=== PATIENT | male | born 1950 | race Caucasian/White ===

== ENCOUNTER 2017-09-25 12:00 | Outpatient (RCR) | payer OTHER, MEDICARE, SELFPAY ==
--- NOTE | 2017-09-08 13:54 | HP.PTEVAL_ITS ---
Patient's Visit Information LELE HILARIO is a 67 year old M referred to Physical Therapy by abiel Acosta Dr. with a diagnosis of disc displacement of the lumbar spine and sprain of cervical spine. Date of Evaluation: 09/03/17 Physical Therapist: Niles Adhikari - Visit Plan Frequency: 2-3x /Week Duration: 8 weeks Plan: Start with flexed based exercises, neutral spine core strengthening, hip strengthening, gait progression. May use lossings traction and/or IFC/ice as needed for pain contro. - Subjective Subjective: Pt. is here today for his initial evaluation with diagnosis of disc displacement of the lumbar spine and sprain of cervical spine. He reports his symptoms started in . He had a lamenectomy on his lumbar spine of that year. He has been seeing pain management to keep his symptoms at bay. He also reports that he is awaiting approval for lumbar nerve ablasion. Over the last 6 months he has noted a marked increase in pain and decreased functional mobility. He was previously walking ~100 to 150' with FWW, but now is only walking ~15'. He reports increased pain in bilateral posterior legs with standing and walking. Increased pain with walking, standing, prolonged sitting , traveling. Decreased pain- changing positioning. He is able to fall asleep without issues, but does have LE muscle cramping that wakes him up at night. He reports he is currently off his pain medications because it was not helping. He has constant pain in his lumbar spine with radiating pain down BLEs with standing and walking. He has been off work since his initial injury. He denies N /T in either LE and has no changes in B/B. Pt. is hopeful to reduce symptoms in order to increase ability to ambulate over larger distances reducing stress applied to family with caregiving. - Objective POSTURE: Pt. is over wt., pt. has general flexed posture that worsens in stance. Pt. has normal iliac crest heights, reduced lumbar lordosis. Pt. has wide CAMELIA in stance and heavily uses AD, but was able to stand with out AD for brief periods of time. PALPATION: Pt. of lumbar erector spine, mild increase in bilateral sides. Pt. has no pain with palpation of bilateral hips. Pt. has no pain at iliac crests. NEUROLOGICAL: Pt. has normal sensation to light and sharp touch of bilateral LEs. Pt. has 1+ bilateral achilles and patellar DTR bilaterally. Pt. has limited ability to rise on his toes and heels with signs of weakness. ROM: Pt. has normal knee and ankle ROM bilaterally. Pt. has tight HS bilaterally, tight hip flexors. Pt. has normal hip ROM otherwise. LUMBAR SPINE: flexion min loss increase NW, ext mod/max loss increase, SB min loss bilat increase NW, rotation min/mod loss bilat increase NW. MMT- RLE- ankle 4/ 5 throughout; knee- ext 4/5, flexion 4/5; hip- flexion 4-/5, abd 4/5, ext 4/5. LLE- ankle 4/5 throughout; knee- ext 4+/5, flexion 4/5; hip- flexion 4-/5, abd 4 -/5, ext 4-/5. Core strength- poor. GAIT: Pt. ambulated with FWW 17ft. CHELA. He has heavy use of AD, decreased step length, fwrd flexed posture, increased postural sway bilaterally. - Special Tests L/S Slump test left side: Positive L/S Slump test right side: Positive L/S Left Straight Leg Raise: Positive L/S Right Straight Leg Raise: Positive Lumbar Standing: Flexion - Mechanical Response: No effect Lumbar Standing: Flexion - Symptoms During Testing: Increases Lumbar Standing: Flexion - Symptoms After Testing: No worse Lumbar Standing: Extension - Mechanical Response: No effect Lumbar Standing: Extension - Symptoms During Testing: Peripheralizing Lumbar Standing: Extension - Symptoms After Testing: No worse Lumbar Standing: Right Side Glides - Mechanical Response: No effect Lumbar Standing: Right Side [place] - Symptoms During Testing: Increases Lumbar Standing: Right Side [place] - Symptoms After Testing: No worse Lumbar Standing: Left Side [place] - Mechanical Response: No effect Lumbar Standing: Left Side [place] - Symptoms During Testing: Increases Lumbar Standing: Left Side [place] - Symptoms After Testing: No worse Lumbar Lying: Flexion - Mechanical Response: No effect Lumbar Lying: Flexion - Symptoms During Testing: Decreases Lumbar Lying: Flexion - Symptoms After Testing: No better Lumbar Static: Slouched Sit - Mechanical Response: No effect Lumbar Static: Slouched Sit - Symptoms During Testing: No effect Lumbar Static: Slouched Sit - Symptoms After Testing: No effect Lumbar Static: Sitting Erect - Mechanical Response: No effect Lumbar Static: Sitting Erect - Symptoms During Testing: No effect Lumbar Static: Sitting Erect - Symptoms After Testing: No effect - Goals Goal 1:: Pt. to be I with HEP. Goal Time Frame: 6-8 Weeks Goal 2:: Pt. to have increased HS and hip flexor length by 10deg/ea. bilaterally allowing for neutral pelvic positioning. Goal Time Frame: 6-8 Weeks Goal 3:: Pt. to have decreased lumbar spine and posterior LE pain by 50% allowing for increased functional mobility. Goal Time Frame: 6-8 Weeks Goal 4:: Pt. to ambulate >150ft with FWW CHELA allowing for increased independence in home and community. Goal Time Frame: 6-8 Weeks Goal 5:: Pt. to sleep throughout the night with 0-2/10 pain allowing for increased quality of life. Goal Time Frame: 6-8 Weeks - Rehabilitation Potential Physical Therapy Diagnosis: Pt. has signs and symptoms consistent with lumbar spine pain radiating down his B lower extremities. He has symptoms suggesting possibly lumbar stenosis. He has overall core and BLE weakness and overall decreased tolerance to functional mobility. Rehabilitation Potential: Fair - Anticipated Interventions Patient/Client Instruction: Educate patient on: Condition, Plan of Care, Risk Factors, Benefits of Fitness Program For the Purpose of:: To improve decision making, To facilitate caregiver knowledge, To improve self management, To prevent re-injury, To improve ability to perform tasks related to life management, To improve tolerance to ADL's Therapeutic Exercise to Include: Strength training, Power training, Endurance training, Balance training, Body mechanics, Postural training, Flexibilty training, Gait and locomotor training, Passive ROM, Active ROM, Dynamic Lumbar Stabilization, Suze Exercises For the Purpose of:: To decrease pain, To increase ROM, To improve nutrient delivery to tissue, To increase oxygenation perfusion, To improve muscle performance and motor function, To improve ability to perform ADL's, To increase tolerance to activity/condition/position, To improve performance and independence with ADL's, To improve gait and locomotor functions, To improve health of tissue, To decrease soft tissue restriction, To increase flexibility/ ROM, To improve endurance IF ES: Yes Cryotherapy (ice pack, ice massage): Yes Thermo therapy (hot pack): Yes Ultrasound (thermal/non thermal): Yes For the Purpose of:: To decrease pain, To decrease swelling/inflammation, To increase ROM Thank you for the opportunity to evaluate your patient. For Medicare and Medicare HMO plans, please review the plan of care and approve it. It will need to be FAXED BACK to us at [phone] for Medicare purposes. Please let me know if there are questions or concerns regarding this plan of care. Physician Signature: Date:
--- NOTE | 2017-12-02 14:59 | HP.PTDCNRP_ITS ---
HP - Discharge Summary (1) - Patient Information LELE HILARIO was seen in my office for initial evaluation on 09/03/17. The following Plan of Care was established for this patient: Initial Frequency: 2-3x /Week Initial Duration: 8 weeks - Anticipated Interventions Patient/Client Instruction: Educate patient on: Condition, Plan of Care, Risk Factors, Benefits of Fitness Program For the Purpose of:: To improve decision making, To facilitate caregiver knowledge, To improve self management, To prevent re-injury, To improve ability to perform tasks related to life management, To improve tolerance to ADL's Therapeutic Exercise to Include: Strength training, Power training, Endurance training, Balance training, Body mechanics, Postural training, Flexibilty training, Gait and locomotor training, Passive ROM, Active ROM, Dynamic Lumbar Stabilization, Suze Exercises For the Purpose of:: To decrease pain, To increase ROM, To improve nutrient delivery to tissue, To increase oxygenation perfusion, To improve muscle performance and motor function, To improve ability to perform ADL's, To increase tolerance to activity/condition/position, To improve performance and independence with ADL's, To improve gait and locomotor functions, To improve health of tissue, To decrease soft tissue restriction, To increase flexibility/ ROM, To improve endurance IF ES: Yes Cryotherapy (ice pack, ice massage): Yes Thermo therapy (hot pack): Yes Ultrasound (thermal/non thermal): Yes For the Purpose of:: To decrease pain, To decrease swelling/inflammation, To increase ROM This patient was last seen in our office 10/09/17. Pertinent comments regarding their Physical therapy will appear below: Pt. was seen for his low back pain. Pt. has not been back to PT in ~ 2 months and will be DC from PT at this point in time. At this point I will be discontinuing this patient from physical therapy. I would be happy to see this patient again in the future if found appropriate by the physician. Thank you! Niles Adhikari
== END 2017-09-25 19:00 | disposition home or self-care (01) ==
LOC: PT 12:00
PROVIDERS: Family Provider Family Medicine; PCP Family Medicine
DX: M51.26 Other intervertebral disc displacement, lumbar region (principal); S13.4XXD Sprain of ligaments of cervical spine, subsequent encounter
CPT/HCPCS: 97014; 97110; 97162; G0283

== ENCOUNTER 2017-12-04 12:31 | Outpatient (RCR) | payer MEDICARE, SELFPAY | END 2017-12-04 19:00 | disposition home or self-care (01) | LOC: PT 12:31 | PROVIDERS: Family Provider Family Medicine; PCP Family Medicine | DX: S13.4XXD Sprain of ligaments of cervical spine, subsequent encounter (principal) ==

== ENCOUNTER 2018-07-05 15:23 | Observation (INO) | payer MEDICARE, SELFPAY ==
[2018-07-05] VITALS (8 sets, daily range): BP systolic 116–169; BP diastolic 66–103; PULSE 90–110; RESP 16–27; TEMP 36.6; O2SAT 93–96; BMI 41.3; BMI 41.0
--- NOTE | 2018-07-05 15:38 | RAD_ITS ---
STUDY: X-RAY CHEST REASON FOR EXAM: Male, 67 years old. Chest pain TECHNIQUE: A single frontal view of the chest was obtained. COMPARISON: August 27, 2015 FINDINGS: The lungs are underaerated. There are minimal increased markings in both lung bases. There is no demonstrated pleural abnormality. The cardiac silhouette is normal in size. The mediastinum and hilar regions are unremarkable. Normal visualized pulmonary arteries. Normal visualized aortic arch and descending thoracic aorta. There are diffuse degenerative changes of the visualized spine. The visualized ribs, clavicles, and shoulders are unremarkable. There is no demonstrated abnormality of the visualized upper abdomen. RAD/Chest 1 View (Portable) IMPRESSION: No acute cardiopulmonary abnormalities. There is minimal bibasilar atelectasis. Electronically Signed: Jacqui Courtney MD at 16:46 EST Tel Direct: [phone], Service support ,
--- NOTE | 2018-07-05 15:38 | EKG12_ITS ---
Test Reason : CP Blood Pressure : / mmHG Vent. Rate : 106 BPM Atrial Rate : 106 BPM P-R Int : 186 ms QRS Dur : 082 ms QT Int : 320 ms P-R-T Axes : 035 061 047 degrees QTc Int : 425 ms Sinus tachycardia with frequent Premature ventricular complexes Otherwise normal ECG Confirmed by DAYAN HESTER, AMMON ([id number]), development editor FRANCISCO WISDOM ([id number] on 07/08/2018 1:08:14 PM Referred By: COLLIN/PEARL Confirmed By:AMMON HANLEY MD
--- NOTE | 2018-07-05 15:43 | ED.VISSUMM ---
- ER Visit Summary Date of Service: 07/05/18 Chief Complaint: Chest pain History of Present Illness: The patient is a 67 M who developed chest pain after drinking water last night, it lasted about half an hour and subsided. He try to drink water again today and he developed retrosternal chest pain again. No radiation to arms or back. He has a cough which is not productive. He has no shortness of breath. No recent fever or chills. Physical Examination: Not appear in acute distress. Begin in full sentences Slightly dry mucous membranes, no obvious facial deformity No C-spine tenderness supple neck. Regular rhythm, tachycardic at 105, without any obvious murmurs Clear lungs bilaterally speaking in full sentences without any obvious respiratory distress Abdomen soft and nontender no guarding or rebound Moves all extremities without any difficulty or pain. Skin does not show any obvious rashes or lesions, no trauma. Alert oriented ?3 with no gross focal deficit Emergency Department Course and Treatment: Has an unremarkable troponin, EKG is nonspecific, his heart score is a 4 therefore I am worried about a possible cardiac etiology. I will admit him to the hospital for further cardiac workup. Admit in stable condition Impression: Chest pain This note was generated with [employer] dictation software. It may contain incorrect words, spelling, and punctuation that were not noted in review of the chart prior to signing ED Disposition - Plan for ED Patient: Chief Complaint: Chest Pain Referrals: Omar Triplett MD [Primary Care Provider] -
[2018-07-05 15:54] LABS: Absolute Lymphocyte Count 1.88 X10^3/ul (0.83-4.51); Absolute Neutrophil Count 8.1 X10^3/uL (2.0-7.7); Basophil# 0.01 X10^3/uL; Basophil% 0.1 % (0-1); Eosinophil# 0.06 X10^3/uL; Eosinophils% 0.6 % (0-5); Hematocrit 50.6 % (40-54); Hemoglobin 16.9 g/dl (13.0-16.5); Lymphocyte # 1.88 X10^3/ul (4.0); Lymphocyte % 17.4 % (19-41); Mean Corp Hgb Conc 33.4 g/gl (32-36); Mean Corpuscular Hgb 30.6 pg (27.0-32.0); Mean Corpuscular Volume 91.7 fL (80-94); Monocyte# 0.72 X10^3/uL; Monocyte% 6.7 % (0-10); Neutrophil # 8.11 X10^3/uL (2.7-7.7); Neutrophil % 75.1 % (47-70); Platelet Count 366 K/mm3 (150-450); RBC Distribution Width SD 46.8 fl (35.1-43.9); Red Blood Count 5.52 M/mm3 (4.6-6.2); White Blood Count 10.8 K/mm3 (4.4-11.0)
[2018-07-05 15:55] LABS: POSITIVE COUNT NO; POSITIVE DIFFERENTIAL NO; POSITIVE MORPHOLOGY NO
[2018-07-05] MEDS: Mag Hydrox/Al Hydrox/Simeth 30 ML UDC PO (16:12)
[2018-07-05] MEDS: Ondansetron 4 MG/2 ML Vial IV (16:21)
[2018-07-05] MEDS: 0.9% Normal Saline 1,000 ML 1000 ML IV (16:21)
[2018-07-05 16:27] LABS: AST(SGOT) 22 U/L (15-37); Alanine Aminotransfer ALT/SGPT 37 U/L (16-61); Albumin, Serum 3.5 g/dL (3.2-5.0); Alkaline Phosphatase 88 U/L (45-117); Anion Gap 10 (5-15); BUN 11 mg/dL (7-18); BUN/Creat Ratio 13.6 RATIO (10-20); Bilirubin, Direct 0.15 mg/dL (0.00-0.30); Calcium,Total 9.1 mg/dL (8.5-10.1); Chloride 104 mmol/L (98-107); Creatinine, Serum 0.81 mg/dL (0.70-1.30); EST Glomerular Filtration Rate 101 mL/min (>60); Est Glom Filt Rate - Afr Amer 122 mL/min (>60); Globulin 4.2 g/dL (2.2-4.2); Glucose 117 mg/dL (74-106); Lipase 103 U/L (73-393); Potassium 3.9 mmol/L (3.5-5.1); Protein, Total 7.7 g/dL (6.4-8.2); Sodium Level 139 mmol/L (136-145)
[2018-07-05 16:55] LABS: BNP,B-Type NATRIURETIC PEPTIDE 11.1 pg/mL (0-100)
--- NOTE | 2018-07-05 17:21 | PCM.HP.STD ---
<Gilbert Limon - Last Filed: 07/05/18 17:21> Problem List (1) Chest pain Status: Acute (2) History of stroke Status: Chronic (3) Chronic back pain Status: Chronic Comment: after cholecyste (4) Degenerative disc disease Status: Chronic (5) Hx pulmonary embolism Status: Chronic History of Present Illness Date of Admission: 07/05/18 Chief Complaint: chest pain The patient is a 67 year old M with pmhx of CVA with no residual deficits, not on statin or asa, hx of BPH, hx of post op PEs s/p IVC placement and removal, chronic back pain, who presents to the ER with c/o chest pain that began yesterday at about 7pm. He states that he was sitting down and drank water. After drinking water he developed midsternal chest discomfort. It was a 5/10 in severity and aching. He had no radiation. He had no SOB, dizziness/LH, or diaphoresis, nausea, and was not better or worse with exertion. It went away spontaneously at about 11pm. Today he was sitting down, drank water again, and developed the same pain. He came to the ER and it went away spontaneously without nitro. He states it may be a 1/10 currently. It hurts when he pushes on his sternum. ED cardiac workup was negative. He has a stress test maybe 8-9 years ago that was negative, he cannot walk on a treadmill 2/2 bad back. [] Past Medical History Past Medical History (Chronic Problems): Chronic Problems History of stroke (Chronic) Obstructive sleep apnea (Chronic) Hx pulmonary embolism (Chronic) Degenerative disc disease (Chronic) Chronic back pain (Chronic) after cholecyste History of cardiac catheterization (Chronic) 2004 Obesity (Chronic) Allergies acetaminophen [From Percocet] Adverse Reaction (Verified 07/05/18 15:38) Other HALLUCINATIONS oxycodone HCl [From Percocet] Adverse Reaction (Verified 07/05/18 15:38) Other HALLUCINATIONS Home Medications: Ambulatory Orders Medication Instructions Recorded Tamsulosin HCl [Flomax] 0.4 mg PO BID 08/27/15 Acetaminophen with Codeine 1 tab PO DAILY PRN 07/05/18 [Acetaminophen-Cod #3 Tablet] Baclofen 10 mg PO TID 07/05/18 Surgical History: cholecystectomy, tonsillectomy, - - Lumbar surgery secondary to disc impingement, IVC filter placement, tooth extraction Psychiatric History: No pertinent psych hx Lives: Spouse/ Significant Other Smoking Status: Former smoker Alcohol: None Drugs: None - *Family History Maternal History Items: Stroke Paternal History Items: No pertinent history Review of Systems Constitutional: Denies: Chills, Fever, Weight Change HEENT: Denies: Head Aches, Sinus Congestion, Sinus Drainage Cardiovascular: Reports: Chest Pain. Denies: Chest Pressure, Chest Tightness, Heaviness, Light Headedness, Palpitations, Paroxysmal Noc. Dyspnea, Syncope Respiratory: Denies: Cough, Shortness of Breath, Shortness of breath at rest, Sputum production Gastrointestinal: Denies: Abdominal Pain, Nausea, Vomiting Genitourinary: Denies: Dysuria Musculoskeletal: Denies: Joint Pain, Joint Tenderness Skin: Denies: Rash, Wounds Neurological: Denies: Numbness, Tingling, Focal weakness Psychiatric: Denies: Anxiety, Depression, Homicidal Ideations, Suicidal Ideations Hematologic/ Lymphatic: Denies: Easy Bruising, Easy Bleeding VTE Information - Inpt Only VTE Present on Admission: No VTE Mechan Device Prophylaxis: None VTE Pharm Prophylaxis ordered?: Yes Patient Problems: Active and Suspected Problems Chest pain (Acute) - Physical Exam General: Alert, Oriented x3, Cooperative HEENT: Atraumatic, PERRLA, EOMI, Normocephalic Neck: Supple, No JVD, Negative Carotid Bruits Lungs: Clear to auscultation, Normal air movement Cardiovascular: Regular rate, No murmurs Abdomen: Bowel Sounds Present, Soft, Non Tender Extremities: No edema, Capillary Refill Less than 3 Seconds Skin: No rashes, No breakdown Musculoskeletal: No Tenderness to Palpation of Joints or Extremities, - - chest pain reproducible with sternal palp. Neurological: Cranial nerves II-XII grossly intact Psych/Mental Status: Normal Affect, Appropriate Vital Signs Temp Pulse Resp BP Pulse Ox 97.8 F 93 16 148/88 H 96 07/05/18 15:24 07/05/18 17:01 07/05/18 17:01 07/05/18 17:01 07/05/18 17:01 Oxygen Delivery Method Room Air Weight: 279 lb 12.266 oz Body Mass Index (BMI) 41.3 Finger Stick Blood Glucose 99 Laboratory Tests Past 24 Hrs 07/05/18 07/05/18 07/05/18 15:40 15:40 15:40 WBC 10.8 RBC 5.52 Hgb 16.9 H Hct 50.6 MCV 91.7 MCH 30.6 MCHC 33.4 RDW 14.0 RDW Differential 46.8 H Plt Count 366 MPV 10.0 Immature Gran % (Auto) 0.100 Neut % (Auto) 75.1 H Lymph % (Auto) 17.4 L [place] % (Auto) 6.7 Eos % (Auto) 0.6 Baso % (Auto) 0.1 Absolute Neuts (auto) 8.1 H Absolute Lymphs (auto) 1.88 Total Counted Not Reportable Sodium 139 Potassium 3.9 Chloride 104 Carbon Dioxide 25.0 Anion Gap 10 BUN 11 Creatinine 0.81 Estim Creat Clear Calc 88.50 Est GFR (MDRD) Af Amer 122 Est GFR (MDRD) Non-Af 101 BUN/Creatinine Ratio 13.6 Glucose 117 H Calcium 9.1 Total Bilirubin Direct Bilirubin AST ALT Alkaline Phosphatase Troponin I < 0.015 B-Natriuretic Peptide 11.1 Total Protein Albumin Globulin Lipase 07/05/18 07/05/18 15:40 15:40 WBC RBC Hgb Hct MCV MCH MCHC RDW RDW Differential Plt Count MPV Immature Gran % (Auto) Neut % (Auto) Lymph % (Auto) [place] % (Auto) Eos % (Auto) Baso % (Auto) Absolute Neuts (auto) Absolute Lymphs (auto) Total Counted Sodium Potassium Chloride Carbon Dioxide Anion Gap BUN Creatinine Estim Creat Clear Calc Est GFR (MDRD) Af Amer Est GFR (MDRD) Non-Af BUN/Creatinine Ratio Glucose Calcium Total Bilirubin 0.40 Direct Bilirubin 0.15 AST 22 ALT 37 Alkaline Phosphatase 88 Troponin I B-Natriuretic Peptide Total Protein 7.7 Albumin 3.5 Globulin 4.2 Lipase 103 Assessment/Plan All Active Problems Chest pain (Acute) Left arm numbness (Acute) Left arm weakness (Acute) 1. Chest pain - atypical - risk factors include age, morbid obesity, hx of stroke, former smoker, HTN on arrival. EKG sinus tachy with PVC. Trop neg. CXR neg. Trend enzymes, repeat AM EKG, Stress test in AM, monitor on tele. BNP negative. Pain is reproducible with palpation. 2. HTN in ER - trending down. 3. Morbid obesity - dietary eval 4. Hx CVA - no residual deficits - not on asa/statin, unclear why. 5. Hx PE - occurred post op open rafa, had temporary IVC filter that has since been removed. 6. DDD s/p prior fusion - will not be able to walk on treadmill. On baclofen chronically. 7. BPH - flomax DVT ppx: Lovenox This patient was seen by Gilbert Limon PA-C under the supervision of Dr. Rachel. <Marlen Rachel - Last Filed: 07/05/18 18:18> History of Present Illness The patient is a 67 year old M [] Past Medical History Allergies acetaminophen [From Percocet] Adverse Reaction (Verified 07/05/18 15:38) Other HALLUCINATIONS oxycodone HCl [From Percocet] Adverse Reaction (Verified 07/05/18 15:38) Other HALLUCINATIONS - Physical Exam Vital Signs Temp Pulse Resp BP Pulse Ox 97.8 F 96 24 H 163/94 H 95 07/05/18 15:24 07/05/18 18:00 07/05/18 18:00 07/05/18 18:00 07/05/18 18:00 Oxygen Delivery Method Room Air Weight: 126.9 kg Body Mass Index (BMI) 41.3 Finger Stick Blood Glucose 99 Laboratory Tests Past 24 Hrs 07/05/18 07/05/18 07/05/18 15:40 15:40 15:40 WBC 10.8 RBC 5.52 Hgb 16.9 H Hct 50.6 MCV 91.7 MCH 30.6 MCHC 33.4 RDW 14.0 RDW Differential 46.8 H Plt Count 366 MPV 10.0 Immature Gran % (Auto) 0.100 Neut % (Auto) 75.1 H Lymph % (Auto) 17.4 L [place] % (Auto) 6.7 Eos % (Auto) 0.6 Baso % (Auto) 0.1 Absolute Neuts (auto) 8.1 H Absolute Lymphs (auto) 1.88 Total Counted Not Reportable Sodium 139 Potassium 3.9 Chloride 104 Carbon Dioxide 25.0 Anion Gap 10 BUN 11 Creatinine 0.81 Estim Creat Clear Calc 88.50 Est GFR (MDRD) Af Amer 122 Est GFR (MDRD) Non-Af 101 BUN/Creatinine Ratio 13.6 Glucose 117 H Calcium 9.1 Total Bilirubin Direct Bilirubin AST ALT Alkaline Phosphatase Troponin I < 0.015 B-Natriuretic Peptide 11.1 Total Protein Albumin Globulin Lipase 07/05/18 07/05/18 15:40 15:40 WBC RBC Hgb Hct MCV MCH MCHC RDW RDW Differential Plt Count MPV Immature Gran % (Auto) Neut % (Auto) Lymph % (Auto) [place] % (Auto) Eos % (Auto) Baso % (Auto) Absolute Neuts (auto) Absolute Lymphs (auto) Total Counted Sodium Potassium Chloride Carbon Dioxide Anion Gap BUN Creatinine Estim Creat Clear Calc Est GFR (MDRD) Af Amer Est GFR (MDRD) Non-Af BUN/Creatinine Ratio Glucose Calcium Total Bilirubin 0.40 Direct Bilirubin 0.15 AST 22 ALT 37 Alkaline Phosphatase 88 Troponin I B-Natriuretic Peptide Total Protein 7.7 Albumin 3.5 Globulin 4.2 Lipase 103 Assessment/Plan This patient was seen in conjunction with DAVION Thorne. I have independently interviewed and examined the patient and reviewed pertinent historical, laboratory, and other data. Please refer to DAVION Thorne note for his patient's presentation, findings, and recommendations. I have reviewed and his note and concur with his documentation Chief complaint: Chest pain - 2 days 67-year-old man, with past medical history of CVA(x2), with no residual paresis, chronic back pain, history of PE, history of IVC, status post removal, who comes in complaints of chest pain that started yesterday. Patient is usually not active; he is limited by his chronic back pain. He had a substernal chest pain that started yesterday at 7 PM, rated 7/10, not associated with diaphoresis or dizziness or nausea or vomiting. Lasted for a few minutes and went away. Recurred again at 11 PM and this morning. PMHX: As above in the HPI PSHX: Status post cholecystectomy, tonsillectomy, disc surgery, IVC filter placement and removal FHx: Mother had a stroke SHx: Eyes any alcohol, smoking or use of illicit drugs ROS: 11 point review of systems was negative Physical Exam: Gen: Morbidly obese, AO x3, not pale, not jaundiced, drainage HEENT: Traumatic, EOMI CVS:HS I +II, regular, no murmurs RESP: Clinically clear to auscultation GI: BS present and normal, cholecystectomy scar in the right upper quadrant, obese anterior abdominal wall, soft, nontender, no palpable organs EXT:No edema HEALTH AND SAFETY COORDINATOR:CN II-XII intact, power is 5/5 in all extremities, muscle tone Labs: CBC is unremarkable except for elevated hemoglobin of 16.9 BMP is unremarkable Troponins x1 is negative Imaging: Chest x-ray is unremarkable, minimal bibasilar atelectasis ASSESSMENT: 1. Chest pain, atypical 2. Morbid obesity, BMI 41.3 3. Chronic back pain status post spinal fusion 4. History of PE 5. History of CVA 6. BPH Plan: Admit to PCU, monitor on telemetry, trend troponin Aspirin 81mg daily, nitro as needed Lipid profile in a.m. Chemical stress test if troponins are negative Continue rest of home medications -Flomax, baclofen, Tylenol #3 Code Visit OBSV E&M: 04001 Initial observation care L3
--- NOTE | 2018-07-05 19:01 | EKG12_ITS ---
Test Reason : CP Blood Pressure : / mmHG Vent. Rate : 094 BPM Atrial Rate : 094 BPM P-R Int : 206 ms QRS Dur : 090 ms QT Int : 340 ms P-R-T Axes : 045 061 048 degrees QTc Int : 425 ms Normal sinus rhythm Normal ECG When compared with ECG of 05-JUL-2018 15:28, MANUAL COMPARISON REQUIRED, DATA IS UNCONFIRMED Confirmed by DAYAN HESTER, AMMON ([id number]), marketing editor FRANCISCO WISDOM ([id number] on 07/10/2018 1:57:10 PM Referred By: LULU Confirmed By:AMMON HANLEY MD
[2018-07-05] MEDS: Aspirin 81 MG TAB.CHEW PO (20:37)
[2018-07-05] MEDS: Fluticasone 0.05% 1 SPRAY NASAL.SRY 2 SPRAY NASAL (22:12)
[2018-07-05] MEDS: Tamsulosin HCl 0.4 MG Capsule PO (22:12)
[2018-07-05] MEDS: guaiFENesin 1,200 MG Tablet 1200 MG PO (22:12)
[2018-07-06 00:45] VITALS: BP 121/72; PULSE 97; RESP 20; TEMP 36.7; O2SAT 96
[2018-07-06 02:58] VITALS: PULSE 94
[2018-07-06 03:28] VITALS: BP 93/51; PULSE 100; RESP 18; TEMP 36.6; O2SAT 94
[2018-07-06 05:27] LABS: Hematocrit 43.7 % (40-54); Hemoglobin 14.5 g/dl (13.0-16.5); Mean Corp Hgb Conc 33.2 g/gl (32-36); Mean Corpuscular Hgb 30.2 pg (27.0-32.0); Mean Platelet Vol. 9.9 fl (6.2-12.0); Platelet Count 302 K/mm3 (150-450); RBC Distribution Width CV 14.3 % (11.6-14.6); RBC Distribution Width SD 47.1 fl (35.1-43.9); White Blood Count 9.4 K/mm3 (4.4-11.0)
[2018-07-06 05:31] LABS: International Normalized Ratio 1.2; Prothrombin Time (Protime)PT. 15.3 SECONDS (11.7-14.9)
[2018-07-06 05:32] LABS: Partial Thromboplast Time 37.4 Seconds (24.1-36.2)
[2018-07-06 05:38] LABS: Anion Gap 11 (5-15); BUN 12 mg/dL (7-18); BUN/Creat Ratio 20.3 RATIO (10-20); Calcium,Total 8.4 mg/dL (8.5-10.1); Chloride 109 mmol/L (98-107); Cholesterol 145 mg/dL (200); Creatinine, Serum 0.59 mg/dL (0.70-1.30); EST Glomerular Filtration Rate 145 mL/min (>60); Est Glom Filt Rate - Afr Amer 176 mL/min (>60); Estimated Creatinine Clearance 71.68 ml/min; Glucose 103 mg/dL (74-106); High Density Lipoprotein 41 mg/dL; Potassium 4.1 mmol/L (3.5-5.1); Sodium Level 143 mmol/L (136-145); Triglycerides 83 mg/dL; Very Low Density Lipoprotein 17 mg/dL (5-40)
[2018-07-06 05:45] LABS: Scan Indicated on CBC? Y/N NO
--- NOTE | 2018-07-06 05:55 | EKG12_ITS ---
Test Reason : MORNING EKG Blood Pressure : / mmHG Vent. Rate : 096 BPM Atrial Rate : 096 BPM P-R Int : 226 ms QRS Dur : 092 ms QT Int : 344 ms P-R-T Axes : 051 064 059 degrees QTc Int : 434 ms Sinus rhythm with 1st degree A-V block Nonspecific T wave abnormality Abnormal ECG When compared with ECG of 05-JUL-2018 19:00, MANUAL COMPARISON REQUIRED, DATA IS UNCONFIRMED Confirmed by DAYAN HESTER, AMMON ([id number]), proposal editor FRANCISCO WISDOM ([id number]) on 07/10/2018 1:56:46 PM Referred By: LULU Confirmed By:AMMON HANLEY MD
[2018-07-06] MEDS: Aspirin 81 MG TAB.CHEW PO (06:11)
[2018-07-06] MEDS: Baclofen 10 MG Tablet PO (06:11)
[2018-07-06 07:06] VITALS: PULSE 104
[2018-07-06] MEDS: Acetaminophen/Codeine #3 Tablet 1 TABLET PO (08:21)
[2018-07-06] MEDS: Fluticasone 0.05% 1 SPRAY NASAL.SRY 2 SPRAY NASAL (08:23)
[2018-07-06] MEDS: guaiFENesin 1,200 MG Tablet 1200 MG PO (08:23)
[2018-07-06 08:49] VITALS: BP 113/64; PULSE 96; RESP 18; TEMP 36.7; O2SAT 95
--- NOTE | 2018-07-06 12:15 | STRESSREP ---
Stress Test Report Pharmacologic myocardial perfusion stress test. 67-year-old man with a history of chest pain. Stress protocol: Resting EKG demonstrates normal sinus rhythm with a rate of 94 bpm normal intervals are noted resting blood pressure 136/76 mmHg. 0.4 mg of regadenoson was infused per usual protocol followed by rapid intravenous saline flush injection. Continuous EKG monitoring was performed. Patient maintained sinus rhythm throughout the recording with frequent premature ventricular complexes noted. These were asymptomatic. The resting blood pressure is 136/70 6 m of mercury with a final blood pressure 128/70 mmHg. No clinical angina was noted. Myocardial perfusion protocol. 15.0 mCi of technetium 99m sestamibi was injected at rest. 0.4 mg of regadenoson was infused per usual protocol. At peak infusion 45.0 mCi of technetium 99m sestamibi was injected stress images were obtained stress and rest images were reconstructed and compared in the short axis vertical long horizontal long axis. Gated images were also obtained Perfusion SPECT analysis: Review of the stress images demonstrate normal uptake of tracer noted in all areas of the myocardium. The resting images similarly demonstrate normal uptake of tracer noted in all areas of the myocardium. No areas of reversibility are noted suggest ischemia no previous infarct is noted. Gated SPECT analysis: The gated ejection fraction is 70%. Conclusion: Normal pharmacologic myocardial perfusion stress test. Preserved ejection fraction.
--- NOTE | 2018-07-06 12:29 | DCINST_ITS ---
- Discharge Diagnoses Current Active Problems: Current Active and Chronic Problems Chest pain (Acute) History of stroke (Chronic) You will use the following diet at home:: Cardiac Your food should be the consistency of: Regular Your liquids should be the consistency of: Regular/Thin Discharge Activity: Return to Normal Activity Allergies/Adverse Reactions: Allergies acetaminophen [From Percocet] Adverse Reaction (Verified 07/05/18 15:38) Other HALLUCINATIONS oxycodone HCl [From Percocet] Adverse Reaction (Verified 07/05/18 15:38) Other HALLUCINATIONS Medications to take at Discharge Tamsulosin HCl [Flomax] 0.4 mg PO BID 08/27/15 Acetaminophen with Codeine [Acetaminophen-Cod #3 Tablet] 1 tab PO DAILY PRN 07/05/18 Baclofen 10 mg PO TID PRN 07/05/18 Aspirin [Aspirin, Baby] 81 mg PO DAILY@0800 #30 tab.chew 07/06/18 Atorvastatin Calcium 40 mg PO DAILY #30 tab 07/06/18 The following prescriptions were given: Aspirin [Aspirin, Baby] 81 mg PO DAILY@0800 #30 tab.chew Atorvastatin Calcium 40 mg PO DAILY #30 tab Primary Care Physician: Omar Triplett MD [Primary Care Provider] - Please follow up with your Primary Care Physician in: 1-2 weeks Test Results: Test results from this visit will be discussed in further detail at your follow- up appointment, if applicable. Proposed Discharge Date: 07/06/18
--- NOTE | 2018-07-06 12:33 | DS.PCM_ITS ---
<Gilbert Limon - Last Filed: 07/06/18 12:29> Discharge Date and Diagnosis - Problem List Patient Problems: Active and Suspected Problems Chest pain (Acute) Date of Admission: 07/05/18 Date of Discharge: 07/06/18 - Primary Discharge Diagnosis Active and Suspected Problems Chest pain (Acute) - musculoskeletal Hx of CVA BPH Chronic back pain DDD Hx of PE Morbid obesity - Secondary Discharge Diagnosis Chronic Problems History of stroke (Chronic) Obstructive sleep apnea (Chronic) Hx pulmonary embolism (Chronic) Degenerative disc disease (Chronic) Chronic back pain (Chronic) after cholecyste History of cardiac catheterization (Chronic) 2004 Obesity (Chronic) Hospital Course and Treatment Imaging Results: 07/06/18 05:55 Nuclear Stress Test - Chemical [NM] AM (NON MEDS) Conclusion: Normal pharmacologic myocardial perfusion stress test. Preserved ejection fraction. RAD/Chest 1 View (Portable) IMPRESSION: No acute cardiopulmonary abnormalities. There is minimal bibasilar atelectasis. Operations: None Procedures: None Summary of Care Provided: Hospital Course: The patient is a 67 year old M with a pmhx of stroke, chronic back pain, BPH, prior post op PEs, morbid obesity, who presented to the ER with c/o midsternal nonradiating 5/10 aching chest pain that occurred twice over two days both times after sitting down and sipping water. It was worse with pressing on the sternum, nothing made it better. In the ER he had negative EKG, negative troponin, and negative CXR. He was admitted to the PCU for chest pain workup. Enzymes were cycled and remained negative. No events on tele. Stress test the following day was negative. His pain was reproducible with palpation of the sternum and felt to be musculoskeletal. As he had a hx of stroke and was not on aspirin or statin for unknown reasons, he was placed on aspirin and lipitor at discharge. He was advised to follow up with his PCP in 1-2 weeks. This patient was seen by Gilbert Limon PA-C under the supervision of Dr. Rao. [] Patient Problems: Active and Suspected Problems Chest pain (Acute) - Physical Exam General: Alert, Oriented x3, Cooperative HEENT: Atraumatic, PERRLA, EOMI, Normocephalic Neck: Supple, No JVD, Negative Carotid Bruits Lungs: Clear to auscultation, Normal air movement Cardiovascular: Regular rate, No murmurs Abdomen: Bowel Sounds Present, Soft, Non Tender Extremities: No edema, Capillary Refill Less than 3 Seconds Skin: No rashes, No breakdown Musculoskeletal: - - chest pain on palpation of sternum Neurological: Cranial nerves II-XII grossly intact Psych/Mental Status: Normal Affect, Appropriate, Alert and oriented to time, place, person, mood and affect Vital Signs Temp Pulse Resp BP Pulse Ox 98.0 F 96 18 113/64 95 07/06/18 08:49 07/06/18 08:49 07/06/18 08:49 07/06/18 08:49 07/06/18 08:49 Oxygen Delivery Method Room Air Weight: 279 lb 15.793 oz Body Mass Index (BMI) 41.3 Finger Stick Blood Glucose 99 Intake and Output for Last 24 Hours 07/04/18 07/05/18 07/06/18 23:59 23:59 23:59 Intake Total 300 / 300 Output Total 500 / 500 Balance -200 / -200 Laboratory Tests Past 24 Hrs 07/05/18 07/05/18 07/05/18 15:40 15:40 15:40 WBC 10.8 RBC 5.52 Hgb 16.9 H Hct 50.6 MCV 91.7 MCH 30.6 MCHC 33.4 RDW 14.0 RDW Differential 46.8 H Plt Count 366 MPV 10.0 Immature Gran % (Auto) 0.100 Neut % (Auto) 75.1 H Lymph % (Auto) 17.4 L [place] % (Auto) 6.7 Eos % (Auto) 0.6 Baso % (Auto) 0.1 Absolute Neuts (auto) 8.1 H Absolute Lymphs (auto) 1.88 Total Counted Not Reportable PT INR APTT Sodium 139 Potassium 3.9 Chloride 104 Carbon Dioxide 25.0 Anion Gap 10 BUN 11 Creatinine 0.81 Estim Creat Clear Calc 88.50 Est GFR (MDRD) Af Amer 122 Est GFR (MDRD) Non-Af 101 BUN/Creatinine Ratio 13.6 Glucose 117 H Calcium 9.1 Total Bilirubin Direct Bilirubin AST ALT Alkaline Phosphatase Troponin I < 0.015 B-Natriuretic Peptide 11.1 Total Protein Albumin Globulin Triglycerides Cholesterol LDL Cholesterol VLDL Cholesterol HDL Cholesterol Lipase 07/05/18 07/05/18 07/05/18 15:40 15:40 18:53 WBC RBC Hgb Hct MCV MCH MCHC RDW RDW Differential Plt Count MPV Immature Gran % (Auto) Neut % (Auto) Lymph % (Auto) [place] % (Auto) Eos % (Auto) Baso % (Auto) Absolute Neuts (auto) Absolute Lymphs (auto) Total Counted PT INR APTT Sodium Potassium Chloride Carbon Dioxide Anion Gap BUN Creatinine Estim Creat Clear Calc Est GFR (MDRD) Af Amer Est GFR (MDRD) Non-Af BUN/Creatinine Ratio Glucose Calcium Total Bilirubin 0.40 Direct Bilirubin 0.15 AST 22 ALT 37 Alkaline Phosphatase 88 Troponin I < 0.015 B-Natriuretic Peptide Total Protein 7.7 Albumin 3.5 Globulin 4.2 Triglycerides Cholesterol LDL Cholesterol VLDL Cholesterol HDL Cholesterol Lipase 103 07/05/18 07/06/18 07/06/18 21:42 04:54 04:54 WBC RBC Hgb Hct MCV MCH MCHC RDW RDW Differential Plt Count MPV Immature Gran % (Auto) Neut % (Auto) Lymph % (Auto) [place] % (Auto) Eos % (Auto) Baso % (Auto) Absolute Neuts (auto) Absolute Lymphs (auto) Total Counted PT 15.3 H INR 1.2 APTT 37.4 H Sodium 143 Potassium 4.1 Chloride 109 H Carbon Dioxide 23.0 Anion Gap 11 BUN 12 Creatinine 0.59 L Estim Creat Clear Calc 71.68 Est GFR (MDRD) Af Amer 176 Est GFR (MDRD) Non-Af 145 BUN/Creatinine Ratio 20.3 H Glucose 103 Calcium 8.4 L Total Bilirubin Direct Bilirubin AST ALT Alkaline Phosphatase Troponin I < 0.015 B-Natriuretic Peptide Total Protein Albumin Globulin Triglycerides 83 Cholesterol 145 LDL Cholesterol 87 VLDL Cholesterol 17 HDL Cholesterol 41 Lipase 07/06/18 04:54 WBC 9.4 RBC 4.80 Hgb 14.5 Hct 43.7 MCV 91.0 MCH 30.2 MCHC 33.2 RDW 14.3 RDW Differential 47.1 H Plt Count 302 MPV 9.9 Immature Gran % (Auto) Neut % (Auto) Lymph % (Auto) [place] % (Auto) Eos % (Auto) Baso % (Auto) Absolute Neuts (auto) Absolute Lymphs (auto) Total Counted PT INR APTT Sodium Potassium Chloride Carbon Dioxide Anion Gap BUN Creatinine Estim Creat Clear Calc Est GFR (MDRD) Af Amer Est GFR (MDRD) Non-Af BUN/Creatinine Ratio Glucose Calcium Total Bilirubin Direct Bilirubin AST ALT Alkaline Phosphatase Troponin I B-Natriuretic Peptide Total Protein Albumin Globulin Triglycerides Cholesterol LDL Cholesterol VLDL Cholesterol HDL Cholesterol Lipase Discharge Diet: Low fat/ Low Cholesterol, 2000 mg Sodium Diet Discharge Activity: Return to Normal Activity Home Medications: Medications to take at Discharge Tamsulosin HCl [Flomax] 0.4 mg PO BID 08/27/15 Acetaminophen with Codeine [Acetaminophen-Cod #3 Tablet] 1 tab PO DAILY PRN 07/05/18 Baclofen 10 mg PO TID PRN 07/05/18 Aspirin [Aspirin, Baby] 81 mg PO DAILY@0800 #30 tab.chew 07/06/18 Atorvastatin Calcium 40 mg PO DAILY #30 tab 07/06/18 Following Prescrptions Were Given to Patient: Aspirin [Aspirin, Baby] 81 mg PO DAILY@0800 #30 tab.chew Atorvastatin Calcium 40 mg PO DAILY #30 tab Primary Care Physician: Omar Triplett MD [Primary Care Provider] - Please follow up with your Primary Care Physician in: 1-2 weeks Disposition: Home Minutes spent on discharge:: 35 Patient Condition:: Stable Medical Necessity - Tobacco Use Smoking Status: Former smoker Meaningful Use Info Meaningful Use Diagnoses (Choose all that apply): None applicable <Nicola Rao - Last Filed: 07/06/18 12:42> Discharge Date and Diagnosis - Primary Discharge Diagnosis Active and Suspected Problems Chest pain (Acute) - Secondary Discharge Diagnosis Chronic Problems History of stroke (Chronic) Obstructive sleep apnea (Chronic) Hx pulmonary embolism (Chronic) Degenerative disc disease (Chronic) Chronic back pain (Chronic) after cholecyste History of cardiac catheterization (Chronic) 2004 Obesity (Chronic) Hospital Course and Treatment Imaging Results: 07/06/18 05:55 Nuclear Stress Test - Chemical [NM] AM (NON MEDS) Summary of Care Provided: This patient was seen in conjunction with Gilbert Limon PA-C . I have independently interviewed and examined the patient and reviewed pertinent historical, laboratory, and other data. Please refer to Gilbert Limon PA-C note for details of this patient's presentation, findings, and recommendations. I have reviewed Gilbert Limon PA-C note and concur with documented findings. In brief, patient is a 67-year-old male admitted with chest pain. Patient was placed on a monitored bed patient underwent subsequent evaluation with a nuclear stress test which was negative for stress-induced ischemia. Subsequently discharged home instructed to follow-up with PCP for subsequent care Hospital course: As elicited above - Physical Exam Vital Signs Temp Pulse Resp BP Pulse Ox 98.0 F 96 18 113/64 95 07/06/18 08:49 07/06/18 08:49 07/06/18 08:49 07/06/18 08:49 07/06/18 08:49 Oxygen Delivery Method Room Air Weight: 127 kg Body Mass Index (BMI) 41.3 Finger Stick Blood Glucose 99 Intake and Output for Last 24 Hours 07/04/18 07/05/18 07/06/18 23:59 23:59 23:59 Intake Total 300 / 300 Output Total 500 / 500 Balance -200 / -200 Laboratory Tests Past 24 Hrs 07/05/18 07/05/18 07/05/18 15:40 15:40 15:40 WBC 10.8 RBC 5.52 Hgb 16.9 H Hct 50.6 MCV 91.7 MCH 30.6 MCHC 33.4 RDW 14.0 RDW Differential 46.8 H Plt Count 366 MPV 10.0 Immature Gran % (Auto) 0.100 Neut % (Auto) 75.1 H Lymph % (Auto) 17.4 L [place] % (Auto) 6.7 Eos % (Auto) 0.6 Baso % (Auto) 0.1 Absolute Neuts (auto) 8.1 H Absolute Lymphs (auto) 1.88 Total Counted Not Reportable PT INR APTT Sodium 139 Potassium 3.9 Chloride 104 Carbon Dioxide 25.0 Anion Gap 10 BUN 11 Creatinine 0.81 Estim Creat Clear Calc 88.50 Est GFR (MDRD) Af Amer 122 Est GFR (MDRD) Non-Af 101 BUN/Creatinine Ratio 13.6 Glucose 117 H Calcium 9.1 Total Bilirubin Direct Bilirubin AST ALT Alkaline Phosphatase Troponin I < 0.015 B-Natriuretic Peptide 11.1 Total Protein Albumin Globulin Triglycerides Cholesterol LDL Cholesterol VLDL Cholesterol HDL Cholesterol Lipase 07/05/18 07/05/18 07/05/18 15:40 15:40 18:53 WBC RBC Hgb Hct MCV MCH MCHC RDW RDW Differential Plt Count MPV Immature Gran % (Auto) Neut % (Auto) Lymph % (Auto) [place] % (Auto) Eos % (Auto) Baso % (Auto) Absolute Neuts (auto) Absolute Lymphs (auto) Total Counted PT INR APTT Sodium Potassium Chloride Carbon Dioxide Anion Gap BUN Creatinine Estim Creat Clear Calc Est GFR (MDRD) Af Amer Est GFR (MDRD) Non-Af BUN/Creatinine Ratio Glucose Calcium Total Bilirubin 0.40 Direct Bilirubin 0.15 AST 22 ALT 37 Alkaline Phosphatase 88 Troponin I < 0.015 B-Natriuretic Peptide Total Protein 7.7 Albumin 3.5 Globulin 4.2 Triglycerides Cholesterol LDL Cholesterol VLDL Cholesterol HDL Cholesterol Lipase 103 07/05/18 07/06/18 07/06/18 21:42 04:54 04:54 WBC RBC Hgb Hct MCV MCH MCHC RDW RDW Differential Plt Count MPV Immature Gran % (Auto) Neut % (Auto) Lymph % (Auto) [place] % (Auto) Eos % (Auto) Baso % (Auto) Absolute Neuts (auto) Absolute Lymphs (auto) Total Counted PT 15.3 H INR 1.2 APTT 37.4 H Sodium 143 Potassium 4.1 Chloride 109 H Carbon Dioxide 23.0 Anion Gap 11 BUN 12 Creatinine 0.59 L Estim Creat Clear Calc 71.68 Est GFR (MDRD) Af Amer 176 Est GFR (MDRD) Non-Af 145 BUN/Creatinine Ratio 20.3 H Glucose 103 Calcium 8.4 L Total Bilirubin Direct Bilirubin AST ALT Alkaline Phosphatase Troponin I < 0.015 B-Natriuretic Peptide Total Protein Albumin Globulin Triglycerides 83 Cholesterol 145 LDL Cholesterol 87 VLDL Cholesterol 17 HDL Cholesterol 41 Lipase 07/06/18 04:54 WBC 9.4 RBC 4.80 Hgb 14.5 Hct 43.7 MCV 91.0 MCH 30.2 MCHC 33.2 RDW 14.3 RDW Differential 47.1 H Plt Count 302 MPV 9.9 Immature Gran % (Auto) Neut % (Auto) Lymph % (Auto) [place] % (Auto) Eos % (Auto) Baso % (Auto) Absolute Neuts (auto) Absolute Lymphs (auto) Total Counted PT INR APTT Sodium Potassium Chloride Carbon Dioxide Anion Gap BUN Creatinine Estim Creat Clear Calc Est GFR (MDRD) Af Amer Est GFR (MDRD) Non-Af BUN/Creatinine Ratio Glucose Calcium Total Bilirubin Direct Bilirubin AST ALT Alkaline Phosphatase Troponin I B-Natriuretic Peptide Total Protein Albumin Globulin Triglycerides Cholesterol LDL Cholesterol VLDL Cholesterol HDL Cholesterol Lipase Code Visit OBS E&M: [id number] Observation care discharge
[2018-07-06 12:50] VITALS: BP 130/80; PULSE 94; RESP 18; TEMP 36.9; O2SAT 96
[2018-07-06] MEDS: Tamsulosin HCl 0.4 MG Capsule PO (12:58)
== END 2018-07-06 12:28 | disposition home or self-care (01) ==
LOC: ED 17:32 → PCU 18:12
PROVIDERS: Admitting Provider Internal Medicine; Emergency Provider Emergency Medicine; Family Provider Family Medicine; PCP Family Medicine; Visit Provider Internal Medicine
DX: R07.89 Other chest pain (principal); E66.01 Morbid (severe) obesity due to excess calories; Z68.41 Body mass index [BMI] 40.0-44.9, adult; Z71.3 Dietary counseling and surveillance; Z79.899 Other long term (current) drug therapy; M54.9 Dorsalgia, unspecified; G89.29 Other chronic pain; Z86.711 Personal history of pulmonary embolism; N40.0 Benign prostatic hyperplasia without lower urinary tract symptoms; Z86.73 Personal history of transient ischemic attack (TIA), and cerebral infarction without residual deficits; G47.33 Obstructive sleep apnea (adult) (pediatric); Z87.891 Personal history of nicotine dependence; I10 Essential (primary) hypertension; Z98.1 Arthrodesis status
CPT/HCPCS: 36415; 71045; 78452; 80048; 80061; 80076; 83690; 83880; 84484; 85025; 85027; 85610; 85730; 93005; 93017; 96361; 96374; 97802; 99218; 99285; A9500; J7030; A4216; G0378; J2405; J2785

== ENCOUNTER 2019-03-25 09:51 | Inpatient (IN) | payer MEDICARE, SELFPAY ==
[2018-07-05 18:46] VITALS: BMI 41.3
[2019-03-25] VITALS (7 sets, daily range): BP systolic 137–161; BP diastolic 69–93; PULSE 73–93; RESP 16–18; TEMP 36.3–36.8; O2SAT 94–96; BMI 41.3; BMI 41.9
--- NOTE | 2019-03-25 10:03 | CT_ITS ---
STUDY: CT ABDOMEN AND PELVIS WITHOUT CONTRAST REASON FOR EXAM: Male, 68 years old. One-week history of right flank pain. RADIATION DOSAGE (If Supplied By Facility): CTDIvol = ( 22.32 ) mGy, DLP = ( 1338.46 ) mGycm TECHNIQUE: Transaxial images were obtained from the dome of the diaphragm to the symphysis pubis without oral contrast, and without intravenous contrast. Sagittal and coronal images were reconstructed. Individualized dose optimization techniques were used for this CT. COMPARISON: None. FINDINGS: Mild degree of increased markings at the lung bases suggestive of atelectasis and/or scarring. Coronary artery calcification. Normal liver. The patient is status post cholecystectomy. Normal spleen. Normal pancreas. Normal bilateral adrenal glands. Right perinephric stranding. Normal left kidney. Normal visualized stomach. Normal small intestine. There are multiple colonic diverticula consistent with diverticulosis. The appendix is visualized and appears normal. There is diffuse atherosclerotic calcification of the abdominal aorta, without a demonstrated aneurysm. Normal inferior vena cava. The inferior vena cava filter has been removed. Normal retroperitoneum. Normal urinary bladder. Normal abdominal wall. Subchondral sclerosis with spondylosis and disc space narrowing at the L4-L5 level. There is evidence of erosion of the superior endplate of the CT/Abdomen/Pelvis without Cont IMPRESSION: No evidence of ureteral tract obstruction. Sclerosis at the L4-L5 level with erosion of the superior endplate of the L5 vertebrae. An infectious process should be ruled out. Electronically Signed: Jordan Ramírez, at 11:20 EDT , Service support ,
[2019-03-25 10:16] LABS: Absolute Lymphocyte Count 1.26 X10^3/uL (0.83-4.51); Absolute Neutrophil Count 7.7 X10^3/uL (2.0-7.7); Basophil# 0.02 X10^3/uL; Basophil% 0.2 % (0-1); Eosinophil# 0.15 X10^3/uL; Eosinophils% 1.5 % (0-5); Hematocrit 46.3 % (40-54); Hemoglobin 15.2 g/dL (13.0-16.5); Lymphocyte # 1.26 X10^3/ul (4.0); Mean Corp Hgb Conc 32.8 g/dL (32-36); Mean Corpuscular Volume 91.5 fL (80-94); Mean Platelet Vol. 9.1 fl (6.2-12.0); Monocyte# 0.58 X10^3/uL; NRBC Flagged by Analyzer 0 % (0-5); Neutrophil # 7.65 X10^3/uL (2.7-7.7); Platelet Count 276 K/mm3 (150-450); RBC Distribution Width CV 14.2 % (11.6-14.6); RBC Distribution Width SD 47.8 fl (35.1-43.9); Red Blood Count 5.06 M/mm3 (4.6-6.2); White Blood Count 9.7 K/mm3 (4.4-11.0)
[2019-03-25] MEDS: 0.9% Normal Saline 1,000 ML 125 ML IV ×2 (10:28→23:00)
[2019-03-25 10:31] LABS: Anion Gap 6 (5-15); BUN 17 mg/dL (7-18); BUN/Creat Ratio 23.3 RATIO (10-20); Chloride 108 mmol/L (98-107); Creatinine, Serum 0.73 mg/dL (0.70-1.30); EST Glomerular Filtration Rate 113 mL/min (>60); Est Glom Filt Rate - Afr Amer 137 mL/min (>60); Glucose 114 mg/dL (74-106); Potassium 3.9 mmol/L (3.5-5.1); Sodium Level 142 mmol/L (136-145)
[2019-03-25 11:37] LABS: Mucous, Urine 0 SEEN /hpf (<or=2+); Red Blood Cells-Urine 0 SEEN /hpf (0-5)
[2019-03-25 11:39] LABS: Color, Urine Yellow (Yellow); Glucose, Dipstick Normal (Normal); Ketone-Dipstick Negative (Negative); Leukocyte Esterase-Dipstick 100 /ul (Negative); Nitrite-Dipstick Negative (Negative); Occult Blood-Urine Negative /ul (Negative); Protein-Dipstick Negative (Negative); Urine Bilirubin Dipstick Negative (Negative); Urine Clarity Sl. Cloudy (Clear); Urine Urobilinogen 1 mg/dl (Normal)
[2019-03-25 11:45] LABS: Bacteria RARE /hpf (None Seen); Squamous Epithelial Cells - UA 0-5 SEEN /hpf (0-5); White Blood Cells 0-5 SEEN /hpf (0-5)
--- NOTE | 2019-03-25 11:57 | MRI_ITS ---
STUDY: MRI LUMBAR SPINE WITH AND WITHOUT CONTRAST REASON FOR EXAM: Male, [address], BACK PAIN. TECHNIQUE: Standardized fat and water weighted pulse sequences were obtained in the sagittal and axial planes. 25 IV Dotarem was administered for the contrast portion of the examination. COMPARISON: 03/25/2019 CT of the abdomen and pelvis. FINDINGS: T12-L1: There is mild disc space narrowing and endplate spondylosis. There is no significant disc herniation, central canal or foraminal stenosis. There is straightening of the normal lumbar lordosis. There is no substantial scoliosis. Normal conus medullaris that terminates at the L1 L1-2: There is mild disc space narrowing and endplate spondylosis. There is no significant disc herniation, central canal or foraminal stenosis. L2-3: There is moderate disc space narrowing and endplates spondylosis. Mild disc bulge and facet arthropathy without significant central canal or foraminal stenosis. L3-4: There is mild disc space narrowing and endplate spondylosis. There is no significant disc herniation, central canal or foraminal stenosis. Mild facet arthropathy L4-5: There is moderate disc space narrowing, endplates erosions and edema. There is intradiscal edema and enhancement as well. There is minimal ventral epidural enhancement. There is disc bulging and moderate facet arthropathy with moderate central canal stenosis. There is moderate right and mild left foraminal stenosis. L5-S1: There is moderate disc space narrowing and endplates spondylosis. There is a moderate disc osteophyte complex and severe facet arthropathy with mild central canal stenosis. There is mild right and moderate left foraminal stenosis. Normal visualized sacral ala. MRI/Spine Lumbar W/WO Contrast IMPRESSION: L4/L5: Findings consistent with discitis/osteomyelitis. Minimal epidural enhancement. N.B. : The above information has been verbally conveyed by Larry Flores MD to Dr. Celina Bruce; [phone], on 03/25/2019 13:53:27 (ET). Electronically Signed: Larry Flores MD at 13:57 EDT Tel , Service support ,
--- NOTE | 2019-03-25 14:14 | HP.PCM_ITS ---
History of Present Illness Date of Admission: 03/25/19 Chief Complaint: intractable back pain The patient is a 68 year old M with an extensive PMH as listed. He was admitted with a complaint of back pain. patient has chronic back pain, but says his back pain has worsened since last Friday. Pain is excruciating, radiating, no aggravating or relieving factors. Pain radiated down the back of his legs. He denied any fever, chills, cough, chest pain, palpitations, dizziness, diarrhea or vomiting. He has never used any IV drugs and denies any recent infection. Labs and vitals were unremarkable. Abdominopelvic CT showed sclerosis at L4-5 level with erosion of superior endplate of L5 vertebrae. MRI of the lumbar spine showed findings consistent with discitis/osteomyelitis with minimal epidural enhancement. He is being admitted to be managed for discitis of the L4/5[] Past Medical History Past Medical History (Chronic Problems): Chronic Problems History of stroke (Chronic) Obstructive sleep apnea (Chronic) Hx pulmonary embolism (Chronic) Degenerative disc disease (Chronic) Chronic back pain (Chronic) after cholecyste History of cardiac catheterization (Chronic) 2004 Obesity (Chronic) Allergies acetaminophen [From Percocet] Adverse Reaction (Verified 07/05/18 15:38) Other HALLUCINATIONS oxycodone HCl [From Percocet] Adverse Reaction (Verified 07/05/18 15:38) Other HALLUCINATIONS Home Medications: Ambulatory Orders Medication Instructions Recorded Tamsulosin HCl [Flomax] 0.4 mg PO BID 08/27/15 Acetaminophen with Codeine 1 tab PO DAILY PRN 07/05/18 [Acetaminophen-Cod #3 Tablet] Baclofen 20 mg PO TID PRN 07/05/18 Ciprofloxacin HCl/Dexameth 4 drp RIGHT EAR BID 03/25/19 [Ciprodex Otic Suspension] Fluticasone Propionate 2 spray NASAL QHS 03/25/19 Surgical History: cholecystectomy, tonsillectomy, - - Lumbar surgery secondary to disc impingement, IVC filter placement, tooth extraction Psychiatric History: No pertinent psych hx Lives: With Family Smoking Status: Former smoker Alcohol: None Drugs: None - *Family History Maternal History Items: Stroke Paternal History Items: No pertinent history Review of Systems Constitutional: Denies: Chills, Fever, Malaise, Weakness, Weight Change Eyes: Denies: Blurred vision HEENT: Denies: Head Aches, Sinus Congestion, Sinus Drainage Cardiovascular: Denies: Chest Pain, Chest Pressure, Chest Tightness, Palpitations Respiratory: Denies: Cough, Shortness of Breath, Shortness of breath at rest, Sputum production Gastrointestinal: Denies: Abdominal Pain, Nausea, Vomiting Genitourinary: Denies: Dysuria Musculoskeletal: Reports: Back Pain. Denies: Joint Pain, Joint Tenderness Skin: Denies: Rash, Wounds Neurological: Denies: Numbness, Tingling, Focal weakness Psychiatric: Denies: Anxiety, Depression, Homicidal Ideations, Suicidal Ideations Hematologic/ Lymphatic: Denies: Easy Bruising, Easy Bleeding VTE Information - Inpt Only VTE Present on Admission: No - Physical Exam General: Alert, Oriented x3, Cooperative, No apparent distress HEENT: Atraumatic, PERRLA, EOMI, Normocephalic Oral: Moist Mucosa Neck: Supple, No JVD, Negative Carotid Bruits Lungs: Clear to auscultation, Normal air movement, No rhonchi, No wheeze Cardiovascular: Regular rate, Regular Rhythm, Normal S1, Normal S2, No murmurs Abdomen: Bowel Sounds Present, Soft, Non Tender, Non-Distended, No Hepato- splenomegaly Extremities: No clubbing, No cyanosis, No edema, Capillary Refill Less than 3 Seconds Skin: No rashes, No breakdown Musculoskeletal: No Tenderness to Palpation of Joints or Extremities Lymphatic: No Cervical, Supraclavicular, or Inguinal Adenopathy Neurological: Cranial nerves II-XII grossly intact, Neuro grossly intact, Motor Exam 5/5 strength throughout Psych/Mental Status: Normal Affect, Appropriate, Alert and oriented to time, place, person, mood and affect Vital Signs Temp Pulse Resp BP Pulse Ox 98.0 F 82 16 139/89 H 96 03/25/19 09:51 03/25/19 13:14 03/25/19 13:14 03/25/19 13:14 03/25/19 13:14 Oxygen Delivery Method Room Air Weight: 280 lb Body Mass Index (BMI) 41.3 Finger Stick Blood Glucose 99 Laboratory Tests Past 24 Hrs 03/25/19 03/25/19 03/25/19 10:00 10:00 11:30 WBC 9.7 RBC 5.06 Hgb 15.2 Hct 46.3 MCV 91.5 MCH 30.0 MCHC 32.8 RDW Std Deviation 47.8 H RDW Coeff of Kiara 14.2 Plt Count 276 MPV 9.1 Immature Gran % (Auto) 0.300 Neut % (Auto) 79.0 H Lymph % (Auto) 13.0 L [place] % (Auto) 6.0 Eos % (Auto) 1.5 Baso % (Auto) 0.2 Absolute Neuts (auto) 7.7 Absolute Lymphs (auto) 1.26 Nucleated RBC % 0 Sodium 142 Potassium 3.9 Chloride 108 H Carbon Dioxide 28.0 Anion Gap 6 BUN 17 Creatinine 0.73 Estim Creat Clear Calc 70.70 Est GFR (MDRD) Af Amer 137 Est GFR (MDRD) Non-Af 113 BUN/Creatinine Ratio 23.3 H Glucose 114 H Calcium 9.0 Urine Color Yellow Urine Clarity Sl. Cloudy Urine pH 6.0 Ur Specific [place] 1.020 Urine Protein Negative Urine Glucose (UA) Normal Urine Ketones Negative Urine Occult Blood Negative Urine Nitrite Negative Urine Bilirubin Negative Urine Urobilinogen 1 H Ur Leukocyte Esterase 100 H Urine RBC 0 SEEN Urine WBC 0-5 SEEN Ur Squamous Epith Cells 0-5 SEEN Urine Bacteria RARE Urine Mucus 0 SEEN Assessment/Plan All Active Problems Chest pain (Acute) Left arm numbness (Acute) Left arm weakness (Acute) 68 y/o male admitted with a complaint of intractable back pain 1. Acute on chronic intractable back pain due to probable discitis/osteomyelitis of L4-5 * admit to [facility]Ed Surg * get blood cultures; no leucocytosis on CBC * CT abdomen/pelvis showed sclerosis of L4-5 with erosion of superior endplate of L5 vertebrae * MRI lumbar spine showed findings consistent with discitis/osteomyelitis * ID consult * for biopsy of L4-5 lesion- Dr Ramírez says it cannot be done by radiology. Will consult Dr Lamb for biopsy. * defer antibiotics for now, per ID until biopsy and culture results are back * fall precautions * PT/OT consult * On Tylenol 3 for pain baclofen 2. History of CVA: Stable. 3. BPH: On Flomax. DVT prophylaxis: SCDs. No anti-Coagulation for now until he is done with biopsy of L4-5 Code Visit Inpatient E&M: 50350 Init Hosp L3
--- NOTE | 2019-03-25 14:21 | ED.DCSUM_ITS ---
- ER Visit Summary Date of Service: 03/25/19 Chief Complaint: [Right flank pain] History of Present Illness: The patient is a 68 M [presents to the emergency department complaint of right flank pain started a week ago. Patient states that he has a history of chronic back pain issues and initially thought he may have just tweaked his back. Patient is currently in pain management. Patient denies any pain rating down his legs. He denies any fever or chills or sweats. Patient has noticed some dark urine. At times he has some mild discomfort in his right lower quadrant. Patient has history of prior stroke, obstructive sleep apnea, and history of PE. She is not currently anticoagulated.] Physical Examination: [HEENT-PERRLA, EOMI. Cranial nerves II through XII grossly intact. TMs clear. Mucous membranes moist. No adenopathy. Cardiovascular-regular rate and rhythm without murmur or ectopy Lungs-clear to auscultation, chest wall stable without crepitus or subcu emphysema Abdomen-normoactive bowel sounds, soft, nontender, no rebound or rigidity, no peritoneal signs. Back exam-patient has tenderness palpation over the lumbar spine diffusely. There is no erythema or warmth noted. Patient does have some tenderness over the right lumbar paraspinal musculature as well. Patient has some CVA tenderness on the right. Negative straight leg raises. Deep tendon reflexes are plus 2 out of 4 bilaterally at the patella and Achilles. Extremities-intact ?4, normal range of motion, normal pulses, atraumatic] Test Results: [CBC with differential obtained showed a white count of 9.7, hemoglobin 15, hematocrit 46, platelet 276. Chemistries unremarkable. Urinalysis was normal. CT flank showed sclerosis of L4-5 with erosion of L5 superior endplate infectious process should be ruled out. MRI of the lumbar spine obtained showed discitis of L4-5 and osteomyelitis of L5. No abscess noted.] Emergency Department Course and Treatment: [Case was discussed with hospitalist who asked that I also speak with infectious disease specialist regarding the patient. I spoke with Dr. Yusuf is comfortable with keeping patient here [place]. I was asked to obtain blood cultures and hold off on antibiotics until the patient has a needle biopsy and culture of the area of concern.] Treatment Plan: [Admit] Disposition: [Admit] Impression: Back pain Discitis Osteomyelitis L5 [] This note was generated with Dragon dictation software. It may contain incorrect words, spelling, and punctuation that were not noted in review of the chart prior to signing ED Disposition - Plan for ED Patient: Referrals: Omar Triplett MD [Primary Care Provider] -
--- NOTE | 2019-03-25 14:27 | NURSING ---
[facility]
--- NOTE | 2019-03-25 15:18 | EKG12_ITS ---
Test Reason : Blood Pressure : / mmHG Vent. Rate : 078 BPM Atrial Rate : 078 BPM P-R Int : 196 ms QRS Dur : 088 ms QT Int : 356 ms P-R-T Axes : 000 053 038 degrees QTc Int : 405 ms Normal sinus rhythm Normal ECG Confirmed by DANIEL HESTER, EMIR ([id number]), assistant film editor JACKIE JAIME ([id number]) on 03/30/2019 1:07:09 PM Referred By: Alisia Ge Confirmed By:EMIR SANCHEZ MD
[2019-03-25] MEDS: Tamsulosin HCl 0.4 MG Capsule PO (16:59)
[2019-03-25 17:06] LABS: Bedside Glucose 91 mg/dL (70-110)
[2019-03-25] MEDS: Baclofen 10 MG Tablet 20 MG PO (20:09)
[2019-03-25] MEDS: Acetaminophen/Codeine #3 Tablet 1 TABLET PO (20:10)
[2019-03-25] MEDS: Fluticasone 0.05% 1 SPRAY NASAL.SRY 2 SPRAY NASAL (21:45)
[2019-03-25 22:15] LABS: Bedside Glucose 97 mg/dL (70-110)
[2019-03-26] VITALS (8 sets, daily range): BP systolic 124–147; BP diastolic 62–85; PULSE 76–96; RESP 18; TEMP 36.4–36.6; O2SAT 94–97
[2019-03-26 05:57] LABS: Absolute Lymphocyte Count 1.74 X10^3/uL (0.83-4.51); Absolute Neutrophil Count 5.2 X10^3/uL (2.0-7.7); Basophil# 0.02 X10^3/uL; Basophil% 0.3 % (0-1); Eosinophil# 0.15 X10^3/uL; Eosinophils% 1.9 % (0-5); Hematocrit 41.6 % (40-54); Hemoglobin 13.5 g/dL (13.0-16.5); Lymphocyte # 1.74 X10^3/ul (4.0); Lymphocyte % 22.3 % (19-41); Mean Corp Hgb Conc 32.5 g/dL (32-36); Mean Corpuscular Hgb 29.8 pg (27.0-32.0); Mean Corpuscular Volume 91.8 fL (80-94); Mean Platelet Vol. 9.3 fl (6.2-12.0); Monocyte# 0.64 X10^3/uL; Monocyte% 8.2 % (0-10); NRBC Flagged by Analyzer 0 % (0-5); Neutrophil # 5.22 X10^3/uL (2.7-7.7); Platelet Count 259 K/mm3 (150-450); RBC Distribution Width CV 14.3 % (11.6-14.6); RBC Distribution Width SD 48.5 fl (35.1-43.9); Red Blood Count 4.53 M/mm3 (4.6-6.2); White Blood Count 7.8 K/mm3 (4.4-11.0)
[2019-03-26 06:19] LABS: Anion Gap 7 (5-15); BUN 15 mg/dL (7-18); Calcium,Total 8.4 mg/dL (8.5-10.1); Chloride 112 mmol/L (98-107); Creatinine, Serum 0.68 mg/dL (0.70-1.30); EST Glomerular Filtration Rate 122 mL/min (>60); Est Glom Filt Rate - Afr Amer 148 mL/min (>60); Glucose 91 mg/dL (74-106); Sodium Level 143 mmol/L (136-145)
[2019-03-26 06:50] LABS: Bedside Glucose 96 mg/dL (70-110)
[2019-03-26] MEDS: 0.9% Normal Saline 1,000 ML 125 ML IV ×2 (06:52→14:54)
[2019-03-26] MEDS: Tamsulosin HCl 0.4 MG Capsule PO ×2 (09:38→18:55)
--- NOTE | 2019-03-26 10:02 | CASEMGMT ---
Tertiary Facilities in-network with patient's insurance: [facility], [place], [facility], [facility], [facility], [facility].
[2019-03-26] MEDS: Baclofen 10 MG Tablet 20 MG PO (10:35)
--- NOTE | 2019-03-26 10:35 | CASEMGMT ---
RN CM Face to Face with patient for initial transition planning/care coordination assessment. RN CM introduced self and role at [facility]. Patient lying in bed, alert and oriented. Patient willing to participate in assessment and is able to answer all questions appropriately. Care providers, pharmacy, and demographics verified. Patient wishes to discharge home, denies need for home health at this time. Patient states he has no further needs or concerns at this time. CM to follow for discharge planning needs that may arise. PCP: Denny Triplett Specialists: [facility] in [place], [place] Preferred Pharmacy: [facility] Insurance: [employer] [facility] Prescription Benefit: yes Living Will/HPOA: none LNOK: Living Arrangements: Keena lives with in 1 story home with ramp to enter the home. Patient states he is independent at home. Transportation: self/ DME/HHC: Patient states he has shower chair, cane, walker, grab bars, walker, wheelchair at home. Patient denies previous HHC. Disposition Plan: Patient to discharge home with family support and follow-up plans in place. Krissy MCLEOD, RN, CM
[2019-03-26 11:46] LABS: Bedside Glucose 113 mg/dL (70-110)
--- NOTE | 2019-03-26 12:42 | PN_ITS ---
<Gilbert Limon - Last Filed: 03/26/19 12:42> Subjective: Ongoing back pain along the lumbar spine, which radiates around the abdomen left > Right. No fever/chills. Pt states he is treating his infection with garlic. He denies any hardware in his spine, did have spinal surgery in the - laminectomy. Has had injections for his back pain before but last was many years prior. He has no cough/sob/open wounds/ diarrhea/nausea and vomiting. He also notes he has painless bleeding from the umbilicus that started yesterday. He has not had this issue before. He denies trauma. - Physical Exam General: Alert, Oriented x3, Cooperative HEENT: Atraumatic, PERRLA, EOMI, Normocephalic Neck: Supple, No JVD, Negative Carotid Bruits Lungs: Clear to auscultation, Normal air movement Cardiovascular: Regular rate, No murmurs Abdomen: Bowel Sounds Present, Soft, Non Tender Extremities: No edema, Capillary Refill Less than 3 Seconds Skin: No rashes, No breakdown Musculoskeletal: No Tenderness to Palpation of Joints or Extremities Neurological: Cranial nerves II-XII grossly intact Psych/Mental Status: Normal Affect, Appropriate Vital Signs Temp Pulse Resp BP Pulse Ox 97.6 F L 96 18 146/70 H 94 03/26/19 09:36 03/26/19 11:28 03/26/19 09:36 03/26/19 09:36 03/26/19 09:36 Oxygen Delivery Method Room Air Weight: 284 lb Body Mass Index (BMI) 41.9 Finger Stick Blood Glucose 99 Intake and Output for Last 24 Hours 03/24/19 03/25/19 03/26/19 23:59 23:59 23:59 Intake Total 1910 2557 / 2557 Balance 1910 2557 / 2557 Laboratory Tests Past 24 Hrs 03/26/19 03/26/19 05:25 05:25 WBC 7.8 RBC 4.53 L Hgb 13.5 Hct 41.6 MCV 91.8 MCH 29.8 MCHC 32.5 RDW Std Deviation 48.5 H RDW Coeff of Kiara 14.3 Plt Count 259 MPV 9.3 Immature Gran % (Auto) 0.300 Neut % (Auto) 67.0 Lymph % (Auto) 22.3 [place] % (Auto) 8.2 Eos % (Auto) 1.9 Baso % (Auto) 0.3 Absolute Neuts (auto) 5.2 Absolute Lymphs (auto) 1.74 Nucleated RBC % 0 Sodium 143 Potassium 4.0 Chloride 112 H Carbon Dioxide 24.0 Anion Gap 7 BUN 15 Creatinine 0.68 L Estim Creat Clear Calc 70.70 Est GFR (MDRD) Af Amer 148 Est GFR (MDRD) Non-Af 122 BUN/Creatinine Ratio 22.0 H Glucose 91 Calcium 8.4 L POC Glucose 03/26/19 03/26/19 03/25/19 11:27 06:43 22:02 POC Glucose 113 H 96 97 03/25/19 16:58 POC Glucose 91 Medical Necessity - Tobacco Use Smoking Status: Former smoker Assessment/Plan All Active Problems Chest pain (Acute) Left arm numbness (Acute) Left arm weakness (Acute) 1. Discitis / osteomyelitis - ID consult. Abx deferred until bx/cx obtained. Follow blood culture. No fever/WBC. Hx chronic spinal dz. Ongoing back pain with pain radiating into the abdomen. No recent injections, no hardware in the spine. MRI with L4/5 discitis/osteo. C/s to pain management for biopsy. 2. Hx CVA - not on asa/statin for unclear reasons. 3. BPH - flomax 4. Chronic back pain/DDD - on baclofen 5. hx PE - not on OAC 6. Morbid obesity - dietary consult. DVT ppx: SCDs DC planning: needs bx. Pt does not want to stay at this hospital if we cannot obtain a bx today. This patient was seen by Gilbert Limon PA-C under the supervision of Dr. Cespedes. <Tariq Cespedes F - Last Filed: 03/26/19 15:41> - Physical Exam Vital Signs Temp Pulse Resp BP Pulse Ox 97.7 F L 82 18 147/73 H 94 03/26/19 15:20 03/26/19 15:20 03/26/19 15:20 03/26/19 15:20 03/26/19 15:20 Oxygen Delivery Method Room Air Weight: 284 lb Body Mass Index (BMI) 41.9 Finger Stick Blood Glucose 99 Intake and Output for Last 24 Hours 03/24/19 03/25/19 03/26/19 23:59 23:59 23:59 Intake Total 1910 2557 / 2557 Balance 1910 2557 / 2557 Laboratory Tests Past 24 Hrs 03/26/19 03/26/19 05:25 05:25 WBC 7.8 RBC 4.53 L Hgb 13.5 Hct 41.6 MCV 91.8 MCH 29.8 MCHC 32.5 RDW Std Deviation 48.5 H RDW Coeff of Kiara 14.3 Plt Count 259 MPV 9.3 Immature Gran % (Auto) 0.300 Neut % (Auto) 67.0 Lymph % (Auto) 22.3 [place] % (Auto) 8.2 Eos % (Auto) 1.9 Baso % (Auto) 0.3 Absolute Neuts (auto) 5.2 Absolute Lymphs (auto) 1.74 Nucleated RBC % 0 Sodium 143 Potassium 4.0 Chloride 112 H Carbon Dioxide 24.0 Anion Gap 7 BUN 15 Creatinine 0.68 L Estim Creat Clear Calc 70.70 Est GFR (MDRD) Af Amer 148 Est GFR (MDRD) Non-Af 122 BUN/Creatinine Ratio 22.0 H Glucose 91 Calcium 8.4 L POC Glucose 03/26/19 03/26/19 03/25/19 11:27 06:43 22:02 POC Glucose 113 H 96 97 03/25/19 16:58 POC Glucose 91 Code Visit Addendum: Dr. Cespedes I personally examined the patient and reviewed the chart. I agree with the above. 88-year-old male presented with back pain this is been going on for several years. However it did worsen since last Friday. He states that nothing makes it better or worse and that it was radiating down the back of both of his legs. No fevers or chills, however a CT scan of his abdomen and pelvis showed sclerosis of L4-L5 with erosion of the superior endplate of L5 vertebrae. He had an MRI of his lumbar spine that showed findings consistent with discitis/osteomyelitis. Infectious disease was consulted to assist in management and we discussed the case with radiology who did not feel that there would be qualified to be able to do a biopsy and so we reached out to another local doctor who will evaluate the patient today at 5:00 for possible biopsy. He is currently very stable and therefore we will hold off on any IV antibiotics until a biopsy has been performed and culture obtained. Blood cultures are pending. Inpatient E&M: 27556 Subs Hosp L2
--- NOTE | 2019-03-26 13:21 | NURSING ---
Patient voices concerns regarding that he has not had any intervention done regarding CT/biopsy for back pain. He states that he was told that he would have this taken care of today. Patient aware that we are waiting on input from Dr. Hansen. He has not been up to floor yet. Patient asked for the Patient Advocate number. Number provided to patient.
[2019-03-26] MEDS: Acetaminophen/Codeine #3 Tablet 1 TABLET PO ×2 (14:51→21:02)
--- NOTE | 2019-03-26 15:04 | NURSING ---
Patient called to advocate to discuss care plan. This director went to speak with the patient. Had discussed before going in the room with primary RN Shirley Tolbert and special agent in charge Maria Teresa Caldwell the plan and concerns of the patient. Pt was asking about plan for the biopsy. We verified with Dr. Ortiz that he does not have the equipment to do the procedure of biopsy on L4 L5 but Dr. Hansen has done them here in our OR. Shirley verified with Dr. Hansen office that he is coming to see the patient. the office staff verified that he planned to come after his OR case here at 1635. AFter discussion with Dr. Rowland and Dr. Abrams- we feel that we need to see what Dr. Hansen has to say on his consult. Dr. Ramirez spoke with patient, I (javiern) spoke with patient along with Dr. Abrams about the plan. patient is in agreement with the plan to wait for the consult of Dr. Hansen and then see where we go from there. Shirley and Maria Teresa aware of plan. at bedside and agreeable to the plan. Patient stated that he was just upset that thought the biopsy would all be done this am and wanted to know our plans for his care today.
--- NOTE | 2019-03-26 15:42 | CON.PCM_ITS ---
Problem List (1) Discitis of lumbar region Status: Acute Reason for Consult: discitis Consulted by: Dr. Ge History of Present Illness: The patient is a 68 year old M with h/o back surgery in 1986, no hardware placed, presented to ED last night with 4 years of slowly progressive back pain and difficulty walking. Pain radiates down both legs to mid-thigh. No fever, no chills, no night sweats. Follows with pain management and chiropractor for this without improvement. Has been eating raw garlic and taking iodine with only temporary improvement. Came to ED, bcx drawn, no abx given. Full ROS Performed and neg except as noted above. - Medical History Past Medical History (Chronic Problems): Chronic Problems History of stroke (Chronic) Obstructive sleep apnea (Chronic) Hx pulmonary embolism (Chronic) Degenerative disc disease (Chronic) Chronic back pain (Chronic) after cholecyste History of cardiac catheterization (Chronic) 2003 Obesity (Chronic) Allergies/Adverse Reactions: Allergies acetaminophen [From Percocet] Adverse Reaction (Verified 07/05/18 15:38) Other HALLUCINATIONS oxycodone HCl [From Percocet] Adverse Reaction (Verified 07/05/18 15:38) Other HALLUCINATIONS Home Medications: Ambulatory Orders Medication Instructions Recorded Tamsulosin HCl [Flomax] 0.4 mg PO BID 08/27/15 Acetaminophen with Codeine 1 tab PO DAILY PRN 07/05/18 [Acetaminophen-Cod #3 Tablet] Baclofen 20 mg PO TID PRN 07/05/18 Ciprofloxacin HCl/Dexameth 4 drp RIGHT EAR BID 03/25/19 [Ciprodex Otic Suspension] Fluticasone Propionate 2 spray NASAL QHS 03/25/19 - Social History Lives: with Vital Signs Temp Pulse Resp BP Pulse Ox 97.7 F L 82 18 147/73 H 94 03/26/19 15:20 03/26/19 15:20 03/26/19 15:20 03/26/19 15:20 03/26/19 15:20 Oxygen Delivery Method Room Air Weight: 128.82 kg Body Mass Index (BMI) 41.9 Finger Stick Blood Glucose 99 Laboratory Tests Past 24 Hrs 03/26/19 03/26/19 05:25 05:25 WBC 7.8 RBC 4.53 L Hgb 13.5 Hct 41.6 MCV 91.8 MCH 29.8 MCHC 32.5 RDW Std Deviation 48.5 H RDW Coeff of Kiara 14.3 Plt Count 259 MPV 9.3 Immature Gran % (Auto) 0.300 Neut % (Auto) 67.0 Lymph % (Auto) 22.3 [place] % (Auto) 8.2 Eos % (Auto) 1.9 Baso % (Auto) 0.3 Absolute Neuts (auto) 5.2 Absolute Lymphs (auto) 1.74 Nucleated RBC % 0 Sodium 143 Potassium 4.0 Chloride 112 H Carbon Dioxide 24.0 Anion Gap 7 BUN 15 Creatinine 0.68 L Estim Creat Clear Calc 70.70 Est GFR (MDRD) Af Amer 148 Est GFR (MDRD) Non-Af 122 BUN/Creatinine Ratio 22.0 H Glucose 91 Calcium 8.4 L - Other Studies Radiology: [] reviewed Other Studies: [] Route of nutrition/ use of supplements: [] Nutritional Intake: [] IV Site: [] Fierro Catheter: [] - Physical Exam General: Alert, Oriented x3, Cooperative, No apparent distress HEENT: Atraumatic, PERRLA, EOMI Neck: Supple, No Nodes Lungs: Clear to auscultation, Normal air movement Cardiovascular: Regular rate, Regular Rhythm, No murmurs Abdomen: Soft, Non Tender, Non-Distended Extremities: Edema Skin: No rashes IV Site: Peripheral, without redness Musculoskeletal: - - tenderness over L spine Neurological: Cranial nerves II-XII grossly intact, - - able to walk per nursing - Assessment/Plan Antibiotics: [] Assessment/Plan: [] L4/5 discitis - 4 years of progressive back pain. Holding abx until biopsy can be done. If bx cannot be done, recommend transferring pt for spine surgery eval. Bcx pending from ED. Would send bx for path and aerobic/anaerobic/fungal/AFB cx. After procedure is done, would start empiric vanc/ceftriaxone. Will follow, thank you, d/w primary team and nursing.
--- NOTE | 2019-03-26 17:58 | CON.PCM_ITS ---
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 Status: Acute (5) Spondylosis of lumbar region without myelopathy or radiculopathy Status: Acute (6) Spondylosis of lumbar region without myelopathy or radiculopathy Status: Acute (7) Discitis of lumbar region Status: Acute (8) Obstructive sleep apnea Status: Chronic (9) Hx pulmonary embolism Status: Chronic (10) Degenerative disc disease Status: Chronic (11) Chronic back pain Status: Chronic Comment: after cholecyste (12) Obesity Status: Chronic Reason for Consult Date of Consultation: 03/26/19 Reason for Consultation: Management of patient increasing lower back pain as he was recently diagnosed by discitis of the L4-5 History of Present Illness: The patient is a 68 year old M who has been reported to the emergency department complaining of severe right lower back pain and right flank pain for almost a week, patient denies any recent injection, patient stated that he possibly thought he twisted his back however he did not think he had any direct trauma or injury. Patient stated that his urine become dark he came had a CAT scan of the lumbar spine as well as in the abdomen at this lumbar spine MRI because that showed discitis in the lumbar spine. Patient stated that he had been having multiple UTIs in addition also ear infection ulcer disease having some yellowish discharge coming from his bellybutton. [] Past Medical History Past Medical History (Chronic Problems): Chronic Problems History of stroke (Chronic) Obstructive sleep apnea (Chronic) Hx pulmonary embolism (Chronic) Degenerative disc disease (Chronic) Chronic back pain (Chronic) after cholecyste History of cardiac catheterization (Chronic) 2003 Obesity (Chronic) Allergies acetaminophen [From Percocet] Adverse Reaction (Verified 07/05/18 15:38) Other HALLUCINATIONS oxycodone HCl [From Percocet] Adverse Reaction (Verified 07/05/18 15:38) Other HALLUCINATIONS Home Medications: Ambulatory Orders Medication Instructions Recorded Tamsulosin HCl [Flomax] 0.4 mg PO BID 08/27/15 Acetaminophen with Codeine 1 tab PO DAILY PRN 07/05/18 [Acetaminophen-Cod #3 Tablet] Baclofen 20 mg PO TID PRN 07/05/18 Ciprofloxacin HCl/Dexameth 4 drp RIGHT EAR BID 03/25/19 [Ciprodex Otic Suspension] Fluticasone Propionate 2 spray NASAL QHS 03/25/19 Surgical History: cholecystectomy, tonsillectomy, - - Lumbar surgery secondary to disc impingement, IVC filter placement, tooth extraction Psychiatric History: No pertinent psych hx Lives: With Family Smoking Status: Former smoker Alcohol: None Drugs: None - *Family History Maternal History Items: Stroke Paternal History Items: No pertinent history Review of Systems HEENT: Denies: Head Aches, Sinus Congestion, Sinus Drainage Cardiovascular: Denies: Chest Pain, Palpitations Respiratory: Denies: Cough, Shortness of breath at rest, Sputum production Gastrointestinal: Reports: Abdominal Pain - Flank pain on the right side Genitourinary: Denies: Dysuria Musculoskeletal: Reports: Back Pain. 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 (Acute) Spondylosis of lumbar region without myelopathy or radiculopathy (Acute) Spondylosis of lumbar region without myelopathy or radiculopathy (Acute) - Physical Exam General: Alert, Oriented x3, Cooperative HEENT: Atraumatic, PERRLA, EOMI, Normocephalic Neck: Supple, No JVD, Negative Carotid Bruits Lungs: Clear to auscultation, Normal air movement Cardiovascular: Regular rate, No murmurs Abdomen: Bowel Sounds Present, Soft, Non Tender, Distended - Patient has slightly distended and mild tenderness across the right upper quadrant, noted there is yellowish discharge from the umbilical region Extremities: No edema, Capillary Refill Less than 3 Seconds Skin: No rashes, No breakdown Musculoskeletal: Tenderness - Patient has tenderness across the paraspinal lumbosacral region, tenderness across the right and left lumbar spine and L4 disc, patient has moderate tenderness on palpation of the mid L4-L5 area Neurological: Cranial nerves II-XII grossly intact Psych/Mental Status: Normal Affect, Appropriate Vital Signs Temp Pulse Resp BP Pulse Ox 97.7 F L 82 18 147/73 H 94 03/26/19 15:20 03/26/19 15:20 03/26/19 15:20 03/26/19 15:20 03/26/19 15:20 Oxygen Delivery Method Room Air Weight: 128.82 kg Body Mass Index (BMI) 41.9 Finger Stick Blood Glucose 99 Intake and Output for Last 24 Hours 03/24/19 03/25/19 03/26/19 23:59 23:59 23:59 Intake Total 1910 2557 / 2557 Balance 1910 2557 / 2557 Laboratory Tests Past 24 Hrs 03/26/19 03/26/19 05:25 05:25 WBC 7.8 RBC 4.53 L Hgb 13.5 Hct 41.6 MCV 91.8 MCH 29.8 MCHC 32.5 RDW Std Deviation 48.5 H RDW Coeff of Kiara 14.3 Plt Count 259 MPV 9.3 Immature Gran % (Auto) 0.300 Neut % (Auto) 67.0 Lymph % (Auto) 22.3 [place] % (Auto) 8.2 Eos % (Auto) 1.9 Baso % (Auto) 0.3 Absolute Neuts (auto) 5.2 Absolute Lymphs (auto) 1.74 Nucleated RBC % 0 Sodium 143 Potassium 4.0 Chloride 112 H Carbon Dioxide 24.0 Anion Gap 7 BUN 15 Creatinine 0.68 L Estim Creat Clear Calc 70.70 Est GFR (MDRD) Af Amer 148 Est GFR (MDRD) Non-Af 122 BUN/Creatinine Ratio 22.0 H Glucose 91 Calcium 8.4 L POC Glucose 03/26/19 03/26/19 03/25/19 11:27 06:43 22:02 POC Glucose 113 H 96 97 Assessment/Plan All Active Problems Chest pain (Acute) Discitis of lumbar region (Acute) Postlaminectomy syndrome, not elsewhere classified (Acute) Postlaminectomy syndrome, not elsewhere classified (Acute) penitentiary current use of opiate analgesic (Acute) penitentiary current use of opiate analgesic (Acute) Spondylosis of lumbar region without myelopathy or radiculopathy (Acute) Spondylosis of lumbar region without myelopathy or radiculopathy (Acute) Left arm numbness (Acute) Left arm weakness (Acute) Reviewed lumbar MRI noted for possible changes affecting the L4-5 disc, findings may consistent with discitis possible osteomyelitis due to epidural enhancement however he had minimal epidural enhancement no findings of abscess. Patient was seen by infectious disease, awaiting decision to start antibiotic versus transferring to another facility for possible surgical or interventional radiology biopsy Regarding his pain medicine he is currently sees comprehensive pain care in [place], Dr. Matson, who has some Tylenol 3 once a day however patient pain is been increasing and he may need more high requirement for controlling his pain. My recommendation to increase his Tylenol No. 3 to every 6 hours to manage the pain, adjusting his baclofen to 10 g every 6 hours for managing his severe muscle spasm I also may recommend to start lidocaine patches to the lower lower back to give some topical multimodal analgesia We will start patient on low-dose ibuprofen 400 g to manage his inflammatory pain Take Tylenol for as needed was cautious I also discussed may be starting low-dose gabapentin 300 g twice daily to help with his pain as well. I would defer to options for intervention for biopsy up to interventional radiology or spine surgical team I spoke with the patient's , his daughter to be updated and infectious disease report through medical record
[2019-03-26] MEDS: Ibuprofen 400 MG Tablet PO (19:23)
--- NOTE | 2019-03-26 21:36 | DS.PCM_ITS ---
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 (Acute) Spondylosis of lumbar region without myelopathy or radiculopathy (Acute) Spondylosis of lumbar region without myelopathy or radiculopathy (Acute) Date of Admission: 03/25/19 Date of Discharge: 03/27/19 - Primary Discharge Diagnosis Active and Suspected Problems Discitis of lumbar region (Acute) Postlaminectomy syndrome, not elsewhere classified (Acute) Postlaminectomy syndrome, not elsewhere classified (Acute) care home current use of opiate analgesic (Acute) care home current use of opiate analgesic (Acute) Spondylosis of lumbar region without myelopathy or radiculopathy (Acute) Spondylosis of lumbar region without myelopathy or radiculopathy (Acute) - Secondary Discharge Diagnosis Chronic Problems History of stroke (Chronic) Obstructive sleep apnea (Chronic) Hx pulmonary embolism (Chronic) Degenerative disc disease (Chronic) Chronic back pain (Chronic) after cholecyste History of cardiac catheterization (Chronic) 2004 Obesity (Chronic) Hospital Course and Treatment Operations: None Summary of Care Provided: The patient is a 68 year old M with a history of chronic lower back pain and who follows up with pain management; and with a history of L5 laminectomy who presented with excruciating lower back pain radiating to his right flank and his right leg. Lumbar spine MRI showed L4/L5 discitis/osteomyelitis. Blood culture was obtained and results are pending. Infectious disease was consulted. Pain management was also consulted. The patient's was at home Tylenol 3. The frequency of Tylenol 3 was increased by pain management. Also his baclofen dose was adjusted; and topical lidocaine patch was prescribed. Further patient was started on ibuprofen. Infectious disease, Dr Otf Yusuf wants biopsy of L4-L5 before initiation of antibiotics.IR at our hospital will be unable to do this biopsy. Case was discussed with outside with Hospitalist at [facility]. However they were not sure of the availability of IR service on the weekend. clinical pharmacy specialist infectious disease doctor, Dr. Hogue was notified of unavailability of IR service for biopsy. Per Dr. Hogue attempts can be made to transfer patient to other Hospital. However, if no such Hospital can be found it is not unreasonable to transfer patient to a Hospital that can do biopsy on 03-29-19. [facility] transfer line was called again. Per [facility] there may be an interventional radiologist on 03/27/2019 but there us no guarantee. Patient is ok being transfered to [facility]. Call was placed to [facility] and patient was accepted. Will transfer patient. 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 (Acute) Spondylosis of lumbar region without myelopathy or radiculopathy (Acute) Spondylosis of lumbar region without myelopathy or radiculopathy (Acute) - Physical Exam General: Alert, Oriented x3, Cooperative HEENT: Atraumatic, PERRLA, EOMI, Normocephalic Neck: Supple, No JVD, Negative Carotid Bruits Lungs: Clear to auscultation, Normal air movement Cardiovascular: Regular rate, No murmurs Abdomen: Bowel Sounds Present, Soft, Non Tender Extremities: No edema, Capillary Refill Less than 3 Seconds Skin: No rashes, No breakdown Musculoskeletal: Tenderness - lower back Neurological: Cranial nerves II-XII grossly intact Psych/Mental Status: Normal Affect, Appropriate Vital Signs Temp Pulse Resp BP Pulse Ox 97.7 F L 82 18 147/73 H 94 03/26/19 15:20 03/26/19 15:20 03/26/19 15:20 03/26/19 15:20 03/26/19 15:20 Oxygen Delivery Method Room Air Weight: 128.82 kg Body Mass Index (BMI) 41.9 Finger Stick Blood Glucose 99 Intake and Output for Last 24 Hours 03/24/19 03/25/19 03/26/19 23:59 23:59 23:59 Intake Total 19107 / 2557 Balance 1910 / 2556 Laboratory Tests Past 24 Hrs 03/26/19 03/26/19 05:25 05:25 WBC 7.8 RBC 4.53 L Hgb 13.5 Hct 41.6 MCV 91.8 MCH 29.8 MCHC 32.5 RDW Std Deviation 48.5 H RDW Coeff of Kiara 14.3 Plt Count 259 MPV 9.3 Immature Gran % (Auto) 0.300 Neut % (Auto) 67.0 Lymph % (Auto) 22.3 [place] % (Auto) 8.2 Eos % (Auto) 1.9 Baso % (Auto) 0.3 Absolute Neuts (auto) 5.2 Absolute Lymphs (auto) 1.74 Nucleated RBC % 0 Sodium 143 Potassium 4.0 Chloride 112 H Carbon Dioxide 24.0 Anion Gap 7 BUN 15 Creatinine 0.68 L Estim Creat Clear Calc 70.70 Est GFR (MDRD) Af Amer 148 Est GFR (MDRD) Non-Af 122 BUN/Creatinine Ratio 22.0 H Glucose 91 Calcium 8.4 L POC Glucose 03/26/19 03/26/19 03/25/19 11:27 06:43 22:02 POC Glucose 113 H 96 97 Home Medications: Medications to take at Discharge Tamsulosin HCl [Flomax] 0.4 mg PO BID 08/27/15 Acetaminophen with Codeine [Acetaminophen-Cod #3 Tablet] 1 tab PO DAILY PRN 07/05/18 Baclofen 20 mg PO TID PRN 07/05/18 Ciprofloxacin HCl/Dexameth [Ciprodex Otic Suspension] 4 drp RIGHT EAR BID 03/25/19 Fluticasone Propionate 2 spray NASAL QHS 03/25/19 Primary Care Physician: Omar Triplett MD [Primary Care Provider] - Medical Necessity - Tobacco Use Smoking Status: Former smoker Meaningful Use Info Meaningful Use Diagnoses (Choose all that apply): None applicable Code Visit Inpatient E&M: 01069 Disch Hosp
[2019-03-26] MEDS: 0.9% NaCl Peripheral Flush Adult/Peds IV (23:07)
[2019-03-26] MEDS: Fluticasone 0.05% 1 SPRAY NASAL.SRY 2 SPRAY NASAL (23:08)
[2019-03-26] MEDS: Gabapentin 300 MG Capsule PO (23:08)
[2019-03-26] MEDS: Lidocaine 5% Patch 2 PATCH TOPICAL (23:09)
--- NOTE | 2019-03-26 23:39 | NURSING ---
2200 Patient refusing blood sugar check. Patient reporting that he is not diabetic. He said he was once many years ago classified as DM type 2 and was on Metformin. However, that has been resolved.
--- NOTE | 2019-03-26 23:53 | NURSING ---
Veronica Bhakta from [facility] called to say that their Interventional Radiologist does do the type of biopsy this pt needs but they only do it on an emergency basis on the weekends. More than likely, this pt would not be able to have the procedure until Friday. She wants Dr. Villalobos to call her back at [phone] to discuss the matter. She further advised that [facility] does this 24-7 so that might be a better option for the pt. I conveyed this information to Dr. Villalobos and he wanted me to discuss this situation with the pt. When I explained everything to the pt, he was agreeable to going to [facility]. I told him I would discuss this with Dr. Villalobos and let him know.
[2019-03-27 01:23] VITALS: BP 111/77; PULSE 79; RESP 18; TEMP 36.4; O2SAT 94
== END 2019-03-27 02:15 | disposition short-term general hospital (02) | DRG 552 ==
LOC: ED 10:29 → MS3 14:29
PROVIDERS: Admitting Provider Student in an Organized Health Care Education/Training Program; Emergency Provider Emergency Medicine; Family Provider Family Medicine; PCP Family Medicine; Referring Provider Student in an Organized Health Care Education/Training Program; Visit Provider Family Medicine
DX: M46.46 Discitis, unspecified, lumbar region (principal); Z68.41 Body mass index [BMI] 40.0-44.9, adult; N40.0 Benign prostatic hyperplasia without lower urinary tract symptoms; M47.816 Spondylosis without myelopathy or radiculopathy, lumbar region; G47.33 Obstructive sleep apnea (adult) (pediatric); G89.29 Other chronic pain; M96.1 Postlaminectomy syndrome, not elsewhere classified; Z86.73 Personal history of transient ischemic attack (TIA), and cerebral infarction without residual deficits; Z79.891 Long term (current) use of opiate analgesic; Z86.711 Personal history of pulmonary embolism; E66.01 Morbid (severe) obesity due to excess calories
CPT/HCPCS: 36415; 72158; 74176; 80048; 81001; 82962; 85025; 87040; 93005; 97162; 97166; 97802; 99282; A9575; J7030; A4216

== ENCOUNTER → 2020-03-21 15:19 | Outpatient (CLI) | payer MEDICARE, SELFPAY ==
[2019-03-25 15:12] VITALS: BMI 41.9
[2020-03-21 17:03] LABS: Absolute Lymphocyte Count 1.83 X10^3/uL (0.83-4.51); Absolute Neutrophil Count 7.9 X10^3/uL (2.0-7.7); Basophil# 0.02 X10^3/uL; Basophil% 0.2 % (0-1); Eosinophil# 0.09 X10^3/uL; Eosinophils% 0.9 % (0-5); Hematocrit 50.5 % (40-54); Hemoglobin 16.6 g/dL (13.0-16.5); Lymphocyte # 1.83 X10^3/ul (4.0); Lymphocyte % 17.3 % (19-41); Mean Corp Hgb Conc 32.9 g/dL (32-36); Mean Corpuscular Hgb 30.5 pg (27.0-32.0); Mean Corpuscular Volume 92.8 fL (80-94); Mean Platelet Vol. 10.5 fl (6.2-12.0); Monocyte# 0.67 X10^3/uL; Monocyte% 6.4 % (0-10); NRBC Flagged by Analyzer 0 % (0-5); Neutrophil # 7.91 X10^3/uL (2.7-7.7); Neutrophil % 74.9 % (47-70); POSITIVE COUNT YES; Platelet Count 281 K/mm3 (150-450); RBC Distribution Width CV 13.7 % (11.6-14.6); RBC Distribution Width SD 45.9 fl (35.1-43.9); Red Blood Count 5.44 M/mm3 (4.6-6.2); White Blood Count 10.6 K/mm3 (4.4-11.0)
[2020-03-21 17:07] LABS: Differential Indicated SCAN CRITERIA MET
[2020-03-21 17:21] LABS: ALB/GLOB Ratio 0.7 RATIO (0.9-2.4); AST(SGOT) 16 U/L (15-37); Alanine Aminotransfer ALT/SGPT 24 U/L (16-61); Albumin, Serum 3.3 g/dL (3.2-5.0); Alkaline Phosphatase 80 U/L (45-117); Anion Gap 7 (5-15); BUN 15 mg/dL (7-18); BUN/Creat Ratio 20.7 RATIO (10-20); Calcium,Total 9.6 mg/dL (8.5-10.1); Chloride 105 mmol/L (98-107); Creatinine, Serum 0.72 mg/dL (0.70-1.30); EST Glomerular Filtration Rate 114 mL/min (>60); Est Glom Filt Rate - Afr Amer 138 mL/min (>60); Globulin 4.5 g/dL (2.2-4.2); Glucose 94 mg/dL (74-106); Potassium 4.4 mmol/L (3.5-5.1); Protein, Total 7.8 g/dL (6.4-8.2); Sodium Level 138 mmol/L (136-145); Uric Acid 7.4 mg/dL (3.5-7.2)
[2020-03-21 17:36] LABS: Platelet Estimate ADEQUATE (ADEQ); Red Cell Morphology NORM C+C NORMAL (NORM C&C)
== END ==
PROVIDERS: PCP Family Medicine; Visit Provider Family Medicine
DX: M10.9 Gout, unspecified (principal); N40.0 Benign prostatic hyperplasia without lower urinary tract symptoms; E03.9 Hypothyroidism, unspecified
CPT/HCPCS: 36415; 80053; 84443; 84550; 85025

== ENCOUNTER → 2020-09-14 13:57 | Outpatient (CLI) | payer MEDICARE, SELFPAY ==
[2019-03-25 15:12] VITALS: BMI 41.9
[2020-09-14 15:09] LABS: Absolute Lymphocyte Count 1.74 X10^3/uL (0.83-4.51); Absolute Neutrophil Count 7.9 X10^3/uL (2.0-7.7); Basophil# 0.03 X10^3/uL; Basophil% 0.3 % (0-1); Eosinophil# 0.14 X10^3/uL; Eosinophils% 1.3 % (0-5); Hematocrit 50.1 % (40-54); Hemoglobin 16.5 g/dL (13.0-16.5); Lymphocyte # 1.74 X10^3/ul (4.0); Lymphocyte % 16.6 % (19-41); Mean Corp Hgb Conc 32.9 g/dL (32-36); Mean Corpuscular Hgb 29.8 pg (27.0-32.0); Mean Corpuscular Volume 90.6 fL (80-94); Mean Platelet Vol. 9.6 fl (6.2-12.0); Monocyte# 0.68 X10^3/uL; Monocyte% 6.5 % (0-10); NRBC Flagged by Analyzer 0 % (0-5); Neutrophil # 7.88 X10^3/uL (2.7-7.7); Neutrophil % 74.9 % (47-70); Platelet Count 331 K/mm3 (150-450); RBC Distribution Width CV 13.3 % (11.6-14.6); RBC Distribution Width SD 44.7 fl (35.1-43.9); Red Blood Count 5.53 M/mm3 (4.6-6.2); White Blood Count 10.5 K/mm3 (4.4-11.0)
[2020-09-14 15:44] LABS: ALB/GLOB Ratio 0.8 RATIO (0.9-2.4); AST(SGOT) 17 U/L (15-37); Alanine Aminotransfer ALT/SGPT 28 U/L (16-61); Albumin, Serum 3.4 g/dL (3.2-5.0); Alkaline Phosphatase 79 U/L (45-117); Anion Gap 6 (5-15); BUN 16 mg/dL (7-18); BUN/Creat Ratio 23.3 RATIO (10-20); Calcium,Total 9.9 mg/dL (8.5-10.1); Chloride 106 mmol/L (98-107); Creatinine, Serum 0.69 mg/dL (0.70-1.30); EST Glomerular Filtration Rate 121 mL/min (>60); Est Glom Filt Rate - Afr Amer 146 mL/min (>60); Globulin 4.2 g/dL (2.2-4.2); Glucose 105 mg/dL (74-106); Potassium 4.2 mmol/L (3.5-5.1); Protein, Total 7.6 g/dL (6.4-8.2); Sodium Level 138 mmol/L (136-145); Uric Acid 6.3 mg/dL (3.5-7.2)
== END ==
PROVIDERS: PCP Family Medicine; Visit Provider Family Medicine
DX: M10.9 Gout, unspecified (principal); N40.0 Benign prostatic hyperplasia without lower urinary tract symptoms; K76.0 Fatty (change of) liver, not elsewhere classified
CPT/HCPCS: 36415; 80053; 84550; 85025

== ENCOUNTER 2022-09-28 08:50 | Inpatient (IN) | payer MEDICARE, SELFPAY ==
[2022-09-28] VITALS (61 sets, daily range): BP systolic 50–138; BP diastolic 14–101; PULSE 8–150; RESP 13–27; TEMP 34.2–37.4; O2SAT 86–100; BMI 42.8; BMI 43.1
--- NOTE | 2022-09-28 08:55 | CT_ITS ---
INDICATION: Neuro deficit, acute, stroke suspected EXAMINATION: CT BRAIN - CT Head Stroke Protocol W/O Contrast Injection TECHNIQUE: Multiple axial images were obtained of the head without intravenous contrast. A radiation dose optimization technique was used for this scan. IV Contrast dosage and agent: None. COMPARISON: Head CT dated August 23, 20092015 and MRI dated August 28, 2015 FINDINGS: BRAIN PARENCHYMA: No intra- or extra-axial hemorrhage. No evidence of acute infarct. No intracranial mass or mass effect. There is preservation of the gorman/white matter interface. Posterior fossa structures are unremarkable. CSF SPACES: Appropriate for age. No hydrocephalus. Basal cisterns are patent. CALVARIUM, SKULL BASE, PARANASAL SINUSES AND MASTOID AIR CELLS: Clear. No discrete lytic or blastic abnormalities. ORBITS: Both globes, extraocular muscles, optic nerves and retrobulbar fat appear unremarkable. CT/STROKE Brain/Head without Cont IMPRESSION: No acute intracranial process. N.B. : The above Results were Read Back by Shira Dickson MD to Siva Irwin MD, and understanding confirmed on 09/28/2022 10:22:12 (ET). Electronically Signed: Shira Dickson MD at 10:21 EST ,
--- NOTE | 2022-09-28 08:55 | EKG12_ITS ---
Test Reason : Blood Pressure : / mmHG Vent. Rate : 044 BPM Atrial Rate : 044 BPM P-R Int : 226 ms QRS Dur : 094 ms QT Int : 462 ms P-R-T Axes : 031 068 034 degrees QTc Int : 395 ms Marked sinus bradycardia with sinus arrhythmia with 1st degree A-V block Increased R/S ratio in V1, consider early transition or posterior infarct Abnormal ECG Confirmed by DAYAN HESTER, AMMON ([id number]), editor farm journal JACKIE JAIME ([id number]) on 09/30/2022 12:26:20 PM Referred By: Confirmed By:AMMON HANLEY MD
--- NOTE | 2022-09-28 08:57 | CT_ITS ---
STUDY: CTA HEAD AND NECK WITH CONTRAST REASON FOR EXAM: Male, 72 years old. Unresponsive. Pinpoint pupils. RADIATION DOSAGE (If Supplied By Facility): CTDIvol = ( 33.06 ) mGy, DLP = ( 1649.80 ) mGycm TECHNIQUE: Transaxial CT imaging of the brain was performed without administration of intravenous contrast material. Individualized dose optimization techniques were used for this CT. COMPARISON: No relevant priors. FINDINGS: ANGIOGRAPHIC FINDINGS: Ascending aorta, aortic arch and descending thoracic aorta demonstrate no aneurysmal dilatation or dissection. Conventional arch anatomy. Brachycephalic trunk, right subclavian artery, and right common carotid artery are widely patent. Left common carotid artery demonstrates short segment narrowing just proximal to its bifurcation. Left subclavian artery is widely There is moderate to severe luminal narrowing of the proximal right internal carotid artery secondary to atheromatous and atherosclerotic plaque. Tortuous cervical segment normal petrous segment. Normal cavernous segment. Normal supraclinoid segment. There is moderate short segment luminal narrowing in the proximal right external carotid artery. The left internal carotid artery origin is patent. Tortuous cervical segment. Normal petrous segment. Short segment narrowing of the supraclinoid segment segment. The M1 and M2 segments of the right middle cerebral artery are patent. The M3 segments are not well opacified secondary to timing of the contrast bolus. The A1, A2, and A3 segments of the right anterior cerebral artery are patent. The M1 and M2 segments of the left middle cerebral artery are patent. The M3 segments are not well opacified secondary to timing of the contrast bolus. The A1, A2, and A3 segments of the left anterior cerebral artery are patent Bilateral vertebral arteries are patent with right-sided dominance. The basilar artery is small in caliber. Bilateral posterior tree indicating arteries provide primary supply to bilateral posterior cerebral arteries. Venous structures are unremarkable. NON ANGIOGRAPHIC FINDINGS: No acute intracranial hemorrhage. No extra-axial fluid. There is mild bilateral periventricular and subcortical white matter hypoattenuation which is symmetric in distribution. Mild diffuse cerebral/3. Normal ventricles. No intracranial mass or mass effect. Normal paranasal sinuses. CT/STROKE CTA Head AND Neck W/Con IMPRESSION: 1. Moderate to severe stenosis of the proximal right internal carotid artery secondary to atheromatous and atherosclerotic plaque. 2. Mild short segment stenosis of the distal left common carotid artery. 3. Mild to moderate shortness of stenosis of the supraclinoid segment of the left internal carotid artery 4. Limited evaluation of the M3 segments of bilateral middle cerebral artery secondary to timing of contrast bolus. 5. No acute intracranial abnormality. N.B. : The above Results were Read Back by Arnulfo Nur MD to Siva Irwin MD, and understanding confirmed on 09/28/2022 10:42:42 (ET). Electronically Signed: Arnulfo Nur MD at 10:47 EST ,
[2022-09-28] MEDS: Etomidate 20 MG/10 ML Vial IV (09:03)
[2022-09-28] MEDS: NSY 0.9% NS BOLUS 1000 ML IV (09:14)
[2022-09-28] MEDS: Atropine Sulfate 1 MG/10 ML Syringe IV (09:16)
[2022-09-28 09:18] LABS: Absolute Lymphocyte Count 5.08 X10^3/uL (0.83-4.51); Absolute Neutrophil Count 8.2 X10^3/uL (2.0-7.7); Basophil# 0.04 X10^3/uL; Basophil% 0.3 % (0-1); Eosinophil# 0.13 X10^3/uL; Eosinophils% 0.9 % (0-5); Hematocrit 47.4 % (40-54); Hemoglobin 14.8 g/dL (13.0-16.5); Lymphocyte # 5.08 X10^3/ul (0.83-4.51); Lymphocyte % 35.2 % (19-41); Mean Corp Hgb Conc 31.2 g/dL (32-36); Mean Corpuscular Hgb 30.2 pg (27.0-32.0); Mean Corpuscular Volume 96.7 fL (80-94); Mean Platelet Vol. 10.2 fl (6.2-12.0); Monocyte% 6.2 % (0-10); NRBC Flagged by Analyzer 0 % (0-5); Neutrophil # 8.24 X10^3/uL (2.7-7.7); Neutrophil % 57.1 % (47-70); POSITIVE DIFFERENTIAL YES; Platelet Count 387 K/mm3 (150-450); RBC Distribution Width CV 13.6 % (11.6-14.6); RBC Distribution Width SD 48.1 fl (35.1-43.9); White Blood Count 14.4 K/mm3 (4.4-11.0)
[2022-09-28 09:23] LABS: Differential Indicated SCAN CRITERIA MET
[2022-09-28 09:30] LABS: International Normalized Ratio 1.3; Partial Thromboplast Time 32.2 Seconds (24.1-36.2)
--- NOTE | 2022-09-28 09:30 | RAD_ITS ---
INDICATION: Intubation EXAMINATION/TECHNIQUE: X-RAY - XR Chest 1 View COMPARISON: July 05, 2018 FINDINGS: LINES/DEVICES: There is endotracheal tube in place terminating 2.4 cm above the lucrecia. There is a right-sided central venous catheter in place terminating within the expected region of the superior vena cava. There is an enteric tube in place terminating within the expected region of the gastric fundus. LUNGS: There are bibasilar patchy opacities. MEDIASTINUM AND CARDIOVASCULAR STRUCTURES: Cardiac silhouette not enlarged. Central airways and mediastinal contour are unremarkable. BONES AND SOFT TISSUES: Unremarkable. RAD/Chest 1 View (Portable) IMPRESSION: Endotracheal tube terminating 2.4 cm above the lucrecia. Bibasilar patchy opacities may be secondary to underlying atelectasis and/or pneumonia. Electronically Signed: Shira Dicskon MD at 10:02 [facility] ,
[2022-09-28 09:36] LABS: Anion Gap 15 (5-15); BUN 19 mg/dL (7-18); BUN/Creat Ratio 20.9 RATIO (10-20); Chloride 111 mmol/L (98-107); Creatinine, Serum 0.91 mg/dL (0.70-1.30); EST Glomerular Filtration Rate 87 mL/min (>60); Est Glom Filt Rate - Afr Amer 105 mL/min (>60); Estimated Creatinine Clearance 73.38 ml/min; Glucose 272 mg/dL (74-106); Potassium 4.5 mmol/L (3.5-5.1); Sodium Level 138 mmol/L (136-145); Troponin-I HS 32 pg/mL (3.0-78.0)
[2022-09-28 09:45] LABS: Differential Comment SCANNED
[2022-09-28] MEDS: 0.9% Normal Saline 1,000 ML 999 ML IV ×2 (09:45→10:45)
[2022-09-28 10:01] LABS: Blood Gas Specimen Type VEN; O2 Delivery Device Adult Vent; PEEP 5; RR 14; SITE Central Line; VBG BASE EXCESS -22 mmol/L (-1.0-3.5); VBG Bicarbonate 10 mmol/L (22-26); VBG PO2 61 mmHg (25-40); VBG SO2 77 % (50-70); VBG TCO2 11 mmol/L (23-33); VBG pCO2 38.4 mmHg (41-51)
--- NOTE | 2022-09-28 10:10 | EX.ED.DYSGE1 ---
HPI History of Present Illness Chief Complaint: Unresponsive [facility] Medical History (Updated 06/27/22 @ 10:43 by Martin RICARDO PA) Cellulitis of left forearm Laceration of left ring finger Home Medications tamsulosin 0.4 mg capsule 0.4 mg PO BID prostate 08/27/15 [History Last Taken 03/24/19] acetaminophen 300 mg-codeine 30 mg tablet 1 tab PO DAILY PRN Pain 07/05/18 [History Last Taken 03/24/19] baclofen 10 mg tablet 20 mg PO TID PRN Spasms 07/05/18 [History Last Taken 03/24/19] ciprofloxacin 0.3 %-dexamethasone 0.1 % ear drops,suspension 4 drp RIGHT EAR BID ear infection 03/25/19 [History Last Taken 03/24/19] fluticasone propionate 50 mcg/actuation nasal spray,suspension 2 spray NASAL QHS sinus 03/25/19 [History Last Taken 03/24/19] doxycycline monohydrate 100 mg capsule 100 mg PO BID #20 caps 03/21/22 [Rx Last Taken Unknown] cephalexin 500 mg capsule 500 mg PO TID #15 caps 06/27/22 [Rx Last Taken Unknown] Allergy/AdvReac Type Severity Reaction Status Date / Time acetaminophen [From Percocet] AdvReac Other Verified 07/05/18 15:38 oxycodone HCl [From Percocet] AdvReac Other Verified 07/05/18 15:38 Social History Smoking Status: Former smoker EXAM Physical Exam Const Vital Signs: 09/28/22 08:50 09/28/22 08:56 09/28/22 09:05 Temperature 97.1 F L 97.1 F L Temperature Source Temporal Temporal Pulse Rate 86 8 L Respiratory Rate 13 14 Respiratory Pattern Blood Pressure 93/71 93/71 Blood Pressure Mean 78 78 Blood Pressure Source Pulse Ox 94 87 Oxygen Delivery Method Non-Rebreather Non-Rebreather Ambu-Bag Oxygen Flow Rate (L/min) 15 Fraction of Inspired Oxygen (FIO2) 15 09/28/22 09:07 09/28/22 09:15 09/28/22 09:31 Temperature Temperature Source Pulse Rate 84 39 L 79 Respiratory Rate 16 16 20 H Respiratory Pattern Blood Pressure 111/14 L 55/34 L 51/35 L Blood Pressure Mean 46 41 40 Blood Pressure Source Pulse Ox 95 92 95 Oxygen Delivery Method Ambu-Bag Venturi Mask Mechanical Ventilator Oxygen Flow Rate (L/min) Fraction of Inspired Oxygen (FIO2) 09/28/22 09:33 09/28/22 09:04 09/28/22 09:41 Temperature Temperature Source Pulse Rate 90 53 L Respiratory Rate 15 14 Respiratory Pattern Normal Blood Pressure 63/39 L 50/31 L Blood Pressure Mean 47 37 Blood Pressure Source Monitor Pulse Ox 90 93 Oxygen Delivery Method Mechanical Ventilator Oxygen Flow Rate (L/min) Fraction of Inspired Oxygen (FIO2) 80 09/28/22 09:46 09/28/22 09:55 Temperature Temperature Source Pulse Rate 82 59 L Respiratory Rate 14 Respiratory Pattern Blood Pressure 51/38 L Blood Pressure Mean 42 Blood Pressure Source Pulse Ox 86 90 Oxygen Delivery Method Mechanical Ventilator Oxygen Flow Rate (L/min) Fraction of Inspired Oxygen (FIO2) 100 100 MDM MDM Lab Data Labs: Laboratory Results - last 24 hr 09/28/22 09/28/22 09/28/22 09:00 09:00 09:00 WBC 14.4 H RBC 4.90 Hgb 14.8 Hct 47.4 MCV 96.7 H MCH 30.2 MCHC 31.2 L RDW Std Deviation 48.1 H RDW Coeff of Kiara 13.6 Plt Count 387 MPV 10.2 Immature Gran % (Auto) 0.300 Neut % (Auto) 57.1 Lymph % (Auto) 35.2 [place] % (Auto) 6.2 Eos % (Auto) 0.9 Baso % (Auto) 0.3 Absolute Neuts (auto) 8.2 H Absolute Lymphs (auto) 5.08 H Nucleated RBC % 0 Differential Comment SCANNED PT 16.0 H INR 1.3 APTT 32.2 Sodium 138 Potassium 4.5 Chloride 111 H Carbon Dioxide 12.0 L Anion Gap 15 BUN 19 H Creatinine 0.91 Estim Creat Clear Calc 73.38 Est GFR (MDRD) Af Amer 105 Est GFR (MDRD) Non-Af 87 BUN/Creatinine Ratio 20.9 H Glucose 272 H Calcium 10.0 Troponin I High Sens 32 ABG Data ABG results: ABG 09/28/22 09:56 Specimen Type DMITRI Sample Site Central Line VBG pH 7.00 L* VBG pO2 61 H VBG HCO3 10 L VBG Total CO2 11 L VBG O2 Sat (Calc) 77 H VBG Base Excess -22 L POC Mix VBG pCO2 Pt Tmp 38.4 L Respiration Rate 14 O2 Delivery Device Adult Vent POC PEEP 5 Crit Call To/Read Back Yes Blood Gas Notified Whom GLENIS Blood Gas Notified Time 09:57:31 Radiography Diagnostic Testing: Clinical Impression(s) from Imaging Studies Chest X-Ray 09/28/22 09:30 IMPRESSION: Endotracheal tube terminating 2.4 cm above the lucrecia. Bibasilar patchy opacities may be secondary to underlying atelectasis and/or pneumonia. Electronically Signed: Shira Dickson MD at 10:02 EST , Discharge Plan Triage Chief Complaint: Unresponsive ED Provider: Siva Irwin Dx/Rx/DC Orders Prescriptions: No Action doxycycline monohydrate 100 mg capsule 100 mg PO BID Qty: 20 0RF cephalexin 500 mg capsule 500 mg PO TID Qty: 15 0RF tamsulosin 0.4 MG capsule 0.4 mg PO BID Label Comments: prostate acetaminophen-codeine 300MG-3 tablet 1 tab PO DAILY PRN (Reason: Pain) baclofen 10 MG tablet 20 mg PO TID PRN (Reason: Spasms) fluticasone propionate 50 MCG spray,suspension 2 spray NASAL QHS ciprofloxacin-dexamethasone 1 DROP bottle 4 drp RIGHT EAR BID Label Comments: INSTILL 4 DROPS INTO RIGHT EAR TWICE DAILY FOR 7 DAYS Primary Care Provider: Angelia Nielsen Referrals: Angelia Nielsen MD [Primary Care Provider] -
--- NOTE | 2022-09-28 10:11 | EDS_ITS ---
HPI History of Present Illness Chief Complaint: Unresponsive Detail of Chief Complaint: Unresponsive Informant: family and EMS Limited: coma Onset/Context/Timing Onset: Hours Context: Sudden Onset Timing: Continuous Quality: Patient arrived unresponsive Location: Patient last seen well at 0800. Mechanism/Context: Yes other Current Severity: Severe Maximum Severity: Severe Worsened by: Unknown Relieved by: Unknown Associated Symptoms Associated Symptoms: other (Unknown) Length of loss of consciousness: Unknown Narrative Narrative: Patient is a 72-year-old male with history of chronic back pain status post laminectomy with postlaminectomy syndrome and long-term concurrent opiate use. Per old records a history of pulmonary embolus and obstructive sleep apnea. Patient had a cardiac catheterization in and revealed no significant lesions. Patient was talking at 0800. Patient became unresponsive on the couch. Paramedics were contacted. Upon arrival patient was found to be unresponsive. He arrived with a nonrebreather mask in place. He was hypotensive. He had an abnormal respiratory pattern somewhat chaotic. Prior similar symptoms: No Recent Illness/Hospitalization: No PFSH PFS Medical History Cellulitis of left forearm Laceration of left ring finger Home Medications tamsulosin 0.4 mg capsule 0.4 mg PO BID prostate 08/27/15 [History Last Taken 03/24/19] acetaminophen 300 mg-codeine 30 mg tablet 1 tab PO DAILY PRN Pain 07/05/18 [History Last Taken 03/24/19] baclofen 10 mg tablet 20 mg PO TID PRN Spasms 07/05/18 [History Last Taken 03/24/19] ciprofloxacin 0.3 %-dexamethasone 0.1 % ear drops,suspension 4 drp RIGHT EAR BID ear infection 03/25/19 [History Last Taken 03/24/19] fluticasone propionate 50 mcg/actuation nasal spray,suspension 2 spray NASAL QHS sinus 03/25/19 [History Last Taken 03/24/19] doxycycline monohydrate 100 mg capsule 100 mg PO BID #20 caps 03/21/22 [Rx Last Taken Unknown] cephalexin 500 mg capsule 500 mg PO TID #15 caps 06/27/22 [Rx Last Taken Unknown] Allergy/AdvReac Type Severity Reaction Status Date / Time acetaminophen [From Percocet] AdvReac Other Verified 11/18/18 15:38 oxycodone HCl [From Percocet] AdvReac Other Verified 07/05/18 15:38 Social History (Updated 09/28/22 @ 10:[address] Siva Irwin MD) household members: spouse Smoking Status: Former smoker ROS ROS ED Review of Systems ROS Unobtainable: due to endotracheal tube and due to mental status EXAM Physical Exam Const Vital Signs: 09/28/22 08:50 09/28/22 08:56 09/28/22 09:05 Temperature 97.1 F L 97.1 F L Temperature Source Temporal Temporal Pulse Rate 86 8 L Pulse Rate [5] Respiratory Rate 13 14 Respiratory Rate [4] Respiratory Rate [5] Respiratory Pattern Blood Pressure 93/71 93/71 Blood Pressure [4] Blood Pressure [5] Blood Pressure Mean 78 78 Blood Pressure Source Pulse Ox 94 87 Oxygen Delivery Method Non-Rebreather Non-Rebreather Ambu-Bag Oxygen Flow Rate (L/min) 15 Fraction of Inspired Oxygen (FIO2) 15 09/28/22 09:07 09/28/22 09:15 09/28/22 09:31 Temperature Temperature Source Pulse Rate 84 39 L 79 Pulse Rate [5] Respiratory Rate 16 16 20 H Respiratory Rate [4] Respiratory Rate [5] Respiratory Pattern Blood Pressure 111/14 L 55/34 L 51/35 L Blood Pressure [4] Blood Pressure [5] Blood Pressure Mean 46 41 40 Blood Pressure Source Pulse Ox 95 92 95 Oxygen Delivery Method Ambu-Bag Venturi Mask Mechanical Ventilator Oxygen Flow Rate (L/min) Fraction of Inspired Oxygen (FIO2) 09/28/22 09:33 09/28/22 09:04 09/28/22 09:41 Temperature Temperature Source Pulse Rate 90 53 L Pulse Rate [5] Respiratory Rate 15 14 Respiratory Rate [4] Respiratory Rate [5] Respiratory Pattern Normal Blood Pressure 63/39 L 50/31 L Blood Pressure [4] Blood Pressure [5] Blood Pressure Mean 47 37 Blood Pressure Source Monitor Pulse Ox 90 93 Oxygen Delivery Method Mechanical Ventilator Oxygen Flow Rate (L/min) Fraction of Inspired Oxygen (FIO2) 80 09/28/22 09:46 09/28/22 10:27 09/28/22 10:00 Temperature Temperature Source Pulse Rate 82 123 H Pulse Rate [5] 120 H Respiratory Rate 14 27 H Respiratory Rate [4] 18 Respiratory Rate [5] 22 H Respiratory Pattern Blood Pressure 51/38 L 75/42 L Blood Pressure [4] 97/75 Blood Pressure [5] 91/72 Blood Pressure Mean 42 53 Blood Pressure Source Pulse Ox 86 95 Oxygen Delivery Method Mechanical Ventilator Mechanical Ventilator Oxygen Flow Rate (L/min) Fraction of Inspired Oxygen (FIO2) 100 100 09/28/22 09:55 Temperature Temperature Source Pulse Rate 59 L Pulse Rate [5] Respiratory Rate Respiratory Rate [4] Respiratory Rate [5] Respiratory Pattern Blood Pressure Blood Pressure [4] Blood Pressure [5] Blood Pressure Mean Blood Pressure Source Pulse Ox 90 Oxygen Delivery Method Oxygen Flow Rate (L/min) Fraction of Inspired Oxygen (FIO2) 100 Positive well nourished, well developed and obese Constitutional Narrative: Patient is nonresponsive to verbal or tactile stimuli. He does withdraw to noxious stimuli. General Appearance ED: well developed and pallor Nutritional Appearance: obese HEENT normocephalic and atraumatic; Negative for cyanosis of lips/distal nose Eyes Eyes Narrative: Pupils are pinpoint. Patient has disconjugate gaze. There is no nystagmus. General Eye ED: Negative for pale conjunctiva or scleral icterus Neck no lymphadenopathy and supple Neck Narrative: Unable to determine if patient has JVD due to body habitus and huitron. Lymph Lymphatic Narrative: No axillary or inguinal lymphadenopathy Chest Wall Chest Narrative: Chest wall appears normal. There is no crepitus or subcutaneous air appreciated. Resp Resp Narrative: Patient has shallow rapid breaths with an occasional deep breath and somewhat chaotic respiratory pattern. Cardio regular rate, regular rhythm, S1 normal heart sound, S2 normal heart sound and no murmurs Cardio Narrative: Heart tones are distant. GI non-distended and no masses GI Narrative: There is no palpable or pulsatile mass. There is no abdominal bruit. Auscultation: hypoactive bowel sounds Palpation: soft Narrative: Normal external genitalia. Neuro No oriented x3 Sensorium / Orientation: Negative for alert Speech: Negative for speech normal Gait (Neuro): Negative for normal gait Psych Psych Narrative: Unable to determine Skin Skin Narrative: Patient has mottled extremities. He does have a lenticular rash noted of the distal extremities upper and lower. General Skin Exam: pallor; Negative for jaundice Lesions: no lesions MDM MDM MDM Narrative Medical decision making narrative: Patient arrived with disconjugate pinpoint pupils with abrupt onset and mental status. Concern for intracranial bleed versus metabolic cause versus infectious cause. Need to entertain possibility of opiate overdose. This is unlikely however. Stroke order set was initiated concern for airway, ventilation, oxygenation and ability to protect his airway patient was orotracheal intubated by RSI technique. He received 20 mg etomidate followed by 75 mg rocuronium. He was easily orotracheal intubated first pass using glide scope. 7.5 Scottish endotracheal tube was placed. Patient did become bradycardic prior to laryngoscopy. He did not require inte rvention. He responded after intubation. This may be due to acidosis. Patient had additional episode of bradycardia. Responded to aliquot of epinephrine. 1 cc of 1-10,000 solution was drawn from vial and diluted with 9 cc of saline. He received 1 cc aliquots for bradycardia and hypotension. He responded appropriately with regards to heart rate but not blood pressure. For this reason, nurse was asked to order Levophed. Subclavian line was subsequently placed. Because of patient's inability to respond and give permission subclavian was placed under emergent conditions. All participants in room were capped and wearing mask. Hospital protocol was adhered to. The area was prepped. Sterile drape was applied. The right subclavian vein was successfully cannulated first attempt on the way in. Using Seldinger technique triple-lumen was placed. Of note there was no blood return from the post and when the guidewire was placed. Leave it for drip was started through the brown port, distal port. Because of difficulty ventilating the patient Dr. Martinez the electrical logging operator was contacted. She is presently seen the patient. Because there was concern for intracranial pathology patient was taken to the radiology suite for CT of the head with out contrast and CTA of the head and neck with contrast. Per my review in Dr. Hernández's review there is no evidence of intracranial bleed or obvious intracranial pathology. Awaiting formal read by radiologist. I was informed by respiratory therapist that the pH is 7.0 with a PCO2 of 38. 1 amp of bicarb was administered. Bicarb drip was ordered as well. Dr. Martinez is in agreement Dr. Martinez is presently managing patient and attempting a femoral arterial line. Patient is presently on Levophed, bicarb drip and dopamine drip. Lab Data Attestation: I reviewed the patient's lab results. Lab results narrative: White count is elevated 14.4 thousand with no shift. This may represent stress reaction. Coags are normal. Electrolyte panel is remarkable for a CO2 of 12 with an anion gap of 15. BUN and creatinine are normal. Glucose is elevated at 272. Troponin is 32, which is normal. Dopamine drip has been ordered after discussion with Dr. Hernández. Since patient has elevated white count will obtain blood cultures x2. Labs: Laboratory Results - last 24 hr 09/28/22 09/28/22 09/28/22 09:00 09:00 09:00 WBC 14.4 H RBC 4.90 Hgb 14.8 Hct 47.4 MCV 96.7 H MCH 30.2 MCHC 31.2 L RDW Std Deviation 48.1 H RDW Coeff of Kiara 13.6 Plt Count 387 MPV 10.2 Immature Gran % (Auto) 0.300 Neut % (Auto) 57.1 Lymph % (Auto) 35.2 [place] % (Auto) 6.2 Eos % (Auto) 0.9 Baso % (Auto) 0.3 Absolute Neuts (auto) 8.2 H Absolute Lymphs (auto) 5.08 H Nucleated RBC % 0 Differential Comment SCANNED PT 16.0 H INR 1.3 APTT 32.2 Sodium 138 Potassium 4.5 Chloride 111 H Carbon Dioxide 12.0 L Anion Gap 15 BUN 19 H Creatinine 0.91 Estim Creat Clear Calc 73.38 Est GFR (MDRD) Af Amer 105 Est GFR (MDRD) Non-Af 87 BUN/Creatinine Ratio 20.9 H Glucose 272 H Lactic Acid Calcium 10.0 Troponin I High Sens 32 POC Glucose 09/28/22 09/28/22 09:00 09:00 WBC RBC Hgb Hct MCV MCH MCHC RDW Std Deviation RDW Coeff of Kiara Plt Count MPV Immature Gran % (Auto) Neut % (Auto) Lymph % (Auto) [place] % (Auto) Eos % (Auto) Baso % (Auto) Absolute Neuts (auto) Absolute Lymphs (auto) Nucleated RBC % Differential Comment PT INR APTT Sodium Potassium Chloride Carbon Dioxide Anion Gap BUN Creatinine Estim Creat Clear Calc Est GFR (MDRD) Af Amer Est GFR (MDRD) Non-Af BUN/Creatinine Ratio Glucose Lactic Acid 14.5 H* Calcium Troponin I High Sens POC Glucose 283 H ABG Data ABG results: ABG 09/28/22 09/28/22 09:56 10:38 Specimen Type MDITRI DMITRI Sample Site Central Line Central Line VBG pH 7.00 L* 7.08 L* VBG pO2 61 H 62 H VBG HCO3 10 L 12 L VBG Total CO2 11 L 14 L VBG O2 Sat (Calc) 77 H 81 H VBG Base Excess -22 L -18 L POC Mix VBG pCO2 Pt Tmp 38.4 L 41.1 Respiration Rate 14 22 O2 Delivery Device Adult Vent POC PEEP 5 18 Crit Call To/Read Back Yes Yes Blood Gas Notified Whom GLENIS Blood Gas Notified Time 09:57:31 Radiography Chest X-Ray - ED: 1 View and Read by ED Physician (Single view portable chest x- ray reveals endotracheal tube to be 5 mm above the lucrecia. This was pulled back. Right subclavian line is proposition. Orogastric tube is in proper position. Patient is rotated. Volume is limited. Unable to determine whether patient has atelectasis versus infiltrat) Diagnostic Testing: Clinical Impression(s) from Imaging Studies Brain CT 09/28/22 08:55 IMPRESSION: No acute intracranial process. N.B. : The above Results were Read Back by Shira Dickson MD to Siva Irwin MD, and understanding confirmed on 09/28/2022 10:22:12 (ET). Electronically Signed: Shira Dickson MD at 10:21 EST , Head/Neck CTA 09/28/22 08:57 IMPRESSION: 1. Moderate to severe stenosis of the proximal right internal carotid artery secondary to atheromatous and atherosclerotic plaque. 2. Mild short segment stenosis of the distal left common carotid artery. 3. Mild to moderate shortness of stenosis of the supraclinoid segment of the left internal carotid artery 4. Limited evaluation of the M3 segments of bilateral middle cerebral artery secondary to timing of contrast bolus. 5. No acute intracranial abnormality. N.B. : The above Results were Read Back by Arnulfo Nur MD to Siva Irwin MD, and understanding confirmed on 09/28/2022 10:42:42 (ET). Electronically Signed: Arnulfo Nur MD at 10:47 EST , Chest X-Ray 09/28/22 09:30 IMPRESSION: Endotracheal tube terminating 2.4 cm above the lucrecia. Bibasilar patchy opacities may be secondary to underlying atelectasis and/or pneumonia. Electronically Signed: Shira Dickson MD at 10:02 EST , EKG Initial EKG: Attestation: I personally reviewed and interpreted this EKG as follows: Interpretation: Sinus Bradycardia (Sinus bradycardia with a rate of 44 and a first-degree AV block. AR interval is 226 ms. Cures duration 94 ms. QT duration 462 ms. [place] is normal. There is artifact.) Prior: Changed Follow-up EKG: Attestation: I personally reviewed and interpreted this EKG as follows: Interpretation: Sinus Rhythm (Performed at 0942. Normal sinus rhythm rate 83. AR interval is 198 ms. Cures duration 114 ms. QT duration 4 and 10 ms. [place] is normal. There is prolongation of the QT interval. Patient has a nonsignificant intraventricular conduction delay. EKG is changed from first.) Treatment and Re-Evaluation Narrative: Patient did have CPR performed because he became bradycardic and did not respond to atropine or aliquot of epinephrine. Patient CO2 increased. He had organized rhythm on the monitor. He does have a palpable pulse. His blood pressure was 91/60. 30 EKG reveals a tachycardia of 123. There are no obvious P waves seen. QRS duration 102 ms. QT durations are 96 ms. [place] is normal. There is artifact as well as calcific changes noted of the ST-T segments. CPR was performed. Algorithm for pulseless electrical activity was followed. Please follow nurses notes for administration of meds and times. I did receive call from radiologist there was no acute intercranial process noted on the unenhanced scan. Procedures Other Procedures Procedure(s): 1. Oral trach intubation by RSI technique. 7.5 Scottish endotracheal tube was placed on first attempt using glide scope. There is a appropriate color change on capnometer. Breath sounds were noted bilaterally with no breath sounds over the epigastrium. 2. Orogastric tube placed by nursing staff 3. Right subclavian line was placed. This was performed without difficulty. The vessel was cannulated on first attempt on the way in. Using Seldinger technique 7.5 [place] triple-lumen was placed. 4. Administration of cardiovascular drugs through central line by me and documented in the MDM CPR for PEA and successful resuscitation 5. Fierro placed per nursing staff Critical Care Time Critical Care Time: Yes Critical care time (excluding procedures): 75-104 minutes (76), Including time spent: (History, physical, documentation, review of laboratory results and interpretation of laboratory results. Interpretation independently of chest x- ray, EKGs, CT of the head (unenhanced).), Discussing w/Patient &/or Family/Master Black Belt, Discussing w/Consultants (Dr. Martinez electrical logging operator), Arranging Admission or Transfer and Performing Direct Patient Care at Bedside (CPR and treatment for PEA) Discharge Plan Dx/Rx/DC Orders Clinical Impression: Cardiopulmonary arrest with successful resuscitation, Bradycardia, severe sinus, Acute hypotension, Acidosis, lactic, Siobhan coma scale score 3-8, at arrival to emergency department, Acute hypoxemic respiratory failure Disposition Disposition: [facility]
[2022-09-28 10:26] LABS: Bedside Glucose 283 mg/dL (74-106)
[2022-09-28] MEDS: Sodium Bicarbonate 8.4% 50 ML Syringe 50 MEQ IV (10:28)
[2022-09-28] MEDS: DOPamine IV 800 MG/250 ML IV.SOLN. 37 MG CONT INF (10:38)
[2022-09-28 10:41] LABS: Lactic Acid 14.5 mmol/L (0.4-1.9)
--- NOTE | 2022-09-28 10:41 | CPS ---
critical values on vbg. Dr. adames notified of critical values
[2022-09-28 10:45] LABS: Blood Gas Specimen Type VEN; PEEP 18; RR 22; SITE Central Line; VBG BASE EXCESS -18 mmol/L (-1.0-3.5); VBG Bicarbonate 12 mmol/L (22-26); VBG PO2 62 mmHg (25-40); VBG SO2 81 % (50-70); VBG TCO2 14 mmol/L (23-33); VBG pCO2 41.1 mmHg (41-51); VBG pH 7.08 (7.32-7.42)
--- NOTE | 2022-09-28 11:28 | CM.ED ---
Addendum entered by Margoth Hicks 09/28/22 15:05: HUBER was in the lobby when patient's daughter asked for assistance in getting update regarding patient's status in the ICU. SW spoke to ICU staff and the RN is updating patient's family. SW went to ICU and met with family. Family had been updated and was visiting with patient. SW remains available if needs arise. Margoth MACKEY Original Note: HUBER responded to code blue in the ED. Emotional support provided to patient's and daughter. Margoth MACKEY
--- NOTE | 2022-09-28 12:00 | CT_ITS ---
STUDY: CT CHEST, ABDOMEN T PELVIS WITHOUT CONTRAST REASON FOR EXAM: Male, 72 years old. UNRESPONSIVE HYPOTENSIVE. CPR DONE EARLIER. CONTRAST GIVEN FOR CTA HEAD NECK @ 0957 TODAY RADIATION DOSAGE (If Supplied By Facility): CTDIvol = ( 27.11 ) mGy, DLP = ( 2503.80 ) mGycm TECHNIQUE: Transaxial imaging was performed without the administration of intravenous contrast material. Individualized dose optimization techniques were used for this CT. COMPARISON: CT of the abdomen and pelvis dated March 25, 2019 FINDINGS: CHEST There is a endotracheal tube in place terminating 2.4 cm above the lucrecia. There is elevation of the left hemidiaphragm. There is bilateral lower lobe consolidation, more pronounced on the left. There are coronary artery calcifications. Normal mediastinum. Normal hilar regions. Normal unenhanced pulmonary arteries. There are peripheral calcifications of the thoracic aorta. Normal osseous structures. ABDOMEN Normal liver. There is nonvisualization of the gallbladder. Normal spleen. Normal pancreas. Normal bilateral adrenal glands. Normal right kidney. There is a left renal cyst. There is an enteric tube in place terminating within the gastric fundus. Normal small intestine. There are multiple colonic diverticula consistent with diverticulosis. The appendix is visualized and appears normal. There is diffuse atherosclerotic calcification of the abdominal aorta, without a demonstrated aneurysm. Normal inferior vena cava. Normal retroperitoneum. PELVIS There is a Fierro catheter within the urinary bladder. There is no pelvic fluid. There is no pelvic lymphadenopathy or mass lesion. There is diffuse atherosclerotic calcification of the pelvic arteries. Normal abdominal wall. There are degenerative changes of the lumbar spine. CT/CT Chest, Abd, Pelvis WO Cont IMPRESSION: Bilateral lower lobe consolidation. Atherosclerosis. Colonic diverticulosis. Degenerative changes of the thoracic and lumbar spine. Electronically Signed: Shira Dickson MD at 12:30 EST ,
--- NOTE | 2022-09-28 12:37 | EKGRS_ITS ---
Test Reason : REPEAT Blood Pressure : / mmHG Vent. Rate : 083 BPM Atrial Rate : 083 BPM P-R Int : 198 ms QRS Dur : 114 ms QT Int : 410 ms P-R-T Axes : 045 080 038 degrees QTc Int : 481 ms Normal sinus rhythm Incomplete right bundle branch block Nonspecific ST abnormality Prolonged QT Abnormal ECG Confirmed by DAYAN HESTER, AMMON ([id number]), electronic news gathering editor JACKIE JAIME ([id number]) on 09/30/2022 12:26:36 PM Referred By: Confirmed By:AMMON HANLEY MD
--- NOTE | 2022-09-28 12:45 | NURSING ---
Patient brought to us from ER with levophed running at 30 mcg/min. Charted in the MAR as still running at 20mcg/min.
[2022-09-28] MEDS: 0.9% Normal Saline 1,000 ML 150 ML IV ×2 (13:08→19:37)
[2022-09-28] MEDS: Heparin Injection (Vial) 5,000 UNIT/ML VIAL 5000 UNIT SC (13:17)
[2022-09-28 13:56] LABS: Reflex Lactate? Y
--- NOTE | 2022-09-28 13:56 | HP.PCM.HOS_ITS ---
HPI - General General Date of Admission: 09/28/22 Date of Service: 09/28/22 Chief Complaint: Unresponsiveness, decreased mental status HPI Narrative LELE HILARIO, is a 72 M who presents to the emergency room at [facility] after being brought in by squad, he was found on his couch unresponsive at home after being seen well approximately 8 AM this morning. Upon arrival to the emergency room, patient was found to be unresponsive, he was hypotensive, he arrived with a nonrebreather mask and he had a normal respiratory pattern which was chaotic. Pupils were found to be pinpoint, there was concern for an intracranial bleed versus metabolic causes versus sepsis, patient was not known to have taken any medications and an opiate overdose was not felt to be likely. Stroke order set was initiated, patient was intubated after sedation, he had an episode of bradycardia which responded to epinephrine, blood pressure however remained low and Levophed was ordered and a subclavian line was placed. Patient was taken to CT for CT of the head and a CTA of the head and neck with contrast, there was noted to be moderate to severe stenosis of the proximal right internal carotid artery, no other acute intracranial abnormality was noted. A venous blood gas was drawn which showed the patient to be acidotic with a pH of 7, bi carb was administered and a bicarb drip was ordered. Patient was seen in consultation by critical care in the emergency room. CT of the chest abdomen and pelvis was obtained, there is noted to be a bilateral lower lobe consolidation but no acute process was noted. Patient is EKG showed no evidence of injury pattern. During the patient's time in the emergency room, a CODE BLUE was called due bradycardia which did not respond to atropine or epinephrine, patient had a rhythm on the monitor but not a palpable pulse, return to spontaneous circulation was noted to be present after epinephrine was administered. An attempt was made by critical care to insert an arterial line without success. Patient was started on IV antibiotics and transferred to ICU for further care, I talked with critical care about his care and critical care stated that they wanted cardiology involved with the case to see if they could help with the patient's care. Conversation was carried out with the patient's family by the emergency room physician, family desired the patient to be full code. [facility] Medical History Cellulitis of left forearm Laceration of left ring finger Home Medications tamsulosin 0.4 mg capsule 0.4 mg PO BID prostate 08/27/15 [History Last Taken 03/24/19] acetaminophen 300 mg-codeine 30 mg tablet 1 tab PO DAILY PRN Pain 07/05/18 [H istory Last Taken 03/24/19] baclofen 10 mg tablet 20 mg PO TID PRN Spasms 07/05/18 [History Last Taken 03/24/19] ciprofloxacin 0.3 %-dexamethasone 0.1 % ear drops,suspension 4 drp RIGHT EAR BID ear infection 03/25/19 [History Last Taken 03/24/19] fluticasone propionate 50 mcg/actuation nasal spray,suspension 2 spray NASAL QHS sinus 03/25/19 [History Last Taken 03/24/19] doxycycline monohydrate 100 mg capsule 100 mg PO BID #20 caps 03/21/22 [Rx Last Taken Unknown] cephalexin 500 mg capsule 500 mg PO TID #15 caps 06/27/22 [Rx Last Taken Unknown] Allergy/AdvReac Type Severity Reaction Status Date / Time acetaminophen [From Percocet] AdvReac Other Verified 07/05/18 15:38 oxycodone HCl [From Percocet] AdvReac Other Verified 07/05/18 15:38 Social History household members: spouse Smoking Status: Former smoker ROS ROS Narrative Review of systems was unobtainable due to the patient's encephalopathy Vital Signs Vital Signs Vital Signs: 09/28/22 08:50 09/28/22 08:56 09/28/22 09:05 Temperature 97.1 F L 97.1 F L Temperature Source Temporal Temporal Pulse Rate 86 8 L Pulse Rate [5] Respiratory Rate 13 14 Respiratory Rate [4] Respiratory Rate [5] Respiratory Pattern Blood Pressure 93/71 93/71 Blood Pressure [4] Blood Pressure [5] Blood Pressure Mean 78 78 Blood Pressure Source Pulse Ox 94 87 Oxygen Delivery Method Non-Rebreather Non-Rebreather Ambu-Bag Oxygen Flow Rate (L/min) 15 Fraction of Inspired Oxygen (FIO2) 15 09/28/22 09:07 09/28/22 09:15 09/28/22 09:31 Temperature Temperature Source Pulse Rate 84 39 L 79 Pulse Rate [5] Respiratory Rate 16 16 20 H Respiratory Rate [4] Respiratory Rate [5] Respiratory Pattern Blood Pressure 111/14 L 55/34 L 51/35 L Blood Pressure [4] Blood Pressure [5] Blood Pressure Mean 46 41 40 Blood Pressure Source Pulse Ox 95 92 95 Oxygen Delivery Method Ambu-Bag Venturi Mask Mechanical Ventilator Oxygen Flow Rate (L/min) Fraction of Inspired Oxygen (FIO2) 09/28/22 09:33 09/28/22 09:04 09/28/22 09:41 Temperature Temperature Source Pulse Rate 90 53 L Pulse Rate [5] Respiratory Rate 15 14 Respiratory Rate [4] Respiratory Rate [5] Respiratory Pattern Normal Blood Pressure 63/39 L 50/31 L Blood Pressure [4] Blood Pressure [5] Blood Pressure Mean 47 37 Blood Pressure Source Monitor Pulse Ox 90 93 Oxygen Delivery Method Mechanical Ventilator Oxygen Flow Rate (L/min) Fraction of Inspired Oxygen (FIO2) 80 09/28/22 09:46 09/28/22 10:27 09/28/22 10:00 Temperature Temperature Source Pulse Rate 82 123 H Pulse Rate [5] 120 H Respiratory Rate 14 27 H Respiratory Rate [4] 18 Respiratory Rate [5] 22 H Respiratory Pattern Blood Pressure 51/38 L 75/42 L Blood Pressure [4] 97/75 Blood Pressure [5] 91/72 Blood Pressure Mean 42 53 Blood Pressure Source Pulse Ox 86 95 Oxygen Delivery Method Mechanical Ventilator Mechanical Ventilator Oxygen Flow Rate (L/min) Fraction of Inspired Oxygen (FIO2) 100 100 09/28/22 11:04 09/28/22 11:09 09/28/22 11:17 Temperature 96.8 F L 96.8 F L Temperature Source Temporal Temporal Pulse Rate 124 H 126 H 127 H Pulse Rate [5] Respiratory Rate 26 H 25 H 25 H Respiratory Rate [4] Respiratory Rate [5] Respiratory Pattern Blood Pressure 71/53 L 82/52 L 81/53 L Blood Pressure [4] Blood Pressure [5] Blood Pressure Mean 59 62 62 Blood Pressure Source Pulse Ox 94 95 94 Oxygen Delivery Method Mechanical Ventilator Mechanical Ventilator Mechanical Ventilator Oxygen Flow Rate (L/min) Fraction of Inspired Oxygen (FIO2) 100 09/28/22 11:30 09/28/22 09:55 09/28/22 12:15 Temperature 96.8 F L Temperature Source Temporal Pulse Rate 126 H 59 L Pulse Rate [5] Respiratory Rate 25 H Respiratory Rate [4] Respiratory Rate [5] Respiratory Pattern Blood Pressure 82/52 L 68/48 L Blood Pressure [4] Blood Pressure [5] Blood Pressure Mean 62 54 Blood Pressure Source Monitor Pulse Ox 95 90 Oxygen Delivery Method Mechanical Ventilator Oxygen Flow Rate (L/min) Fraction of Inspired Oxygen (FIO2) 100 100 09/28/22 12:30 09/28/22 12:45 09/28/22 13:00 Temperature 93.5 F L Temperature Source Core Pulse Rate 127 H Pulse Rate [5] Respiratory Rate 24 H Respiratory Rate [4] Respiratory Rate [5] Respiratory Pattern Blood Pressure 82/42 L 59/39 L 59/41 L Blood Pressure [4] Blood Pressure [5] Blood Pressure Mean 55 45 47 Blood Pressure Source Monitor Monitor Monitor Pulse Ox 97 Oxygen Delivery Method Mechanical Ventilator Oxygen Flow Rate (L/min) Fraction of Inspired Oxygen (FIO2) 100 Weight Weight: 132.052 kg Body Mass Index (BMI) 43.1 Physical Exam Narrative Patient is currently on the ventilator at this time, he does not respond to painful stimuli or verbal stimuli Const Constitutional Narrative: Patient is morbidly obese HEENT normocephalic and head/scalp atraumatic Eyes Eyes Narrative: Pupils are not reactive at 4 mm Neck no JVD and no carotid bruits Resp Resp Narrative: Patient is on the ventilator at this time, no rales rhonchi or wheezes were noted Cardio regular rate, regular rhythm, S1 normal heart sound, S2 normal heart sound, no murmurs and no gallops Cardio Narrative: Heart rate and rhythm is tachycardic GI GI Narrative: Abdomen is somewhat distended Auscultation: hypoactive bowel sounds Extremity normal to inspection and no clubbing, cyanosis or edema Neuro Neuro Narrative: Patient is nonresponsive and on the ventilator at this time, he does not respond to painful or verbal stimuli Psych Psych Narrative: Patient is on the ventilator at this time, he does not respond to painful or verbal stimuli Results Lab / Micro Data Result Diagrams: 09/28/22 09:00 09/28/22 09:00 Labs: Laboratory Results - last 24 hr 09/28/22 09:00: WBC 14.4 H, RBC 4.90, Hgb 14.8, Hct 47.4, MCV 96.7 H, MCH 30.2, MCHC 31.2 L, RDW Std Deviation 48.1 H, RDW Coeff of Kiara 13.6, Plt Count 387, MPV 10.2, Immature Gran % (Auto) 0.300, Neut % (Auto) 57.1, Lymph % (Auto) 35.2, [place] % (Auto) 6.2, Eos % (Auto) 0.9, Baso % (Auto) 0.3, Absolute Neuts (auto) 8.2 H, Absolute Lymphs (auto) 5.08 H, Nucleated RBC % 0, Differential Comment SCANNED 09/28/22 09:00: PT 16.0 H, INR 1.3, APTT 32.2 09/28/22 09:00: Sodium 138, Potassium 4.5, Chloride 111 H, Carbon Dioxide 12.0 L , Anion Gap 15, BUN 19 H, Creatinine 0.91, Estim Creat Clear Calc 73.38, Est GFR (MDRD) Af Amer 105, Est GFR (MDRD) Non-Af 87, BUN/Creatinine Ratio 20.9 H, Glucose 272 H, Calcium 10.0, Troponin I High Sens 32 09/28/22 09:00: Lactic Acid 14.5 H* 09/28/22 09:00: POC Glucose 283 H ABG Data ABG results: ABG 09/28/22 09/28/22 09:56 10:38 Specimen Type DMITRI DMITRI Sample Site Central Line Central Line VBG pH 7.00 L* 7.08 L* VBG pO2 61 H 62 H VBG HCO3 10 L 12 L VBG Total CO2 11 L 14 L VBG O2 Sat (Calc) 77 H 81 H VBG Base Excess -22 L -18 L POC Mix VBG pCO2 Pt Tmp 38.4 L 41.1 Respiration Rate 14 22 O2 Delivery Device Adult Vent POC PEEP 5 18 Crit Call To/Read Back Yes Yes Blood Gas Notified Whom GLENIS Blood Gas Notified Time 09:57:[address] 09/28/22 08:55 IMPRESSION: No acute intracranial process. N.B. : The above Results were Read Back by Shira Dickson MD to Siva Irwin MD, and understanding confirmed on 09/28/2022 10:22:12 (ET). Electronically Signed: Shira Dickson MD at 10:21 EST , Head/Neck CTA 09/28/22 08:57 IMPRESSION: 1. Moderate to severe stenosis of the proximal right internal carotid artery secondary to atheromatous and atherosclerotic plaque. 2. Mild short segment stenosis of the distal left common carotid artery. 3. Mild to moderate shortness of stenosis of the supraclinoid segment of the left internal carotid artery 4. Limited evaluation of the M3 segments of bilateral middle cerebral artery secondary to timing of contrast bolus. 5. No acute intracranial abnormality. N.B. : The above Results were Read Back by Arnulfo Nur MD to Siva Irwin MD, and understanding confirmed on 09/28/2022 10:42:42 (ET). Electronically Signed: Arnulfo Nur MD at 10:47 EST , ADDENDUM: 09/28/22 1054 IMPRESSION: 1. Moderate to severe stenosis of the proximal right internal carotid artery secondary to atheromatous and atherosclerotic plaque. 2. Mild short segment stenosis of the distal left common carotid artery. 3. Mild to moderate shortness of stenosis of the supraclinoid segment of the left internal carotid artery 4. Limited evaluation of the M3 segments of bilateral middle cerebral artery secondary to timing of contrast bolus. 5. No acute intracranial abnormality. N.B. : The above Results were Read Back by Arnulfo Nur MD to Siva Irwin MD, and understanding confirmed on 09/28/2022 10:42:42 (ET). Electronically Signed: Arnulfo Nur MD at 10:47 EST , Chest X-Ray 09/28/22 09:30 IMPRESSION: Endotracheal tube terminating 2.4 cm above the lucrecia. Bibasilar patchy opacities may be secondary to underlying atelectasis and/or pneumonia. Electronically Signed: Shira Dickson MD at 10:02 EST , Chest/Abdomen/Pelvis CT 09/28/22 12:00 IMPRESSION: Bilateral lower lobe consolidation. Atherosclerosis. Colonic diverticulosis. Degenerative changes of the thoracic and lumbar spine. Electronically Signed: Shira Dickson MD at 12:30 EST , Assessment & Plan Assessment/Plan (1) Cardiopulmonary arrest with successful resuscitation: PLAN: Plan 1. Acute cardiopulmonary arrest with successful resuscitation, etiology of cardiopulmonary arrest unknown at this time-patient was transferred to ICU, he will remain on IV antibiotics, he is currently on IV pressor agents, he is being seen by critical care and will be consulted by cardiology. Prognosis however remains extremely guarded at this time #2 severe acidosis secondary to cardiopulmonary arrest-venous blood gases will be monitored, patient is on a bicarb drip presently #3 morbid obesity-complicates care, medical course, recovery, and prognosis #4 acute hypoxic respiratory failure secondary to cardiopulmonary arrest- etiology unclear at this point #5 lactic acidosis-secondary to acute hypoxic respiratory failure-I do not feel the patient is septic at this time #6 hyperglycemia-etiology unclear at this point, labs will be monitored #7 acute shock-cardiogenic versus metabolic or infectious in nature-vasopressors will continue to be used for circulatory support Family requests full measures to be continued at this time Total clinical time spent by myself addressing patient's medical issues, revie wing all the data, and collaborating with patient's care team: 75 minutes Charges/Coding Visit Charges Inpatient E&M: 76008 Init Hosp L3
[2022-09-28 13:57] LABS: Troponin-I HS 160 pg/mL (3.0-78.0)
--- NOTE | 2022-09-28 14:07 | EKG12_ITS ---
Test Reason : Blood Pressure : / mmHG Vent. Rate : 135 BPM Atrial Rate : 135 BPM P-R Int : 196 ms QRS Dur : 092 ms QT Int : 354 ms P-R-T Axes : 046 059 019 degrees QTc Int : [address] & T wave abnormality, consider inferior ischemia Abnormal ECG When compared with ECG of 28-SEP-2022 10:31, MANUAL COMPARISON REQUIRED, DATA IS UNCONFIRMED Confirmed by DAYAN HESTER, AMMON ([id number]), metropolitan editor JACKIE JAIME ([id number]) on 10/01/2022 7:44:28 AM Referred By: KELI Confirmed By:AMMON HANLEY MD
--- NOTE | 2022-09-28 14:09 | PCM.CONS.C ---
Assessment & Plan Assessment/Plan (1) Cardiopulmonary arrest with successful resuscitation: PLAN: The patient has suffered a cardiopulmonary arrest with resuscitation. At this time the patient remains on high intensity pressors with no EKG or troponin changes. I will recommend continued expectant management and we will obtain an echocardiogram to assess his left ventricular function. Depending on the findings further recommendations could be made. For the duration and prolonged CPR I would recommend expectant management. Thank you for allowing me to participate in the care of your patient. Please don't hesitate to call if any issues arise. HPI Consult Data Date of Consult: 09/29/22 HPI Narrative HPI Narrative: LELE HILARIO, is a 72 M who presents to the emergency room after passing out while sitting on his couch. He was brought in by squad, he was found on his couch unresponsive at home after being seen well approximately 8 AM this morning.? Upon arrival to the emergency room, patient was found to be unresponsive, he was hypotensive, he arrived with a nonrebreather mask and he had a normal respiratory pattern. ? Pupils were found to be pinpoint, there was concern for an intracranial bleed versus metabolic causes versus sepsis, patient was not known to have taken any medications and an opiate overdose was not felt to be likely. He had previously had an echocardiogram in 2016 which was normal. Stroke order set was initiated, patient was intubated after sedation, he had an episode of bradycardia which responded to epinephrine, blood pressure however remained low and Levophed was ordered and a subclavian line was placed.? Patient was taken to CT for CT of the head and a CTA of the head and neck with contrast, there was noted to be moderate to severe stenosis of the proximal right internal carotid artery, no other acute intracranial abnormality was noted. Part of the CT involved the upper chest but no obvious pulmonary embolism was noted. The patient was then transferred to the intensive care unit and is currently on high intensity and dose pressors. His EKG was noted to demonstrate sinus rhythm with no acute changes. Cardiology was called to render an opinion. Initial troponin was noted to be negative at 32 and follow-up troponin was 132. [facility] Medical History (Updated 09/28/22 @ 15:[address] Sajan Martinez MD) Acute metabolic encephalopathy Cellulitis of left forearm Laceration of left ring finger On mechanically assisted ventilation Medical History unable to obtain Home Medications tamsulosin 0.4 mg capsule 0.4 mg PO BID prostate 08/27/15 [History Last Taken 03/24/19] acetaminophen 300 mg-codeine 30 mg tablet 1 tab PO DAILY PRN Pain 07/05/18 [History Last Taken 03/24/19] baclofen 10 mg tablet 20 mg PO TID PRN Spasms 07/05/18 [History Last Taken 03/24/19] ciprofloxacin 0.3 %-dexamethasone 0.1 % ear drops,suspension 4 drp RIGHT EAR BID ear infection 03/25/19 [History Last Taken 03/24/19] fluticasone propionate 50 mcg/actuation nasal spray,suspension 2 spray NASAL QHS sinus 03/25/19 [History Last Taken 03/24/19] doxycycline monohydrate 100 mg capsule 100 mg PO BID #20 caps 03/21/22 [Rx Last Taken Unknown] cephalexin 500 mg capsule 500 mg PO TID #15 caps 06/27/22 [Rx Last Taken Unknown] Allergy/AdvReac Type Severity Reaction Status Date / Time acetaminophen [From Percocet] AdvReac Other Verified 07/05/18 15:38 oxycodone HCl [From Percocet] AdvReac Other Verified 07/05/18 15:38 Social History household members: spouse Smoking Status: Former smoker ROS Review of Systems ROS Unobtainable: due to encephalopathy, due to endotracheal tube, due to mental condition, due to mental status and other Physical Exam Const Constitutional Narrative: Patient intubated and not conscious General Appearance: cooperative HEENT hearing grossly normal bilaterally Head and Scalp: atraumatic Eyes EOMs intact bilaterally Neck General: normal visual inspection Chest inspection of chest normal and palpation of chest normal Resp normal respiratory effort Auscultation: clear to auscultation bilaterally Cardio regular rate, regular rhythm, S1 normal heart sound and S2 normal heart sound Jugular Venous Distention: JVD GI normal to inspection, nondistended, normoactive bowel sounds Extremity normal capillary refill and no pedal edema Peripheral Pulses: Yes pulses 2+ throughout and femoral pulses present Skin no rashes or lesions noted Neuro oriented x3 and CN's II-XII intact bilaterally Psych Appearance: grossly normal and appropriate Risk Stratification Risk Stratification Applicable: No Objective Data Vital Signs: Vital Signs Temp Pulse Resp BP Pulse Ox O2 Del Method O2 Flow Rate 93.5 F L 127 H 24 H 89/67 L 97 Mechanical Ventilator 15 09/28/22 13:00 09/28/22 13:00 09/28/22 13:00 09/28/22 14:00 09/28/22 13:00 09/28/22 13:00 09/28/22 08:56 FiO2 100 09/28/22 13:00 Oxygen Flow Rate (L/min) 15 Oxygen Delivery Method Mechanical Ventilator Weight: 291 lb 2 oz Body Mass Index (BMI) 43.1 Intake & Output: Intake and Output for Last 24 Hours 09/26/22 09/27/22 09/28/22 23:59 23:59 23:59 Intake Total 2808.76 / 2808.76 Balance 2808.76 / 2808.76 Lab / Micro Data Result Diagrams: 09/29/22 06:00 09/29/22 06:00 Labs: Laboratory Results - last 24 hr 09/28/22 09:00: WBC 14.4 H, RBC 4.90, Hgb 14.8, Hct 47.4, MCV 96.7 H, MCH 30.2, MCHC 31.2 L, RDW Std Deviation 48.1 H, RDW Coeff of Kiara 13.6, Plt Count 387, MPV 10.2, Immature Gran % (Auto) 0.300, Neut % (Auto) 57.1, Lymph % (Auto) 35.2, [place] % (Auto) 6.2, Eos % (Auto) 0.9, Baso % (Auto) 0.3, Absolute Neuts (auto) 8.2 H, Absolute Lymphs (auto) 5.08 H, Nucleated RBC % 0, Differential Comment SCANNED 09/28/22 09:00: PT 16.0 H, INR 1.3, APTT 32.2 09/28/22 09:00: Sodium 138, Potassium 4.5, Chloride 111 H, Carbon Dioxide 12.0 L, Anion Gap 15, BUN 19 H, Creatinine 0.91, Estim Creat Clear Calc 73.38, Est GFR (MDRD) Af Amer 105, Est GFR (MDRD) Non-Af 87, BUN/Creatinine Ratio 20.9 H, Glucose 272 H, Calcium 10.0, Troponin I High Sens 32 09/28/22 09:00: Lactic Acid 14.5 H* 09/28/22 09:00: POC Glucose 283 H 09/28/22 13:00: Troponin I High Sens 160 H* ABG Data ABG results: ABG 09/28/22 09/28/22 09:56 10:38 Specimen Type DMITRI DMITRI Sample Site Central Line Central Line VBG pH 7.00 L* 7.08 L* VBG pO2 61 H 62 H VBG HCO3 10 L 12 L VBG Total CO2 11 L 14 L VBG O2 Sat (Calc) 77 H 81 H VBG Base Excess -22 L -18 L POC Mix VBG pCO2 Pt Tmp 38.4 L 41.1 Respiration Rate 14 22 O2 Delivery Device Adult Vent POC PEEP 5 18 Crit Call To/Read Back Yes Yes Blood Gas Notified Whom GALVIN Blood Gas Notified Time 09:57:31 Cardiology Labs/Tests 09/28/22 09:00: WBC 14.4 H, RBC 4.90, Hgb 14.8, Hct 47.4, MCV 96.7 H, MCH 30.2, MCHC 31.2 L, Plt Count 387, MPV 10.2, Immature Gran % (Auto) 0.300, Neut % (Auto) 57.1, Lymph % (Auto) 35.2, [place] % (Auto) 6.2, Eos % (Auto) 0.9, Baso % (Auto) 0.3, Absolute Neuts (auto) 8.2 H, Nucleated RBC % 0 09/28/22 09:00: PT 16.0 H, INR 1.3, APTT 32.2 09/28/22 09:00: Sodium 138, Potassium 4.5, Chloride 111 H, Carbon Dioxide 12.0 L, Anion Gap 15, BUN 19 H, Creatinine 0.91, Est GFR (MDRD) Af Amer 105, Est GFR (MDRD) Non-Af 87, BUN/Creatinine Ratio 20.9 H, Glucose 272 H, Calcium 10.0 09/28/22 09:00: Lactic Acid 14.5 H* 09/28/22 09:56: VBG pH 7.00 L*, VBG pO2 61 H, VBG HCO3 10 L, VBG O2 Sat (Calc) 77 H, VBG Base Excess -22 L 09/28/22 10:38: VBG pH 7.08 L*, VBG pO2 62 H, VBG HCO3 12 L, VBG O2 Sat (Calc) 81 H, VBG Base Excess -18 L Rhythm: EKG: ECHO: Stress Test: Cardiac Cath: PCI: CT Surgery: Holter monitor: EPS: PPM: CXR: Chest CT Scan: Radiography Diagnostic Testing: Radiology Impression Brain CT 09/28/22 08:55 IMPRESSION: No acute intracranial process. N.B. : The above Results were Read Back by Shira Dickson MD to Siva Galvin MD, and understanding confirmed on 09/28/2022 10:22:12 (ET). Electronically Signed: Shira Dickson MD at 10:21 EST , Head/Neck CTA 09/28/22 08:57 IMPRESSION: 1. Moderate to severe stenosis of the proximal right internal carotid artery secondary to atheromatous and atherosclerotic plaque. 2. Mild short segment stenosis of the distal left common carotid artery. 3. Mild to moderate shortness of stenosis of the supraclinoid segment of the left internal carotid artery 4. Limited evaluation of the M3 segments of bilateral middle cerebral artery secondary to timing of contrast bolus. 5. No acute intracranial abnormality. N.B. : The above Results were Read Back by Arnulfo Nur MD to Siva Galvin MD, and understanding confirmed on 09/28/2022 10:42:42 (ET). Electronically Signed: Arnulfo Nur MD at 10:47 EST , ADDENDUM: 09/28/22 1054 IMPRESSION: 1. Moderate to severe stenosis of the proximal right internal carotid artery secondary to atheromatous and atherosclerotic plaque. 2. Mild short segment stenosis of the distal left common carotid artery. 3. Mild to moderate shortness of stenosis of the supraclinoid segment of the left internal carotid artery 4. Limited evaluation of the M3 segments of bilateral middle cerebral artery secondary to timing of contrast bolus. 5. No acute intracranial abnormality. N.B. : The above Results were Read Back by Arnulfo Nur MD to Siva Galvin MD, and understanding confirmed on 09/28/2022 10:42:42 (ET). Electronically Signed: Arnulfo Nur MD at 10:47 EST , Chest X-Ray 09/28/22 09:30 IMPRESSION: Endotracheal tube terminating 2.4 cm above the lucrecia. Bibasilar patchy opacities may be secondary to underlying atelectasis and/or pneumonia. Electronically Signed: Shira Dickson MD at 10:02 EST , Chest/Abdomen/Pelvis CT 09/28/22 12:00 IMPRESSION: Bilateral lower lobe consolidation. Atherosclerosis. Colonic diverticulosis. Degenerative changes of the thoracic and lumbar spine. Electronically Signed: Shira Dickson MD at 12:30 EST ,
--- NOTE | 2022-09-28 14:14 | EX.PCM.CONCC ---
Assessment & Plan Assessment/Plan (1) Cardiopulmonary arrest with successful resuscitation: PLAN: - serial troponins - cardiology consultation - echocardiogram - there is no acute indication for cath at this time, EKG x 2 verified no STEMI. (2) Bradycardia, severe sinus: PLAN: Resolved; Pharmacologic support as needed. (3) Acute hypotension: PLAN: pressor management to keep MAP >65, wean as tolerated. (4) Acidosis, lactic: PLAN: Likely due to prolonged period of hypotension in the setting of bradycardia. Down time is not known, possible 20 minutes or longer prior to squad arrival. Lactate is improving. - maintain MAP>65 - sepsis protocol, empiric Zosyn, vanco - procalcitonin in AM, de-escalate abx if no infection found - await titers - tox screen, patient is not on metformin. 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 This history is from his daughter, who stated that there is an anesthesiologist in the family who is requesting (by phone to the daughter, not me) that we should give the patient 6 amps of bicarbonate immediately for his lactic acidosis. She was reassured he received multiple amps and IV drip already. pH now 7.23 on treatment that has already been given. Cyanide retrospective level has nevertheless been requested, is a send-out. - This patient is very unlikely to have cyanide toxicity since ingestion by GI route characteristically has toxicity delayed by hours, which was not the presentation here. He is much more likely to have had a primary cardiac arrhythmia due to his risk factors, presentation and PEA arrest in the ER. - retrospective cyanide level requested. hydroxocobalamin and sodium thiosulfate are antidotes and discussed with pharmacy, and those medications have potentially fatal side effects. - active listening to family's concerns will continue, reassurance provided. (5) Acute metabolic encephalopathy: PLAN: GCS 3 on arrival to ER, intubated. Starting to cough with suctioning, 6 hours after initial presentation to EMS. - initial stroke workup negative (CTA, CT), thrombolytics not used. - supportive neuro care, frequent neuro checks - maintain SpO2 >90% and MAP >65 - hypothermia protocol was not elected in this case as there is less data supporting its use after a brief PEA arrest. (6) Acute hypoxemic respiratory failure: PLAN: Support on ventilator until patient recovery or other goals of care are determined. (7) Shock circulatory: PLAN: - maintain MAP >65 with pressors, wean as tolerated - serial troponins, rule out cardiac etiology - cardiology consult appreciated (8) On mechanically assisted ventilation: PLAN: Support on ventilator. Adjust settings as necessary. Target 8mg/kg Vt once ABG stabilized to decrease chance of ventilator lung injury (VLI) HPI Consult Data Date of Consult: 09/28/22 HPI Narrative Reason for Consultation: PEA cardiac arrest, shock, metabolic encephalopathy secondary to downtime HPI Narrative: LELE HILARIO, is a 72 M who presents ER by squad after last been seen well at 8 AM. According to his daughter and , he went back to sleep but was found shortly thereafter to be completely unresponsive. Squad report 8:29-8:42 noted unresponsiveness throughout the visit, SpO2 92-94% on 100% NRB and SBP 143 at last reading, transported to the emergency room, completely unresponsive hypoxic, and shock. CVL was placed and placement verified. Patient had an urgent cerebral angiogram from the ER, had no acute bleed and severe cerebrovascular disease. In the ER, he had an episode of PEA bradycardia, code was initiated, he received CPR, multiple doses of epinephrine, atropine per ACLS protocol. He received bicarbonate x 3 plus bicarb drip continuously at 200cc/hr initially. He had ROSC, with normalization of EtCO2. BP Remained low throughout his ER and initial ICU course despite 3 L of rapid fluid resuscitation, and maximum doses via central line of Levophed, dopamine, and vasopressin. A line placement with ultrasound was unsuccessful in ER. When I encountered him in the emergency room, he was completely unresponsive to any noxious stimuli endotracheal suctioning, and had no spontaneous movement, 2 mm unreactive pupils, and no oculocephalics more than 2 hours after his rocuronium and sedation for intubation. By ~2:30 PM, he started to cough with ETT suctioning. PMH: daughter provided the history. She stated he has no primary physician, and has not sought medical care for years. However, multiple diagnostic studies are documented in [facility] EMR results. History is therefore partially reliable due to her memory. She reported he had an NV 10 years ago, had a catheterization here, (she related a code blue during his cath), but never followed up after his discharge despite urging by friends and family. He was diagnosed with CHIVO years ago, told to wear CPAP, which he never initiated. His daughter thought he had a stroke this year, due to an episode of slurred speech. He refused to come to the hospital, and eventually got better with no care and aspirin PRN. She also stated he has had chest pains for 2 years, self treated with aspirin, but never sought medical care for it. 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 Allergy to pain medications (confusion), not a true allergy Fam: noncontributory (thyroid disease) Soc: , former smoker quit 20 years ago. Alult children, sister and were present in ER/ICU ROS: unable on ventilator in coma. [facility] Medical History (Updated 09/28/22 @ 15:[address] Sajan Martinez MD) Acute metabolic encephalopathy Cellulitis of left forearm Laceration of left ring finger On mechanically assisted ventilation Medical History unable to obtain unable to obtain Home Medications tamsulosin 0.4 mg capsule 0.4 mg PO BID prostate 08/27/15 [History Last Taken 03/24/19] acetaminophen 300 mg-codeine 30 mg tablet 1 tab PO DAILY PRN Pain 07/05/18 [History Last Taken 03/24/19] baclofen 10 mg tablet 20 mg PO TID PRN Spasms 07/05/18 [History Last Taken 03/24/19] ciprofloxacin 0.3 %-dexamethasone 0.1 % ear drops,suspension 4 drp RIGHT EAR BID ear infection 03/25/19 [History Last Taken 03/24/19] fluticasone propionate 50 mcg/actuation nasal spray,suspension 2 spray NASAL QHS sinus 03/25/19 [History Last Taken 03/24/19] doxycycline monohydrate 100 mg capsule 100 mg PO BID #20 caps 03/21/22 [Rx Last Taken Unknown] cephalexin 500 mg capsule 500 mg PO TID #15 caps 06/27/22 [Rx Last Taken Unknown] Allergy/AdvReac Type Severity Reaction Status Date / Time acetaminophen [From Percocet] AdvReac Other Verified 07/05/18 15:38 oxycodone HCl [From Percocet] AdvReac Other Verified 07/05/18 15:38 Social History household members: spouse Smoking Status: Former smoker Physical Exam Narrative WD obese obtunded, no spontaneous movement Const no apparent distress General Appearance: patient mechanically ventilated Orientation / Consciousness: obtunded HEENT normocephalic HEENT Narrative: intubated, MMM, no bleeding or secretions from NGT or ETT with suctioning Eyes Eyes Narrative: no extraoculare, no oculocephalics, pupils 2mm nonreactive, no icterus or conjunctival injection. Neck General: CVC in place Chest inspection of chest normal Chest Narrative: shaved anterior central chest for pacer pads Resp no use of accessory muscles Resp Narrative: equal course breath sounds bilaterally after intubation, no wheezes, rales or ronchi (anterolateral exam only). ETT 23 cm at upper teeth, adequately positioned on CXR. No cough with suctioning or ETT manipulation >2h after intubation. Cardio regular rate, regular rhythm, S1 normal heart sound and S2 normal heart sound; Negative for no murmurs Cardio Narrative: sinus alternating with juctional. Rate: bradycardia and tachycardic Heart Sounds: murmur GI normal to inspection, nondistended, normoactive bowel sounds, soft to palpation and non-tender GI Narrative: diminished bowel sounds, well healed ~8cm scar in RUQ, OGT present, no secretions. no CVA tenderness Narrative: prado with clear yellow urine, normal color. Back/Spine no CVA tenderness Extremity no clubbing, cyanosis or edema Skin no rashes or lesions noted Skin Narrative: fair hygiene Neuro Neuro Narrative: obtunded on ventilator, patient has not needed any sedation or narcotics due to unresponsiveness/unawareness. Psych Psych Narrative: completely unresponsive. Lab / Micro Data Result Diagrams: 09/28/22 14:20 09/28/22 14:20 Labs: Laboratory Results - last 24 hr 09/28/22 09:00: WBC 14.4 H, RBC 4.90, Hgb 14.8, Hct 47.4, MCV 96.7 H, MCH 30.2, MCHC 31.2 L, RDW Std Deviation 48.1 H, RDW Coeff of Kiara 13.6, Plt Count 387, MPV 10.2, Immature Gran % (Auto) 0.300, Neut % (Auto) 57.1, Lymph % (Auto) 35.2, Gillespie % (Auto) 6.2, Eos % (Auto) 0.9, Baso % (Auto) 0.3, Absolute Neuts (auto) 8.2 H, Absolute Lymphs (auto) 5.08 H, Nucleated RBC % 0, Differential Comment SCANNED 09/28/22 09:00: PT 16.0 H, INR 1.3, APTT 32.2 09/28/22 09:00: Sodium 138, Potassium 4.5, Chloride 111 H, Carbon Dioxide 12.0 L, Anion Gap 15, BUN 19 H, Creatinine 0.91, Estim Creat Clear Calc 73.38, Est GFR (MDRD) Af Amer 105, Est GFR (MDRD) Non-Af 87, BUN/Creatinine Ratio 20.9 H, Glucose 272 H, Calcium 10.0, Troponin I High Sens 32 09/28/22 09:00: Lactic Acid 14.5 H* [repeat was 12 -lb] 09/28/22 09:00: POC Glucose 283 H 09/28/22 13:00: Troponin I High Sens 160 H* ABG Data ABG results: ABG 09/28/22 09/28/22 09:56 10:38 Specimen Type DMITRI DMITRI Sample Site Central Line Central Line VBG pH 7.00 L* 7.08 L* VBG pO2 61 H 62 H VBG HCO3 10 L 12 L VBG Total CO2 11 L 14 L VBG O2 Sat (Calc) 77 H 81 H VBG Base Excess -22 L -18 L POC Mix VBG pCO2 Pt Tmp 38.4 L 41.1 Respiration Rate 14 22 O2 Delivery Device Adult Vent POC PEEP 5 18 Crit Call To/Read Back Yes Yes Blood Gas Notified Whom GALVIN Blood Gas Notified Time 09:57:31 The following reports are abridged for essentials; please see original reports for additional data if required. CT scan chest, abdomen and pelvis without contrast 09/28/22 CHEST There is a endotracheal tube in place terminating 2.4 cm above the lucrecia. There is elevation of the left hemidiaphragm. There is bilateral lower lobe consolidation, more pronounced on the left. There are coronary artery calcifications. Normal mediastinum.? Normal hilar regions. Normal unenhanced pulmonary arteries. ? There are peripheral calcifications of the thoracic aorta. Normal osseous structures. ABDOMEN Normal liver. There is nonvisualization of the gallbladder. Normal spleen. Normal pancreas. Normal bilateral adrenal glands. Normal right kidney. There is a left renal cyst. There is an enteric tube in place terminating within the gastric fundus. Normal small intestine.? There are multiple colonic diverticula consistent with diverticulosis.? The appendix is visualized and appears normal. There is diffuse atherosclerotic calcification of the abdominal aorta, without a demonstrated aneurysm.? Normal inferior vena cava.? Normal retroperitoneum. PELVIS There is a Prado catheter within the urinary bladder. There is no pelvic fluid.? There is no pelvic lymphadenopathy or mass lesion. There is diffuse atherosclerotic calcification of the pelvic arteries. Normal abdominal wall.? There are degenerative changes of the lumbar spine. CT/CT Chest, Abd, Pelvis WO Cont IMPRESSION: Bilateral lower lobe consolidation. Atherosclerosis. Colonic diverticulosis. ?Degenerative changes of the thoracic and lumbar spine. ? Electronically Signed: Shira Dickson MD at 12:30 EST Chest Xray portable 09/28/2022: Study: Chest 1 View (Portable) COMPARISON: July 05, 2018 FINDINGS: LINES/DEVICES: There is endotracheal tube in place terminating 2.4 cm above the lucrecia. There is a right-sided central venous catheter in place terminating within the expected region of the superior vena cava. There is an enteric tube in place terminating within the expected region of the gastric fundus. LUNGS: There are bibasilar patchy opacities. MEDIASTINUM AND CARDIOVASCULAR STRUCTURES: Cardiac silhouette not enlarged. Central airways and mediastinal contour are unremarkable. BONES AND SOFT TISSUES: Unremarkable. RAD/Chest 1 View (Portable) IMPRESSION: Endotracheal tube terminating 2.4 cm above the lucrecia. Bibasilar patchy opacities may be secondary to underlying atelectasis and/or pneumonia. ? Electronically Signed: Shira Dickson MD at 10:[address]/STROKE CTA Head AND Neck W/Con IMPRESSION: 1.? Moderate to severe stenosis of the proximal right internal carotid artery secondary to atheromatous and atherosclerotic plaque. 2.? Mild short segment stenosis of the distal left common carotid artery. 3.? Mild to moderate shortness of stenosis of the supraclinoid segment of the left internal carotid artery 4.? Limited evaluation of the M3 segments of bilateral middle cerebral artery secondary to timing of contrast bolus. 5.? No acute intracranial abnormality. N.B. : The above Results were Read Back by Arnulfo Nur MD to iSva Galvin MD, and understanding confirmed on 09/28/2022 10:42:42 (ET). ? Other diagnostic studies in EMR were reviewed. Radiology Impression Brain CT 09/28/22 08:55 IMPRESSION: No acute intracranial process. N.B. : The above Results were Read Back by Shira Dickson MD to Siva Galvin MD, and understanding confirmed on 09/28/2022 10:22:12 (ET). Electronically Signed: Shira Dickson MD at 10:21 EST , Head/Neck CTA 09/28/22 08:57 IMPRESSION: 1. Moderate to severe stenosis of the proximal right internal carotid artery secondary to atheromatous and atherosclerotic plaque. 2. Mild short segment stenosis of the distal left common carotid artery. 3. Mild to moderate shortness of stenosis of the supraclinoid segment of the left internal carotid artery 4. Limited evaluation of the M3 segments of bilateral middle cerebral artery secondary to timing of contrast bolus. 5. No acute intracranial abnormality. N.B. : The above Results were Read Back by Arnulfo Nur MD to Siva Galvin MD, and understanding confirmed on 09/28/2022 10:42:42 (ET). Electronically Signed: Arnulfo Nur MD at 10:47 EST , ADDENDUM: 09/28/22 1054 IMPRESSION: 1. Moderate to severe stenosis of the proximal right internal carotid artery secondary to atheromatous and atherosclerotic plaque. 2. Mild short segment stenosis of the distal left common carotid artery. 3. Mild to moderate shortness of stenosis of the supraclinoid segment of the left internal carotid artery 4. Limited evaluation of the M3 segments of bilateral middle cerebral artery secondary to timing of contrast bolus. 5. No acute intracranial abnormality. N.B. : The above Results were Read Back by Arnulfo Nur MD to Siva Galvin MD, and understanding confirmed on 09/28/2022 10:42:42 (ET). Electronically Signed: Arnulfo Nur MD at 10:47 EST , Chest X-Ray 09/28/22 09:30 IMPRESSION: Endotracheal tube terminating 2.4 cm above the lucrecia. Bibasilar patchy opacities may be secondary to underlying atelectasis and/or pneumonia. Electronically Signed: Shira Dickson MD at 10:02 EST , Chest/Abdomen/Pelvis CT 09/28/22 12:00 IMPRESSION: Bilateral lower lobe consolidation. Atherosclerosis. Colonic diverticulosis. Degenerative changes of the thoracic and lumbar spine. Electronically Signed: Shira Dickson MD at 12:30 EST , Charges/Coding Procedures Hospitalists Procedures: [id number] [facility]
[2022-09-28 14:47] LABS: Lactic Acid 12.7 mmol/L (0.4-1.9)
[2022-09-28 14:57] LABS: Absolute Lymphocyte Count 0.97 X10^3/uL (0.83-4.51); Absolute Neutrophil Count 19.3 X10^3/uL (2.0-7.7); Basophil# 0.03 X10^3/uL; Basophil% 0.1 % (0-1); Hemoglobin 14.2 g/dL (13.0-16.5); Lymphocyte # 0.97 X10^3/ul (0.83-4.51); Lymphocyte % 4.4 % (19-41); Mean Corp Hgb Conc 31.6 g/dL (32-36); Mean Corpuscular Hgb 30.5 pg (27.0-32.0); Mean Corpuscular Volume 96.8 fL (80-94); Mean Platelet Vol. 9.8 fl (6.2-12.0); Monocyte# 1.44 X10^3/uL; Monocyte% 6.6 % (0-10); NRBC Flagged by Analyzer 0 % (0-5); Neutrophil # 19.28 X10^3/uL (2.7-7.7); Neutrophil % 87.9 % (47-70); Platelet Count 361 K/mm3 (150-450); RBC Distribution Width CV 13.6 % (11.6-14.6); RBC Distribution Width SD 48.6 fl (35.1-43.9); Red Blood Count 4.65 M/mm3 (4.6-6.2)
[2022-09-28] MEDS: DOPamine IV 800 MG/250 ML IV.SOLN. 74 MG CONT INF (14:59)
[2022-09-28 15:01] LABS: International Normalized Ratio 1.4; Prothrombin Time (Protime)PT. 17.3 SECONDS (11.7-14.9)
[2022-09-28 15:03] LABS: Partial Thromboplast Time 32.7 Seconds (24.1-36.2)
[2022-09-28 15:19] LABS: ALB/GLOB Ratio 0.8 RATIO (0.9-2.4); AST(SGOT) 307 U/L (15-37); Alanine Aminotransfer ALT/SGPT 179 U/L (16-61); Alkaline Phosphatase 87 U/L (45-117); Anion Gap 17 (5-15); BUN 23 mg/dL (7-18); BUN/Creat Ratio 16.9 RATIO (10-20); CPK Total, Creatine Kinase 148 U/L (39-308); Calcium,Total 8.6 mg/dL (8.5-10.1); Chloride 109 mmol/L (98-107); Creatinine, Serum 1.36 mg/dL (0.70-1.30); EST Glomerular Filtration Rate 55 mL/min (>60); Est Glom Filt Rate - Afr Amer 66 mL/min (>60); Globulin 3.6 g/dL (2.2-4.2); Glucose 386 mg/dL (74-106); Potassium 4.2 mmol/L (3.5-5.1); Protein, Total 6.6 g/dL (6.4-8.2); Sodium Level 139 mmol/L (136-145)
[2022-09-28 15:26] LABS: Allen Test Positive; Base Excess -15 mmol/L (-2 to +2); Bicarbonate 12.8 mmol/L (22-26); Blood Gas Specimen Type ART; FI02 90; Mode AC; O2 Delivery Device Adult Vent; PEEP 12; PO2 246 mmHG (75-100); RR 20; SITE L Radial; SO2 100 % (95-99); Total Carbon Dioxide 14 mmol/L; Vt 500; pCO2 29.9 mmHg (35-45); pH 7.24 (7.35-7.45)
[2022-09-28] MEDS: HEPARIN/D5w 25,000 UNITS 25,000 UNITS/250 ML IV.SOLN. 17 UNITS CONT INF (15:59)
[2022-09-28 16:01] LABS: Mucous, Urine 0 SEEN /hpf (<or=2+)
[2022-09-28 16:06] LABS: Color, Urine Yellow (Yellow); Glucose, Dipstick 50 mg/dl (Normal); Ketone-Dipstick 15 mg/dl (Negative); Leukocyte Esterase-Dipstick 100 /ul (Negative); Nitrite-Dipstick Negative (Negative); Occult Blood-Urine 250 /ul (Negative); Protein-Dipstick 100 mg/dl (Negative); Specific Gravity, Urine 1.015 (1.002-1.030); Urine Bilirubin Dipstick Negative (Negative); Urine Clarity Sl. Cloudy (Clear); Urine Urobilinogen Normal (Normal)
[2022-09-28 16:16] LABS: Acetaminophen (Tylenol) Level 4.7 ug/mL (10.0-30.0)
[2022-09-28 16:21] LABS: Bacteria RARE /hpf (None Seen); Red Blood Cells-Urine 10-25 SEEN /hpf (0-5); Squamous Epithelial Cells - UA 0-5 SEEN /hpf (0-5); White Blood Cells 10-25 SEEN /hpf (0-5)
[2022-09-28 16:31] LABS: Allen Test Positive; Base Excess -12 mmol/L (-2 to +2); Bicarbonate 14.9 mmol/L (22-26); Blood Gas Specimen Type ART; FI02 100; Mode AC; O2 Delivery Device Adult Vent; PEEP 12; PO2 304 mmHG (75-100); RR 25; SITE R Radial; SO2 100 % (95-99); Total Carbon Dioxide 16 mmol/L; Vt 500; pCO2 30.8 mmHg (35-45); pH 7.29 (7.35-7.45)
[2022-09-28 16:33] LABS: Amphetamine Urine VISTA NEGATIVE (<1000 ng/mL); Barbiturate Urine VISTA NEGATIVE (< 200 ng/mL); Benzodiazepine Urine VISTA NEGATIVE (< 200 ng/mL); Cocaine Urine VISTA NEGATIVE (< 300 ng/mL); Ecstacy Urine VISTA NEGATIVE (< 500 ng/mL); Methadone Urine VISTA NEGATIVE (< 300 ng/mL); PCP Urine VISTA NEGATIVE (< 25 ng/mL); THC Urine VISTA NEGATIVE (< 50 ng/mL); Vista UDS pH Range 4
[2022-09-28 16:45] LABS: Allen Test Positive; Base Excess -20 mmol/L (-2 to +2); Bicarbonate 9.9 mmol/L (22-26); Blood Gas Specimen Type ART; FI02 100; Mode AC; O2 Delivery Device Adult Vent; PEEP 12; PO2 90 mmHG (75-100); RR 20; SITE R Fem; SO2 92 % (95-99); Total Carbon Dioxide 11 mmol/L; Vt 500; pCO2 35.3 mmHg (35-45); pH 7.06 (7.35-7.45)
[2022-09-28] MEDS: Propofol 10MG/Ml 1,000 MG/100 ML Bottle 7.9 MG CONT INF ×2 (16:45→22:57)
--- NOTE | 2022-09-28 16:47 | PCM.RX.CS ---
Consult Pharmacy has been consulted to manage selected antiobiotic: Vancomycin Type of Consult: New start Prior Doses of Antibiotics Received/Current Regimen: Patient received 2gm loading dose 09.28.22 @9888. Labs: Sodium 139 mmol/L (136-145) 09/28/22 14:20 Potassium 4.2 mmol/L (3.5-5.1) 09/28/22 14:20 Chloride 109 mmol/L (98-107) H 09/28/22 14:20 Carbon Dioxide 13.0 mmol/L (21.0-32.0) L 09/28/22 14:20 Anion Gap 17 (5-15) H 09/28/22 14:20 BUN 23 mg/dL (7-18) H 09/28/22 14:20 Creatinine 1.36 mg/dL (0.70-1.30) H 09/28/22 14:20 Est GFR (MDRD) Af Amer 66 mL/min (>60) 09/28/22 14:20 Est GFR (MDRD) Non-Af 55 mL/min (>60) L 09/28/22 14:20 BUN/Creatinine Ratio 16.9 RATIO (10-20) 09/28/22 14:20 Glucose 386 mg/dL (74-106) H 09/28/22 14:20 Microbiology: Microbiology 09/28/22 15:52 Nasal Secretion SARS-CoV-2 Antigen (Rapid) - Final Weight used for dosin kg Estimated Creatinine Clearance: ~65ml/min Pharmacy Plan for Drug Dosing: Patient's CrCl calculated to be ~65ml/min using Cr 1.36 and adjusted body weight of 93.8kg. Have ordered 1500mg iv q12h per policy to start 12 hrs after loading dose of 2gm. Trough level ordered for before 4th total dose. Pharmacy Service will continue to monitor and adjust dosing as required. Follow-Up Labs: Trough Vancomycin - 2 @6630 before 0400 dose
[2022-09-28] MEDS: Chlorhexidine 15 ML PO ×2 (16:48→20:03)
[2022-09-28 17:01] LABS: Triglycerides 102 mg/dL
[2022-09-28 17:24] LABS: Troponin-I HS 830 pg/mL (3.0-78.0)
[2022-09-28 18:45] LABS: M R Staph aureus DNA By PCR Negative (Negative); Probe Check PASS; Specimen Processing Control PASS
[2022-09-28 19:10] LABS: Allen Test Negative; Base Excess -6 mmol/L (-2 to +2); Bicarbonate 17.7 mmol/L (22-26); Blood Gas Specimen Type ART; FI02 60; Mode AC; O2 Delivery Device Adult Vent; PEEP 12; PO2 186 mmHG (75-100); RR 25; SITE R Radial; SO2 100 % (95-99); Total Carbon Dioxide 18 mmol/L; Vt 500; pCO2 23.9 mmHg (35-45); pH 7.48 (7.35-7.45)
[2022-09-28 20:31] LABS: Allen Test Negative; Base Excess -5 mmol/L (-2 to +2); Bicarbonate 19.2 mmol/L (22-26); Blood Gas Specimen Type ART; FI02 50; Mode AC; O2 Delivery Device Adult Vent; PEEP 12; PO2 127 mmHG (75-100); RR 18; SITE L Radial; SO2 99 % (95-99); Total Carbon Dioxide 20 mmol/L; Vt 500; pCO2 29.1 mmHg (35-45); pH 7.43 (7.35-7.45)
--- NOTE | 2022-09-28 21:36 | NURSING ---
Patient's Christina brought in supplements that she states the patient takes every day but she was uncertain how much. The supplements she brought in and how much are left are the following: Serums/Oils/Liquids Cutler Needle Oil- 1 bottle almost empty, roughly 5ml left and a new unopened bottle Propolis Tincture- roughly 15ml left Erythroxylum Catuaba- roughly 3/4 of bottle left Capsules Laetrile B17 500mg capsules (100 capsule bottle)- 75 capsules left in 1 bottle. There is also 1 empty bottle. Pro B15 Pangamic Acid 500mg capsules (90 capsule bottle)- 67 capsules left Pro Enzymes (100 capsule bottle)- 78 capsules left Trexar (60 capsule bottle)- 35 capsules left Apricot Seed (180 capsule bottle)- 104 capsules left Tejas EPA/DHA Bronson-3 Fish Oil (120 capsule bottle)- 31 capsules left Liver Care Herbal Supplement (180 capsule bottle)- 19 capsules left Milk Thistle Phospholipid (120 capsule bottle)- 120 capsules left Youthful Legs Supplement (micronized purified flavonoid fraction) (60 capsule bottle)- 23 capsules left Super Bronson-3 with Sesame Lignans and Sevier extract (120 capsule bottle)- 92 capsules left
[2022-09-28 22:20] LABS: Phosphorus 1.8 mg/dL (2.5-4.9)
[2022-09-28 22:21] LABS: Anion Gap 6 (5-15); BUN 24 mg/dL (7-18); BUN/Creat Ratio 21.6 RATIO (10-20); Chloride 112 mmol/L (98-107); Creatinine, Serum 1.11 mg/dL (0.70-1.30); EST Glomerular Filtration Rate 69 mL/min (>60); Est Glom Filt Rate - Afr Amer 84 mL/min (>60); Glucose 175 mg/dL (74-106); Magnesium 1.8 mg/dL (1.6-2.6); Potassium 3.2 mmol/L (3.5-5.1); Sodium Level 141 mmol/L (136-145)
[2022-09-28 22:31] LABS: Partial Thromboplast Time 166.9 Seconds (24.1-36.2)
[2022-09-29] VITALS (81 sets, daily range): BP systolic 75–158; BP diastolic 49–87; PULSE 84–105; RESP 11–26; TEMP 37.4–38.1; O2SAT 94–98
[2022-09-29] MEDS: 0.9% Normal Saline 1,000 ML 150 ML IV ×2 (02:30→09:15)
--- NOTE | 2022-09-29 04:48 | EKG12_ITS ---
Test Reason : AM EKG Blood Pressure : / mmHG Vent. Rate : 097 BPM Atrial Rate : 097 BPM P-R Int : 180 ms QRS Dur : 078 ms QT Int : 366 ms P-R-T Axes : 045 059 065 degrees QTc Int : 464 ms Normal sinus rhythm Normal ECG When compared with ECG of 28-SEP-2022 14:07, MANUAL COMPARISON REQUIRED, DATA IS UNCONFIRMED Confirmed by DAYAN HESTER, AMMON ([id number]), design editor JACKIE JAIME ([id number]) on 10/01/2022 7:44:36 AM Referred By: JORY Confirmed By:AMMON HANLEY MD
[2022-09-29] MEDS: Propofol 10MG/Ml 1,000 MG/100 ML Bottle 11.9 MG CONT INF (05:07)
[2022-09-29] MEDS: TITRATION PARAMETER CHANGE 1 EACH IV (05:34)
--- NOTE | 2022-09-29 05:55 | EKG12_ITS ---
Test Reason : REPEAT Blood Pressure : / mmHG Vent. Rate : 123 BPM Atrial Rate : 000 BPM P-R Int : 000 ms QRS Dur : 102 ms QT Int : 396 ms P-R-T Axes : 000 085 018 degrees QTc Int : 566 ms Atrial fibrillation Nonspecific ST abnormality Abnormal ECG Confirmed by AMMON HANLEY MD ([id number]), photographic editor JACKIE JAIME ([id number]) on 09/30/2022 12:26:58 PM Referred By: GLENIS Confirmed By:AMMON HANLEY MD
--- NOTE | 2022-09-29 06:01 | RAD_ITS ---
INDICATION: acute respiratory failure with hypoxia EXAMINATION/TECHNIQUE: X-RAY - XR Chest 1 View COMPARISON: Chest x-ray from one day prior FINDINGS: LINES/DEVICES: Stable support lines/tubes. LUNGS: Stable slightly decreased lung volumes with mild bibasilar opacification. Linear scarlike opacities left midlung. No sizable pleural effusion. No pneumothorax detected. MEDIASTINUM AND CARDIOVASCULAR STRUCTURES: Heart size within normal limits. Mediastinal contours unremarkable. BONES AND SOFT TISSUES: No acute findings. RAD/Chest 1 View (Portable) IMPRESSION: Persistent hypoventilatory changes and bibasilar opacities. Electronically Signed: Lacho Trujillo MD at 7:59 EST ,
[2022-09-29 06:14] LABS: Absolute Lymphocyte Count 1.06 X10^3/uL (0.83-4.51); Absolute Neutrophil Count 19.2 X10^3/uL (2.0-7.7); Basophil# 0.02 X10^3/uL; Basophil% 0.1 % (0-1); Eosinophil# 0.01 X10^3/uL; Hematocrit 34.6 % (40-54); Hemoglobin 11.5 g/dL (13.0-16.5); Lymphocyte # 1.06 X10^3/ul (0.83-4.51); Lymphocyte % 4.8 % (19-41); Mean Corp Hgb Conc 33.2 g/dL (32-36); Mean Corpuscular Hgb 30.5 pg (27.0-32.0); Mean Corpuscular Volume 91.8 fL (80-94); Mean Platelet Vol. 9.7 fl (6.2-12.0); Monocyte# 1.73 X10^3/uL; Monocyte% 7.8 % (0-10); NRBC Flagged by Analyzer 0 % (0-5); Neutrophil % 86.5 % (47-70); POSITIVE DIFFERENTIAL YES; Platelet Count 297 K/mm3 (150-450); RBC Distribution Width CV 13.7 % (11.6-14.6); RBC Distribution Width SD 46.1 fl (35.1-43.9); Red Blood Count 3.77 M/mm3 (4.6-6.2); White Blood Count 22.2 K/mm3 (4.4-11.0)
[2022-09-29 06:20] LABS: Differential Indicated SCAN CRITERIA MET
[2022-09-29 06:42] LABS: ALB/GLOB Ratio 0.8 RATIO (0.9-2.4); AST(SGOT) 143 U/L (15-37); Alanine Aminotransfer ALT/SGPT 225 U/L (16-61); Albumin, Serum 2.2 g/dL (3.2-5.0); Alkaline Phosphatase 61 U/L (45-117); Anion Gap 5 (5-15); BUN 20 mg/dL (7-18); BUN/Creat Ratio 22.3 RATIO (10-20); Calcium,Total 7.4 mg/dL (8.5-10.1); Chloride 114 mmol/L (98-107); EST Glomerular Filtration Rate 89 mL/min (>60); Est Glom Filt Rate - Afr Amer 107 mL/min (>60); Estimated Creatinine Clearance 71.78 ml/min; Globulin 2.8 g/dL (2.2-4.2); Glucose 165 mg/dL (74-106); Potassium 3.8 mmol/L (3.5-5.1); Sodium Level 142 mmol/L (136-145); Troponin-I HS 3434 pg/mL (3.0-78.0)
[2022-09-29 06:44] LABS: Differential Comment SCANNED
--- NOTE | 2022-09-29 07:33 | ECHOCS_ITS ---
Reason For Study: Arrhythmia Procedure This was a 2D Doppler, Color Flow transthoracic echocardiogram. The study was technically difficult. Contrast injection was performed. Patient on a vent. Exam performed portable in ICU/CCU. Left Ventricle Normal LV size. Left ventricular systolic function is lower limits of normal. Mild global left ventricular systolic dysfunction. The left ventricular ejection fraction is 50 %. No regional wall motion abnormalities noted. Right Ventricle Normal RV size. Normal systolic function. Atria Normal left atrium. Normal right atrium. Mitral Valve Mitral valve not well visualized. Tricuspid Valve The tricuspid valve is not well visualized. Aortic Valve The aortic valve is not well visualized. Great Vessels Normal aortic root. The pulmonary artery is normal size. Normal inferior vena cava. Pericardium/Pleural No pericardial effusion. Medication Diluted definity 1.5ml given slow IV push to enhance endocardial definition. MMode/2D Measurements & Calculations LVIDd: 3.9 cm IVSd: 0.85 cm Ao root diam: 3.6 cm LVIDs: 2.5 cm LVPWd: 0.70 cm LA dimension: 3.4 cm RVDd: 3.8 cm FS: 35.3 % LAV(MOD-sp4): 36.6 ml LA A4 area: 16.3 cm2 RA A4 area: 12.7 cm2 Doppler Measurements & Calculations MV E max malena: 64.0 cm/sec Ao V2 max: 97.4 cm/sec LV V1 max: 69.2 cm/sec MV A max malena: 112.4 cm/sec Ao max P.8 mmHg LV V1 max P.9 mmHg MV E/A: 0.57 PA V2 max: 51.6 cm/sec ECHO/Echo Complete W/ Contrast Interpretation Summary Normal LV size. Left ventricular systolic function is lower limits of normal. Mild global left ventricular systolic dysfunction. The left ventricular ejection fraction is 50 %. Contrast injection was performed. The study was technically difficult. Ordering Physician: Sajan Martinez Performed By: Jan Oliver RCS
[2022-09-29 07:50] LABS: Allen Test Positive; Base Excess -3 mmol/L (-2 to +2); Bicarbonate 20.6 mmol/L (22-26); Blood Gas Specimen Type ART; FI02 30; Mode AC; O2 Delivery Device Adult Vent; PEEP 12; PO2 134 mmHG (75-100); RR 18; SITE R Radial; SO2 99 % (95-99); Total Carbon Dioxide 21 mmol/L; Vt 500; pCO2 26.1 mmHg (35-45)
[2022-09-29] MEDS: Chlorhexidine 15 ML PO ×2 (08:14→20:07)
--- NOTE | 2022-09-29 09:20 | PN.CARD_ITS ---
Subjective Subjective Patient seen and evaluated. As per the notes and nursing he appears to be withdrawing to some painful stimuli. On less pressors now. Objective Data Vital Signs: Vital Signs Temp Pulse Resp BP Pulse Ox O2 Del Method O2 Flow Rate 99.9 F H 89 520 H 92/51 L 97 Mechanical Ventilator 15 09/29/22 08:15 09/29/22 08:15 09/29/22 08:15 09/29/22 08:15 09/29/22 08:15 09/29/22 08:15 09/28/22 08:56 FiO2 30 09/29/22 08:15 Oxygen Flow Rate (L/min) 15 Oxygen Delivery Method Mechanical Ventilator Weight: 302 lb 0.533 oz Body Mass Index (BMI) 43.1 Intake & Output: Intake and Output for Last 24 Hours 09/27/22 09/28/22 09/29/22 23:59 23:59 23:59 Intake Total 6515.09 / 6564.72 3497.0833 / 3497.0833 Output Total 270 / 370 250 / 250 Balance 6245.09 / 6194.72 3247.0833 / 3247.0833 Lab / Micro Data Result Diagrams: 09/29/22 06:00 09/29/22 06:00 Labs: Laboratory Results - last 24 hr 09/28/22 09:00: WBC 14.4 H, RBC 4.90, Hgb 14.8, Hct 47.4, MCV 96.7 H, MCH 30.2, MCHC 31.2 L, RDW Std Deviation 48.1 H, RDW Coeff of Kiara 13.6, Plt Count 387, MPV 10.2, Immature Gran % (Auto) 0.300, Neut % (Auto) 57.1, Lymph % (Auto) 35.2, M brittany % (Auto) 6.2, Eos % (Auto) 0.9, Baso % (Auto) 0.3, Absolute Neuts (auto) 8.2 H, Absolute Lymphs (auto) 5.08 H, Nucleated RBC % 0, Differential Comment SCANNED 09/28/22 09:00: PT 16.0 H, INR 1.3, APTT 32.2 09/28/22 09:00: Sodium 138, Potassium 4.5, Chloride 111 H, Carbon Dioxide 12.0 L , Anion Gap 15, BUN 19 H, Creatinine 0.91, Estim Creat Clear Calc 73.38, Est GFR (MDRD) Af Amer 105, Est GFR (MDRD) Non-Af 87, BUN/Creatinine Ratio 20.9 H, Glucose 272 H, Calcium 10.0, Troponin I High Sens 32 09/28/22 09:00: Lactic Acid 14.5 H* 09/28/22 09:00: POC Glucose 283 H 09/28/22 13:00: Troponin I High Sens 160 H* 09/28/22 14:10: Lactic Acid 12.7 H* 09/28/22 14:20: WBC 22.0 H, RBC 4.65, Hgb 14.2, Hct 45.0, MCV 96.8 H, MCH 30.5, MCHC 31.6 L, RDW Std Deviation 48.6 H, RDW Coeff of Kiara 13.6, Plt Count 361, MPV 9.8, Immature Gran % (Auto) 1.000 H, Neut % (Auto) 87.9 H, Lymph % (Auto) 4.4 L, [place] % (Auto) 6.6, Eos % (Auto) 0.0, Baso % (Auto) 0.1, Absolute Neuts (auto) 19.3 H, Absolute Lymphs (auto) 0.97, Nucleated RBC % 0 09/28/22 14:20: PT 17.3 H, INR 1.4, APTT 32.7 09/28/22 14:20: Sodium 139, Potassium 4.2, Chloride 109 H, Carbon Dioxide 13.0 L , Anion Gap 17 H, BUN 23 H, Creatinine 1.36 H, Estim Creat Clear Calc 47.50, Est GFR (MDRD) Af Amer 66, Est GFR (MDRD) Non-Af 55 L, BUN/Creatinine Ratio 16.9, Glucose 386 H, Calcium 8.6, Total Bilirubin 0.50, AST 307 H, ALT 179 H, Alkaline Phosphatase 87, Total Creatine Kinase 148, Total Protein 6.6, Albumin 3.0 L, Globulin 3.6, Albumin/Globulin Ratio 0.8 L 09/28/22 14:32: MRSA (PCR) Negative 09/28/22 15:05: Urine Opiates Screen NEGATIVE, Urine Methadone Screen NEGATIVE, Ur Barbiturates Screen NEGATIVE, Ur Phencyclidine Scrn NEGATIVE, Ur Amphetamines Screen NEGATIVE, MDMA (Ecstasy) Screen NEGATIVE, U Benzodiazepines Scrn NEGATIVE, Urine Cocaine Screen NEGATIVE, U Cannabinoids Screen NEGATIVE, Ur Drug Screen Comment 09/28/22 15:05: Urine Color Yellow, Urine Clarity Sl. Cloudy, Urine pH 5.0, Ur Specific [place] 1.015, Urine Protein 100 H, Urine Glucose (UA) 50 H, Urine Ketones 15 H, Urine Occult Blood 250 H, Urine Nitrite Negative, Urine Bilirubin Negative, Urine Urobilinogen Normal, Ur Leukocyte Esterase 100 H, Urine RBC 10- 25 SEEN, Urine WBC 10-25 SEEN, Ur Squamous Epith Cells 0-5 SEEN, Urine Bacteria RARE, Urine Mucus 0 SEEN 09/28/22 15:50: Salicylates 19.0, Acetaminophen 4.7 L 09/28/22 16:35: Troponin I High Sens 830 H* 09/28/22 16:35: Triglycerides 102 09/28/22 21:35: APTT 166.9 H* 09/28/22 21:35: Sodium 141, Potassium 3.2 L, Chloride 112 H, Carbon Dioxide 23.0, Anion Gap 6, BUN 24 H, Creatinine 1.11, Estim Creat Clear Calc 58.20, Est GFR (MDRD) Af Amer 84, Est GFR (MDRD) Non-Af 69, BUN/Creatinine Ratio 21.6 H, Glucose 175 H, Calcium 8.0 L, Magnesium 1.8 09/28/22 21:35: Phosphorus 1.8 L 09/29/22 06:00: WBC 22.2 H, RBC 3.77 L, Hgb 11.5 L, Hct 34.6 L, MCV 91.8 D, MCH 30.5, MCHC 33.2 D, RDW Std Deviation 46.1 H, RDW Coeff of Kiara 13.7, Plt Count 297, MPV 9.7, Immature Gran % (Auto) 0.800, Neut % (Auto) 86.5 H, Lymph % (Auto) 4.8 L, [place] % (Auto) 7.8, Eos % (Auto) 0.0, Baso % (Auto) 0.1, Absolute Neuts (auto) 19.2 H, Absolute Lymphs (auto) 1.06, Nucleated RBC % 0, Differential Comment SCANNED, Diff Path Review December09/29/22 06:00: Sodium 142, Potassium 3.8, Chloride 114 H, Carbon Dioxide 23.0, Anion Gap 5, BUN 20 H, Creatinine 0.90, Estim Creat Clear Calc 71.78, Est GFR (MDRD) Af Amer 107, Est GFR (MDRD) Non-Af 89, BUN/Creatinine Ratio 22.3 H, Glucose 165 H, Calcium 7.4 L, Total Bilirubin 0.40, AST 143 H, ALT 225 H, Alkaline Phosphatase 61, Troponin I High Sens 3434 H*, Total Protein 5.0 L, Albumin 2.2 L, Globulin 2.8, Albumin/Globulin Ratio 0.8 L 09/29/22 06:00: APTT 144.0 H* Micro: Microbiology 09/28/22 15:05 Urine Catheter - Catheter Legionella Antigen - Final 09/28/22 15:05 Urine Catheter - Catheter Streptococcus pneumoniae Antigen (M - Final 09/28/22 14:20 Mucosa - Nose - Final 09/28/22 15:52 Nasal Secretion SARS-CoV-2 Antigen (Rapid) - Final ABG Data ABG results: ABG 09/28/22 09/28/22 09/28/22 09:56 10:38 11:12 Specimen Type DMITRI DMITRI ART Sample Site Central Line Central Line R Fem pH 7.06 L* Bicarbonate Actual 9.9 L Total CO2 11 Base Excess -20 L O2 Saturation 92 L O2 % 100 ABG pCO2 35.3 ABG pO2 90 Yoni Test Positive VBG pH 7.00 L* 7.08 L* VBG pO2 61 H 62 H VBG HCO3 10 L 12 L VBG Total CO2 11 L 14 L VBG O2 Sat (Calc) 77 H 81 H VBG Base Excess -22 L -18 L POC Mix VBG pCO2 Pt Tmp 38.4 L 41.1 Respiration Rate 14 22 20 O2 Delivery Device Adult Vent Adult Vent Vent Mode AC Tidal Volume 500 POC PEEP 5 18 12 Crit Call To/Read Back Yes Yes Yes Blood Gas Notified Whom GALVIN bagterri/apurva Blood Gas Notified Time 09:57:31 09/28/22 09/28/22 09/28/22 15:19 16:22 19:03 Specimen Type ART ART ART Sample Site L Radial R Radial R Radial pH 7.24 L 7.29 L 7.48 H Bicarbonate Actual 12.8 L 14.9 L 17.7 L Total CO2 14 16 18 Base Excess -15 L -12 L -6 L O2 Saturation 100 H 100 H 100 H O2 % 90 100 60 ABG pCO2 29.9 L 30.8 L 23.9 L ABG pO2 246 H 304 H* 186 H Yoni Test Positive Positive Negative VBG pH VBG pO2 VBG HCO3 VBG Total CO2 VBG O2 Sat (Calc) VBG Base Excess POC Mix VBG pCO2 Pt Tmp Respiration Rate 20 25 25 O2 Delivery Device Adult Vent Adult Vent Adult Vent Vent Mode AC AC AC Tidal Volume 500 500 500 POC PEEP 12 12 12 Crit Call To/Read Back Yes Blood Gas Notified Whom BAGGOTT Blood Gas Notified Time 09/28/22 09/29/22 20:26 07:45 Specimen Type ART ART Sample Site L Radial R Radial pH 7.43 7.50 H Bicarbonate Actual 19.2 L 20.6 L Total CO2 20 21 Base Excess -5 L -3 L O2 Saturation 99 99 O2 % 50 30 ABG pCO2 29.1 L 26.1 L ABG pO2 127 H 134 H Yoni Test Negative Positive VBG pH VBG pO2 VBG HCO3 VBG Total CO2 VBG O2 Sat (Calc) VBG Base Excess POC Mix VBG pCO2 Pt Tmp Respiration Rate 18 18 O2 Delivery Device Adult Vent Adult Vent Vent Mode AC AC Tidal Volume 500 500 POC PEEP 12 12 Crit Call To/Read Back Blood Gas Notified Whom Blood Gas Notified Time Cardiology Labs/Tests 09/28/22 09:00: WBC 14.4 H, RBC 4.90, Hgb 14.8, Hct 47.4, MCV 96.7 H, MCH 30.2, MCHC 31.2 L, Plt Count 387, MPV 10.2, Immature Gran % (Auto) 0.300, Neut % (Auto) 57.1, Lymph % (Auto) 35.2, [place] % (Auto) 6.2, Eos % (Auto) 0.9, Baso % (Auto) 0.3, Absolute Neuts (auto) 8.2 H, Nucleated RBC % 0 09/28/22 09:00: PT 16.0 H, INR 1.3, APTT 32.2 09/28/22 09:00: Sodium 138, Potassium 4.5, Chloride 111 H, Carbon Dioxide 12.0 L , Anion Gap 15, BUN 19 H, Creatinine 0.91, Est GFR (MDRD) Af Amer 105, Est GFR (MDRD) Non-Af 87, BUN/Creatinine Ratio 20.9 H, Glucose 272 H, Calcium 10.0 09/28/22 09:00: Lactic Acid 14.5 H* 09/28/22 09:56: VBG pH 7.00 L*, VBG pO2 61 H, VBG HCO3 10 L, VBG O2 Sat (Calc) 77 H, VBG Base Excess -22 L 09/28/22 10:38: VBG pH 7.08 L*, VBG pO2 62 H, VBG HCO3 12 L, VBG O2 Sat (Calc) 81 H, VBG Base Excess -18 L 09/28/22 11:12: pH 7.06 L*, Bicarbonate Actual 9.9 L, Base Excess -20 L, O2 Saturation 92 L, ABG pCO2 35.3, ABG pO2 90, Yoni Test Positive 09/28/22 14:10: Lactic Acid 12.7 H* 09/28/22 14:20: WBC 22.0 H, RBC 4.65, Hgb 14.2, Hct 45.0, MCV 96.8 H, MCH 30.5, MCHC 31.6 L, Plt Count 361, MPV 9.8, Immature Gran % (Auto) 1.000 H, Neut % (Auto) 87.9 H, Lymph % (Auto) 4.4 L, [place] % (Auto) 6.6, Eos % (Auto) 0.0, Baso % (Auto) 0.1, Absolute Neuts (auto) 19.3 H, Nucleated RBC % 0 09/28/22 14:20: PT 17.3 H, INR 1.4, APTT 32.7 09/28/22 14:20: Sodium 139, Potassium 4.2, Chloride 109 H, Carbon Dioxide 13.0 L , Anion Gap 17 H, BUN 23 H, Creatinine 1.36 H, Est GFR (MDRD) Af Amer 66, Est GFR (MDRD) Non-Af 55 L, BUN/Creatinine Ratio 16.9, Glucose 386 H, Calcium 8.6, Total Bilirubin 0.50 09/28/22 15:05: Urine Color Yellow, Urine Clarity Sl. Cloudy, Urine pH 5.0, Ur Specific [place] 1.015, Urine Protein 100 H, Urine Glucose (UA) 50 H, Urine Ketones 15 H, Urine Occult Blood 250 H, Urine Nitrite Negative, Urine Bilirubin Negative, Urine Urobilinogen Normal, Ur Leukocyte Esterase 100 H, Urine RBC 10- 25 SEEN, Urine WBC 10-25 SEEN 09/28/22 15:19: pH 7.24 L, Bicarbonate Actual 12.8 L, Base Excess -15 L, O2 Saturation 100 H, ABG pCO2 29.9 L, ABG pO2 246 H, Yoni Test Positive 09/28/22 16:22: pH 7.29 L, Bicarbonate Actual 14.9 L, Base Excess -12 L, O2 Saturation 100 H, ABG pCO2 30.8 L, ABG pO2 304 H*, Yoni Test Positive 09/28/22 16:35: Triglycerides 102 09/28/22 19:03: pH 7.48 H, Bicarbonate Actual 17.7 L, Base Excess -6 L, O2 Saturation 100 H, ABG pCO2 23.9 L, ABG pO2 186 H, Yoni Test Negative 09/28/22 20:26: pH 7.43, Bicarbonate Actual 19.2 L, Base Excess -5 L, O2 Saturation 99, ABG pCO2 29.1 L, ABG pO2 127 H, Yoni Test Negative 09/28/22 21:35: APTT 166.9 H* 09/28/22 21:35: Sodium 141, Potassium 3.2 L, Chloride 112 H, Carbon Dioxide 23.0, Anion Gap 6, BUN 24 H, Creatinine 1.11, Est GFR (MDRD) Af Amer 84, Est GFR (MDRD) Non-Af 69, BUN/Creatinine Ratio 21.6 H, Glucose 175 H, Calcium 8.0 L, Magnesium 1.8 09/28/22 21:35: Phosphorus 1.8 L 09/29/22 06:00: WBC 22.2 H, RBC 3.77 L, Hgb 11.5 L, Hct 34.6 L, MCV 91.8 D, MCH 30.5, MCHC 33.2 D, Plt Count 297, MPV 9.7, Immature Gran % (Auto) 0.800, Neut % (Auto) 86.5 H, Lymph % (Auto) 4.8 L, [place] % (Auto) 7.8, Eos % (Auto) 0.0, Baso % (Auto) 0.1, Absolute Neuts (auto) 19.2 H, Nucleated RBC % 0 09/29/22 06:00: Sodium 142, Potassium 3.8, Chloride 114 H, Carbon Dioxide 23.0, Anion Gap 5, BUN 20 H, Creatinine 0.90, Est GFR (MDRD) Af Amer 107, Est GFR (MDRD) Non-Af 89, BUN/Creatinine Ratio 22.3 H, Glucose 165 H, Calcium 7.4 L, Total Bilirubin 0.40 09/29/22 06:00: APTT 144.0 H* 09/29/22 07:45: pH 7.50 H, Bicarbonate Actual 20.6 L, Base Excess -3 L, O2 Saturation 99, ABG pCO2 26.1 L, ABG pO2 134 H, Yoni Test Positive Rhythm: EKG: ECHO: Stress Test: Cardiac Cath: PCI: CT Surgery: Holter monitor: EPS: PPM: CXR: Chest CT Scan: Radiography Diagnostic Testing: Radiology Impression Brain CT 09/28/22 08:55 IMPRESSION: No acute intracranial process. N.B. : The above Results were Read Back by Shira Dickson MD to Siva Galvin MD, and understanding confirmed on 09/28/2022 10:22:12 (ET). Electronically Signed: Shira Dickson MD at 10:21 EST , Head/Neck CTA 09/28/22 08:57 IMPRESSION: 1. Moderate to severe stenosis of the proximal right internal carotid artery secondary to atheromatous and atherosclerotic plaque. 2. Mild short segment stenosis of the distal left common carotid artery. 3. Mild to moderate shortness of stenosis of the supraclinoid segment of the left internal carotid artery 4. Limited evaluation of the M3 segments of bilateral middle cerebral artery secondary to timing of contrast bolus. 5. No acute intracranial abnormality. N.B. : The above Results were Read Back by Arnulfo Nur MD to Siva Galvin MD, and understanding confirmed on 09/28/2022 10:42:42 (ET). Electronically Signed: Arnulfo Nur MD at 10:47 EST , ADDENDUM: 09/28/22 1054 IMPRESSION: 1. Moderate to severe stenosis of the proximal right internal carotid artery secondary to atheromatous and atherosclerotic plaque. 2. Mild short segment stenosis of the distal left common carotid artery. 3. Mild to moderate shortness of stenosis of the supraclinoid segment of the left internal carotid artery 4. Limited evaluation of the M3 segments of bilateral middle cerebral artery secondary to timing of contrast bolus. 5. No acute intracranial abnormality. N.B. : The above Results were Read Back by Arnulfo Nur MD to Siva Galvin MD, and understanding confirmed on 09/28/2022 10:42:42 (ET). Electronically Signed: Arnulfo Nur MD at 10:47 EST , Chest X-Ray 09/28/22 09:30 IMPRESSION: Endotracheal tube terminating 2.4 cm above the lucrecia. Bibasilar patchy opacities may be secondary to underlying atelectasis and/or pneumonia. Electronically Signed: Shira Dickson MD at 10:02 EST , Chest/Abdomen/Pelvis CT 09/28/22 12:00 IMPRESSION: Bilateral lower lobe consolidation. Atherosclerosis. Colonic diverticulosis. Degenerative changes of the thoracic and lumbar spine. Electronically Signed: Shira Dickson MD at 12:30 EST , Chest X-Ray 09/29/22 06:01 IMPRESSION: Persistent hypoventilatory changes and bibasilar opacities. Electronically Signed: Lacho Trujillo MD at 7:59 EST , Physical Exam Narrative WD obese obtunded, no spontaneous movement Const no apparent distress General Appearance: patient mechanically ventilated Orientation / Consciousness: obtunded HEENT normocephalic HEENT Narrative: intubated, MMM, no bleeding or secretions from NGT or ETT with suctioning Eyes Eyes Narrative: no extraoculare, no oculocephalics, pupils 2mm nonreactive, no icterus or con junctival injection. Neck General: CVC in place Chest inspection of chest normal Chest Narrative: shaved anterior central chest for pacer pads Resp no use of accessory muscles Resp Narrative: equal course breath sounds bilaterally after intubation, no wheezes, rales or ronchi (anterolateral exam only). ETT 23 cm at upper teeth, adequately positioned on CXR. No cough with suctioning or ETT manipulation >2h after intubation. Cardio regular rate, regular rhythm, S1 normal heart sound and S2 normal heart sound; Negative for no murmurs Cardio Narrative: sinus alternating with juctional. Rate: bradycardia and tachycardic Heart Sounds: murmur GI normal to inspection, nondistended, normoactive bowel sounds, soft to palpation and non-tender GI Narrative: diminished bowel sounds, well healed ~8cm scar in RUQ, OGT present, no secretions. no CVA tenderness Narrative: prado with clear yellow urine, normal color. Back/Spine no CVA tenderness Extremity no clubbing, cyanosis or edema Skin no rashes or lesions noted Skin Narrative: fair hygiene Neuro Neuro Narrative: obtunded on ventilator, patient has not needed any sedation or narcotics due to unresponsiveness/unawareness. Psych Psych Narrative: completely unresponsive. Assessment & Plan Assessment/Plan (1) Cardiopulmonary arrest with successful resuscitation: PLAN: The patient has suffered a cardiopulmonary arrest with resuscitation. At this time the patient remains on high intensity pressors with no EKG or troponin changes. I will recommend continued expectant management and we will obtain an echocardiogram to assess his left ventricular function. Depending on the findings further recommendations could be made. For the duration and prolonged CPR I would recommend expectant management. * will continue heparin for now Thank you for allowing me to participate in the care of your patient. Please don't hesitate to call if any issues arise.
[2022-09-29 09:30] LABS: Allen Test Positive; Base Excess -1 mmol/L (-2 to +2); Bicarbonate 21.3 mmol/L (22-26); Blood Gas Specimen Type ART; FI02 30; Mode AC; O2 Delivery Device Adult Vent; PEEP 12; PO2 143 mmHG (75-100); RR 12; SITE R Radial; SO2 100 % (95-99); Total Carbon Dioxide 22 mmol/L; Vt 500; pCO2 24.2 mmHg (35-45); pH 7.55 (7.35-7.45)
[2022-09-29] MEDS: Furosemide 40 MG/4 ML Vial IV ×3 (09:39→20:12)
[2022-09-29] MEDS: 0.9% Normal Saline 1,000 ML 30 ML IV (09:42)
--- NOTE | 2022-09-29 10:02 | PN.CC_ITS ---
Assessment & Plan Assessment/Plan (1) Acute metabolic encephalopathy: PLAN: Slight improvement, post-arrest seizures controlled on Keppra and propofol. Still comatose, with GCS increased from 3 yesterday to 5 today (partial flexion response to pain) It is too early to prognosticate, but improvement in moving and eye findings is positive. Family (2 sons) updated. - continue frequent neuro checks - maintain map >65, SpO2 > 92%, supportive care - control seizures (no recurrence) and arrhythmias (NSVT has resolved) - monitor QTc. Guarded prognosis. Full support. (2) Acute hypoxemic respiratory failure: PLAN: patient failed weaning today due to secretions, poor cough and RSBI 50 on PS8 PEEP 5. Metabolic and respiratory alkalosis were due to patient improving with less vent need and better metabolic acidosis. - continue ventilation at decreased settings (450 x 12 x peep 8 x 50% or less FiO2) - secretion management - daily SAT and SBT - Would increase PEEP if he develops atelectasis on CXR. (mechanical due to weight). - continue Zosyn Vanco, check cultures in am, consider surveillance sputum C&S in AM. - propofol held, would re-start if any indication of discomfort and/or return of seizure activity (3) On mechanically assisted ventilation: PLAN: - vent bundle (4) Cardiopulmonary arrest with successful resuscitation: PLAN: Troponins increased to >3000 today, likely inciting event was NV/arrhythmia with unresponsiveness at home (?downtime, possible 20 min or longer), no bystander CPR, followed by PEA arrest in ER. (Doubt cyanide toxicity, especially with unfolding of clinical course.) Family updated. Being followed by Dr. Johnson/[facility] [place]. May need a cath if his neurologic situation recovers. - echocardiogram on Friday (first available). - continue IV heparin for now. (5) Shock circulatory: PLAN: Weaned from 3 pressors to just norepinephrine at 10 mcg.min, will continue to titrate to keep MAP >65. No clear evidence of sepsis but respiratory secretions have changed from scant and clear to slight and thick creamy. - continue to titrate norepinephrine to keep MAP >65; he has weaned off vasopressin and dopamine. - continue abx and check procalcitonin in AM - stop Vanco in AM if no MRSA found, continue zosyn - Lasix to diurese the 10L + given yesterday throughout resuscitation effort. - follow BMP - supplement electrolytes as needed - was 10L+ after fluid resuscitation yesterday; diuresing today. (6) Obstructive sleep apnea: PLAN: He will likely need to be extubated to NIV eventually when ready to extubate (not today) (7) Obesity: PLAN: Hypophosphatemia being supplemented. Tube feeds (nepro) to start today, goal range 40cc/hr (8) Seizure disorder, grand mal: PLAN: Likely related to acute brain damage before/after (PEA arrest) hospital presentation. No recurrence since 09/28. - propofol stopped to assess neuro status. - loaded with Keppra, decreased from 750 to 500 q 12h. - re-start propofol and resume Keppra at 750 mg if seizures return - will have a low threshhold for repeat head CT and/or MRi if neuro exam deteriorates or seizures return. PLAN: Plan Very guarded prognosis. 2 sons updated. ICU PPX with heparin, pepcid, chlorhexidine, vent bundle. Subjective Subjective Obtunded on ventilator Objective Data Objective Data Vital Signs: Vital Signs Temp Pulse Resp BP Pulse Ox O2 Del Method O2 Flow Rate 100 F H 97 22 H 131/54 H 95 Mechanical Ventilator 15 09/29/22 09:15 09/29/22 09:56 09/29/22 09:58 09/29/22 09:15 09/29/22 09:56 09/29/22 09:15 09/28/22 08:56 FiO2 30 09/29/22 09:28 Oxygen Flow Rate (L/min) 15 Oxygen Delivery Method Mechanical Ventilator Weight: 302 lb 0.533 oz Body Mass Index (BMI) 43.1 Intake & Output: Intake and Output for Last 24 Hours 09/27/22 09/28/22 09/29/22 23:59 23:59 23:59 Intake Total 6515.09 / 6564.72 4608.0233 / 4608.0233 Output Total 270 / 370 250 / 250 Balance 6245.09 / 6194.72 4358.0233 / 4358.0233 Diuresed today. Lab / Micro Data Result Diagrams: 09/29/22 06:00 09/29/22 06:00 Labs: Laboratory Results - last 24 hr 09/28/22 09:00: Lactic Acid 14.5 H* 09/28/22 09:00: POC Glucose 283 H 09/28/22 13:00: Troponin I High Sens 160 H* 09/28/22 14:10: Lactic Acid 12.7 H* 09/28/22 14:20: WBC 22.0 H, RBC 4.65, Hgb 14.2, Hct 45.0, MCV 96.8 H, MCH 30.5, MCHC 31.6 L, RDW Std Deviation 48.6 H, RDW Coeff of Kiara 13.6, Plt Count 361, MPV 9.8, Immature Gran % (Auto) 1.000 H, Neut % (Auto) 87.9 H, Lymph % (Auto) 4.4 L, [place] % (Auto) 6.6, Eos % (Auto) 0.0, Baso % (Auto) 0.1, Absolute Neuts (auto) 19.3 H, Absolute Lymphs (auto) 0.97, Nucleated RBC % 0 09/28/22 14:20: PT 17.3 H, INR 1.4, APTT 32.7 09/28/22 14:20: Sodium 139, Potassium 4.2, Chloride 109 H, Carbon Dioxide 13.0 L , Anion Gap 17 H, BUN 23 H, Creatinine 1.36 H, Estim Creat Clear Calc 47.50, Est GFR (MDRD) Af Amer 66, Est GFR (MDRD) Non-Af 55 L, BUN/Creatinine Ratio 16.9, Glucose 386 H, Calcium 8.6, Total Bilirubin 0.50, AST 307 H, ALT 179 H, Alkaline Phosphatase 87, Total Creatine Kinase 148, Total Protein 6.6, Albumin 3.0 L, Globulin 3.6, Albumin/Globulin Ratio 0.8 L 09/28/22 14:32: MRSA (PCR) Negative 09/28/22 15:05: Urine Opiates Screen NEGATIVE, Urine Methadone Screen NEGATIVE, Ur Barbiturates Screen NEGATIVE, Ur Phencyclidine Scrn NEGATIVE, Ur Amphetamines Screen NEGATIVE, MDMA (Ecstasy) Screen NEGATIVE, U Benzodiazepines Scrn NEGATIVE, Urine Cocaine Screen NEGATIVE, U Cannabinoids Screen NEGATIVE, Ur Drug Screen Comment 09/28/22 15:05: Urine Color Yellow, Urine Clarity Sl. Cloudy, Urine pH 5.0, Ur Specific [place] 1.015, Urine Protein 100 H, Urine Glucose (UA) 50 H, Urine Ketones 15 H, Urine Occult Blood 250 H, Urine Nitrite Negative, Urine Bilirubin Negative, Urine Urobilinogen Normal, Ur Leukocyte Esterase 100 H, Urine RBC 10- 25 SEEN, Urine WBC 10-25 SEEN, Ur Squamous Epith Cells 0-5 SEEN, Urine Bacteria RARE, Urine Mucus 0 SEEN 09/28/22 15:50: Salicylates 19.0, Acetaminophen 4.7 L 09/28/22 16:35: Troponin I High Sens 830 H* 09/28/22 16:35: Triglycerides 102 09/28/22 21:35: APTT 166.9 H* 09/28/22 21:35: Sodium 141, Potassium 3.2 L, Chloride 112 H, Carbon Dioxide 23.0, Anion Gap 6, BUN 24 H, Creatinine 1.11, Estim Creat Clear Calc 58.20, Est GFR (MDRD) Af Amer 84, Est GFR (MDRD) Non-Af 69, BUN/Creatinine Ratio 21.6 H, Glucose 175 H, Calcium 8.0 L, Magnesium 1.8 09/28/22 21:35: Phosphorus 1.8 L 09/29/22 06:00: WBC 22.2 H, RBC 3.77 L, Hgb 11.5 L, Hct 34.6 L, MCV 91.8 D, MCH 30.5, MCHC 33.2 D, RDW Std Deviation 46.1 H, RDW Coeff of Kiara 13.7, Plt Count 297, MPV 9.7, Immature Gran % (Auto) 0.800, Neut % (Auto) 86.5 H, Lymph % (Auto) 4.8 L, [place] % (Auto) 7.8, Eos % (Auto) 0.0, Baso % (Auto) 0.1, Absolute Neuts (auto) 19.2 H, Absolute Lymphs (auto) 1.06, Nucleated RBC % 0, Differential Comment SCANNED, Diff Path Review December09/29/22 06:00: Sodium 142, Potassium 3.8, Chloride 114 H, Carbon Dioxide 23.0, Anion Gap 5, BUN 20 H, Creatinine 0.90, Estim Creat Clear Calc 71.78, Est GFR (MDRD) Af Amer 107, Est GFR (MDRD) Non-Af 89, BUN/Creatinine Ratio 22.3 H, Glucose 165 H, Calcium 7.4 L, Total Bilirubin 0.40, AST 143 H, ALT 225 H, Alkaline Phosphatase 61, Troponin I High Sens 3434 H*, Total Protein 5.0 L, A lbumin 2.2 L, Globulin 2.8, Albumin/Globulin Ratio 0.8 L 09/29/22 06:00: APTT 144.0 H* Micro: Microbiology 09/28/22 15:05 Urine Catheter - Catheter Legionella Antigen - Final 09/28/22 15:05 Urine Catheter - Catheter Streptococcus pneumoniae Antigen (M - Final 09/28/22 14:20 Mucosa - Nose - Final 09/28/22 15:52 Nasal Secretion SARS-CoV-2 Antigen (Rapid) - Final ABG Data ABG results: ABG 09/28/22 09/28/22 09/28/22 10:38 11:12 15:19 Specimen Type DMITRI ART ART Sample Site Central Line R Fem L Radial pH 7.06 L* 7.24 L Bicarbonate Actual 9.9 L 12.8 L Total CO2 11 14 Base Excess -20 L -15 L O2 Saturation 92 L 100 H O2 % 100 90 ABG pCO2 35.3 29.9 L ABG pO2 90 246 H Yoni Test Positive Positive VBG pH 7.08 L* VBG pO2 62 H VBG HCO3 12 L VBG Total CO2 14 L VBG O2 Sat (Calc) 81 H VBG Base Excess -18 L POC Mix VBG pCO2 Pt Tmp 41.1 Respiration Rate 22 20 20 O2 Delivery Device Adult Vent Adult Vent Vent Mode AC AC Tidal Volume 500 500 POC PEEP 18 12 12 Crit Call To/Read Back Yes Yes Blood Gas Notified Whom zacarias/apurva 09/28/22 09/28/22 09/28/22 16:22 19:03 20:26 Specimen Type ART ART ART Sample Site R Radial R Radial L Radial pH 7.29 L 7.48 H 7.43 Bicarbonate Actual 14.9 L 17.7 L 19.2 L Total CO2 16 18 20 Base Excess -12 L -6 L -5 L O2 Saturation 100 H 100 H 99 O2 % 100 60 50 ABG pCO2 30.8 L 23.9 L 29.1 L ABG pO2 304 H* 186 H 127 H Yoni Test Positive Negative Negative VBG pH VBG pO2 VBG HCO3 VBG Total CO2 VBG O2 Sat (Calc) VBG Base Excess POC Mix VBG pCO2 Pt Tmp Respiration Rate 25 25 18 O2 Delivery Device Adult Vent Adult Vent Adult Vent Vent Mode AC AC AC Tidal Volume 500 500 500 POC PEEP 12 12 12 Crit Call To/Read Back Yes Blood Gas Notified Whom SANIYATT 09/29/22 09/29/22 07:45 09:23 Specimen Type ART ART Sample Site R Radial R Radial pH 7.50 H 7.55 H Bicarbonate Actual 20.6 L 21.3 L Total CO2 21 22 Base Excess -3 L -1 O2 Saturation 99 100 H O2 % 30 30 ABG pCO2 26.1 L 24.2 L ABG pO2 134 H 143 H Yoni Test Positive Positive VBG pH VBG pO2 VBG HCO3 VBG Total CO2 VBG O2 Sat (Calc) VBG Base Excess POC Mix VBG pCO2 Pt Tmp Respiration Rate 18 12 O2 Delivery Device Adult Vent Adult Vent Vent Mode AC AC Tidal Volume 500 500 POC PEEP 12 12 Crit Call To/Read Back Blood Gas Notified Whom Attestation: I personally reviewed and interpreted this ABG as follows: Interpretation: Acute respiratory and metabolic alkalosis, secondary to ventilation and bicarbo bethel drip. Adequate oxygenation. Respiratory rate and tidal volume has been decreased, bicarbonate drip stopped. Radiography Diagnostic Testing: Radiology Impression Brain CT 09/28/22 08:55 IMPRESSION: No acute intracranial process. N.B. : The above Results were Read Back by Shira Dickson MD to Siva Irwin MD, and understanding confirmed on 09/28/2022 10:22:12 (ET). Electronically Signed: Shira Dickson MD at 10:21 EST , Head/Neck CTA 09/28/22 08:57 IMPRESSION: 1. Moderate to severe stenosis of the proximal right internal carotid artery secondary to atheromatous and atherosclerotic plaque. 2. Mild short segment stenosis of the distal left common carotid artery. 3. Mild to moderate shortness of stenosis of the supraclinoid segment of the left internal carotid artery 4. Limited evaluation of the M3 segments of bilateral middle cerebral artery secondary to timing of contrast bolus. 5. No acute intracranial abnormality. N.B. : The above Results were Read Back by Arnulfo Nur MD to Siva Irwin MD, and understanding confirmed on 09/28/2022 10:42:42 (ET). Electronically Signed: Arnulfo Nur MD at 10:47 EST , ADDENDUM: 09/28/22 1054 IMPRESSION: 1. Moderate to severe stenosis of the proximal right internal carotid artery secondary to atheromatous and atherosclerotic plaque. 2. Mild short segment stenosis of the distal left common carotid artery. 3. Mild to moderate shortness of stenosis of the supraclinoid segment of the left internal carotid artery 4. Limited evaluation of the M3 segments of bilateral middle cerebral artery secondary to timing of contrast bolus. 5. No acute intracranial abnormality. N.B. : The above Results were Read Back by Arnulfo Nur MD to Siva Irwin MD, and understanding confirmed on 09/28/2022 10:42:42 (ET). Electronically Signed: Arnulfo Nur MD at 10:47 EST , Chest X-Ray 09/28/22 09:30 IMPRESSION: Endotracheal tube terminating 2.4 cm above the lucrecia. Bibasilar patchy opacities may be secondary to underlying atelectasis and/or pneumonia. Electronically Signed: Shira Dickson MD at 10:02 EST , Chest/Abdomen/Pelvis CT 09/28/22 12:00 IMPRESSION: Bilateral lower lobe consolidation. Atherosclerosis. Colonic diverticulosis. Degenerative changes of the thoracic and lumbar spine. Electronically Signed: Shira Dickson MD at 12:30 EST , Chest X-Ray 09/29/22 06:01 IMPRESSION: Persistent hypoventilatory changes and bibasilar opacities. Electronically Signed: Lacho Trujillo MD at 7:59 EST , Physical Exam Narrative Intubated, minimally responsive, no acute distress Creamy secretion from his endotracheal tube. weak cough With suctioning. ETT 7.5mmID at 23 cm at upper teeth. Weaning trial today FAILED due to RSBI 50, inadequate cough, not following commands, and increased thick creamy secretions. Chest clear heart sounds normal, no vtach on monitor, NStach. abd soft, NT, +BS, ngt with clear normal color gastric secretions. ext 4+ edema, no lesions. neuro: semi-purposeful (ineffective) withdrawal with ABG and foot/hand noxious stimuli, Pupils 1mm nonreactive, oculocephalics present but sluggish, [place] upgoing, no spontaneous eye opening, no response to voice or light touch, only noxious, occasional spontaneous, no purposeful movement, no seizure activity (exam after 10 mcg propofol stopped) Sepsis Attestation Sepsis Alert: Yes Sepsis Attestation: Agree w/Sepsis (no not agree with sepsis; patient had cardiogenic shock) Date exam was performed: 09/29/22 Time exam was performed: 10:58 Possible Source of Sepsis: Pulmonary Sepsis Organ Dysfunction Criteria Present: SBP < 90 mmHg or MAP < 65 mmHg, Acute Respiratory Failure (New need for BiPAP/CPAP or MV), INR > 1.5 or aPTT > 60 sec, Lactic Acid > 2 mmol/L, PaO2/FiO2 ratio < 300 and New/Unexplained change in mental status Supportive Findings: minimal support. Sputum was normal 09/28 and became creamy 09/29, CXR with acute I/E. Fluid Resuscitation Fluid resuscitation indicated?: Yes Fluid Resuscitation ordered: 30 ml/kg fluid bolus ordered Sepsis Note Date exam was performed: 09/29/22 Time exam was performed: 10:59 Sepsis Attestation: Sepsis re-evaluation was performed Response to fluids: Fluid responsive hypotension and Vasopressors started (vasopressors weaning as patient is improving; pt has cardiogenic shock. ) Charges/Coding Procedures [facility]ists Procedures: [id number]
--- NOTE | 2022-09-29 10:23 | CPS ---
INCREASE IN RR, INCREASED SECRETIONS.
--- NOTE | 2022-09-29 10:36 | NURSING ---
silver colored band removed from lt hand & given to
[2022-09-29] MEDS: HEPARIN/D5w 25,000 UNITS 25,000 UNITS/250 ML IV.SOLN. 11 UNITS CONT INF (11:04)
--- NOTE | 2022-09-29 11:05 | PCM.PN.HOSP ---
Reason for Visit Reason for Visit: Diagnoses Obesity, unspecified (09/28/22) Acidosis, unspecified (09/28/22) Other generalized epilepsy and epileptic syndromes, not intractable, without status epilepticus (09/28/22) Obstructive sleep apnea (adult) (pediatric) (09/28/22) Metabolic encephalopathy (09/28/22) Cardiac arrest, cause unspecified (09/28/22) Hypotension, unspecified (09/28/22) Acute respiratory failure with hypoxia (09/28/22) Bradycardia, unspecified (09/28/22) Cardiogenic shock (09/28/22) Shock, unspecified (09/28/22) Dependence on respirator [ventilator] status (09/28/22) Subjective Subjective Patient was seen and examined today, I talked with cardiology briefly about his care as well as critical care. Patient evidently had seizures and was placed on propofol and Keppra , he is febrile today and his white blood cell count is elevated at 22,200. Patient's troponin also elevated and he is now on full anticoagulation. Patient does respond to pain today, pupils however remain constricted and minimally reactive. Objective Data Objective Data Vital Signs: Vital Signs Temp Pulse Resp BP Pulse Ox O2 Del Method O2 Flow Rate 99.4 F H 93 16 154/66 H 95 Mechanical Ventilator 15 09/29/22 10:15 09/29/22 10:20 09/29/22 10:20 09/29/22 10:15 09/29/22 10:20 09/29/22 10:15 09/28/22 08:56 FiO2 30 09/29/22 10:20 Oxygen Flow Rate (L/min) 15 Oxygen Delivery Method Mechanical Ventilator Weight: 137 kg Body Mass Index (BMI) 43.1 Intake & Output: Intake and Output for Last 24 Hours 09/27/22 09/28/22 09/29/22 23:59 23:59 23:59 Intake Total 6515.09 / 6564.72 4656.8233 / 4656.8233 Output Total 270 / 370 250 / 250 Balance 6245.09 / 6194.72 4406.8233 / 4406.8233 Lab / Micro Data Result Diagrams: 09/29/22 06:00 09/29/22 06:00 Labs: Laboratory Results - last 24 hr 09/28/22 13:00: Troponin I High Sens 160 H* 09/28/22 14:10: Lactic Acid 12.7 H* 09/28/22 14:20: WBC 22.0 H, RBC 4.65, Hgb 14.2, Hct 45.0, MCV 96.8 H, MCH 30.5, MCHC 31.6 L, RDW Std Deviation 48.6 H, RDW Coeff of Kiara 13.6, Plt Count 361, MPV 9.8, Immature Gran % (Auto) 1.000 H, Neut % (Auto) 87.9 H, Lymph % (Auto) 4.4 L, [place] % (Auto) 6.6, Eos % (Auto) 0.0, Baso % (Auto) 0.1, Absolute Neuts (auto) 19.3 H, Absolute Lymphs (auto) 0.97, Nucleated RBC % 0 09/28/22 14:20: PT 17.3 H, INR 1.4, APTT 32.7 09/28/22 14:20: Sodium 139, Potassium 4.2, Chloride 109 H, Carbon Dioxide 13.0 L, Anion Gap 17 H, BUN 23 H, Creatinine 1.36 H, Estim Creat Clear Calc 47.50, Est GFR (MDRD) Af Amer 66, Est GFR (MDRD) Non-Af 55 L, BUN/Creatinine Ratio 16.9, Glucose 386 H, Calcium 8.6, Total Bilirubin 0.50, AST 307 H, ALT 179 H, Alkaline Phosphatase 87, Total Creatine Kinase 148, Total Protein 6.6, Albumin 3.0 L, Globulin 3.6, Albumin/Globulin Ratio 0.8 L 09/28/22 14:32: MRSA (PCR) Negative 09/28/22 15:05: Urine Opiates Screen NEGATIVE, Urine Methadone Screen NEGATIVE, Ur Barbiturates Screen NEGATIVE, Ur Phencyclidine Scrn NEGATIVE, Ur Amphetamines Screen NEGATIVE, MDMA (Ecstasy) Screen NEGATIVE, U Benzodiazepines Scrn NEGATIVE, Urine Cocaine Screen NEGATIVE, U Cannabinoids Screen NEGATIVE, Ur Drug Screen Comment 09/28/22 15:05: Urine Color Yellow, Urine Clarity Sl. Cloudy, Urine pH 5.0, Ur Specific [place] 1.015, Urine Protein 100 H, Urine Glucose (UA) 50 H, Urine Ketones 15 H, Urine Occult Blood 250 H, Urine Nitrite Negative, Urine Bilirubin Negative, Urine Urobilinogen Normal, Ur Leukocyte Esterase 100 H, Urine RBC 10-25 SEEN, Urine WBC 10-25 SEEN, Ur Squamous Epith Cells 0-5 SEEN, Urine Bacteria RARE, Urine Mucus 0 SEEN 09/28/22 15:50: Salicylates 19.0, Acetaminophen 4.7 L 09/28/22 16:35: Troponin I High Sens 830 H* 09/28/22 16:35: Triglycerides 102 09/28/22 21:35: APTT 166.9 H* 09/28/22 21:35: Sodium 141, Potassium 3.2 L, Chloride 112 H, Carbon Dioxide 23.0, Anion Gap 6, BUN 24 H, Creatinine 1.11, Estim Creat Clear Calc 58.20, Est GFR (MDRD) Af Amer 84, Est GFR (MDRD) Non-Af 69, BUN/Creatinine Ratio 21.6 H, Glucose 175 H, Calcium 8.0 L, Magnesium 1.8 09/28/22 21:35: Phosphorus 1.8 L 09/29/22 06:00: WBC 22.2 H, RBC 3.77 L, Hgb 11.5 L, Hct 34.6 L, MCV 91.8 D, MCH 30.5, MCHC 33.2 D, RDW Std Deviation 46.1 H, RDW Coeff of Kiara 13.7, Plt Count 297, MPV 9.7, Immature Gran % (Auto) 0.800, Neut % (Auto) 86.5 H, Lymph % (Auto) 4.8 L, [place] % (Auto) 7.8, Eos % (Auto) 0.0, Baso % (Auto) 0.1, Absolute Neuts (auto) 19.2 H, Absolute Lymphs (auto) 1.06, Nucleated RBC % 0, Differential Comment SCANNED, Diff Path Review December foll 09/29/22 06:00: Sodium 142, Potassium 3.8, Chloride 114 H, Carbon Dioxide 23.0, Anion Gap 5, BUN 20 H, Creatinine 0.90, Estim Creat Clear Calc 71.78, Est GFR (MDRD) Af Amer 107, Est GFR (MDRD) Non-Af 89, BUN/Creatinine Ratio 22.3 H, Glucose 165 H, Calcium 7.4 L, Total Bilirubin 0.40, AST 143 H, ALT 225 H, Alkaline Phosphatase 61, Troponin I High Sens 3434 H*, Total Protein 5.0 L, Albumin 2.2 L, Globulin 2.8, Albumin/Globulin Ratio 0.8 L 09/29/22 06:00: APTT 144.0 H* Micro: Microbiology 09/28/22 15:05 Urine Catheter - Catheter Legionella Antigen - Final 09/28/22 15:05 Urine Catheter - Catheter Streptococcus pneumoniae Antigen (M - Final 09/28/22 14:20 Mucosa - Nose - Final 09/28/22 15:52 Nasal Secretion SARS-CoV-2 Antigen (Rapid) - Final ABG Data ABG results: ABG 09/28/22 09/28/22 09/28/22 11:12 15:19 16:22 Specimen Type ART ART ART Sample Site R Fem L Radial R Radial pH 7.06 L* 7.24 L 7.29 L Bicarbonate Actual 9.9 L 12.8 L 14.9 L Total CO2 11 14 16 Base Excess -20 L -15 L -12 L O2 Saturation 92 L 100 H 100 H O2 % 100 90 100 ABG pCO2 35.3 29.9 L 30.8 L ABG pO2 90 246 H 304 H* Yoni Test Positive Positive Positive Respiration Rate 20 20 25 O2 Delivery Device Adult Vent Adult Vent Adult Vent Vent Mode AC AC AC Tidal Volume 500 500 500 POC PEEP 12 12 12 Crit Call To/Read Back Yes Yes Blood Gas Notified Whom zacarias/apurva CAZARES 09/28/22 09/28/22 09/29/22 19:03 20:26 07:45 Specimen Type ART ART ART Sample Site R Radial L Radial R Radial pH 7.48 H 7.43 7.50 H Bicarbonate Actual 17.7 L 19.2 L 20.6 L Total CO2 18 20 21 Base Excess -6 L -5 L -3 L O2 Saturation 100 H 99 99 O2 % 60 50 30 ABG pCO2 23.9 L 29.1 L 26.1 L ABG pO2 186 H 127 H 134 H Yoni Test Negative Negative Positive Respiration Rate 25 18 18 O2 Delivery Device Adult Vent Adult Vent Adult Vent Vent Mode AC AC AC Tidal Volume 500 500 500 POC PEEP 12 12 12 Crit Call To/Read Back Blood Gas Notified Whom 09/29/22 09:23 Specimen Type ART Sample Site R Radial pH 7.55 H Bicarbonate Actual 21.3 L Total CO2 22 Base Excess -1 O2 Saturation 100 H O2 % 30 ABG pCO2 24.2 L ABG pO2 143 H Yoni Test Positive Respiration Rate 12 O2 Delivery Device Adult Vent Vent Mode AC Tidal Volume 500 POC PEEP 12 Crit Call To/Read Back Blood Gas Notified Whom Radiography Diagnostic Testing: Radiology Impression Chest/Abdomen/Pelvis CT 09/28/22 12:00 IMPRESSION: Bilateral lower lobe consolidation. Atherosclerosis. Colonic diverticulosis. Degenerative changes of the thoracic and lumbar spine. Electronically Signed: Shira Dickson MD at 12:30 EST , Chest X-Ray 09/29/22 06:01 IMPRESSION: Persistent hypoventilatory changes and bibasilar opacities. Electronically Signed: Lacho Trujillo MD at 7:59 EST , Physical Exam Const Constitutional Narrative: Patient is sedated and on the ventilator HEENT head/scalp atraumatic Head and Scalp: normocephalic Eyes conjunctivae normal Eyes Narrative: Pupils are at 3 mm and minimally reactive to light Neck no JVD Resp normal respiratory effort, no retractions, no use of accessory muscles and clear to auscultation bilaterally Cardio regular rate, regular rhythm, S1 normal heart sound, S2 normal heart sound and no murmurs GI normal to inspection, nondistended, normoactive bowel sounds Extremity Extremity Narrative: There is some generalized edema of the patient's lower legs bilaterally Neuro Neuro Narrative: Patient is sedated and on the ventilator Psych Psych Narrative: Patient is sedated and on the ventilator Assessment & Plan Assessment/Plan (1) Seizure disorder, grand mal: (2) Cardiopulmonary arrest with successful resuscitation: PLAN: Plan 1. Acute cardiopulmonary arrest with successful resuscitation, etiology of cardiopulmonary arrest unknown at this time-continue present medications and ventilator support #2 severe acidosis secondary to cardiopulmonary arrest-this has resolved #3 morbid obesity-complicates care, medical course, recovery, and prognosis #4 acute hypoxic respiratory failure secondary to cardiopulmonary arrest-etiology unclear at this point #5 lactic acidosis-secondary to acute hypoxic respiratory failure-I do not feel the patient is septic at this time #6 hyperglycemia-etiology unclear at this point, labs will be monitored #7 acute shock-cardiogenic versus metabolic or infectious in nature-patient's remains on vasopressors at this time, he is only on Levophed #8 [id number] will have an echocardiogram performed tomorrow, he is not stable at this time to undergo cardiac catheterization, cardiology is following him #9 seizure disorder-patient currently is on propofol and Keppra #10 temperature elevation-patient is currently on IV antibiotics Total clinical time spent by myself addressing patient's medical issues, reviewing all the data, and collaborating with patient's care team: 50 min Charges/Coding Visit Charges Inpatient E&M: 42865 [facility] L3
[2022-09-29] MEDS: Famotidine 200 MG/20 ML MDV 20 MG in 0.9% Normal Saline (Pres. free 8 ML 300 MG IV (12:07)
[2022-09-29 14:42] LABS: Partial Thromboplast Time 111.2 Seconds (24.1-36.2)
[2022-09-29 18:56] LABS: Allen Test Positive; Base Excess 0 mmol/L (-2 to +2); Bicarbonate 22.8 mmol/L (22-26); Blood Gas Specimen Type ART; FI02 30; Mode AC; O2 Delivery Device Adult Vent; PEEP 8; PO2 108 mmHG (75-100); RR 12; SITE R Radial; SO2 99 % (95-99); Total Carbon Dioxide 24 mmol/L; Vt 450; pCO2 27.8 mmHg (35-45); pH 7.52 (7.35-7.45)
[2022-09-29] MEDS: 0.9% Saline Lock 10 ML Syringe IV (20:10)
[2022-09-29] MEDS: Famotidine 200 MG/20 ML MDV 20 MG in 0.9% Normal Saline (Pres. free 8 ML IV (20:12)
[2022-09-29 22:45] LABS: Partial Thromboplast Time 56.4 Seconds (24.1-36.2)
[2022-09-30] VITALS (35 sets, daily range): BP systolic 101–162; BP diastolic 32–86; PULSE 70–98; RESP 11–24; TEMP 36.4–38; O2SAT 72–99
[2022-09-30] MEDS: CHLORHEXIDINE GLUC 2% CLOTH 1 EACH TOWELETTE TOPICAL (02:37)
[2022-09-30 03:28] LABS: Absolute Lymphocyte Count 0.95 X10^3/uL (0.83-4.51); Absolute Neutrophil Count 13.5 X10^3/uL (2.0-7.7); Basophil# 0.01 X10^3/uL; Basophil% 0.1 % (0-1); Eosinophil# 0.02 X10^3/uL; Eosinophils% 0.1 % (0-5); Hematocrit 31.5 % (40-54); Hemoglobin 10.6 g/dL (13.0-16.5); Lymphocyte # 0.95 X10^3/ul (0.83-4.51); Lymphocyte % 6.1 % (19-41); Mean Corp Hgb Conc 33.7 g/dL (32-36); Mean Corpuscular Volume 92.1 fL (80-94); Mean Platelet Vol. 9.6 fl (6.2-12.0); NRBC Flagged by Analyzer 0 % (0-5); Neutrophil # 13.46 X10^3/uL (2.7-7.7); Neutrophil % 86.2 % (47-70); Platelet Count 207 K/mm3 (150-450); RBC Distribution Width SD 47.2 fl (35.1-43.9); Red Blood Count 3.42 M/mm3 (4.6-6.2); White Blood Count 15.6 K/mm3 (4.4-11.0)
[2022-09-30 03:44] LABS: Vancomycin, Trough Level 25.1 ug/mL (5.0-15.0)
--- NOTE | 2022-09-30 03:53 | PCM.RX.CS ---
Consult Pharmacy has been consulted to manage selected antiobiotic: Vancomycin Type of Consult: Follow-up Labs: Vancomycin Trough 25.1 ug/mL (5.0-15.0) H 09/30/22 03:15 Microbiology: Microbiology 09/28/22 14:20 Sputum, Induced/Lukens Respiratory Culture - Preliminary Appears to be normal respiratory elyssa. Further studies to follow. 09/28/22 15:05 Urine Catheter - Catheter Legionella Antigen - Final 09/28/22 15:05 Urine Catheter - Catheter Streptococcus pneumoniae Antigen (M - Final 09/28/22 14:20 Mucosa - Nose - Final 09/28/22 15:52 Nasal Secretion SARS-CoV-2 Antigen (Rapid) - Final Goal Trough: 15-20 mcg/mL Pharmacy Plan for Drug Dosing: Pharmacy Service will continue to monitor and adjust dosing as required. TROUGH 25.1 @ 9 HRS. CURRENT DOSE HELD, DRAW RANDOM LEVEL IN 6 HOURS Follow-Up Labs: Trough Vancomycin Labs to be done on [date and time ordered]: 09/30 @ 9258
[2022-09-30 03:54] LABS: ALB/GLOB Ratio 0.7 RATIO (0.9-2.4); AST(SGOT) 82 U/L (15-37); Alanine Aminotransfer ALT/SGPT 159 U/L (16-61); Albumin, Serum 2.1 g/dL (3.2-5.0); Alkaline Phosphatase 58 U/L (45-117); Anion Gap 3 (5-15); BUN 19 mg/dL (7-18); BUN/Creat Ratio 21.1 RATIO (10-20); Chloride 111 mmol/L (98-107); EST Glomerular Filtration Rate 88 mL/min (>60); Est Glom Filt Rate - Afr Amer 107 mL/min (>60); Estimated Creatinine Clearance 71.78 ml/min; Globulin 2.9 g/dL (2.2-4.2); Glucose 109 mg/dL (74-106); Magnesium 1.8 mg/dL (1.6-2.6); Phosphorus 3.6 mg/dL (2.5-4.9); Sodium Level 141 mmol/L (136-145)
[2022-09-30] MEDS: Heparin Injection (Vial) 5,000 UNIT/ML VIAL IV ×2 (04:01→18:29)
[2022-09-30] MEDS: 0.9% Saline Lock 10 ML Syringe IV ×2 (05:29→20:21)
[2022-09-30] MEDS: Furosemide 40 MG/4 ML Vial IV ×3 (05:29→20:22)
--- NOTE | 2022-09-30 06:39 | PN.CC_ITS ---
Assessment & Plan Assessment/Plan (1) Cardiopulmonary arrest with successful resuscitation: (2) Acute metabolic encephalopathy: (3) Acute hypoxemic respiratory failure: PLAN: Plan RECOMMENDATIONS: 1. Continue ventilatory support 2. Continue Seizure precautions. Monitor neurologic status 3. Continue ABX pending response 4. Challenge with diuretics as tolerated 5. Discuss with family about goals of therapy IMPRESSIONS: 1. Acute metabolic encephalopathy Patient reportedly with seizure activity initially. Patient has been on Keppra and no seizure activity has been noted. Patient with PEA arrest, so anoxic injury cannot be excluded. Patient continues to have cranial nerve reflexes. We will continue supporting hemodynamics and monitor neuro status. Patient is currently a full code. 2. Acute hypoxic respiratory failure Patient with multiple blood gases yesterday. We will continue with SAT and SBT, but doubt patient will be extubated given neurologic status. Unclear if patient will be able to protect his airways. Patient currently off of sedation to facilitate neurochecks. We will continue with vent bundle as ordered. 3. Cardiopulmonary arrest of unclear etiology Patient presented with PEA arrest with a least 8 minutes down. No by stander CPR was reported, so anoxia could have been more profound. Troponins were greater than 3000. Patient may need a heart cath if neurologic situation improves. Echocardiogram has been scheduled for today. Patient is on IV heparin. Patient is no longer requiring pressors, but cardiogenic shock would be a consideration. 4. Morbid obesity/chronic pain syndrome/new onset seizure/CHIVO Complicates care, management, recovery and prognosis. Patient with a very guarded prognosis at this time. Patient is receiving Pepcid and heparin. No seizure activity has been noted, but he does remain on Keppra. This was likely secondary to initial anoxic injury. TIME: 37 minutes critical care time spent addressing patient's possible anoxic encephalopathy, acute hypoxic respiratory failure, review of all data and collaboration with care team Subjective Subjective Patient did okay overnight. No acute issues were reported. Patient was able to come off of Levophed at approximately 2 AM. No seizure activity was noted. Patient continues to withdrawal to stimulus and still has a cough, gag and sluggish pupils. Patient is not following commands. Patient is not currently on sedation. Objective Data Objective Data Vital Signs: Vital Signs Temp Pulse Resp BP Pulse Ox O2 Del Method O2 Flow Rate 37.9 C H 87 19 H 131/76 H 96 Mechanical Ventilator 15 09/30/22 04:00 09/30/22 06:00 09/30/22 06:00 09/30/22 06:00 09/30/22 06:00 09/30/22 06:00 09/28/22 08:56 FiO2 30 09/30/22 06:00 Oxygen Flow Rate (L/min) 15 Oxygen Delivery Method Mechanical Ventilator Weight: 137 kg Body Mass Index (BMI) 43.1 Intake & Output: Intake and Output for Last 24 Hours 09/28/22 09/29/22 09/30/22 23:59 23:59 23:59 Intake Total 6515.09 / 6564.72 6906.0133 / 6937.9133 828.7 / 828.7 Output Total 270 / 370 3300 / 4100 1700 / 1700 Balance 6245.09 / 6194.72 3606.0133 / 2837.9133 -871.3 / -871.3 Lab / Micro Data Attestation: I reviewed the patient's lab results. Result Diagrams: 09/30/22 03:15 09/30/22 03:15 Labs: Laboratory Results - last 24 hr 09/29/22 06:00: Differential Comment SCANNED, Diff Path Review December09/29/22 06:00: Sodium 142, Potassium 3.8, Chloride 114 H, Carbon Dioxide 23.0, Anion Gap 5, BUN 20 H, Creatinine 0.90, Estim Creat Clear Calc 71.78, Est GFR (MDRD) Af Amer 107, Est GFR (MDRD) Non-Af 89, BUN/Creatinine Ratio 22.3 H, Glucose 165 H, Calcium 7.4 L, Total Bilirubin 0.40, AST 143 H, ALT 225 H, Alkaline Phosphatase 61, Troponin I High Sens 3434 H*, Total Protein 5.0 L, Albumin 2.2 L, Globulin 2.8, Albumin/Globulin Ratio 0.8 L 09/29/22 06:00: APTT 144.0 H* 09/29/22 14:15: APTT 111.2 H* 09/29/22 22:05: APTT 56.4 H 09/30/22 03:15: Procalcitonin 3.90 H 09/30/22 03:15: Sodium 141, Potassium 3.0 L, Chloride 111 H, Carbon Dioxide 27.0, Anion Gap 3 L, BUN 19 H, Creatinine 0.90, Estim Creat Clear Calc 71.78, Est GFR (MDRD) Af Amer 107, Est GFR (MDRD) Non-Af 88, BUN/Creatinine Ratio 21.1 H, Glucose 109 H, Calcium 7.0 L, Phosphorus 3.6, Magnesium 1.8, Total Bilirubin 0.80, AST 82 H, ALT 159 H, Alkaline Phosphatase 58, Total Protein 5.0 L, Albumin 2.1 L, Globulin 2.9, Albumin/Globulin Ratio 0.7 L 09/30/22 03:15: WBC 15.6 H, RBC 3.42 L, Hgb 10.6 L, Hct 31.5 L, MCV 92.1, MCH 31.0, MCHC 33.7, RDW Std Deviation 47.2 H, RDW Coeff of Kiara 14.0, Plt Count 207, MPV 9.6, Immature Gran % (Auto) 0.500, Neut % (Auto) 86.2 H, Lymph % (Auto) 6.1 L, [place] % (Auto) 7.0, Eos % (Auto) 0.1, Baso % (Auto) 0.1, Absolute Neuts (auto) 13.5 H, Absolute Lymphs (auto) 0.95, Nucleated RBC % 0 09/30/22 03:15: APTT 46.0 H 09/30/22 03:15: Vancomycin Trough 25.1 H Micro: Microbiology 09/28/22 14:20 Sputum, Induced/Lukens Respiratory Culture - Preliminary Appears to be normal respiratory elyssa. Further studies to follow. 09/28/22 15:05 Urine Catheter - Catheter Legionella Antigen - Final 09/28/22 15:05 Urine Catheter - Catheter Streptococcus pneumoniae Antigen (M - Final 09/28/22 14:20 Mucosa - Nose - Final 09/28/22 15:52 Nasal Secretion SARS-CoV-2 Antigen (Rapid) - Final ABG Data ABG results: ABG 09/29/22 09/29/22 09/29/22 07:45 09:23 18:51 Specimen Type ART ART ART Sample Site R Radial R Radial R Radial pH 7.50 H 7.55 H 7.52 H Bicarbonate Actual 20.6 L 21.3 L 22.8 Total CO2 21 22 24 Base Excess -3 L -1 0 O2 Saturation 99 100 H 99 O2 % 30 30 30 ABG pCO2 26.1 L 24.2 L 27.8 L ABG pO2 134 H 143 H 108 H Yoni Test Positive Positive Positive Respiration Rate 18 12 12 O2 Delivery Device Adult Vent Adult Vent Adult Vent Vent Mode AC AC AC Tidal Volume 500 500 450 POC PEEP 12 12 8 Radiography Diagnostic Testing: Radiology Impression Chest X-Ray 09/29/22 06:01 IMPRESSION: Persistent hypoventilatory changes and bibasilar opacities. Electronically Signed: Lacho Trujillo MD at 7:59 EST , Physical Exam Const Constitutional Narrative: Patient not following commands. No purposeful movements noted. HEENT head/scalp atraumatic and moist oral mucous membranes Head and Scalp: normocephalic Mouth: endotracheal tube in place and OG tube in place Eyes conjunctivae normal Eyes Narrative: Pupils are at 3 mm and minimally reactive to light. Corneal reflex present Neck supple and no JVD Resp normal respiratory effort, no retractions, no use of accessory muscles and clear to auscultation bilaterally Resp Narrative: Patient currently on spontaneous mode and tolerating well. Tidal volumes approximately 600. Cardio regular rate, regular rhythm, S1 normal heart sound, S2 normal heart sound and no murmurs GI normal to inspection, nondistended, normoactive bowel sounds Extremity General Extremity: edema; Negative for clubbing Neuro Neuro Narrative: Positive cough and gag reflexes. Pupils minimally responsive. Patient with positive Babinski and moves all extremities. Psych Psych Narrative: Nonresponsive. Charges/Coding Procedures Hospitalists Procedures: 44329 Critial Care 1st Hr
--- NOTE | 2022-09-30 07:03 | PCM.PN.CARD ---
Subjective Subjective Patient seen and evaluated. Status quo ante. Patient has mild response to noxious stimulus. Objective Data Vital Signs: Vital Signs Temp Pulse Resp BP Pulse Ox O2 Del Method O2 Flow Rate 100.3 F H 87 19 H 131/76 H 96 Mechanical Ventilator 15 09/30/22 04:00 09/30/22 06:00 09/30/22 06:00 09/30/22 06:00 09/30/22 06:00 09/30/22 06:00 09/28/22 08:56 FiO2 30 09/30/22 06:00 Oxygen Flow Rate (L/min) 15 Oxygen Delivery Method Mechanical Ventilator Weight: 302 lb 0.533 oz Body Mass Index (BMI) 43.1 Intake & Output: Intake and Output for Last 24 Hours 09/28/22 09/29/22 09/30/22 23:59 23:59 23:59 Intake Total 6515.09 / 6564.72 6906.0133 / 6937.9133 828.7 / 828.7 Output Total 270 / 370 3300 / 4100 1700 / 1700 Balance 6245.09 / 6194.72 3606.0133 / 2837.9133 -871.3 / -871.3 Lab / Micro Data Result Diagrams: 09/30/22 03:15 09/30/22 03:15 Labs: Laboratory Results - last 24 hr 09/29/22 14:15: APTT 111.2 H* 09/29/22 22:05: APTT 56.4 H 09/30/22 03:15: Procalcitonin 3.90 H 09/30/22 03:15: Sodium 141, Potassium 3.0 L, Chloride 111 H, Carbon Dioxide 27.0, Anion Gap 3 L, BUN 19 H, Creatinine 0.90, Estim Creat Clear Calc 71.78, Est GFR (MDRD) Af Amer 107, Est GFR (MDRD) Non-Af 88, BUN/Creatinine Ratio 21.1 H, Glucose 109 H, Calcium 7.0 L, Phosphorus 3.6, Magnesium 1.8, Total Bilirubin 0.80, AST 82 H, ALT 159 H, Alkaline Phosphatase 58, Total Protein 5.0 L, Albumin 2.1 L, Globulin 2.9, Albumin/Globulin Ratio 0.7 L 09/30/22 03:15: WBC 15.6 H, RBC 3.42 L, Hgb 10.6 L, Hct 31.5 L, MCV 92.1, MCH 31.0, MCHC 33.7, RDW Std Deviation 47.2 H, RDW Coeff of Kiara 14.0, Plt Count 207, MPV 9.6, Immature Gran % (Auto) 0.500, Neut % (Auto) 86.2 H, Lymph % (Auto) 6.1 L, [place] % (Auto) 7.0, Eos % (Auto) 0.1, Baso % (Auto) 0.1, Absolute Neuts (auto) 13.5 H, Absolute Lymphs (auto) 0.95, Nucleated RBC % 0 09/30/22 03:15: APTT 46.0 H 09/30/22 03:15: Vancomycin Trough 25.1 H Micro: Microbiology 09/28/22 14:20 Sputum, Induced/Lukens Respiratory Culture - Preliminary Appears to be normal respiratory elyssa. Further studies to follow. ABG Data ABG results: ABG 09/29/22 09/29/22 09/29/22 07:45 09:23 18:51 Specimen Type ART ART ART Sample Site R Radial R Radial R Radial pH 7.50 H 7.55 H 7.52 H Bicarbonate Actual 20.6 L 21.3 L 22.8 Total CO2 21 22 24 Base Excess -3 L -1 0 O2 Saturation 99 100 H 99 O2 % 30 30 30 ABG pCO2 26.1 L 24.2 L 27.8 L ABG pO2 134 H 143 H 108 H Yoni Test Positive Positive Positive Respiration Rate 18 12 12 O2 Delivery Device Adult Vent Adult Vent Adult Vent Vent Mode AC AC AC Tidal Volume 500 500 450 POC PEEP 12 12 8 Cardiology Labs/Tests 09/29/22 07:45: pH 7.50 H, Bicarbonate Actual 20.6 L, Base Excess -3 L, O2 Saturation 99, ABG pCO2 26.1 L, ABG pO2 134 H, Yoni Test Positive 09/29/22 09:23: pH 7.55 H, Bicarbonate Actual 21.3 L, Base Excess -1, O2 Saturation 100 H, ABG pCO2 24.2 L, ABG pO2 143 H, Yoni Test Positive 09/29/22 14:15: APTT 111.2 H* 09/29/22 18:51: pH 7.52 H, Bicarbonate Actual 22.8, Base Excess 0, O2 Saturation 99, ABG pCO2 27.8 L, ABG pO2 108 H, Yoni Test Positive 09/29/22 22:05: APTT 56.4 H 09/30/22 03:15: Sodium 141, Potassium 3.0 L, Chloride 111 H, Carbon Dioxide 27.0, Anion Gap 3 L, BUN 19 H, Creatinine 0.90, Est GFR (MDRD) Af Amer 107, Est GFR (MDRD) Non-Af 88, BUN/Creatinine Ratio 21.1 H, Glucose 109 H, Calcium 7.0 L, Phosphorus 3.6, Magnesium 1.8, Total Bilirubin 0.80 09/30/22 03:15: WBC 15.6 H, RBC 3.42 L, Hgb 10.6 L, Hct 31.5 L, MCV 92.1, MCH 31.0, MCHC 33.7, Plt Count 207, MPV 9.6, Immature Gran % (Auto) 0.500, Neut % (Auto) 86.2 H, Lymph % (Auto) 6.1 L, [place] % (Auto) 7.0, Eos % (Auto) 0.1, Baso % (Auto) 0.1, Absolute Neuts (auto) 13.5 H, Nucleated RBC % 0 09/30/22 03:15: APTT 46.0 H Rhythm: EKG: ECHO: Stress Test: Cardiac Cath: PCI: CT Surgery: Holter monitor: EPS: PPM: CXR: Chest CT Scan: Radiography Diagnostic Testing: Radiology Impression Chest X-Ray 09/29/22 06:01 IMPRESSION: Persistent hypoventilatory changes and bibasilar opacities. Electronically Signed: Lacho Trujillo MD at 7:59 EST , Physical Exam Const Constitutional Narrative: Patient not following commands. No purposeful movements noted. HEENT head/scalp atraumatic and moist oral mucous membranes Head and Scalp: normocephalic Mouth: endotracheal tube in place and OG tube in place Eyes conjunctivae normal Eyes Narrative: Pupils are at 3 mm and minimally reactive to light. Corneal reflex present Neck supple and no JVD Resp normal respiratory effort, no retractions, no use of accessory muscles and clear to auscultation bilaterally Resp Narrative: Patient currently on spontaneous mode and tolerating well. Tidal volumes approximately 600. Cardio regular rate, regular rhythm, S1 normal heart sound, S2 normal heart sound and no murmurs GI normal to inspection, nondistended, normoactive bowel sounds Extremity General Extremity: edema; Negative for clubbing Neuro Neuro Narrative: Positive cough and gag reflexes. Pupils minimally responsive. Patient with positive Babinski and moves all extremities. Psych Psych Narrative: Nonresponsive. Assessment & Plan Assessment/Plan (1) Cardiopulmonary arrest with successful resuscitation: PLAN: The patient has suffered a cardiopulmonary arrest with resuscitation. At this time the patient remains on high intensity pressors with no EKG or troponin changes. I will recommend continued expectant management and we will obtain an echocardiogram to assess his left ventricular function. Depending on the findings further recommendations could be made. For the duration and prolonged CPR I would recommend expectant management. will continue heparin for now Thank you for allowing me to participate in the care of your patient. Please don't hesitate to call if any issues arise.
[2022-09-30] MEDS: Potassium Chloride Oral Soln 20 MEQ/15 ML UDC 40 MEQ GT (08:23)
[2022-09-30] MEDS: Chlorhexidine 15 ML PO ×2 (08:23→20:19)
--- NOTE | 2022-09-30 09:40 | CASEMGMT ---
RN?CM?CITY ROUTEMAN?CM?to room to meet with family for initial transition planning/care coordination?assessment.?, Christina, and son, Dominic, currently at bedside. RN?CM?introduced self and role at [facility].? Pt is currently intubated and not following commands. Care providers, pharmacy, and demographics verified/updated at this time. PCP: Dr Nielsen Specialists:none Preferred Pharmacy: [facility], [place] [facility] Prescription Benefit:?yes Living Will/HPOA:?Family is not sure of pt has LW and HCPOA. Son states they are checking w/pt's deputy prosecuting attorney to see if these have been done. LNOK: , Christina. Son's Dominic and Azar. Dtr's Christina and Janet Living Arrangements: Lives w/ and dtr, Janet, who is handicapped. @ baseline, assists pt w/LE dressing and w/drying off after a shower, as needed. Transportation:?Pt and both drive. DME: ?Pt has a handicap-accessible shower, shower chair, cane, walker, rollator, and W/C. HHC/SNF: No hx of SNF. Has had HHC in the past. PLAN:??TBD pending pt's progress Chito JACOBSN?RN?CM
[2022-09-30] MEDS: Famotidine 200 MG/20 ML MDV 20 MG in 0.9% Normal Saline (Pres. free 8 ML 300 MG IV ×2 (10:13→20:21)
--- NOTE | 2022-09-30 10:40 | CASEMGMT ---
Social Work SW participated in ICU rounds this morning, and one son present. SW stopped in to offer support to family, a different son and daughter present. SW let them know SW is available for support as needed. ROSIE Alvarez
[2022-09-30 11:15] LABS: Partial Thromboplast Time 61.6 Seconds (24.1-36.2)
[2022-09-30] MEDS: Vital High Protein 1,000 ML 20 ML GT (11:40)
--- NOTE | 2022-09-30 12:14 | CHAPLAIN ---
Type of Pastoral Visit _x__ Initial Visit ___ Follow-up Visit ___ On-call Visit ___ General Patient Visit ___ Spiritual Assessment ___ Family Conference ___ Bereavement ___ Rapid Response ___ Code Blue ___ Other (describe below) Pastoral Care Referral From ___ Patient _x__ Family ___ Nurse ___ Physician ___ Installation Tech ___ Plastic Tile Setter ___ Other (describe below) Sacrament/Intervention _x__ Active listening ___ Anointing ___ Rastafarian ___ Bereavement ___ Communion ___ Martha exploration ___ ___ Life review _x__ Prayer ___ Reconciliation ___ Sacrament of Sick _x__ Supportive presence ___ Wedding ___ Other (describe below) Pastoral Comments patient has been unresponsive and on the vent; pt spouse and son are in the room; spouse gives review of situation; family are believers in [place] and desire spiritual care support and prayers; presence and prayer provided; follow up to continue
--- NOTE | 2022-09-30 12:30 | CON.PCM.ID_ITS ---
Assessment & Plan Assessment/Plan (1) Shock circulatory: PLAN: Cxs neg so far. Low grade temps. MRSA pcr neg. Will stop vanc today. C ont empiric zosyn. Procalcitonin high at 3.9. Will follow, thank you (2) On mechanically assisted ventilation: HPI Consult Data Date of Consult: 09/30/22 HPI Narrative Reason for Consultation: shock HPI Narrative: LELE HILARIO, is a 72 M with minimal PMH, presented 09/28/22 with sudden onset unresponsiveness at home. Had been feeling fine prior to that according to his . Did have some headache chronically, was concerned he had cancer, so had been taking apricot pit supplements as home DIY chemotherapy. In ED, pupils were pinpoint, was intubated, admitted to icu on epinephrine due to bradycardia. Empiric vanc/zosyn started. Remains on vent, pressor this AM. Family at bedside. Full ROS performed and unobtainable due to mental status. [facility] Medical History Acute metabolic encephalopathy Cellulitis of left forearm Laceration of left ring finger On mechanically assisted ventilation Seizure disorder, grand mal Medical History unable to obtain Home Medications tamsulosin 0.4 mg capsule 0.4 mg PO BID prostate 08/27/15 [History Last Taken 03/24/19] acetaminophen 300 mg-codeine 30 mg tablet 1 tab PO DAILY PRN Pain 07/05/18 [History Last Taken 03/24/19] baclofen 10 mg tablet 20 mg PO TID PRN Spasms 07/05/18 [History Last Taken 03/24/19] ciprofloxacin 0.3 %-dexamethasone 0.1 % ear drops,suspension 4 drp RIGHT EAR BID ear infection 03/25/19 [History Last Taken 03/24/19] fluticasone propionate 50 mcg/actuation nasal spray,suspension 2 spray NASAL QHS sinus 03/25/19 [History Last Taken 03/24/19] doxycycline monohydrate 100 mg capsule 100 mg PO BID #20 caps 03/21/22 [Rx Last Taken Unknown] cephalexin 500 mg capsule 500 mg PO TID #15 caps 06/27/22 [Rx Last Taken Unknown] Allergy/AdvReac Type Severity Reaction Status Date / Time acetaminophen [From Percocet] AdvReac Other Verified 07/05/18 15:38 oxycodone HCl [From Percocet] AdvReac Other Verified 07/05/18 15:38 Social History household members: spouse Smoking Status: Former smoker Physical Exam Const Constitutional Narrative: ill appearing, on vent HEENT normocephalic and head/scalp atraumatic Eyes Eyes Narrative: pinpoint pupils Neck supple and No nodes Resp normal air movement and clear to auscultation bilaterally Cardio regular rate and regular rhythm GI soft to palpation, non-tender and non-distended Extremity General Extremity: edema Skin no rashes or lesions noted Neuro Neuro Narrative: not following commands Lab / Micro Data Attestation: I reviewed the patient's lab results. Result Diagrams: 09/30/22 03:15 09/30/22 03:15 Labs: Laboratory Results - last 24 hr 09/29/22 14:15: APTT 111.2 H* 09/29/22 22:05: APTT 56.4 H 09/30/22 03:15: Procalcitonin 3.90 H 09/30/22 03:15: Sodium 141, Potassium 3.0 L, Chloride 111 H, Carbon Dioxide 27.0, Anion Gap 3 L, BUN 19 H, Creatinine 0.90, Estim Creat Clear Calc 71.78, Est GFR (MDRD) Af Amer 107, Est GFR (MDRD) Non-Af 88, BUN/Creatinine Ratio 21.1 H, Glucose 109 H, Calcium 7.0 L, Phosphorus 3.6, Magnesium 1.8, Total Bilirubin 0.80, AST 82 H, ALT 159 H, Alkaline Phosphatase 58, Total Protein 5.0 L, Albumin 2.1 L, Globulin 2.9, Albumin/Globulin Ratio 0.7 L 09/30/22 03:15: WBC 15.6 H, RBC 3.42 L, Hgb 10.6 L, Hct 31.5 L, MCV 92.1, MCH 31.0, MCHC 33.7, RDW Std Deviation 47.2 H, RDW Coeff of Kiara 14.0, Plt Count 207, MPV 9.6, Immature Gran % (Auto) 0.500, Neut % (Auto) 86.2 H, Lymph % (Auto) 6.1 L, [place] % (Auto) 7.0, Eos % (Auto) 0.1, Baso % (Auto) 0.1, Absolute Neuts (auto) 13.5 H, Absolute Lymphs (auto) 0.95, Nucleated RBC % 0 09/30/22 03:15: APTT 46.0 H 09/30/22 03:15: Vancomycin Trough 25.1 H 09/30/22 10:45: APTT 61.6 H Micro: Microbiology 09/28/22 14:25 Blood Culture (Wb) - Port Blood Culture - Preliminary No growth in 48 hours. 09/29/22 15:38 Sputum, Induced/Lukens Gram Stain - Final 09/29/22 15:38 Sputum, Induced/Lukens Respiratory Culture - Preliminary Culture exhibits no growth. 09/28/22 15:05 Urine Catheter - Catheter Urine Culture - Preliminary Culture exhibits no growth. 09/28/22 14:20 Sputum, Induced/Lukens Respiratory Culture - Preliminary Appears to be normal respiratory elyssa. Further studies to follow. ABG Data ABG results: ABG 09/29/22 18:51 Specimen Type ART Sample Site R Radial pH 7.52 H Bicarbonate Actual 22.8 Total CO2 24 Base Excess 0 O2 Saturation 99 O2 % 30 ABG pCO2 27.8 L ABG pO2 108 H Yoni Test Positive Respiration Rate 12 O2 Delivery Device Adult Vent Vent Mode AC Tidal Volume 450 POC PEEP 8
[2022-09-30 12:51] LABS: Pathologist Review Reviewed
--- NOTE | 2022-09-30 16:26 | PN.HOSP_ITS ---
Reason for Visit Reason for Visit: Diagnoses Obesity, unspecified (09/28/22) Acidosis, unspecified (09/28/22) Other generalized epilepsy and epileptic syndromes, not intractable, without status epilepticus (09/28/22) Obstructive sleep apnea (adult) (pediatric) (09/28/22) Metabolic encephalopathy (09/28/22) Cardiac arrest, cause unspecified (09/28/22) Hypotension, unspecified (09/28/22) Acute respiratory failure with hypoxia (09/28/22) Bradycardia, unspecified (09/28/22) Cardiogenic shock (09/28/22) Shock, unspecified (09/28/22) Dependence on respirator [ventilator] status (09/28/22) Subjective Subjective Later withSeen and examined today, he remains this time and responds to painful stimulation not verbal stimulation. Patient does have a gag reflex and coughs occasionally. I talked with critical care concerning his care today. Objective Data Objective Data Vital Signs: Vital Signs Temp Pulse Resp BP Pulse Ox O2 Del Method O2 Flow Rate 100.3 F H 73 16 116/65 97 Mechanical Ventilator 15 09/30/22 04:00 09/30/22 16:00 09/30/22 16:00 09/30/22 16:00 09/30/22 16:00 09/30/22 16:00 09/28/22 08:56 FiO2 35 09/30/22 16:00 Oxygen Flow Rate (L/min) 15 Oxygen Delivery Method Mechanical Ventilator Weight: 137 kg Body Mass Index (BMI) 43.1 Intake & Output: Intake and Output for Last 24 Hours 09/28/22 09/29/22 09/30/22 23:59 23:59 23:59 Intake Total 6515.09 / 6564.72 6906.0133 / 6937.9133 1120.9 / 1120.9 Output Total 270 / 370 3300 / 4100 2350 / 2350 Balance 6245.09 / 6194.72 3606.0133 / 2837.9133 -1229.1 / -1229.1 Lab / Micro Data Result Diagrams: 09/30/22 03:15 09/30/22 03:15 Labs: Laboratory Results - last 24 hr 09/29/22 06:00: Diff Path Review Reviewed 09/29/22 22:05: APTT 56.4 H 09/30/22 03:15: Procalcitonin 3.90 H 09/30/22 03:15: Sodium 141, Potassium 3.0 L, Chloride 111 H, Carbon Dioxide 27.0, Anion Gap 3 L, BUN 19 H, Creatinine 0.90, Estim Creat Clear Calc 71.78, Est GFR (MDRD) Af Amer 107, Est GFR (MDRD) Non-Af 88, BUN/Creatinine Ratio 21.1 H, Glucose 109 H, Calcium 7.0 L, Phosphorus 3.6, Magnesium 1.8, Total Bilirubin 0.80, AST 82 H, ALT 159 H, Alkaline Phosphatase 58, Total Protein 5.0 L, Albumin 2.1 L, Globulin 2.9, Albumin/Globulin Ratio 0.7 L 09/30/22 03:15: WBC 15.6 H, RBC 3.42 L, Hgb 10.6 L, Hct 31.5 L, MCV 92.1, MCH 31.0, MCHC 33.7, RDW Std Deviation 47.2 H, RDW Coeff of Kiara 14.0, Plt Count 207, MPV 9.6, Immature Gran % (Auto) 0.500, Neut % (Auto) 86.2 H, Lymph % (Auto) 6.1 L, [place] % (Auto) 7.0, Eos % (Auto) 0.1, Baso % (Auto) 0.1, Absolute Neuts (auto) 13.5 H, Absolute Lymphs (auto) 0.95, Nucleated RBC % 0 09/30/22 03:15: APTT 46.0 H 09/30/22 03:15: Vancomycin Trough 25.1 H 09/30/22 10:45: APTT 61.6 H Micro: Microbiology 09/28/22 14:25 Blood Culture (Wb) - Port Blood Culture - Preliminary No growth in 48 hours. 09/29/22 15:38 Sputum, Induced/Lukens Gram Stain - Final 09/29/22 15:38 Sputum, Induced/Lukens Respiratory Culture - Preliminary Culture exhibits no growth. 09/28/22 15:05 Urine Catheter - Catheter Urine Culture - Preliminary Culture exhibits no growth. 09/28/22 14:20 Sputum, Induced/Lukens Respiratory Culture - Preliminary Appears to be normal respiratory elyssa. Further studies to follow. 09/28/22 15:05 Urine Catheter - Catheter Legionella Antigen - Final 09/28/22 15:05 Urine Catheter - Catheter Streptococcus pneumoniae Antigen (M - Final 09/28/22 14:20 Mucosa - Nose - Final 09/28/22 15:52 Nasal Secretion SARS-CoV-2 Antigen (Rapid) - Final ABG Data ABG results: ABG 09/29/22 18:51 Specimen Type ART Sample Site R Radial pH 7.52 H Bicarbonate Actual 22.8 Total CO2 24 Base Excess 0 O2 Saturation 99 O2 % 30 ABG pCO2 27.8 L ABG pO2 108 H Yoni Test Positive Respiration Rate 12 O2 Delivery Device Adult Vent Vent Mode AC Tidal Volume 450 POC PEEP 8 Radiography Diagnostic Testing: Radiology Impression Echocardiogram 09/29/22 07:33 Interpretation Summary Normal LV size. Left ventricular systolic function is lower limits of normal. Mild global left ventricular systolic dysfunction. The left ventricular ejection fraction is 50 %. Contrast injection was performed. The study was technically difficult. Ordering Physician: Sajan Martinez Performed By: Jan Oliver RCS Physical Exam Narrative Constitutional Narrative: Patient is on the ventilator HEENT head/scalp atraumatic Head and Scalp: normocephalic Eyes conjunctivae normal Eyes Narrative: Pupils are at 3 mm and minimally reactive to light Neck no JVD Resp normal respiratory effort, no retractions, no use of accessory muscles and clear to auscultation bilaterally Cardio regular rate, regular rhythm, S1 normal heart sound, S2 normal heart sound and no murmurs GI normal to inspection, nondistended, normoactive bowel sounds Extremity Extremity Narrative: There is some generalized edema of the patient's lower legs bilaterally Neuro Neuro Narrative: Patient is on the ventilator Psych Psych Narrative: Patient is currently on the ventilator Assessment & Plan Assessment/Plan (1) Cardiopulmonary arrest with successful resuscitation: (2) Seizure disorder, grand mal: PLAN: Plan 1. Acute cardiopulmonary arrest with successful resuscitation, etiology of cardiopulmonary arrest unknown at this time-continue present medications and ventilator support #2 severe acidosis secondary to cardiopulmonary arrest-this has resolved #3 morbid obesity-complicates care, medical course, recovery, and prognosis #4 acute hypoxic respiratory failure secondary to cardiopulmonary arrest- etiology unclear at this point #5 lactic acidosis-secondary to acute hypoxic respiratory failure #6 hyperglycemia-etiology unclear at this point, labs will be monitored #7 acute shock-cardiogenic versus metabolic or infectious in nature-patient's remains on vasopressors at this time, he is only on Levophed #8 [id number] was performed which showed a normal ejection fraction, cardiology is participating in his care #9 seizure disorder-patient currently is on Keppra #10 temperature elevation-patient is currently on IV antibiotics patient is being seen by infectious diseases #11 hypokalemia-patient received potassium supplementation today, labs will be monitored Total clinical time spent by myself addressing patient's medical issues, reviewing all the data, and collaborating with patient's care team: 35 min Charges/Coding Visit Charges Inpatient E&M: 78324 Subs Hosp L2
[2022-09-30] MEDS: HEPARIN/D5w 25,000 UNITS 25,000 UNITS/250 ML IV.SOLN. 9 UNITS CONT INF (18:29)
[2022-10-01] VITALS (35 sets, daily range): BP systolic 91–146; BP diastolic 55–127; PULSE 17–93; RESP 12–28; TEMP 37.1–37.4; O2SAT 94–100
[2022-10-01 01:15] LABS: Partial Thromboplast Time 59.3 Seconds (24.1-36.2)
[2022-10-01 03:27] LABS: Absolute Lymphocyte Count 1.17 X10^3/uL (0.83-4.51); Absolute Neutrophil Count 9.7 X10^3/uL (2.0-7.7); Basophil# 0.01 X10^3/uL; Basophil% 0.1 % (0-1); Eosinophil# 0.02 X10^3/uL; Eosinophils% 0.2 % (0-5); Hematocrit 29.7 % (40-54); Hemoglobin 9.6 g/dL (13.0-16.5); Lymphocyte # 1.17 X10^3/ul (0.83-4.51); Lymphocyte % 10.2 % (19-41); Mean Corp Hgb Conc 32.3 g/dL (32-36); Mean Corpuscular Volume 92.8 fL (80-94); Mean Platelet Vol. 9.8 fl (6.2-12.0); Monocyte# 0.59 X10^3/uL; Monocyte% 5.1 % (0-10); NRBC Flagged by Analyzer 0 % (0-5); Neutrophil # 9.66 X10^3/uL (2.7-7.7); Neutrophil % 83.9 % (47-70); Platelet Count 184 K/mm3 (150-450); RBC Distribution Width CV 13.9 % (11.6-14.6); RBC Distribution Width SD 46.8 fl (35.1-43.9); White Blood Count 11.5 K/mm3 (4.4-11.0)
[2022-10-01 04:16] LABS: ALB/GLOB Ratio 0.6 RATIO (0.9-2.4); AST(SGOT) 44 U/L (15-37); Alanine Aminotransfer ALT/SGPT 112 U/L (16-61); Albumin, Serum 2.1 g/dL (3.2-5.0); Alkaline Phosphatase 56 U/L (45-117); Anion Gap 3 (5-15); BUN 24 mg/dL (7-18); BUN/Creat Ratio 24.6 RATIO (10-20); Calcium,Total 7.5 mg/dL (8.5-10.1); Chloride 110 mmol/L (98-107); Creatinine, Serum 0.98 mg/dL (0.70-1.30); EST Glomerular Filtration Rate 80 mL/min (>60); Est Glom Filt Rate - Afr Amer 97 mL/min (>60); Estimated Creatinine Clearance 65.92 ml/min; Globulin 3.3 g/dL (2.2-4.2); Glucose 131 mg/dL (74-106); Magnesium 1.7 mg/dL (1.6-2.6); Phosphorus 2.2 mg/dL (2.5-4.9); Potassium 2.7 mmol/L (3.5-5.1); Protein, Total 5.4 g/dL (6.4-8.2); Sodium Level 141 mmol/L (136-145)
[2022-10-01] MEDS: 0.9% Saline Lock 10 ML Syringe IV ×3 (05:07→08:03)
[2022-10-01] MEDS: CHLORHEXIDINE GLUC 2% CLOTH 1 EACH TOWELETTE TOPICAL (05:07)
[2022-10-01] MEDS: Potassium Chloride Oral Soln 20 MEQ/15 ML UDC 40 MEQ PO ×3 (06:20→20:39)
[2022-10-01 06:28] LABS: Partial Thromboplast Time 49.8 Seconds (24.1-36.2)
[2022-10-01] MEDS: Heparin Injection (Vial) 5,000 UNIT/ML VIAL IV (06:48)
--- NOTE | 2022-10-01 07:01 | TELEMED_ITS ---
[facility] Tele[facility] has confirmed receipt of a request for visit. This document confirms receipt of the order initiating the consult. To find the results of the consultation, please view the patient's reports for the scanned Telemed Consult.
--- NOTE | 2022-10-01 07:02 | PN.CC_ITS ---
Assessment & Plan Assessment/Plan (1) Cardiopulmonary arrest with successful resuscitation: (2) Acute metabolic encephalopathy: (3) Acute hypoxemic respiratory failure: PLAN: Plan RECOMMENDATIONS: 1. Continue ventilatory support 2. Continue Seizure precautions. Monitor neurologic status. Obtain EEG 3. Continue ABX pending response. Possibly discontinue when blood cultures are negative 4. Challenge with diuretics as tolerated 5. Discuss with family about goals of therapy at family meeting at 2 PM IMPRESSIONS: 1. Acute metabolic encephalopathy Patient reportedly with seizure activity initially. Patient has been on Keppra and no seizure activity has been noted. Patient with PEA arrest, so anoxic injury is suspected. Patient continues to have cranial nerve reflexes. We will continue supporting hemodynamics and monitor neuro status. Patient is currently a full code. Family meeting today at 2 PM to discuss goals of therapy. EEG will be ordered. 2. Acute hypoxic respiratory failure Patient with multiple blood gases previously. Continues to tolerate spontaneous breathing trials. We will continue with SAT and SBT, but doubt patient will be extubated given neurologic status. Unclear if patient will be able to protect his airways. Patient currently off of sedation to facilitate neurochecks. We will continue with vent bundle as ordered. 3. Cardiopulmonary arrest of unclear etiology Patient presented with PEA arrest with a least 8 minutes down. No bystander CPR was reported, so anoxia could have been more profound. Troponins were greater than 3000. Patient may need a heart cath if neurologic situation improves. Echocardiogram shows an EF of 50%. Patient is on IV heparin. Patient is no longer requiring pressors, but cardiogenic shock would be a consideration on presentation. 4. Morbid obesity/chronic pain syndrome/new onset seizure/CHIVO Complicates care, management, recovery and prognosis. Patient with a very guarded prognosis at this time. Patient is receiving Pepcid and heparin. No seizure activity has been noted, but he does remain on Keppra. This was likely secondary to initial anoxic injury. Addendum 2:55 PM: Just finished a family meeting with multiple family members. Results of the MRI were available just prior to this meeting. Family is aware that there is hydrocephalus with signs of herniation and severe anoxic injury. They are req uesting aggressive measures including transfer for neurosurgical evaluation of possible shunt. Hospitalist and delinquency prevention social worker have been contacted. Transfer will be initiated if possible. In the interim, patient will be treated with mannitol. Patient still has a gag, corneal and cough reflexes. Family is aware that neurosurgery may deem transfer futile and refuse, but they wish us to attempt transfer to a quaternary center. TIME: 80 minutes critical care time spent addressing patient's possible anoxic encephalopathy, acute hypoxic respiratory failure, review of all data and collaboration with care team Subjective Subjective Patient did okay overnight. No hypotension has been noted. Patient continues to have spinal reflexes, but no agitation or pulling at the endotracheal tube has been noted. No seizure activity has been noted. Nursing has reported some mild bleeding from the OG Objective Data Objective Data Vital Signs: Vital Signs Temp Pulse Resp BP Pulse Ox O2 Del Method O2 Flow Rate 37.1 C 17 L 17 115/70 98 Mechanical Ventilator 15 10/01/22 04:00 10/01/22 06:36 10/01/22 06:36 10/01/22 06:00 10/01/22 06:36 10/01/22 06:00 09/28/22 08:56 FiO2 30 10/01/22 06:00 Oxygen Flow Rate (L/min) 15 Oxygen Delivery Method Mechanical Ventilator Weight: 135.3 kg Body Mass Index (BMI) 43.1 Intake & Output: Intake and Output for Last 24 Hours 09/29/22 09/30/22 10/01/22 23:59 23:59 23:59 Intake Total 6906.0133 / 6937.9133 1774.16 / 1849.16 317.5 / 317.5 Output Total 3300 / 4100 3625 / 4075 750 / 750 Balance 3606.0133 / 2837.9133 -1850.84 / -2225.84 -432.5 / -432.5 Lab / Micro Data Attestation: I reviewed the patient's lab results. Result Diagrams: 10/01/22 03:20 10/01/22 03:20 Labs: Laboratory Results - last 24 hr 09/29/22 06:00: Diff Path Review Reviewed 09/30/22 10:45: APTT 61.6 H 09/30/22 17:50: APTT 47.0 H 10/01/22 00:15: APTT 59.3 H 10/01/22 03:20: Sodium 141, Potassium 2.7 L*, Chloride 110 H, Carbon Dioxide 28.0, Anion Gap 3 L, BUN 24 H, Creatinine 0.98, Estim Creat Clear Calc 65.92, Est GFR (MDRD) Af Amer 97, Est GFR (MDRD) Non-Af 80, BUN/Creatinine Ratio 24.6 H , Glucose 131 H, Calcium 7.5 L, Phosphorus 2.2 L, Magnesium 1.7, Total Bilirubin 0.70, AST 44 H, ALT 112 H, Alkaline Phosphatase 56, Total Protein 5.4 L, Albumin 2.1 L, Globulin 3.3, Albumin/Globulin Ratio 0.6 L 10/01/22 03:20: WBC 11.5 H, RBC 3.20 L, Hgb 9.6 L, Hct 29.7 L, MCV 92.8, MCH 30.0, MCHC 32.3, RDW Std Deviation 46.8 H, RDW Coeff of Kiara 13.9, Plt Count 184, MPV 9.8, Immature Gran % (Auto) 0.500, Neut % (Auto) 83.9 H, Lymph % (Auto) 10.2 L, [place] % (Auto) 5.1, Eos % (Auto) 0.2, Baso % (Auto) 0.1, Absolute Neuts (auto) 9.7 H, Absolute Lymphs (auto) 1.17, Nucleated RBC % 0 10/01/22 06:05: APTT 49.8 H Micro: Microbiology 09/28/22 14:25 Blood Culture (Wb) - Port Blood Culture - Preliminary No growth in 48 hours. 09/29/22 15:38 Sputum, Induced/Lukens Gram Stain - Final 09/29/22 15:38 Sputum, Induced/Lukens Respiratory Culture - Preliminary Culture exhibits no growth. 09/28/22 15:05 Urine Catheter - Catheter Urine Culture - Preliminary Culture exhibits no growth. 09/28/22 14:20 Sputum, Induced/Lukens Respiratory Culture - Preliminary Appears to be normal respiratory elyssa. Further studies to follow. 09/28/22 15:05 Urine Catheter - Catheter Legionella Antigen - Final 09/28/22 15:05 Urine Catheter - Catheter Streptococcus pneumoniae Antigen (M - Final 09/28/22 14:20 Mucosa - Nose - Final 09/28/22 15:52 Nasal Secretion SARS-CoV-2 Antigen (Rapid) - Final Radiography Diagnostic Testing: Radiology Impression Echocardiogram 09/29/22 07:33 Interpretation Summary Normal LV size. Left ventricular systolic function is lower limits of normal. Mild global left ventricular systolic dysfunction. The left ventricular ejection fraction is 50 %. Contrast injection was performed. The study was technically difficult. Ordering Physician: Sajan Martinez Performed By: Jan Oliver RCS Physical Exam Const Constitutional Narrative: Patient not following commands. No purposeful movements noted. Morbidly obese. Good vent synchrony. General Appearance: patient mechanically ventilated HEENT head/scalp atraumatic and moist oral mucous membranes Eyes conjunctivae normal Eyes Narrative: Pupils are at 3 mm and minimally reactive to light. Corneal reflex present Neck supple and no JVD Resp normal respiratory effort, no retractions, no use of accessory muscles and clear to auscultation bilaterally Resp Narrative: Patient currently on spontaneous mode and tolerating well. Tidal volumes approx imately 550. Cardio regular rate, regular rhythm, S1 normal heart sound, S2 normal heart sound, no murmurs, no rub and no gallops GI normal to inspection, nondistended, normoactive bowel sounds Extremity General Extremity: edema; Negative for clubbing Neuro Neuro Narrative: Positive cough and gag reflexes. Pupils minimally responsive. Patient with positive Babinski and moves all extremities to stimulus. Psych Psych Narrative: Nonresponsive. Charges/Coding Procedures Hospitalists Procedures: 30055 Critial Care 1st Hr Multi Select Codes Hospitalists' Procedures Procedures: 47777 Critial Care Addl 30 Min
--- NOTE | 2022-10-01 07:47 | PN.CARD_ITS ---
Subjective Subjective The patient was seen and evaluated. Still intubated on the vent. Objective Data Vital Signs: Vital Signs Temp Pulse Resp BP Pulse Ox O2 Del Method O2 Flow Rate 98.8 F 74 14 112/71 97 Mechanical Ventilator 15 10/01/22 04:00 10/01/22 07:00 10/01/22 07:00 10/01/22 07:00 10/01/22 07:00 10/01/22 07:00 09/28/22 08:56 FiO2 30 10/01/22 07:00 Oxygen Flow Rate (L/min) 15 Oxygen Delivery Method Mechanical Ventilator Weight: 298 lb 4.567 oz Body Mass Index (BMI) 43.1 Intake & Output: Intake and Output for Last 24 Hours 09/29/22 09/30/22 10/01/22 23:59 23:59 23:59 Intake Total 6906.0133 / 6937.9133 1774.16 / 1849.16 347.5 / 347.5 Output Total 3300 / 4100 3625 / 4075 810 / 810 Balance 3606.0133 / 2837.9133 -1850.84 / -2225.84 -462.5 / -462.5 Lab / Micro Data Result Diagrams: 10/01/22 03:20 10/01/22 03:20 Labs: Laboratory Results - last 24 hr 09/29/22 06:00: Diff Path Review Reviewed 09/30/22 10:45: APTT 61.6 H 09/30/22 17:50: APTT 47.0 H 10/01/22 00:15: APTT 59.3 H 10/01/22 03:20: Sodium 141, Potassium 2.7 L*, Chloride 110 H, Carbon Dioxide 28.0, Anion Gap 3 L, BUN 24 H, Creatinine 0.98, Estim Creat Clear Calc 65.92, Est GFR (MDRD) Af Amer 97, Est GFR (MDRD) Non-Af 80, BUN/Creatinine Ratio 24.6 H , Glucose 131 H, Calcium 7.5 L, Phosphorus 2.2 L, Magnesium 1.7, Total Bilirubin 0.70, AST 44 H, ALT 112 H, Alkaline Phosphatase 56, Total Protein 5.4 L, Albumin 2.1 L, Globulin 3.3, Albumin/Globulin Ratio 0.6 L 10/01/22 03:20: WBC 11.5 H, RBC 3.20 L, Hgb 9.6 L, Hct 29.7 L, MCV 92.8, MCH 30.0, MCHC 32.3, RDW Std Deviation 46.8 H, RDW Coeff of Kiara 13.9, Plt Count 184, MPV 9.8, Immature Gran % (Auto) 0.500, Neut % (Auto) 83.9 H, Lymph % (Auto) 10.2 L, [place] % (Auto) 5.1, Eos % (Auto) 0.2, Baso % (Auto) 0.1, Absolute Neuts (auto) 9.7 H, Absolute Lymphs (auto) 1.17, Nucleated RBC % 0 10/01/22 06:05: APTT 49.8 H Micro: Microbiology 09/28/22 14:25 Blood Culture (Wb) - Port Blood Culture - Preliminary No growth in 48 hours. 09/29/22 15:38 Sputum, Induced/Lukens Gram Stain - Final 09/29/22 15:38 Sputum, Induced/Lukens Respiratory Culture - Preliminary Culture exhibits no growth. 09/28/22 15:05 Urine Catheter - Catheter Urine Culture - Preliminary Culture exhibits no growth. Cardiology Labs/Tests 09/30/22 10:45: APTT 61.6 H 09/30/22 17:50: APTT 47.0 H 10/01/22 00:15: APTT 59.3 H 10/01/22 03:20: Sodium 141, Potassium 2.7 L*, Chloride 110 H, Carbon Dioxide 28.0, Anion Gap 3 L, BUN 24 H, Creatinine 0.98, Est GFR (MDRD) Af Amer 97, Est GFR (MDRD) Non-Af 80, BUN/Creatinine Ratio 24.6 H, Glucose 131 H, Calcium 7.5 L, Phosphorus 2.2 L, Magnesium 1.7, Total Bilirubin 0.70 10/01/22 03:20: WBC 11.5 H, RBC 3.20 L, Hgb 9.6 L, Hct 29.7 L, MCV 92.8, MCH 30.0, MCHC 32.3, Plt Count 184, MPV 9.8, Immature Gran % (Auto) 0.500, Neut % (Auto) 83.9 H, Lymph % (Auto) 10.2 L, [place] % (Auto) 5.1, Eos % (Auto) 0.2, Baso % (Auto) 0.1, Absolute Neuts (auto) 9.7 H, Nucleated RBC % 0 10/01/22 06:05: APTT 49.8 H Rhythm: EKG: ECHO: Stress Test: Cardiac Cath: PCI: CT Surgery: Holter monitor: EPS: PPM: CXR: Chest CT Scan: Radiography Diagnostic Testing: Radiology Impression Echocardiogram 09/29/22 07:33 Interpretation Summary Normal LV size. Left ventricular systolic function is lower limits of normal. Mild global left ventricular systolic dysfunction. The left ventricular ejection fraction is 50 %. Contrast injection was performed. The study was technically difficult. Ordering Physician: Sajan Martinez Performed By: Jan Oliver RCS Physical Exam Const Constitutional Narrative: Patient not following commands. No purposeful movements noted. Morbidly obese. Good vent synchrony. General Appearance: patient mechanically ventilated HEENT head/scalp atraumatic and moist oral mucous membranes Eyes conjunctivae normal Eyes Narrative: Pupils are at 3 mm and minimally reactive to light. Corneal reflex present Neck supple and no JVD Resp normal respiratory effort, no retractions, no use of accessory muscles and clear to auscultation bilaterally Resp Narrative: Patient currently on spontaneous mode and tolerating well. Tidal volumes approximately 550. Cardio regular rate, regular rhythm, S1 normal heart sound, S2 normal heart sound, no murmurs, no rub and no gallops GI normal to inspection, nondistended, normoactive bowel sounds Extremity General Extremity: edema; Negative for clubbing Neuro Neuro Narrative: Positive cough and gag reflexes. Pupils minimally responsive. Patient with positive Babinski and moves all extremities to stimulus. Psych Psych Narrative: Nonresponsive. Assessment & Plan Assessment/Plan (1) Cardiopulmonary arrest with successful resuscitation: PLAN: The patient has suffered a cardiopulmonary arrest with resuscitation. At this time the patient remains on high intensity pressors with no EKG or troponin changes. I will recommend continued expectant management and the echocardiogram we obtained demonstrated mild global left ventricular systolic dysfunction. For the duration and prolonged CPR I would recommend expectant management. * will discontinue heparin for now Thank you for allowing me to participate in the care of your patient. Please don't hesitate to call if any issues arise.
[2022-10-01] MEDS: Chlorhexidine 15 ML PO ×2 (08:03→20:38)
[2022-10-01] MEDS: Famotidine 200 MG/20 ML MDV 20 MG in 0.9% Normal Saline (Pres. free 8 ML 300 MG IV (08:03)
--- NOTE | 2022-10-01 08:54 | MRI_ITS ---
ACR Level 3 findings have been noted. An addendum which confirms receipt of the report will follow. HISTORY: Anoxic brain injury. TECHNIQUE: Multiplanar and multisequence MR images of the brain were obtained without contrast. 286 images. COMPARISON: CT 09/28/2012. FINDINGS: BRAIN PARENCHYMA: Severe diffuse restricted diffusion in the bilateral cerebellar hemispheres. Multiple zones of restricted diffusion in the bilateral cerebral hemispheres with involvement of the cortex anterior to posterior, bilateral basal ganglia, and medial temporal lobes. Corresponding T2 FLAIR signal abnormality and edema with sulcal effacement. No acute intracranial hemorrhage. CSF SPACES: Effacement of the fourth ventricle, mild mass effect of the cerebellum on the brainstem with narrowing of the basal cisterns, and mild downward displacement of the cerebellar tonsils. Enlargement of the lateral and third ventricles with transependymal CSF flow. No significant supratentorial midline shift. VASCULAR SYSTEM: Major intracranial flow voids are maintained. PARANASAL SINUSES AND MASTOID AIR CELLS: Mild fluid in the mastoid air cells. ORBITS: Symmetric contents. MRI/Brain without Contrast IMPRESSION: Severe hypoxic-ischemic injury with severe diffuse cerebellar edema and multiple regions of ischemia in the bilateral cerebral hemispheres with involvement of the basal ganglia. 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 Electronically Signed: Argentina Andrade MD at 13:20 EST ,
[2022-10-01] MEDS: levETIRAcetam 500 MG Tablet GT ×2 (10:07→20:39)
[2022-10-01] MEDS: Famotidine 20 MG Tablet GT ×2 (10:07→20:39)
--- NOTE | 2022-10-01 12:25 | PCM.PN.ID ---
Physical Exam Narrative Pt going for brain MRI. No fever, remains on vent Const no apparent distress Resp Effort and Inspection: mechanically ventilated Auscultation: diminished lung sounds Cardio regular rate and regular rhythm GI soft to palpation, non-tender and non-distended Extremity General Extremity: edema Skin no rashes or lesions noted ID ID: Route of nutrition/ use of supplements: [] Nutritional Intake: [] IV Site: [] Fierro Catheter: [] Assessment & Plan Assessment/Plan (1) Shock circulatory: PLAN: Cxs neg so far. Low grade temps improved. MRSA pcr neg. Cont empiric zosyn. Procalcitonin high at 3.9. Brain MRI pending. Plan on stopping abx soon. Will follow (2) On mechanically assisted ventilation:
[2022-10-01] MEDS: Vital High Protein 1,000 ML 75 ML GT (13:24)
--- NOTE | 2022-10-01 14:31 | CASEMGMT ---
Social Work This outreach and education social worker participating in family meeting with Dr. Sanchez. Patient has four children and a , all where present during meeting. This outreach and education social worker broached topic of advanced directives. Patient son reports to have not spoken with patient sports attorney yet to inquire if patient has a health care power of sports attorney/living will or not. Patient is next of Kin and currently the medical decision maker, unless otherwise noted by family after speaking with sports attorney. Plan is for patient to continue to be a full code and attempt transfer to an outside facility if a surgeon will accept patient. Dr. Sanchez communicating to family that the MRI results are poor and patient outcome is poor. Family appear to understand current medical status for patient and believe that patient wishes would be to do everything. Dr. Sanchez to reach out to outside hospitals to see if a neurosurgeon will accept patient. This outreach and education social worker collaborating with Rasheed ORTIZ CM. Rasheed provided Dr. Sanchez with list of hospitals that are in-network with patient insurance. Social Work to continue to follow as needed. Yen GOODWIN, ROSIE
--- NOTE | 2022-10-01 14:41 | CASEMGMT ---
ANGEL VALDEZ NOTE: Insurance review for hospitals In-network with??[employer] M[employer] HMO-POS Insurance if transfer is recommended is as follows: [facility], [place], [facility], [facility], [facility], [place], [facility], [facility] [place], [place], and . Chito JACOBSN ANGEL CM
--- NOTE | 2022-10-01 15:34 | CHAPLAIN ---
Type of Pastoral Visit ___ Initial Visit ___ Follow-up Visit ___ On-call Visit ___ General Patient Visit ___ Spiritual Assessment _x__ Family Conference ___ Bereavement ___ Rapid Response ___ Code Blue ___ Other (describe below) Pastoral Care Referral From ___ Patient ___ Family ___ Nurse ___ Physician ___ Telemetry Nurse ___ Line Producer _x__ Other (describe below) Sacrament/Intervention _x__ Active listening ___ Anointing ___ Presybeterian ___ Bereavement ___ Communion ___ Martha exploration ___ ___ Life review ___ Prayer ___ Reconciliation ___ Sacrament of Sick _x__ Supportive presence ___ Wedding ___ Other (describe below) Pastoral Comments family was gathered in the ICU waiting room after a family conference with and RN and HUBER; family had been praying and singing; offered supportive presence and addressing of needs to family; one sister became spokesperson and other sister gave verbal support of this is hard but we are praying - you probably felt the presence of God here; family does not indicate other needs at this time; most family members remain quiet
--- NOTE | 2022-10-01 18:11 | PCM.PN.HOSP ---
Reason for Visit Reason for Visit: Diagnoses Obesity, unspecified (09/28/22) Acidosis, unspecified (09/28/22) Other generalized epilepsy and epileptic syndromes, not intractable, without status epilepticus (09/28/22) Obstructive sleep apnea (adult) (pediatric) (09/28/22) Metabolic encephalopathy (09/28/22) Cardiac arrest, cause unspecified (09/28/22) Hypotension, unspecified (09/28/22) Acute respiratory failure with hypoxia (09/28/22) Respiratory failure, unspecified, unspecified whether with hypoxia or hypercapnia (09/28/22) Bradycardia, unspecified (09/28/22) Cardiogenic shock (09/28/22) Shock, unspecified (09/28/22) Dependence on respirator [ventilator] status (09/28/22) Subjective Subjective Patient was seen and examined today, he remains unresponsive, MRI was performed today which showed severe hypoxic and ischemic injury with cerebellar edema and transtentorial and foraminal herniation. I had a talk with critical care and they requested that I contact neurosurgery regarding transfer to the facility at the family's request, critical care spent quite some time talking to the family about options and they requested the patient to be transferred if possible to a neurosurgeon for evaluation. I talked with [facility] neurosurgery personally on the phone, they stated that they would not recommend any surgery for the patient and then if the patient was transferred to them, they would not carry out any surgery. I then called and talked with the transfer RN who did contact a neurosurgeon and went over the case with the neurosurgeon, the answer was basically the same-there would be no surgery for the patient if they were transferred up to the facility. I then talked with the patient's family members including the and the daughter in the patient's room late this afternoon, they still requested the patient be transferred for neurology evaluation and so at the time of this dictation, I have contacted the [facility] and I am awaiting a callback from them regarding their bed availability. Family requested [facility] as a first choice. Objective Data Objective Data Vital Signs: Vital Signs Temp Pulse Resp BP Pulse Ox O2 Del Method O2 Flow Rate 99.3 F H 70 17 108/65 98 Mechanical Ventilator 15 10/01/22 18:00 10/01/22 18:00 10/01/22 18:00 10/01/22 18:00 10/01/22 18:00 10/01/22 18:00 09/28/22 08:56 FiO2 21 10/01/22 18:00 Oxygen Flow Rate (L/min) 15 Oxygen Delivery Method Mechanical Ventilator Weight: 135.3 kg Body Mass Index (BMI) 43.1 Intake & Output: Intake and Output for Last 24 Hours 09/29/22 09/30/22 10/01/22 23:59 23:59 23:59 Intake Total 6906.0133 / 6937.9133 1774.16 / 1849.16 2547.7633 / 2547.7633 Output Total 3300 / 4100 3625 / 4075 1090 / 1090 Balance 3606.0133 / 2837.9133 -1850.84 / -2225.84 1457.7633 / 1457.7633 Lab / Micro Data Result Diagrams: 10/02/22 04:20 10/02/22 04:20 Labs: Laboratory Results - last 24 hr 09/30/22 17:50: APTT 47.0 H 10/01/22 00:15: APTT 59.3 H 10/01/22 03:20: Sodium 141, Potassium 2.7 L*, Chloride 110 H, Carbon Dioxide 28.0, Anion Gap 3 L, BUN 24 H, Creatinine 0.98, Estim Creat Clear Calc 65.92, Est GFR (MDRD) Af Amer 97, Est GFR (MDRD) Non-Af 80, BUN/Creatinine Ratio 24.6 H, Glucose 131 H, Calcium 7.5 L, Phosphorus 2.2 L, Magnesium 1.7, Total Bilirubin 0.70, AST 44 H, ALT 112 H, Alkaline Phosphatase 56, Total Protein 5.4 L, Albumin 2.1 L, Globulin 3.3, Albumin/Globulin Ratio 0.6 L 10/01/22 03:20: WBC 11.5 H, RBC 3.20 L, Hgb 9.6 L, Hct 29.7 L, MCV 92.8, MCH 30.0, MCHC 32.3, RDW Std Deviation 46.8 H, RDW Coeff of Kiara 13.9, Plt Count 184, MPV 9.8, Immature Gran % (Auto) 0.500, Neut % (Auto) 83.9 H, Lymph % (Auto) 10.2 L, [place] % (Auto) 5.1, Eos % (Auto) 0.2, Baso % (Auto) 0.1, Absolute Neuts (auto) 9.7 H, Absolute Lymphs (auto) 1.17, Nucleated RBC % 0 10/01/22 06:05: APTT 49.8 H Micro: Microbiology 09/29/22 15:38 Sputum, Induced/Lukens Gram Stain - Final 09/29/22 15:38 Sputum, Induced/Lukens Respiratory Culture - Preliminary Appears to be normal respiratory elyssa. Further studies to follow. 09/28/22 14:20 Sputum, Induced/Lukens Gram Stain - Final 09/28/22 14:20 Sputum, Induced/Lukens Respiratory Culture - Final 09/28/22 15:05 Urine Catheter - Catheter Urine Culture - Final Culture exhibits no growth. 10/01/22 08:00 Stool Stool Occult Blood (NIKITA) - Final Occult Blood Positive 09/28/22 15:50 Blood Culture (Wb) - Anticubital Right Blood Culture - Preliminary No growth in 48 hours. 09/28/22 14:25 Blood Culture (Wb) - Port Blood Culture - Preliminary No growth in 48 hours. 09/28/22 15:05 Urine Catheter - Catheter Legionella Antigen - Final 09/28/22 15:05 Urine Catheter - Catheter Streptococcus pneumoniae Antigen (M - Final 09/28/22 14:20 Mucosa - Nose - Final 09/28/22 15:52 Nasal Secretion SARS-CoV-2 Antigen (Rapid) - Final Radiography Diagnostic Testing: Radiology Impression Brain MRI 10/01/22 08:54 IMPRESSION: Severe hypoxic-ischemic injury with severe diffuse cerebellar edema and multiple regions of ischemia in the bilateral cerebral hemispheres with involvement of the basal ganglia. 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 Electronically Signed: Argentina Andrade MD at 13:20 EST , ADDENDUM: 10/01/22 1434 IMPRESSION: Severe hypoxic-ischemic injury with severe diffuse cerebellar edema and multiple regions of ischemia in the bilateral cerebral hemispheres with involvement of the basal ganglia. 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 N.B. : Dr Jim Sanchez MD, confirmed on 10/01/2022 14:28:03 (ET) that the healthcare facility has received the radiology report. Electronically Signed: Argentina Andrade MD at 13:20 EST , Physical Exam Narrative Constitutional Narrative: Patient is on the ventilator HEENT head/scalp atraumatic Head and Scalp: normocephalic Eyes conjunctivae normal Eyes Narrative: Pupils are at 3 mm and minimally reactive to light Neck no JVD Resp normal respiratory effort, no retractions, no use of accessory muscles and clear to auscultation bilaterally Cardio regular rate, regular rhythm, S1 normal heart sound, S2 normal heart sound and no murmurs GI normal to inspection, nondistended, normoactive bowel sounds Extremity Extremity Narrative: There is some generalized edema of the patient's lower legs bilaterally Neuro Neuro Narrative: Patient is on the ventilator Psych Psych Narrative: Patient is currently on the ventilator Assessment & Plan Assessment/Plan (1) Acute metabolic encephalopathy: (2) Cardiopulmonary arrest with successful resuscitation: (3) Seizure disorder, grand mal: PLAN: Plan 1. Acute cardiopulmonary arrest with successful resuscitation, etiology of cardiopulmonary arrest unknown at this time-continue present medications and ventilator support, again family has requested that the patient be transferred to another facility with neuro coverage, at the time of this dictation, I have not heard back from the [facility] yet, hopefully they will contact me later this evening. #2 severe acidosis secondary to cardiopulmonary arrest-this has resolved #3 morbid obesity-complicates care, medical course, recovery, and prognosis #4 acute hypoxic respiratory failure secondary to cardiopulmonary arrest-etiology unclear at this point #5 lactic acidosis-secondary to acute hypoxic respiratory failure #6 hyperglycemia-etiology unclear at this point, labs will be monitored #7 acute shock-cardiogenic versus metabolic or infectious in nature-has resolved at this time the patient is no longer on any pressors #8 xdo-FUWAN-[id number] was performed which showed a normal ejection fraction, cardiology is participating in his care #9 seizure disorder-patient currently is on Keppra #10 temperature elevation-patient is currently on IV antibiotics patient is being seen by infectious diseases #11 hypokalemia-patient received potassium supplementation today, labs will be monitored Total clinical time spent by myself addressing patient's medical issues, reviewing all the data, and collaborating with patient's care team: 38 min Charges/Coding Visit Charges Inpatient E&M: 61303 Subs Hosp L2
--- NOTE | 2022-10-01 20:53 | PCM.HOSP.N ---
Hospitalist Note Patient had MRI today which showed severe hypoxic ischemic injury with severe diffuse cerebellar edema and multiple regions of ischemia in the bilateral cerebral hemispheres with involvement of the basal ganglia. 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 EEG ordered and day hospitalist attempting to transfer to outlying facility for neurology and higher level of care. [facility] and [facility] had declined given no acute neurosurgical intervention that would be done. Given timing I spoke with [facility] and spoke with their neuro ICU and stroke physician. After extensive discussion they reported that no intervention would be performed if he was transferred and they refused transfer. Recommended to obtain EEG and to monitor clinically to see if he improved or worsened over the next several days.
[2022-10-02] VITALS (35 sets, daily range): BP systolic 95–142; BP diastolic 56–86; PULSE 60–78; RESP 12–24; TEMP 37.1–37.8; O2SAT 96–100
[2022-10-02] MEDS: CHLORHEXIDINE GLUC 2% CLOTH 1 EACH TOWELETTE TOPICAL (01:48)
[2022-10-02] MEDS: Vital High Protein 1,000 ML 75 ML GT (01:49)
[2022-10-02 04:31] LABS: Absolute Lymphocyte Count 1.05 X10^3/uL (0.83-4.51); Absolute Neutrophil Count 9.3 X10^3/uL (2.0-7.7); Basophil# 0.01 X10^3/uL; Basophil% 0.1 % (0-1); Eosinophil# 0.01 X10^3/uL; Eosinophils% 0.1 % (0-5); Hematocrit 30.3 % (40-54); Hemoglobin 9.6 g/dL (13.0-16.5); Lymphocyte # 1.05 X10^3/ul (0.83-4.51); Lymphocyte % 9.4 % (19-41); Mean Corp Hgb Conc 31.7 g/dL (32-36); Mean Corpuscular Hgb 30.1 pg (27.0-32.0); Mean Platelet Vol. 10.1 fl (6.2-12.0); Monocyte# 0.72 X10^3/uL; Monocyte% 6.5 % (0-10); NRBC Flagged by Analyzer 0 % (0-5); Neutrophil # 9.29 X10^3/uL (2.7-7.7); Neutrophil % 83.5 % (47-70); Platelet Count 189 K/mm3 (150-450); RBC Distribution Width CV 14.1 % (11.6-14.6); RBC Distribution Width SD 48.3 fl (35.1-43.9); Red Blood Count 3.19 M/mm3 (4.6-6.2); White Blood Count 11.1 K/mm3 (4.4-11.0)
[2022-10-02 04:47] LABS: ALB/GLOB Ratio 0.6 RATIO (0.9-2.4); AST(SGOT) 24 U/L (15-37); Alanine Aminotransfer ALT/SGPT 79 U/L (16-61); Alkaline Phosphatase 62 U/L (45-117); Anion Gap 3 (5-15); BUN 28 mg/dL (7-18); BUN/Creat Ratio 36.3 RATIO (10-20); Calcium,Total 7.8 mg/dL (8.5-10.1); Chloride 115 mmol/L (98-107); Creatinine, Serum 0.77 mg/dL (0.70-1.30); EST Glomerular Filtration Rate 105 mL/min (>60); Est Glom Filt Rate - Afr Amer 128 mL/min (>60); Globulin 3.5 g/dL (2.2-4.2); Glucose 140 mg/dL (74-106); Potassium 3.4 mmol/L (3.5-5.1); Protein, Total 5.5 g/dL (6.4-8.2); Sodium Level 143 mmol/L (136-145)
[2022-10-02 04:58] LABS: Magnesium 1.9 mg/dL (1.6-2.6); Phosphorus 2.4 mg/dL (2.5-4.9)
--- NOTE | 2022-10-02 07:24 | PN.CC_ITS ---
Assessment & Plan Assessment/Plan (1) Cardiopulmonary arrest with successful resuscitation: (2) Acute metabolic encephalopathy: (3) Acute hypoxemic respiratory failure: PLAN: Plan RECOMMENDATIONS: 1. Continue ventilatory support 2. Continue Seizure precautions. Monitor neurologic status. 3. Defer antibiotics to infectious disease 4. Challenge with diuretics as tolerated 5. Discontinue mannitol IMPRESSIONS: 1. Acute metabolic encephalopathy secondary to severe anoxic brain injury Patient reportedly with seizure activity initially. Patient has been on Keppra and no seizure activity has been noted. Patient with PEA arrest, so anoxic injury was suspected. Patient continues to have cranial nerve reflexes, but MRI is showing herniation. Patient was given mannitol overnight, but this will not be helpful long-term. We will continue supporting hemodynamics and monitor neuro status. Patient is currently a full code. Family had requested transfer to a tertiary center, but this has been refused thus far. 2. Acute hypoxic respiratory failure Patient with multiple blood gases previously. Continues to tolerate spontaneous breathing trials. We will continue with SAT and SBT, but doubt patient will be extubated given neurologic status. Unclear if patient will be able to protect his airways. Patient currently off of sedation to facilitate neurochecks. If aggressive therapy will be recommended moving forward, patient should have a trach and PEG in the near future to minimize risks of complications. 3. Cardiopulmonary arrest of unclear etiology Patient presented with PEA arrest with a least 8 minutes down. No bystander CPR was reported, so anoxia could have been more profound. Troponins were greater than 3000. Patient may need a heart cath if neurologic situation improves. Echocardiogram shows an EF of 50%. No longer on IV heparin secondary to guaiac positive stools. 4. Morbid obesity/chronic pain syndrome/new onset seizure/CHIVO Complicates care, management, recovery and prognosis. Patient with a very guarded prognosis at this time. Patient is receiving Pepcid and heparin. No seizure activity has been noted, but he does remain on Keppra. This was likely secondary to initial anoxic injury. TIME: 33 minutes critical care time spent addressing patient's anoxic encephalopathy, acute hypoxic respiratory failure, review of all data and collab oration with care team Subjective Subjective Patient has had no significant changes overnight. Patient continues to have sp inal reflexes and was able to tolerate a spontaneous breathing trial this morning. There has been no increase in awareness. MRI yesterday shows herniation with hydrocephalus. Family had requested a transfer for neurosurgery evaluation. However, multiple institutions have refused transfer for both neurosurgical and neurology evaluation stating that they would be no change in plan. Objective Data Objective Data Vital Signs: Vital Signs Temp Pulse Resp BP Pulse Ox O2 Del Method O2 Flow Rate 37.4 C H 75 21 H 106/62 98 Mechanical Ventilator 10/02/22 04:00 10/02/22 07:06 10/02/22 07:06 10/02/22 07:00 10/02/22 07:06 10/02/22 07:00 09/28/22 08:56 FiO2 10/02/22 07:00 Oxygen Flow Rate (L/min) 15 Oxygen Delivery Method Mechanical Ventilator Weight: 136.713 kg Body Mass Index (BMI) 43.1 Intake & Output: Intake and Output for Last 24 Hours 09/30/22 10/01/22 10/02/22 23:59 23:59 23:59 Intake Total 1774.16 / 1849.16 3162.7633 / 3312.7633 1621.25 / 1621.25 Output Total 3625 / 4075 1790 / 2090 1500 / 1500 Balance -1850.84 / -2225.84 1372.7633 / 1222.7633 121.25 / 121.25 Lab / Micro Data Attestation: I reviewed the patient's lab results. Result Diagrams: 10/02/22 04:20 10/02/22 04:20 Labs: Laboratory Results - last 24 hr 10/02/22 04:20: Phosphorus 2.4 L, Magnesium 1.9 10/02/22 04:20: WBC 11.1 H, RBC 3.19 L, Hgb 9.6 L, Hct 30.3 L, MCV 95.0 H, MCH 30.1, MCHC 31.7 L, RDW Std Deviation 48.3 H, RDW Coeff of Kiara 14.1, Plt Count 189, MPV 10.1, Immature Gran % (Auto) 0.400, Neut % (Auto) 83.5 H, Lymph % (Auto) 9.4 L, [place] % (Auto) 6.5, Eos % (Auto) 0.1, Baso % (Auto) 0.1, Absolute Neuts (auto) 9.3 H, Absolute Lymphs (auto) 1.05, Nucleated RBC % 0 10/02/22 04:20: Sodium 143, Potassium 3.4 L, Chloride 115 H, Carbon Dioxide 25.0, Anion Gap 3 L, BUN 28 H, Creatinine 0.77, Estim Creat Clear Calc 64.60, Est GFR (MDRD) Af Amer 128, Est GFR (MDRD) Non-Af 105, BUN/Creatinine Ratio 36.3 H, Glucose 140 H, Calcium 7.8 L, Total Bilirubin 0.40, AST 24, ALT 79 H, Alkaline Phosphatase 62, Total Protein 5.5 L, Albumin 2.0 L, Globulin 3.5, Albumin/Globulin Ratio 0.6 L Micro: Microbiology 09/29/22 15:38 Sputum, Induced/Lukens Gram Stain - Final 09/29/22 15:38 Sputum, Induced/Lukens Respiratory Culture - Final Mixed normal respiratory elyssa. No Streptococcus pneumoniae, beta-hemolytic Streptococcus or Staphylococcus aureus isolated. 09/28/22 14:20 Sputum, Induced/Lukens Gram Stain - Final 09/28/22 14:20 Sputum, Induced/Lukens Respiratory Culture - Final 09/28/22 15:05 Urine Catheter - Catheter Urine Culture - Final Culture exhibits no growth. 10/01/22 08:00 Stool Stool Occult Blood (NIKITA) - Final Occult Blood Positive 09/28/22 15:50 Blood Culture (Wb) - Anticubital Right Blood Culture - Preliminary No growth in 48 hours. 09/28/22 14:25 Blood Culture (Wb) - Port Blood Culture - Preliminary No growth in 48 hours. 09/28/22 15:05 Urine Catheter - Catheter Legionella Antigen - Final 09/28/22 15:05 Urine Catheter - Catheter Streptococcus pneumoniae Antigen (M - Final 09/28/22 14:20 Mucosa - Nose - Final 09/28/22 15:52 Nasal Secretion SARS-CoV-2 Antigen (Rapid) - Final Radiography Diagnostic Testing: Radiology Impression Brain MRI 10/01/22 08:54 IMPRESSION: Severe hypoxic-ischemic injury with severe diffuse cerebellar edema and multiple regions of ischemia in the bilateral cerebral hemispheres with involvement of the basal ganglia. 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 Electronically Signed: Argentina Andrade MD at 13:20 EST , ADDENDUM: 10/01/22 1434 IMPRESSION: Severe hypoxic-ischemic injury with severe diffuse cerebellar edema and multiple regions of ischemia in the bilateral cerebral hemispheres with involvement of the basal ganglia. 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 N.B. : Dr Jim Sanchez MD, confirmed on 10/01/2022 14:28:03 (ET) that the healthcare facility has received the radiology report. Electronically Signed: Argentina Andrade MD at 13:20 EST , Physical Exam Const Constitutional Narrative: Patient not following commands. No purposeful movements noted. Morbidly obese. Good vent synchrony. General Appearance: patient mechanically ventilated HEENT head/scalp atraumatic and moist oral mucous membranes Eyes conjunctivae normal Eyes Narrative: Pupils are at 3 mm and minimally reactive to light. Corneal reflex present Neck supple and no JVD Resp normal respiratory effort, no retractions, no use of accessory muscles and clear to auscultation bilaterally Resp Narrative: Patient currently on spontaneous mode and tolerating well. Tidal volumes approximately 525. Cardio regular rate, regular rhythm, S1 normal heart sound, S2 normal heart sound, no murmurs, no rub and no gallops GI normal to inspection, nondistended, normoactive bowel sounds Extremity General Extremity: edema; Negative for clubbing Neuro Neuro Narrative: Positive cough and gag reflexes. Pupils minimally responsive. Patient with positive Babinski and moves all extremities to stimulus. Psych Psych Narrative: Nonresponsive. Charges/Coding Procedures Hospitalists Procedures: 34793 Critial Care 1st Hr
[2022-10-02] MEDS: Chlorhexidine 15 ML PO ×2 (08:35→21:33)
[2022-10-02] MEDS: Famotidine 20 MG Tablet GT ×2 (10:12→21:34)
--- NOTE | 2022-10-02 10:47 | PN.HOSP_ITS ---
Reason for Visit Reason for Visit: Diagnoses Obesity, unspecified (09/28/22) Acidosis, unspecified (09/28/22) Other generalized epilepsy and epileptic syndromes, not intractable, without status epilepticus (09/28/22) Obstructive sleep apnea (adult) (pediatric) (09/28/22) Metabolic encephalopathy (09/28/22) Cardiac arrest, cause unspecified (09/28/22) Hypotension, unspecified (09/28/22) Acute respiratory failure with hypoxia (09/28/22) Respiratory failure, unspecified, unspecified whether with hypoxia or hypercapnia (09/28/22) Bradycardia, unspecified (09/28/22) Cardiogenic shock (09/28/22) Shock, unspecified (09/28/22) Dependence on respirator [ventilator] status (09/28/22) Subjective Subjective Patient was seen and examined today, there is no real change from yesterday, he remains stable on the ventilator, I talked at length with pulmonary medicine about his care, pulmonary medicine told me this morning that he had a conference with the family and the family is okay with the patient staying here for further care but they want a lab test that was suggested by neurosurgery yesterday when I had the discussion with him on the phone-it is called in an NSE lab test, I have contacted the lab and they will check into this. Objective Data Objective Data Vital Signs: Vital Signs Temp Pulse Resp BP Pulse Ox O2 Del Method O2 Flow Rate 98.8 F 65 21 H 116/63 98 Mechanical Ventilator 15 10/02/22 08:00 10/02/22 09:45 10/02/22 09:45 10/02/22 09:00 10/02/22 09:45 10/02/22 09:00 09/28/22 08:56 FiO2 21 10/02/22 09:00 Oxygen Flow Rate (L/min) 15 Oxygen Delivery Method Mechanical Ventilator Weight: 136.713 kg Body Mass Index (BMI) 43.1 Intake & Output: Intake and Output for Last 24 Hours 09/30/22 10/01/22 10/02/22 23:59 23:59 23:59 Intake Total 1774.16 / 1849.16 3162.7633 / 3312.7633 1795.50 / 1795.50 Output Total 3625 / 4075 1790 / 2090 1500 / 1500 Balance -1850.84 / -2225.84 1372.7633 / 1222.7633 295.50 / 295.50 Lab / Micro Data Result Diagrams: 10/02/22 04:20 10/02/22 04:20 Labs: Laboratory Results - last 24 hr 10/02/22 04:20: Phosphorus 2.4 L, Magnesium 1.9 10/02/22 04:20: WBC 11.1 H, RBC 3.19 L, Hgb 9.6 L, Hct 30.3 L, MCV 95.0 H, MCH 30.1, MCHC 31.7 L, RDW Std Deviation 48.3 H, RDW Coeff of Kiara 14.1, Plt Count 189, MPV 10.1, Immature Gran % (Auto) 0.400, Neut % (Auto) 83.5 H, Lymph % (Auto) 9.4 L, [place] % (Auto) 6.5, Eos % (Auto) 0.1, Baso % (Auto) 0.1, Absolute Neuts (auto) 9.3 H, Absolute Lymphs (auto) 1.05, Nucleated RBC % 0 10/02/22 04:20: Sodium 143, Potassium 3.4 L, Chloride 115 H, Carbon Dioxide 25.0, Anion Gap 3 L, BUN 28 H, Creatinine 0.77, Estim Creat Clear Calc 64.60, Est GFR (MDRD) Af Amer 128, Est GFR (MDRD) Non-Af 105, BUN/Creatinine Ratio 36.3 H, Glucose 140 H, Calcium 7.8 L, Total Bilirubin 0.40, AST 24, ALT 79 H, Alkaline Phosphatase 62, Total Protein 5.5 L, Albumin 2.0 L, Globulin 3.5, Albumin/Globulin Ratio 0.6 L Micro: Microbiology 09/29/22 15:38 Sputum, Induced/Lukens Gram Stain - Final 09/29/22 15:38 Sputum, Induced/Lukens Respiratory Culture - Final Mixed normal respiratory elyssa. No Streptococcus pneumoniae, beta-hemolytic Streptococcus or Staphylococcus aureus isolated. 09/28/22 14:20 Sputum, Induced/Lukens Gram Stain - Final 09/28/22 14:20 Sputum, Induced/Lukens Respiratory Culture - Final 09/28/22 15:05 Urine Catheter - Catheter Urine Culture - Final Culture exhibits no growth. 10/01/22 08:00 Stool Stool Occult Blood (NIIKTA) - Final Occult Blood Positive 09/28/22 15:50 Blood Culture (Wb) - Anticubital Right Blood Culture - Preliminary No growth in 48 hours. 09/28/22 14:25 Blood Culture (Wb) - Port Blood Culture - Preliminary No growth in 48 hours. 09/28/22 15:05 Urine Catheter - Catheter Legionella Antigen - Final 09/28/22 15:05 Urine Catheter - Catheter Streptococcus pneumoniae Antigen (M - Final 09/28/22 14:20 Mucosa - Nose - Final 09/28/22 15:52 Nasal Secretion SARS-CoV-2 Antigen (Rapid) - Final Radiography Diagnostic Testing: Radiology Impression Brain MRI 10/01/22 08:54 IMPRESSION: Severe hypoxic-ischemic injury with severe diffuse cerebellar edema and multiple regions of ischemia in the bilateral cerebral hemispheres with involvement of the basal ganglia. 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 Electronically Signed: Argentina Andrade MD at 13:20 EST , ADDENDUM: 10/01/22 1434 IMPRESSION: Severe hypoxic-ischemic injury with severe diffuse cerebellar edema and multiple regions of ischemia in the bilateral cerebral hemispheres with involvement of the basal ganglia. 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 N.B. : Dr Jim Sanchez MD, confirmed on 10/01/2022 14:28:03 (ET) that the healthcare facility has received the radiology report. Electronically Signed: Argentina Andrade MD at 13:20 EST , Physical Exam Narrative Constitutional Narrative: Patient is on the ventilator HEENT head/scalp atraumatic Head and Scalp: normocephalic Eyes conjunctivae normal Eyes Narrative: Pupils are at 3 mm and minimally reactive to light Neck no JVD Resp normal respiratory effort, no retractions, no use of accessory muscles and clear to auscultation bilaterally Cardio regular rate, regular rhythm, S1 normal heart sound, S2 normal heart sound and no murmurs GI normal to inspection, nondistended, normoactive bowel sounds Extremity Extremity Narrative: There is some generalized edema of the patient's lower legs bilaterally Neuro Neuro Narrative: Patient is on the ventilator Psych Psych Narrative: Patient is currently on the ventilator Assessment & Plan Assessment/Plan (1) On mechanically assisted ventilation: (2) Acute metabolic encephalopathy: (3) Cardiopulmonary arrest with successful resuscitation: (4) Seizure disorder, grand mal: PLAN: Plan 1. Acute cardiopulmonary arrest with successful resuscitation, etiology of cardiopulmonary arrest unknown at this time-continue present medications and ventilator support, [facility] intensive care call me back last night and told me that they recommended neurointensive care to talk with me, I asked them to talk with the night hospitalist Dr. Benz, she had a discussion with the [facility] last night and they refused to take the patient in transfer. Family is aware of this today, again they are okay with the patient remaining here and being cared for in ICU. #2 severe acidosis secondary to cardiopulmonary arrest-this has resolved #3 morbid obesity-complicates care, medical course, recovery, and prognosis #4 acute hypoxic respiratory failure secondary to cardiopulmonary arrest- etiology unclear at this point #5 lactic acidosis-secondary to acute hypoxic respiratory failure #6 hyperglycemia-etiology unclear at this point, labs will be monitored #7 acute shock-cardiogenic versus metabolic or infectious in nature-has resolved at this time the patient is no longer on any pressors #8 [id number] was performed which showed a normal ejection fracti on, cardiology is participating in his care #9 seizure disorder-patient currently is on Keppra #10 temperature elevation-patient is currently on IV antibiotics patient is being seen by infectious diseases #11 hypokalemia-patient received potassium supplementation today, labs will be monitored Total clinical time spent by myself addressing patient's medical issues, reviewing all the data, and collaborating with patient's care team: 38 min Charges/Coding Visit Charges Inpatient E&M: 84147 Subs Hosp L2
--- NOTE | 2022-10-02 11:58 | CHAPLAIN ---
Type of Pastoral Visit ___ Initial Visit _x__ Follow-up Visit ___ On-call Visit ___ General Patient Visit ___ Spiritual Assessment ___ Family Conference ___ Bereavement ___ Rapid Response ___ Code Blue ___ Other (describe below) Pastoral Care Referral From ___ Patient _x__ Family ___ Nurse ___ Physician ___ Room Service Manager ___ Nutritionists ___ Other (describe below) Sacrament/Intervention _x__ Active listening ___ Anointing ___ Alevism ___ Bereavement ___ Communion _x__ Martha exploration ___ ___ Life review _x__ Prayer ___ Reconciliation ___ Sacrament of Sick _x__ Supportive presence ___ Wedding ___ Other (describe below) Pastoral Comments invited by daughter to come to room; listened to daughter explain her martha and hope as family decided to wait for opportunity for patient to heal; daughter acknowledges that patient was not accepted for brain surgery; talked about her dad as one who 'has beat before; daughter identifies her father's martha in God as being very strong as well as the whole family; daughter states that many people are praying; offered to add a prayer and that was welcomed; daughter expresses thanks
--- NOTE | 2022-10-02 13:22 | PCM.PN.ID ---
Physical Exam Narrative No fever, no events overnight Const Constitutional Narrative: intubated Resp normal air movement and clear to auscultation bilaterally Cardio regular rate and regular rhythm GI soft to palpation, non-tender and non-distended Skin no rashes or lesions noted ID ID: Route of nutrition/ use of supplements: [] Nutritional Intake: [] IV Site: [] Fierro Catheter: [] Assessment & Plan Assessment/Plan (1) Shock circulatory: PLAN: Cxs neg so far. Low grade temps improved. MRSA pcr neg. On empiric zosyn. Procalcitonin high at 3.9. Brain MRI showed herniation and ischemic changes. Plan on stopping abx tomorrow. Will follow, d/w Dr. Riley (2) On mechanically assisted ventilation:
[2022-10-02] MEDS: Vital High Protein 1,000 ML 70 ML GT (18:42)
[2022-10-03] VITALS (34 sets, daily range): BP systolic 95–166; BP diastolic 51–96; PULSE 56–72; RESP 12–24; TEMP 36.8–37.8; O2SAT 95–100
[2022-10-03] MEDS: CHLORHEXIDINE GLUC 2% CLOTH 1 EACH TOWELETTE TOPICAL (03:34)
[2022-10-03 03:48] LABS: Absolute Lymphocyte Count 1.45 X10^3/uL (0.83-4.51); Absolute Neutrophil Count 10.1 X10^3/uL (2.0-7.7); Basophil# 0.01 X10^3/uL; Basophil% 0.1 % (0-1); Eosinophil# 0.07 X10^3/uL; Eosinophils% 0.6 % (0-5); Hematocrit 30.9 % (40-54); Hemoglobin 9.7 g/dL (13.0-16.5); Lymphocyte # 1.45 X10^3/ul (0.83-4.51); Lymphocyte % 11.5 % (19-41); Mean Corp Hgb Conc 31.4 g/dL (32-36); Mean Corpuscular Hgb 30.2 pg (27.0-32.0); Mean Corpuscular Volume 96.3 fL (80-94); Monocyte# 0.86 X10^3/uL; Monocyte% 6.8 % (0-10); NRBC Flagged by Analyzer 0 % (0-5); Neutrophil % 80.3 % (47-70); Platelet Count 185 K/mm3 (150-450); RBC Distribution Width CV 14.3 % (11.6-14.6); RBC Distribution Width SD 50.1 fl (35.1-43.9); Red Blood Count 3.21 M/mm3 (4.6-6.2); White Blood Count 12.6 K/mm3 (4.4-11.0)
[2022-10-03 04:13] LABS: Anion Gap 3 (5-15); BUN 31 mg/dL (7-18); BUN/Creat Ratio 42.8 RATIO (10-20); Calcium,Total 8.2 mg/dL (8.5-10.1); Chloride 119 mmol/L (98-107); Creatinine, Serum 0.72 mg/dL (0.70-1.30); EST Glomerular Filtration Rate 113 mL/min (>60); Est Glom Filt Rate - Afr Amer 137 mL/min (>60); Glucose 130 mg/dL (74-106); Potassium 3.3 mmol/L (3.5-5.1); Sodium Level 146 mmol/L (136-145)
[2022-10-03] MEDS: Potassium Chloride Oral Tablet 20 MEQ 40 MEQ GT (06:36)
--- NOTE | 2022-10-03 07:05 | PN.CC_ITS ---
Assessment & Plan Assessment/Plan (1) Cardiopulmonary arrest with successful resuscitation: (2) Acute metabolic encephalopathy: (3) Acute hypoxemic respiratory failure: PLAN: Plan RECOMMENDATIONS: 1. Continue ventilatory support. Encourage trach and PEG if going to be aggressive 2. Off antiepileptics. Monitor neurologic status clinically. 3. Defer antibiotics to infectious disease 4. Challenge with diuretics intermittently to try to keep a neutral fluid balance 5. Continue family communication about prognosis and goals of therapy IMPRESSIONS: 1. Acute metabolic encephalopathy secondary to severe anoxic brain injury Patient reportedly with seizure activity initially. Patient has been on Keppra and no seizure activity has been noted. Patient with PEA arrest, so anoxic injury was suspected. Patient continues to have cranial nerve reflexes, but MRI is showing herniation. Patient was given mannitol overnight, but this would not be helpful long-term, so it was discontinued. We will continue suppor ting hemodynamics and monitor neuro status. Patient is currently a full code. Family is no longer requesting transfer to a tertiary center, but is also refusing trach and PEG despite wanting aggressive measures 2. Acute hypoxic respiratory failure Patient with multiple blood gases previously. Continues to tolerate spontaneous breathing trials. We will continue with SAT and SBT, but doubt patient will be extubated given neurologic status. Unclear if patient will be able to protect his airways. Patient has remained off of sedation to facilitate neurochecks throughout hospitalization. If aggressive therapy will be recommended moving forward, patient should have a trach and PEG in the near future to minimize risks of complications. 3. Cardiopulmonary arrest of unclear etiology Patient presented with PEA arrest with a least 8 minutes down. No bystander CPR was reported, so anoxia could have been more profound. Troponins were greater than 3000. Patient may need a heart cath if neurologic situation improves. Echocardiogram shows an EF of 50%. No longer on IV heparin secondary to guaiac positive stools. 4. Morbid obesity/chronic pain syndrome/new onset seizure/CHIVO Complicates care, management, recovery and prognosis. Patient with a very guarded prognosis at this time. Patient is receiving Pepcid and heparin. No seizure activity has been noted off Keppra. This was likely secondary to initial anoxic injury. TIME: 32 minutes critical care time spent addressing patient's anoxic encephalopathy, acute hypoxic respiratory failure, review of all data and collaboration with care team Subjective Subjective Patient did okay overnight. No significant change in neurologic exam has been noted. Patient continues to have intermittent myoclonic jerking, but not follo wing commands. Patient was able to have a spontaneous breathing trial this morning, but was not liberated secondary to mental status. Attempted to discuss with family yesterday about proceeding with a trach and PEG if aggressive measures are going to be pursued as meaningful recovery over the next 7 to 10 days it is unlikely. Tried to express to the family that it will take weeks to see meaningful improvement and continued intubation increases risk for infectious complications. Family respectfully disagreed and has requested the patient remains intubated for as long as possible. Objective Data Objective Data Vital Signs: Vital Signs Temp Pulse Resp BP Pulse Ox O2 Del Method O2 Flow Rate 37.4 C H 68 18 109/64 96 Mechanical Ventilator 15 10/03/22 06:00 10/03/22 06:53 10/03/22 06:53 10/03/22 06:00 10/03/22 06:53 10/03/22 06:00 09/28/22 08:56 FiO2 21 10/03/22 06:53 Oxygen Flow Rate (L/min) 15 Oxygen Delivery Method Mechanical Ventilator Weight: 137.302 kg Body Mass Index (BMI) 43.1 Intake & Output: Intake and Output for Last 24 Hours 10/01/22 10/02/22 10/03/22 23:59 23:59 23:59 Intake Total 3162.7633 / 3312.7633 3660.5833 / 3660.5833 125 / 125 Output Total 1790 / 2090 2975 / 2975 350 / 350 Balance 1372.7633 / 1222.7633 685.5833 / 685.5833 -225 / -225 Lab / Micro Data Attestation: I reviewed the patient's lab results. Result Diagrams: 10/03/22 03:40 10/03/22 03:40 Labs: Laboratory Results - last 24 hr 10/03/22 03:40: WBC 12.6 H, RBC 3.21 L, Hgb 9.7 L, Hct 30.9 L, MCV 96.3 H, MCH 30.2, MCHC 31.4 L, RDW Std Deviation 50.1 H, RDW Coeff of Kiara 14.3, Plt Count 185, MPV 10.0, Immature Gran % (Auto) 0.700, Neut % (Auto) 80.3 H, Lymph % (Auto) 11.5 L, [place] % (Auto) 6.8, Eos % (Auto) 0.6, Baso % (Auto) 0.1, Absolute Neuts (auto) 10.1 H, Absolute Lymphs (auto) 1.45, Nucleated RBC % 0 10/03/22 03:40: Sodium 146 H, Potassium 3.3 L, Chloride 119 H, Carbon Dioxide 24.0, Anion Gap 3 L, BUN 31 H, Creatinine 0.72, Estim Creat Clear Calc 64.60, E st GFR (MDRD) Af Amer 137, Est GFR (MDRD) Non-Af 113, BUN/Creatinine Ratio 42.8 H, Glucose 130 H, Calcium 8.2 L Micro: Microbiology 09/29/22 15:38 Sputum, Induced/Lukens Gram Stain - Final 09/29/22 15:38 Sputum, Induced/Lukens Respiratory Culture - Final Mixed normal respiratory elyssa. No Streptococcus pneumoniae, beta-hemolytic Streptococcus or Staphylococcus aureus isolated. 09/28/22 14:20 Sputum, Induced/Lukens Gram Stain - Final 09/28/22 14:20 Sputum, Induced/Lukens Respiratory Culture - Final 09/28/22 15:05 Urine Catheter - Catheter Urine Culture - Final Culture exhibits no growth. 10/01/22 08:00 Stool Stool Occult Blood (NIKITA) - Final Occult Blood Positive 09/28/22 15:50 Blood Culture (Wb) - Anticubital Right Blood Culture - Preliminary No growth in 48 hours. 09/28/22 14:25 Blood Culture (Wb) - Port Blood Culture - Preliminary No growth in 48 hours. 09/28/22 15:05 Urine Catheter - Catheter Legionella Antigen - Final 09/28/22 15:05 Urine Catheter - Catheter Streptococcus pneumoniae Antigen (M - Final 09/28/22 14:20 Mucosa - Nose - Final 09/28/22 15:52 Nasal Secretion SARS-CoV-2 Antigen (Rapid) - Final Physical Exam Narrative Patient remains on sedated and not restrained Const Constitutional Narrative: Patient not following commands. No purposeful movements noted. Morbidly obese. Good vent synchrony. General Appearance: patient mechanically ventilated HEENT head/scalp atraumatic and moist oral mucous membranes Eyes conjunctivae normal Eyes Narrative: Pupils are at 3 mm and minimally reactive to light. Corneal reflex present Neck supple and no JVD Resp normal respiratory effort, no retractions, no use of accessory muscles and clear to auscultation bilaterally Resp Narrative: Patient currently on spontaneous mode and tolerating well. Tidal volumes approximately 375. Cardio regular rate, regular rhythm, S1 normal heart sound, S2 normal heart sound, no murmurs, no rub and no gallops GI normal to inspection, nondistended, normoactive bowel sounds Extremity General Extremity: edema; Negative for clubbing Neuro Neuro Narrative: Positive cough and gag reflexes. Pupils minimally responsive. Patient with positive Babinski and moves all extremities to stimulus. Psych Psych Narrative: Nonresponsive. Charges/Coding Procedures Hospitalists Procedures: 99730 Critial Care 1st Hr
[2022-10-03] MEDS: Famotidine 20 MG Tablet GT ×2 (07:44→21:05)
[2022-10-03] MEDS: Vital High Protein 1,000 ML 70 ML GT ×2 (07:49→21:11)
[2022-10-03] MEDS: Chlorhexidine 15 ML PO ×2 (07:49→21:06)
[2022-10-03] MEDS: Menthol/Lanolin/Calamine/Znox 113 GM Tube 1 APPLIC TOPICAL ×4 (08:02→21:05)
--- NOTE | 2022-10-03 10:10 | CASEMGMT ---
Social Work Participated in ICU rounds. Patient two sons and spouse present. Patient continues to be intubated and not responding. Family appear to be educated on current medical status of patient and are choosing to keep intubated to allow time for patient to possibly respond. Family aware that there is a 14 day limit for intubation and that 14 days will be on 10/11/2022. Patient family believe that a TRACH and PEG would be against patient wishes. This social sciences instructor broached conversation about advanced directives with patient family, they report to have not spoken with patient traffic law attorney about this yet but feel that we are all on the same page and have decided not to pursue this more. Active support provided. Social Work to continue to follow. Yen Ayala MSW, RUBENS
--- NOTE | 2022-10-03 10:20 | PCM.PN.ID ---
Physical Exam Narrative No fever, on vent, family at bedside Const no apparent distress Resp clear to auscultation bilaterally Effort and Inspection: mechanically ventilated Cardio regular rate and regular rhythm GI soft to palpation, non-tender and non-distended Skin no rashes or lesions noted ID ID: Route of nutrition/ use of supplements: [] Nutritional Intake: [] IV Site: [] Fierro Catheter: [] Assessment & Plan Assessment/Plan (1) Shock circulatory: PLAN: Cxs neg so far. Low grade temps improved. MRSA pcr neg. On empiric zosyn. Procalcitonin high at 3.9. Brain MRI showed herniation and ischemic changes. Will stop zosyn today. Will follow as needed, d/w Dr. Riley (2) On mechanically assisted ventilation:
--- NOTE | 2022-10-03 18:17 | PN.HOSP_ITS ---
Reason for Visit Reason for Visit: Diagnoses Obesity, unspecified (09/28/22) Acidosis, unspecified (09/28/22) Other generalized epilepsy and epileptic syndromes, not intractable, without status epilepticus (09/28/22) Obstructive sleep apnea (adult) (pediatric) (09/28/22) Anoxic brain damage, not elsewhere classified (09/28/22) Metabolic encephalopathy (09/28/22) Cardiac arrest, cause unspecified (09/28/22) Hypotension, unspecified (09/28/22) Acute respiratory failure with hypoxia (09/28/22) Respiratory failure, unspecified, unspecified whether with hypoxia or hypercapnia (09/28/22) Bradycardia, unspecified (09/28/22) Cardiogenic shock (09/28/22) Shock, unspecified (09/28/22) Dependence on respirator [ventilator] status (09/28/22) Subjective Subjective Patient was seen and examined today, I talked with his daughter who was at the bedside today. I have ordered a neuron-specific enolase test for the a.m. to give us a prognosis on the patient. I have talked to the patient's family about this several days ago and I had talked with critical care about this test and he felt it would be helpful to give the patient's family a prognosis. Patient's vital signs remained stable at this time, he is running a low-grade temperature. Objective Data Objective Data Vital Signs: Vital Signs Temp Pulse Resp BP Pulse Ox O2 Del Method O2 Flow Rate 100.0 F H 63 20 H 112/60 99 Mechanical Ventilator 15 10/03/22 18:00 10/03/22 18:00 10/03/22 18:00 10/03/22 18:00 10/03/22 18:00 10/03/22 18:00 09/28/22 08:56 FiO2 21 10/03/22 18:00 Oxygen Flow Rate (L/min) 15 Oxygen Delivery Method Mechanical Ventilator Weight: 137.302 kg Body Mass Index (BMI) 43.1 Intake & Output: Intake and Output for Last 24 Hours 10/01/22 10/02/22 10/03/22 23:59 23:59 23:59 Intake Total 3162.7633 / 3312.7633 3660.5833 / 3660.5833 1163.17 / 1163.17 Output Total 1790 / 2090 2975 / 2975 950 / 950 Balance 1372.7633 / 1222.7633 685.5833 / 685.5833 213.17 / 213.17 Lab / Micro Data Result Diagrams: 10/04/22 04:06 10/04/22 04:06 Labs: Laboratory Results - last 24 hr 10/03/22 03:40: WBC 12.6 H, RBC 3.21 L, Hgb 9.7 L, Hct 30.9 L, MCV 96.3 H, MCH 30.2, MCHC 31.4 L, RDW Std Deviation 50.1 H, RDW Coeff of Kiara 14.3, Plt Count 185, MPV 10.0, Immature Gran % (Auto) 0.700, Neut % (Auto) 80.3 H, Lymph % (Auto) 11.5 L, [place] % (Auto) 6.8, Eos % (Auto) 0.6, Baso % (Auto) 0.1, Absolute Neuts (auto) 10.1 H, Absolute Lymphs (auto) 1.45, Nucleated RBC % 0 10/03/22 03:40: Sodium 146 H, Potassium 3.3 L, Chloride 119 H, Carbon Dioxide 24.0, Anion Gap 3 L, BUN 31 H, Creatinine 0.72, Estim Creat Clear Calc 64.60, Est GFR (MDRD) Af Amer 137, Est GFR (MDRD) Non-Af 113, BUN/Creatinine Ratio 42.8 H, Glucose 130 H, Calcium 8.2 L Micro: Microbiology 09/29/22 15:38 Sputum, Induced/Lukens Gram Stain - Final 09/29/22 15:38 Sputum, Induced/Lukens Respiratory Culture - Final Mixed normal respiratory elyssa. No Streptococcus pneumoniae, beta-hemolytic Streptococcus or Staphylococcus aureus isolated. 09/28/22 14:20 Sputum, Induced/Lukens Gram Stain - Final 09/28/22 14:20 Sputum, Induced/Lukens Respiratory Culture - Final 09/28/22 15:05 Urine Catheter - Catheter Urine Culture - Final Culture exhibits no growth. 10/01/22 08:00 Stool Stool Occult Blood (NIKITA) - Final Occult Blood Positive 09/28/22 15:50 Blood Culture (Wb) - Anticubital Right Blood Culture - Preliminary No growth in 48 hours. 09/28/22 14:25 Blood Culture (Wb) - Port Blood Culture - Preliminary No growth in 48 hours. 09/28/22 15:05 Urine Catheter - Catheter Legionella Antigen - Final 09/28/22 15:05 Urine Catheter - Catheter Streptococcus pneumoniae Antigen (M - Final 09/28/22 14:20 Mucosa - Nose - Final 09/28/22 15:52 Nasal Secretion SARS-CoV-2 Antigen (Rapid) - Final Physical Exam Narrative Constitutional Narrative: Patient is on the ventilator HEENT head/scalp atraumatic Head and Scalp: normocephalic Eyes conjunctivae normal Eyes Narrative: Pupils are at 3 mm and minimally reactive to light Neck no JVD Resp normal respiratory effort, no retractions, no use of accessory muscles and clear to auscultation bilaterally Cardio regular rate, regular rhythm, S1 normal heart sound, S2 normal heart sound and no murmurs GI normal to inspection, nondistended, normoactive bowel sounds Extremity Extremity Narrative: There is some generalized edema of the patient's lower legs bilaterally Neuro Neuro Narrative: Patient is on the ventilator Psych Psych Narrative: Patient is currently on the ventilator Assessment & Plan Assessment/Plan (1) Anoxic brain injury: (2) On mechanically assisted ventilation: (3) Acute metabolic encephalopathy: (4) Cardiopulmonary arrest with successful resuscitation: (5) Seizure disorder, grand mal: PLAN: Plan 1. Acute cardiopulmonary arrest with successful resuscitation, etiology of cardiopulmonary arrest unknown at this time-patient appears to have suffered anoxic brain injury, an NSE test will be ordered tomorrow #2 severe acidosis secondary to cardiopulmonary arrest-this has resolved #3 morbid obesity-complicates care, medical course, recovery, and prognosis #4 acute hypoxic respiratory failure secondary to cardiopulmonary arrest- etiology unclear at this point #5 lactic acidosis-secondary to acute hypoxic respiratory failure #6 hyperglycemia-etiology unclear at this point, labs will be monitored #7 acute shock-cardiogenic versus metabolic or infectious in nature-has resolved at this time the patient is no longer on any pressors #8 [id number] was performed which showed a normal ejection fraction, cardiology is participating in his care #9 seizure disorder-patient currently is on Keppra #10 Anoxic brain injury-complicates care, medical course, recovery, and prognosis #11 hypokalemia-supplemental potassium was given today Total clinical time spent by myself addressing patient's medical issues, reviewing all the data, and collaborating with patient's care team: 35 min Charges/Coding Visit Charges Inpatient E&M: 17947 Subs Hosp L2
[2022-10-04] VITALS (32 sets, daily range): BP systolic 93–146; BP diastolic 30–76; PULSE 55–71; RESP 12–33; TEMP 37.3–37.8; O2SAT 95–100
[2022-10-04 04:15] LABS: Absolute Lymphocyte Count 1.45 X10^3/uL (0.83-4.51); Absolute Neutrophil Count 11.1 X10^3/uL (2.0-7.7); Basophil# 0.02 X10^3/uL; Basophil% 0.1 % (0-1); Eosinophil# 0.11 X10^3/uL; Eosinophils% 0.8 % (0-5); Hematocrit 30.4 % (40-54); Hemoglobin 9.6 g/dL (13.0-16.5); Lymphocyte # 1.45 X10^3/ul (0.83-4.51); Lymphocyte % 10.6 % (19-41); Mean Corp Hgb Conc 31.6 g/dL (32-36); Mean Corpuscular Hgb 30.4 pg (27.0-32.0); Mean Corpuscular Volume 96.2 fL (80-94); Mean Platelet Vol. 10.1 fl (6.2-12.0); Monocyte# 0.94 X10^3/uL; Monocyte% 6.8 % (0-10); NRBC Flagged by Analyzer 0 % (0-5); Neutrophil # 11.11 X10^3/uL (2.7-7.7); Platelet Count 185 K/mm3 (150-450); RBC Distribution Width CV 14.4 % (11.6-14.6); RBC Distribution Width SD 50.4 fl (35.1-43.9); Red Blood Count 3.16 M/mm3 (4.6-6.2); White Blood Count 13.7 K/mm3 (4.4-11.0)
[2022-10-04 04:29] LABS: Anion Gap 3 (5-15); BUN 33 mg/dL (7-18); Calcium,Total 8.7 mg/dL (8.5-10.1); Chloride 117 mmol/L (98-107); Creatinine, Serum 0.62 mg/dL (0.70-1.30); EST Glomerular Filtration Rate 135 mL/min (>60); Est Glom Filt Rate - Afr Amer 163 mL/min (>60); Glucose 139 mg/dL (74-106); Potassium 3.7 mmol/L (3.5-5.1); Sodium Level 144 mmol/L (136-145)
[2022-10-04] MEDS: CHLORHEXIDINE GLUC 2% CLOTH 1 EACH TOWELETTE TOPICAL (06:17)
[2022-10-04] MEDS: Furosemide 40 MG/4 ML Vial IV (06:56)
--- NOTE | 2022-10-04 07:01 | PN.CC_ITS ---
Assessment & Plan Assessment/Plan (1) Cardiopulmonary arrest with successful resuscitation: (2) Acute metabolic encephalopathy: (3) Acute hypoxemic respiratory failure: PLAN: Plan RECOMMENDATIONS: 1. Continue ventilatory support. 2. Off antiepileptics and antibiotics. Monitor neurologic and infectious status clinically. 3. Electrolyte supplementation as necessary 4. Challenge with diuretics intermittently to try to keep a neutral fluid balance 5. Continue family communication about prognosis and goals of therapy IMPRESSIONS: 1. Acute metabolic encephalopathy secondary to severe anoxic brain injury Patient reportedly with seizure activity initially. Patient has been on Keppra and no seizure activity has been noted. Patient with PEA arrest, so anoxic injury was suspected. Patient continues to have cranial nerve reflexes, but MRI is showing herniation. We will continue supporting hemodynamics and monitor neuro status. Anticipate no further imaging unless patient has a change in neurologic status. Patient is currently a full code. Family is no longer requesting transfer to a tertiary center, but is also refusing trach and PEG despite wanting aggressive measures. We will continue to attempt to communicate prognosis to limit patient suffering 2. Acute hypoxic respiratory failure Patient with multiple blood gases previously. Continues to tolerate spontaneous breathing trials. We will continue with SAT and SBT, but doubt patient will be extubated given neurologic status. Unclear if patient will be able to protect his airways. Patient has remained off of sedation to facilitate neurochecks throughout hospitalization. We will need to be vigilant to avoid any complications of continued unnecessary intubation. Family is aware of the risks 3. Cardiopulmonary arrest of unclear etiology Patient presented with PEA arrest with a least 8 minutes down. No bystander CPR was reported, so anoxia could have been more profound. Troponins were greater than 3000. Patient may need a heart cath if neurologic situation improves. Echocardiogram shows an EF of 50%. No longer on IV heparin secondary to guaiac positive stools. 4. Morbid obesity/chronic pain syndrome/new onset seizure/CHIVO Complicates care, management, recovery and prognosis. Patient with a very guarded prognosis at this time. Patient is receiving Pepcid and heparin. No seizure activity has been noted off Keppra. This was likely secondary to initial anoxic injury. Subjective Subjective Patient did well overnight. Patient tolerating tube feeds. Patient continues to have an FMS in place. Nursing did report intermittent nystagmus, but patient continues to have a similar neurologic examination otherwise. Continue to discuss with the family at length about the prognosis. Family has stated that the patient would not want a trach and PEG, but they are determined to give him the best chance by waiting 14 days on the vent. Objective Data Objective Data Vital Signs: Vital Signs Temp Pulse Resp BP Pulse Ox O2 Del Method O2 Flow Rate 37.4 C H 71 15 138/63 H 95 Mechanical Ventilator 15 10/04/22 06:00 10/04/22 06:00 10/04/22 06:00 10/04/22 06:00 10/04/22 06:00 10/04/22 06:00 09/28/22 08:56 FiO2 21 10/04/22 06:00 Oxygen Flow Rate (L/min) 15 Oxygen Delivery Method Mechanical Ventilator Weight: 139.298 kg Body Mass Index (BMI) 43.1 Intake & Output: Intake and Output for Last 24 Hours 10/02/22 10/03/22 10/04/22 23:59 23:59 23:59 Intake Total 3660.5833 / 3660.5833 2173.84 / 2248.84 150 / 150 Output Total 2975 / 2975 1250 / 1250 425 / 425 Balance 685.5833 / 685.5833 923.84 / 998.84 -275 / -275 Lab / Micro Data Attestation: I reviewed the patient's lab results. Result Diagrams: 10/04/22 04:06 10/04/22 04:06 Labs: Laboratory Results - last 24 hr 10/04/22 04:06: WBC 13.7 H, RBC 3.16 L, Hgb 9.6 L, Hct 30.4 L, MCV 96.2 H, MCH 30.4, MCHC 31.6 L, RDW Std Deviation 50.4 H, RDW Coeff of Kiara 14.4, Plt Count 1 85, MPV 10.1, Immature Gran % (Auto) 0.700, Neut % (Auto) 81.0 H, Lymph % (Auto) 10.6 L, [place] % (Auto) 6.8, Eos % (Auto) 0.8, Baso % (Auto) 0.1, Absolute Neuts (auto) 11.1 H, Absolute Lymphs (auto) 1.45, Nucleated RBC % 0 10/04/22 04:06: Sodium 144, Potassium 3.7, Chloride 117 H, Carbon Dioxide 24.0, Anion Gap 3 L, BUN 33 H, Creatinine 0.62 L, Estim Creat Clear Calc 64.60, Est GFR (MDRD) Af Amer 163, Est GFR (MDRD) Non-Af 135, BUN/Creatinine Ratio 53.0 H, Glucose 139 H, Calcium 8.7 Micro: Microbiology 09/28/22 14:25 Blood Culture (Wb) - Port Blood Culture - Final No growth in 5 days. 09/28/22 15:50 Blood Culture (Wb) - Anticubital Right Blood Culture - Final No growth in 5 days. 09/29/22 15:38 Sputum, Induced/Lukens Gram Stain - Final 09/29/22 15:38 Sputum, Induced/Lukens Respiratory Culture - Final Mixed normal respiratory elyssa. No Streptococcus pneumoniae, beta-hemolytic Streptococcus or Staphylococcus aureus isolated. 09/28/22 14:20 Sputum, Induced/Lukens Gram Stain - Final 09/28/22 14:20 Sputum, Induced/Lukens Respiratory Culture - Final 09/28/22 15:05 Urine Catheter - Catheter Urine Culture - Final Culture exhibits no growth. 10/01/22 08:00 Stool Stool Occult Blood (NIKITA) - Final Occult Blood Positive 09/28/22 15:05 Urine Catheter - Catheter Legionella Antigen - Final 09/28/22 15:05 Urine Catheter - Catheter Streptococcus pneumoniae Antigen (M - Final 09/28/22 14:20 Mucosa - Nose - Final 09/28/22 15:52 Nasal Secretion SARS-CoV-2 Antigen (Rapid) - Final Physical Exam Narrative Patient remains unsedated and not restrained Const Constitutional Narrative: Patient not following commands. No purposeful movements noted. Morbidly obese. Good vent synchrony. General Appearance: patient mechanically ventilated HEENT head/scalp atraumatic and moist oral mucous membranes Eyes conjunctivae normal Eyes Narrative: Pupils are at 3 mm and minimally reactive to light. Corneal reflex present Neck supple and no JVD Resp normal respiratory effort, no retractions, no use of accessory muscles and clear to auscultation bilaterally Resp Narrative: Patient currently on spontaneous mode and tolerating well. Tidal volumes approximately 375. Cardio regular rate, regular rhythm, S1 normal heart sound, S2 normal heart sound, no m urmurs, no rub and no gallops GI normal to inspection, nondistended, normoactive bowel sounds Extremity General Extremity: edema; Negative for clubbing Neuro Neuro Narrative: Positive cough and gag reflexes. Pupils minimally responsive. Patient with positive Babinski and moves all extremities to stimulus. Psych Psych Narrative: Nonresponsive. Charges/Coding Visit Charges Inpatient E&M: 30228 Subs Hosp L3
[2022-10-04] MEDS: Chlorhexidine 15 ML PO ×2 (08:08→20:20)
[2022-10-04] MEDS: Famotidine 20 MG Tablet GT ×2 (08:08→20:20)
[2022-10-04] MEDS: Menthol/Lanolin/Calamine/Znox 113 GM Tube 1 APPLIC TOPICAL ×3 (08:08→20:20)
--- NOTE | 2022-10-04 08:10 | CASEMGMT ---
Social Work SW spoke w/family, they have not provided POA/LW forms to the hospital. Family aware without the document would be decision maker, family at this time are making decisions together. ROSIE Alvarez
--- NOTE | 2022-10-04 11:22 | CASEMGMT ---
Social Work SW spoke w/daughter Christina at the bedside, offered support. Christina asked SW about options should pt survive extubation. SW reviewed all options including home, SNF, LTACH. Daughter asked about aide services at home, she is familiar w/this as pt's other daughter gets aide services. SW explained the difference between home health through insurance, and longer term programs that offer aide services at home, such as Passport and Waiver(pt's other daughter is no the waiver program). SW explained pt would need to have a senior care care consult at home from [facility] to see if he would qualify, SW explained also this process to qualify and get aides at home can take a couple of months. SW also explained some of the criteria for SNF vs. LTACH. SW asked about LW, as per daughter they do not think pt actually ever completed the document, he has a financial will. Daughter Christina states the family--all children, and pt's siblings, are all making decisions together. She states they are all in agreement to give pt the full two weeks on the ventilator. Christina states she knows they are hoping for a miracle. Daughter then went on to speak about her emani and miracles they have witnessed. SW offered support to daughter. SW will continue to follow for supportive needs and any discharge needs as appropriate. ROSIE Alvarez
[2022-10-04] MEDS: Vital High Protein 1,000 ML 70 ML GT (12:26)
--- NOTE | 2022-10-04 17:52 | PN.HOSP_ITS ---
Reason for Visit Reason for Visit: Diagnoses Obesity, unspecified (09/28/22) Acidosis, unspecified (09/28/22) Other generalized epilepsy and epileptic syndromes, not intractable, without status epilepticus (09/28/22) Obstructive sleep apnea (adult) (pediatric) (09/28/22) Anoxic brain damage, not elsewhere classified (09/28/22) Metabolic encephalopathy (09/28/22) Cardiac arrest, cause unspecified (09/28/22) Hypotension, unspecified (09/28/22) Acute respiratory failure with hypoxia (09/28/22) Respiratory failure, unspecified, unspecified whether with hypoxia or hypercapnia (09/28/22) Bradycardia, unspecified (09/28/22) Cardiogenic shock (09/28/22) Shock, unspecified (09/28/22) Dependence on respirator [ventilator] status (09/28/22) Subjective Subjective Patient was seen and examined today, he remains unresponsive and on the ventilator at this time, an NSE test was ordered today. I talked briefly with pulmonary medicine about his care. Objective Data Objective Data Vital Signs: Vital Signs Temp Pulse Resp BP Pulse Ox O2 Del Method O2 Flow Rate 99.3 F H 58 L 21 H 109/55 L 99 Mechanical Ventilator 15 10/04/22 13:00 10/04/22 15:12 10/04/22 15:12 10/04/22 13:00 10/04/22 15:12 10/04/22 13:00 09/28/22 08:56 FiO2 21 10/04/22 15:12 Oxygen Flow Rate (L/min) 15 Oxygen Delivery Method Mechanical Ventilator Weight: 139.298 kg Body Mass Index (BMI) 43.1 Intake & Output: Intake and Output for Last 24 Hours 10/02/22 10/03/22 10/04/22 23:59 23:59 23:59 Intake Total 3660.5833 / 3660.5833 2173.84 / 2248.84 1270 / 1270 Output Total 2975 / 2975 1250 / 1250 2475 / 2475 Balance 685.5833 / 685.5833 923.84 / 998.84 -1205 / -1205 Lab / Micro Data Result Diagrams: 10/04/22 04:06 10/04/22 04:06 Labs: Laboratory Results - last 24 hr 10/04/22 04:06: WBC 13.7 H, RBC 3.16 L, Hgb 9.6 L, Hct 30.4 L, MCV 96.2 H, MCH 30.4, MCHC 31.6 L, RDW Std Deviation 50.4 H, RDW Coeff of Kiara 14.4, Plt Count 185, MPV 10.1, Immature Gran % (Auto) 0.700, Neut % (Auto) 81.0 H, Lymph % (Auto) 10.6 L, [place] % (Auto) 6.8, Eos % (Auto) 0.8, Baso % (Auto) 0.1, Absolute Neuts (auto) 11.1 H, Absolute Lymphs (auto) 1.45, Nucleated RBC % 0 10/04/22 04:06: Sodium 144, Potassium 3.7, Chloride 117 H, Carbon Dioxide 24.0, Anion Gap 3 L, BUN 33 H, Creatinine 0.62 L, Estim Creat Clear Calc 64.60, Est GFR (MDRD) Af Amer 163, Est GFR (MDRD) Non-Af 135, BUN/Creatinine Ratio 53.0 H, Glucose 139 H, Calcium 8.7 Micro: Microbiology 09/28/22 14:25 Blood Culture (Wb) - Port Blood Culture - Final No growth in 5 days. 09/28/22 15:50 Blood Culture (Wb) - Anticubital Right Blood Culture - Final No growth in 5 days. 09/29/22 15:38 Sputum, Induced/Lukens Gram Stain - Final 09/29/22 15:38 Sputum, Induced/Lukens Respiratory Culture - Final Mixed normal respiratory elyssa. No Streptococcus pneumoniae, beta-hemolytic Streptococcus or Staphylococcus aureus isolated. 09/28/22 14:20 Sputum, Induced/Lukens Gram Stain - Final 09/28/22 14:20 Sputum, Induced/Lukens Respiratory Culture - Final 09/28/22 15:05 Urine Catheter - Catheter Urine Culture - Final Culture exhibits no growth. 10/01/22 08:00 Stool Stool Occult Blood (NIKITA) - Final Occult Blood Positive 09/28/22 15:05 Urine Catheter - Catheter Legionella Antigen - Final 09/28/22 15:05 Urine Catheter - Catheter Streptococcus pneumoniae Antigen (M - Final 09/28/22 14:20 Mucosa - Nose - Final 09/28/22 15:52 Nasal Secretion SARS-CoV-2 Antigen (Rapid) - Final Physical Exam Narrative Constitutional Narrative: Patient is on the ventilator HEENT head/scalp atraumatic Head and Scalp: normocephalic Eyes conjunctivae normal Eyes Narrative: Pupils are at 3 mm and minimally reactive to light Neck no JVD Resp normal respiratory effort, no retractions, no use of accessory muscles and clear to auscultation bilaterally Cardio regular rate, regular rhythm, S1 normal heart sound, S2 normal heart sound and no murmurs GI normal to inspection, nondistended, normoactive bowel sounds Extremity Extremity Narrative: There is some generalized edema of the patient's lower legs bilaterally Neuro Neuro Narrative: Patient is on the ventilator Psych Psych Narrative: Patient is currently on the ventilator Assessment & Plan Assessment/Plan (1) Anoxic brain injury: (2) On mechanically assisted ventilation: (3) Acute metabolic encephalopathy: (4) Cardiopulmonary arrest with successful resuscitation: (5) Seizure disorder, grand mal: PLAN: Plan 1. Acute cardiopulmonary arrest with successful resuscitation, etiology of cardiopulmonary arrest unknown at this time-patient appears to have suffered anoxic brain injury, an NSE test was drawn today #2 severe acidosis secondary to cardiopulmonary arrest-this has resolved #3 morbid obesity-complicates care, medical course, recovery, and prognosis #4 acute hypoxic respiratory failure secondary to cardiopulmonary arrest- etiology unclear at this point #5 lactic acidosis-secondary to acute hypoxic respiratory failure #6 hyperglycemia-etiology unclear at this point, labs will be monitored #7 acute shock-cardiogenic versus metabolic or infectious in nature-has resolved at this time the patient is no longer on any pressors #8 [id number] was performed which showed a normal ejection fraction, cardiology is participating in his care #9 seizure disorder-patient currently is on Keppra #10 Anoxic brain injury-complicates care, medical course, recovery, and prognosis #11 hypokalemia-corrected at this time Total clinical time spent by myself addressing patient's medical issues, reviewing all the data, and collaborating with patient's care team: 35 min Charges/Coding Visit Charges Inpatient E&M: 03545 Subs Hosp L2
[2022-10-05] VITALS (33 sets, daily range): BP systolic 84–145; BP diastolic 47–75; PULSE 55–76; RESP 12–26; TEMP 37.3–37.8; O2SAT 92–100
[2022-10-05 03:20] LABS: Absolute Lymphocyte Count 1.73 X10^3/uL (0.83-4.51); Absolute Neutrophil Count 11.4 X10^3/uL (2.0-7.7); Basophil# 0.02 X10^3/uL; Basophil% 0.1 % (0-1); Eosinophil# 0.16 X10^3/uL; Eosinophils% 1.1 % (0-5); Hematocrit 31.7 % (40-54); Lymphocyte # 1.73 X10^3/ul (0.83-4.51); Lymphocyte % 12.1 % (19-41); Mean Corp Hgb Conc 31.5 g/dL (32-36); Mean Corpuscular Hgb 30.1 pg (27.0-32.0); Mean Corpuscular Volume 95.5 fL (80-94); Mean Platelet Vol. 10.4 fl (6.2-12.0); Monocyte# 0.93 X10^3/uL; Monocyte% 6.5 % (0-10); NRBC Flagged by Analyzer 0.1 % (0-5); Neutrophil # 11.35 X10^3/uL (2.7-7.7); Neutrophil % 79.4 % (47-70); Platelet Count 207 K/mm3 (150-450); RBC Distribution Width CV 14.5 % (11.6-14.6); RBC Distribution Width SD 49.6 fl (35.1-43.9); Red Blood Count 3.32 M/mm3 (4.6-6.2); White Blood Count 14.3 K/mm3 (4.4-11.0)
[2022-10-05 03:41] LABS: Anion Gap 4 (5-15); BUN 38 mg/dL (7-18); BUN/Creat Ratio 63.3 RATIO (10-20); Calcium,Total 9.3 mg/dL (8.5-10.1); Chloride 115 mmol/L (98-107); EST Glomerular Filtration Rate 141 mL/min (>60); Est Glom Filt Rate - Afr Amer 170 mL/min (>60); Glucose 140 mg/dL (74-106); Magnesium 2.3 mg/dL (1.6-2.6); Phosphorus 2.8 mg/dL (2.5-4.9); Potassium 3.8 mmol/L (3.5-5.1); Sodium Level 143 mmol/L (136-145)
[2022-10-05] MEDS: 0.9% Saline Lock 10 ML Syringe IV ×2 (04:13→08:00)
[2022-10-05] MEDS: Vital High Protein 1,000 ML 70 ML GT ×2 (04:13→18:02)
[2022-10-05] MEDS: Potassium Chloride Oral Soln 20 MEQ/15 ML UDC 40 MEQ PO (05:55)
[2022-10-05] MEDS: CHLORHEXIDINE GLUC 2% CLOTH 1 EACH TOWELETTE TOPICAL (05:55)
--- NOTE | 2022-10-05 07:16 | PCM.PN.INT ---
Assessment & Plan Assessment/Plan (1) Cardiopulmonary arrest with successful resuscitation: (2) Acute metabolic encephalopathy: (3) Acute hypoxemic respiratory failure: PLAN: Plan RECOMMENDATIONS: 1. Continue ventilatory support. Okay to have on spontaneous during the day, but AC at night 2. Off antiepileptics and antibiotics. Monitor neurologic and infectious status clinically. 3. Electrolyte supplementation as necessary 4. We will challenge with diuretics today 5. Continue family communication about prognosis and goals of therapy IMPRESSIONS: 1. Acute metabolic encephalopathy secondary to severe anoxic brain injury Patient reportedly with seizure activity initially. Patient has been on Keppra and no seizure activity has been noted. Patient with PEA arrest, so anoxic injury was suspected. Patient continues to have cranial nerve reflexes, but MRI is showing herniation. We will continue supporting hemodynamics and monitor neuro status. Anticipate no further imaging unless patient has a change in neurologic status. Patient is currently a full code. Family is no longer requesting transfer to a tertiary center, but is wavering on trach and PEG. We will continue to attempt to communicate prognosis to limit patient suffering 2. Acute hypoxic respiratory failure Patient with multiple blood gases previously. Continues to tolerate spontaneous breathing trials. We will continue with SAT and SBT, but doubt patient will be extubated given neurologic status. Unclear if patient will be able to protect his airways. Patient has remained off of sedation to facilitate neurochecks throughout hospitalization. We will need to be vigilant to avoid any complications of continued unnecessary intubation. Family is aware of the risks 3. Cardiopulmonary arrest of unclear etiology Patient presented with PEA arrest with a least 8 minutes down. No bystander CPR was reported, so anoxia could have been more profound. Troponins were greater than 3000. Patient may need a heart cath if neurologic situation improves. Echocardiogram shows an EF of 50%. No longer on IV heparin secondary to guaiac positive stools. 4. Morbid obesity/chronic pain syndrome/new onset seizure/CHIVO Complicates care, management, recovery and prognosis. Patient with a very guarded prognosis at this time. Patient is receiving Pepcid and heparin. No seizure activity has been noted off Keppra. This was likely secondary to initial anoxic injury. Subjective Subjective Patient did okay overnight. No acute issues were reported. No changes in neurologic exam were noted. No seizure activity has been noted. Family has requested a longer spontaneous breathing trial to exercise his muscles prior to extubation. Objective Data Objective Data Vital Signs: Vital Signs Temp Pulse Resp BP Pulse Ox O2 Del Method O2 Flow Rate 37.6 C H 62 25 H 111/57 L 98 Mechanical Ventilator 15 10/05/22 07:00 10/05/22 07:00 10/05/22 07:00 10/05/22 07:00 10/05/22 07:00 10/05/22 07:00 09/28/22 08:56 FiO2 21 10/05/22 07:00 Oxygen Flow Rate (L/min) 15 Oxygen Delivery Method Mechanical Ventilator Weight: 136.253 kg Body Mass Index (BMI) 43.1 Intake & Output: Intake and Output for Last 24 Hours 10/03/22 10/04/22 10/05/22 23:59 23:59 23:59 Intake Total 2173.84 / 2248.84 1345 / 1420 1150 / 1150 Output Total 1250 / 1250 3175 / 3550 700 / 700 Balance 923.84 / 998.84 -1830 / -2130 450 / 450 Lab / Micro Data Attestation: I reviewed the patient's lab results. Result Diagrams: 10/05/22 03:00 10/05/22 03:00 Labs: Laboratory Results - last 24 hr 10/05/22 03:00: WBC 14.3 H, RBC 3.32 L, Hgb 10.0 L, Hct 31.7 L, MCV 95.5 H, MCH 30.1, MCHC 31.5 L, RDW Std Deviation 49.6 H, RDW Coeff of Kiara 14.5, Plt Count 207, MPV 10.4, Immature Gran % (Auto) 0.800, Neut % (Auto) 79.4 H, Lymph % (Auto) 12.1 L, [place] % (Auto) 6.5, Eos % (Auto) 1.1, Baso % (Auto) 0.1, Absolute Neuts (auto) 11.4 H, Absolute Lymphs (auto) 1.73, Nucleated RBC % 0.1 10/05/22 03:00: Sodium 143, Potassium 3.8, Chloride 115 H, Carbon Dioxide 24.0, Anion Gap 4 L, BUN 38 H, Creatinine 0.60 L, Estim Creat Clear Calc 64.60, Est GFR (MDRD) Af Amer 170, Est GFR (MDRD) Non-Af 141, BUN/Creatinine Ratio 63.3 H, Glucose 140 H, Calcium 9.3, Phosphorus 2.8, Magnesium 2.3 Micro: Microbiology 09/28/22 14:25 Blood Culture (Wb) - Port Blood Culture - Final No growth in 5 days. 09/28/22 15:50 Blood Culture (Wb) - Anticubital Right Blood Culture - Final No growth in 5 days. 09/29/22 15:38 Sputum, Induced/Lukens Gram Stain - Final 09/29/22 15:38 Sputum, Induced/Lukens Respiratory Culture - Final Mixed normal respiratory elyssa. No Streptococcus pneumoniae, beta-hemolytic Streptococcus or Staphylococcus aureus isolated. 09/28/22 14:20 Sputum, Induced/Lukens Gram Stain - Final 09/28/22 14:20 Sputum, Induced/Lukens Respiratory Culture - Final 09/28/22 15:05 Urine Catheter - Catheter Urine Culture - Final Culture exhibits no growth. 10/01/22 08:00 Stool Stool Occult Blood (NIKITA) - Final Occult Blood Positive 09/28/22 15:05 Urine Catheter - Catheter Legionella Antigen - Final 09/28/22 15:05 Urine Catheter - Catheter Streptococcus pneumoniae Antigen (M - Final 09/28/22 14:20 Mucosa - Nose - Final 09/28/22 15:52 Nasal Secretion SARS-CoV-2 Antigen (Rapid) - Final Physical Exam Narrative Patient remains unsedated and not restrained Const Constitutional Narrative: Patient not following commands. No purposeful movements noted. Morbidly obese. Good vent synchrony. General Appearance: patient mechanically ventilated HEENT head/scalp atraumatic and moist oral mucous membranes Eyes conjunctivae normal Eyes Narrative: Pupils are at 3 mm and minimally reactive to light. Corneal reflex present Neck supple and no JVD Resp normal respiratory effort, no retractions, no use of accessory muscles and clear to auscultation bilaterally Resp Narrative: Patient currently on spontaneous mode and tolerating well. Tidal volumes approximately 400. Cardio regular rate, regular rhythm, S1 normal heart sound, S2 normal heart sound, no murmurs, no rub and no gallops GI normal to inspection, nondistended, normoactive bowel sounds Extremity General Extremity: edema; Negative for clubbing Neuro Neuro Narrative: Positive cough and gag reflexes. Pupils minimally responsive. Patient with positive Babinski and moves all extremities to stimulus. Psych Psych Narrative: Nonresponsive. Charges/Coding Visit Charges Inpatient E&M: 32922 Subs Hosp L3
[2022-10-05] MEDS: Chlorhexidine 15 ML PO ×2 (07:58→22:16)
[2022-10-05] MEDS: Famotidine 20 MG Tablet GT ×2 (07:59→22:16)
[2022-10-05] MEDS: Menthol/Lanolin/Calamine/Znox 113 GM Tube 1 APPLIC TOPICAL ×3 (07:59→22:16)
[2022-10-05] MEDS: Furosemide 40 MG/4 ML Vial IV ×2 (08:00→18:05)
--- NOTE | 2022-10-05 08:46 | PCM.PN.HOSP ---
Reason for Visit Reason for Visit: Diagnoses Obesity, unspecified (09/28/22) Acidosis, unspecified (09/28/22) Other generalized epilepsy and epileptic syndromes, not intractable, without status epilepticus (09/28/22) Obstructive sleep apnea (adult) (pediatric) (09/28/22) Anoxic brain damage, not elsewhere classified (09/28/22) Metabolic encephalopathy (09/28/22) Cardiac arrest, cause unspecified (09/28/22) Hypotension, unspecified (09/28/22) Acute respiratory failure with hypoxia (09/28/22) Respiratory failure, unspecified, unspecified whether with hypoxia or hypercapnia (09/28/22) Bradycardia, unspecified (09/28/22) Cardiogenic shock (09/28/22) Shock, unspecified (09/28/22) Dependence on respirator [ventilator] status (09/28/22) Subjective Subjective Patient was seen and examined today, his vital signs remained stable, I talked briefly with critical care about his care today. Objective Data Objective Data Vital Signs: Vital Signs Temp Pulse Resp BP Pulse Ox O2 Del Method O2 Flow Rate 99.6 F H 55 L 23 H 111/57 L 99 Mechanical Ventilator 15 10/05/22 07:00 10/05/22 07:19 10/05/22 07:19 10/05/22 07:00 10/05/22 07:19 10/05/22 07:00 09/28/22 08:56 FiO2 21 10/05/22 07:00 Oxygen Flow Rate (L/min) 15 Oxygen Delivery Method Mechanical Ventilator Weight: 136.253 kg Body Mass Index (BMI) 43.1 Intake & Output: Intake and Output for Last 24 Hours 10/03/22 10/04/22 10/05/22 23:59 23:59 23:59 Intake Total 2173.84 / 2248.84 1345 / 1420 1150 / 1150 Output Total 1250 / 1250 3175 / 3550 850 / 850 Balance 923.84 / 998.84 -1830 / -2130 300 / 300 Lab / Micro Data Result Diagrams: 10/05/22 03:00 10/05/22 03:00 Labs: Laboratory Results - last 24 hr 10/05/22 03:00: WBC 14.3 H, RBC 3.32 L, Hgb 10.0 L, Hct 31.7 L, MCV 95.5 H, MCH 30.1, MCHC 31.5 L, RDW Std Deviation 49.6 H, RDW Coeff of Kiara 14.5, Plt Count 207, MPV 10.4, Immature Gran % (Auto) 0.800, Neut % (Auto) 79.4 H, Lymph % (Auto) 12.1 L, [place] % (Auto) 6.5, Eos % (Auto) 1.1, Baso % (Auto) 0.1, Absolute Neuts (auto) 11.4 H, Absolute Lymphs (auto) 1.73, Nucleated RBC % 0.1 10/05/22 03:00: Sodium 143, Potassium 3.8, Chloride 115 H, Carbon Dioxide 24.0, Anion Gap 4 L, BUN 38 H, Creatinine 0.60 L, Estim Creat Clear Calc 64.60, Est GFR (MDRD) Af Amer 170, Est GFR (MDRD) Non-Af 141, BUN/Creatinine Ratio 63.3 H, Glucose 140 H, Calcium 9.3, Phosphorus 2.8, Magnesium 2.3 Micro: Microbiology 09/28/22 14:25 Blood Culture (Wb) - Port Blood Culture - Final No growth in 5 days. 09/28/22 15:50 Blood Culture (Wb) - Anticubital Right Blood Culture - Final No growth in 5 days. 09/29/22 15:38 Sputum, Induced/Lukens Gram Stain - Final 09/29/22 15:38 Sputum, Induced/Lukens Respiratory Culture - Final Mixed normal respiratory elyssa. No Streptococcus pneumoniae, beta-hemolytic Streptococcus or Staphylococcus aureus isolated. 09/28/22 14:20 Sputum, Induced/Lukens Gram Stain - Final 09/28/22 14:20 Sputum, Induced/Lukens Respiratory Culture - Final 09/28/22 15:05 Urine Catheter - Catheter Urine Culture - Final Culture exhibits no growth. 10/01/22 08:00 Stool Stool Occult Blood (NIKITA) - Final Occult Blood Positive 09/28/22 15:05 Urine Catheter - Catheter Legionella Antigen - Final 09/28/22 15:05 Urine Catheter - Catheter Streptococcus pneumoniae Antigen (M - Final 09/28/22 14:20 Mucosa - Nose - Final 09/28/22 15:52 Nasal Secretion SARS-CoV-2 Antigen (Rapid) - Final Physical Exam Narrative Constitutional Narrative: Patient is on the ventilator HEENT head/scalp atraumatic Head and Scalp: normocephalic Eyes conjunctivae normal Eyes Narrative: Pupils are at 3 mm and minimally reactive to light Neck no JVD Resp normal respiratory effort, no retractions, no use of accessory muscles and clear to auscultation bilaterally Cardio regular rate, regular rhythm, S1 normal heart sound, S2 normal heart sound and no murmurs GI normal to inspection, nondistended, normoactive bowel sounds Extremity Extremity Narrative: There is some generalized edema of the patient's lower legs bilaterally as well as his arms Neuro Neuro Narrative: Patient is on the ventilator Psych Psych Narrative: Patient is currently on the ventilator Assessment & Plan Assessment/Plan (1) Anoxic brain injury: (2) On mechanically assisted ventilation: (3) Acute metabolic encephalopathy: (4) Cardiopulmonary arrest with successful resuscitation: (5) Seizure disorder, grand mal: PLAN: Plan 1. Acute cardiopulmonary arrest with successful resuscitation, etiology of cardiopulmonary arrest unknown at this time-patient appears to have suffered anoxic brain injury, an NSE test is pending at this time #2 severe acidosis secondary to cardiopulmonary arrest-this has resolved #3 morbid obesity-complicates care, medical course, recovery, and prognosis #4 acute hypoxic respiratory failure secondary to cardiopulmonary arrest-etiology unclear at this point #5 lactic acidosis-secondary to acute hypoxic respiratory failure #6 hyperglycemia-etiology unclear at this point, labs will be monitored #7 acute shock-cardiogenic versus metabolic or infectious in nature-has resolved at this time the patient is no longer on any pressors #8 [id number] was performed which showed a normal ejection fraction, cardiology is participating in his care #9 seizure disorder-patient currently is on Keppra #10 Anoxic brain injury-complicates care, medical course, recovery, and prognosis #11 hypokalemia-corrected at this time Total clinical time spent by myself addressing patient's medical issues, reviewing all the data, and collaborating with patient's care team: 25 min Charges/Coding Visit Charges Inpatient E&M: 51804 Subs Hosp L1
[2022-10-06] VITALS (34 sets, daily range): BP systolic 105–154; BP diastolic 52–92; PULSE 61–77; RESP 12–31; TEMP 37.3–38; O2SAT 92–100
[2022-10-06 05:08] LABS: Anion Gap 3 (5-15); BUN 43 mg/dL (7-18); BUN/Creat Ratio 56.7 RATIO (10-20); Calcium,Total 9.5 mg/dL (8.5-10.1); Chloride 112 mmol/L (98-107); Creatinine, Serum 0.76 mg/dL (0.70-1.30); EST Glomerular Filtration Rate 107 mL/min (>60); Est Glom Filt Rate - Afr Amer 130 mL/min (>60); Glucose 131 mg/dL (74-106); Potassium 4.1 mmol/L (3.5-5.1); Sodium Level 142 mmol/L (136-145)
--- NOTE | 2022-10-06 07:07 | PCM.PN.INT ---
Assessment & Plan Assessment/Plan (1) Cardiopulmonary arrest with successful resuscitation: (2) Acute metabolic encephalopathy: (3) Acute hypoxemic respiratory failure: PLAN: Plan RECOMMENDATIONS: 1. Continue ventilatory support. Okay to have on spontaneous during the day, but AC at night 2. Off antiepileptics and antibiotics. Monitor neurologic and infectious status clinically. 3. Electrolyte supplementation as necessary 4. We will challenge with diuretics again today 5. Continue family communication about prognosis and goals of therapy IMPRESSIONS: 1. Acute metabolic encephalopathy secondary to severe anoxic brain injury Patient reportedly with seizure activity initially. Patient has been on Keppra and no seizure activity has been noted. Patient with PEA arrest, so anoxic injury was suspected. Patient continues to have cranial nerve reflexes, but MRI is showing herniation. We will continue supporting hemodynamics and monitor neuro status. Anticipate no further imaging unless patient has a change in neurologic status. Patient is currently a full code. Family is no longer requesting transfer to a tertiary center, but is wavering on trach and PEG. We will continue to attempt to communicate prognosis to limit patient suffering. 2. Acute hypoxic respiratory failure Patient with multiple blood gases previously. Continues to tolerate spontaneous breathing trials. We will continue with SAT and SBT, but doubt patient will be extubated given neurologic status. Unclear if patient will be able to protect his airways. Patient has remained off of sedation to facilitate neurochecks throughout hospitalization. We will need to be vigilant to avoid any complications of continued unnecessary intubation. Family is aware of the risks. Family is set on waiting 14 days on the ventilator despite knowing infectious risks. No change in sputum has been noted. 3. Cardiopulmonary arrest of unclear etiology Patient presented with PEA arrest with a least 8 minutes down. No bystander CPR was reported, so anoxia could have been more profound. Troponins were greater than 3000. Patient may need a heart cath if neurologic situation improves. Echocardiogram shows an EF of 50%. No longer on IV heparin secondary to guaiac positive stools. Patient has not had a GI work-up. 4. Morbid obesity/chronic pain syndrome/new onset seizure/CHIVO Complicates care, management, recovery and prognosis. Patient with a very guarded prognosis at this time. Patient is receiving Pepcid and heparin. No seizure activity has been noted off Keppra. This was likely secondary to initial anoxic injury. Subjective Subjective Patient did okay overnight. No change in neurologic exam or hemodynamics. Patient was able to tolerate spontaneous PS/CPAP until 8 PM and was transitioned to assist-control for sleep. Protracted conversation with the daughter yesterday at rounds about options moving forward. Objective Data Objective Data Vital Signs: Vital Signs Temp Pulse Resp BP Pulse Ox O2 Del Method O2 Flow Rate 37.9 C H 68 16 115/62 93 Mechanical Ventilator 15 10/06/22 06:00 10/06/22 06:00 10/06/22 06:00 10/06/22 06:00 10/06/22 06:00 10/06/22 06:00 09/28/22 08:56 FiO2 30 10/06/22 06:00 Oxygen Flow Rate (L/min) 15 Oxygen Delivery Method Mechanical Ventilator Weight: 136.7 kg Body Mass Index (BMI) 43.1 Intake & Output: Intake and Output for Last 24 Hours 10/04/22 10/05/22 10/06/22 23:59 23:59 23:59 Intake Total 1345 / 1420 2417.17 / 2627.17 360 / 360 Output Total 3175 / 3550 4430 / 4630 200 / 200 Balance -1830 / -2129 -83 / - 160 / 160 Lab / Micro Data Attestation: I reviewed the patient's lab results. Result Diagrams: 10/05/22 03:00 10/06/22 04:30 Labs: Laboratory Results - last 24 hr 10/06/22 04:30: Sodium 142, Potassium 4.1, Chloride 112 H, Carbon Dioxide 27.0, Anion Gap 3 L, BUN 43 H, Creatinine 0.76, Estim Creat Clear Calc 64.60, Est GFR (MDRD) Af Amer 130, Est GFR (MDRD) Non-Af 107, BUN/Creatinine Ratio 56.7 H, Glucose 131 H, Calcium 9.5 Micro: Microbiology 09/28/22 14:25 Blood Culture (Wb) - Port Blood Culture - Final No growth in 5 days. 09/28/22 15:50 Blood Culture (Wb) - Anticubital Right Blood Culture - Final No growth in 5 days. 09/29/22 15:38 Sputum, Induced/Lukens Gram Stain - Final 09/29/22 15:38 Sputum, Induced/Lukens Respiratory Culture - Final Mixed normal respiratory elyssa. No Streptococcus pneumoniae, beta-hemolytic Streptococcus or Staphylococcus aureus isolated. 09/28/22 14:20 Sputum, Induced/Lukens Gram Stain - Final 09/28/22 14:20 Sputum, Induced/Lukens Respiratory Culture - Final 09/28/22 15:05 Urine Catheter - Catheter Urine Culture - Final Culture exhibits no growth. 10/01/22 08:00 Stool Stool Occult Blood (NIKITA) - Final Occult Blood Positive 09/28/22 15:05 Urine Catheter - Catheter Legionella Antigen - Final 09/28/22 15:05 Urine Catheter - Catheter Streptococcus pneumoniae Antigen (M - Final 09/28/22 14:20 Mucosa - Nose - Final 09/28/22 15:52 Nasal Secretion SARS-CoV-2 Antigen (Rapid) - Final Physical Exam Narrative Patient remains unsedated and not restrained Const Constitutional Narrative: Patient not following commands. No purposeful movements noted. Morbidly obese. Good vent synchrony. General Appearance: patient mechanically ventilated HEENT head/scalp atraumatic and moist oral mucous membranes Eyes conjunctivae normal Eyes Narrative: Pupils are at 3 mm and minimally reactive to light. Corneal reflex present Neck supple and no JVD Resp normal respiratory effort, no retractions, no use of accessory muscles and clear to auscultation bilaterally Resp Narrative: Patient currently on spontaneous mode and tolerating well. Tidal volumes approximately 400. Cardio regular rate, regular rhythm, S1 normal heart sound, S2 normal heart sound, no murmurs, no rub and no gallops GI normal to inspection, nondistended, normoactive bowel sounds Extremity Extremity Narrative: Anasarca noted General Extremity: edema; Negative for clubbing Neuro Neuro Narrative: Positive cough and gag reflexes. Pupils minimally responsive. Patient with positive Babinski and moves all extremities to stimulus. Psych Psych Narrative: Nonresponsive. Charges/Coding Visit Charges Inpatient E&M: 32658 Subs Hosp L3
[2022-10-06] MEDS: Vital High Protein 1,000 ML 70 ML GT ×2 (08:34→21:08)
[2022-10-06] MEDS: Chlorhexidine 15 ML PO ×2 (08:34→21:00)
[2022-10-06] MEDS: Famotidine 20 MG Tablet GT ×2 (08:35→21:01)
[2022-10-06] MEDS: Menthol/Lanolin/Calamine/Znox 113 GM Tube 1 APPLIC TOPICAL ×4 (08:35→21:01)
[2022-10-06] MEDS: Furosemide 40 MG/4 ML Vial IV ×2 (08:36→16:58)
[2022-10-06] MEDS: 0.9% Saline Lock 10 ML Syringe IV ×2 (08:39→16:58)
--- NOTE | 2022-10-06 09:58 | PN.HOSP_ITS ---
Reason for Visit Reason for Visit: Diagnoses Obesity, unspecified (09/28/22) Acidosis, unspecified (09/28/22) Other generalized epilepsy and epileptic syndromes, not intractable, without status epilepticus (09/28/22) Obstructive sleep apnea (adult) (pediatric) (09/28/22) Anoxic brain damage, not elsewhere classified (09/28/22) Metabolic encephalopathy (09/28/22) Cardiac arrest, cause unspecified (09/28/22) Hypotension, unspecified (09/28/22) Acute respiratory failure with hypoxia (09/28/22) Respiratory failure, unspecified, unspecified whether with hypoxia or hypercapnia (09/28/22) Bradycardia, unspecified (09/28/22) Cardiogenic shock (09/28/22) Shock, unspecified (09/28/22) Dependence on respirator [ventilator] status (09/28/22) Subjective Subjective Patient was seen and examined today, he remains on the ventilator but he is not sedated, he does not respond to painful stimuli to this examiner or verbal stimuli. Patient's daughter stated that he squeezed her hand yesterday and he also opened his eyes. Chemistry panel today was remarkable for a BUN of 43 and a glucose of 131. Objective Data Objective Data Vital Signs: Vital Signs Temp Pulse Resp BP Pulse Ox O2 Del Method O2 Flow Rate 100.1 F H 68 21 H 130/74 H 99 Mechanical Ventilator 15 10/06/22 08:00 10/06/22 09:00 10/06/22 09:00 10/06/22 09:00 10/06/22 09:00 10/06/22 09:00 09/28/22 08:56 FiO2 21 10/06/22 09:00 Oxygen Flow Rate (L/min) 15 Oxygen Delivery Method Mechanical Ventilator Weight: 136.7 kg Body Mass Index (BMI) 43.1 Intake & Output: Intake and Output for Last 24 Hours 10/04/22 10/05/22 10/06/22 23:59 23:59 23:59 Intake Total 1345 / 1420 2417.17 / 2627.17 1435 / 1435 Output Total 3175 / 3550 4430 / 4630 200 / 200 Balance -1830 / -2129 / 1235 / 1235 Lab / Micro Data Result Diagrams: 10/05/22 03:00 10/06/22 04:30 Labs: Laboratory Results - last 24 hr 10/06/22 04:30: Sodium 142, Potassium 4.1, Chloride 112 H, Carbon Dioxide 27.0, Anion Gap 3 L, BUN 43 H, Creatinine 0.76, Estim Creat Clear Calc 64.60, Est GFR (MDRD) Af Amer 130, Est GFR (MDRD) Non-Af 107, BUN/Creatinine Ratio 56.7 H, Glu cose 131 H, Calcium 9.5 Micro: Microbiology 09/28/22 14:25 Blood Culture (Wb) - Port Blood Culture - Final No growth in 5 days. 09/28/22 15:50 Blood Culture (Wb) - Anticubital Right Blood Culture - Final No growth in 5 days. 09/29/22 15:38 Sputum, Induced/Lukens Gram Stain - Final 09/29/22 15:38 Sputum, Induced/Lukens Respiratory Culture - Final Mixed normal respiratory elyssa. No Streptococcus pneumoniae, beta-hemolytic Streptococcus or Staphylococcus aureus isolated. 09/28/22 14:20 Sputum, Induced/Lukens Gram Stain - Final 09/28/22 14:20 Sputum, Induced/Lukens Respiratory Culture - Final 09/28/22 15:05 Urine Catheter - Catheter Urine Culture - Final Culture exhibits no growth. 10/01/22 08:00 Stool Stool Occult Blood (NIKITA) - Final Occult Blood Positive 09/28/22 15:05 Urine Catheter - Catheter Legionella Antigen - Final 09/28/22 15:05 Urine Catheter - Catheter Streptococcus pneumoniae Antigen (M - Final 09/28/22 14:20 Mucosa - Nose - Final 09/28/22 15:52 Nasal Secretion SARS-CoV-2 Antigen (Rapid) - Final Physical Exam Narrative Constitutional Narrative: Patient is on the ventilator, he is under no sedation HEENT head/scalp atraumatic Head and Scalp: normocephalic Eyes conjunctivae normal Eyes Narrative: Pupils are reactive to light Neck no JVD Resp normal respiratory effort, no retractions, no use of accessory muscles and clear to auscultation bilaterally Cardio regular rate, regular rhythm, S1 normal heart sound, S2 normal heart sound and no murmurs GI normal to inspection, nondistended, normoactive bowel sounds Extremity Extremity Narrative: There is some generalized edema of the patient's lower legs bilaterally as well as his arms Neuro Neuro Narrative: Patient is on the ventilator, he does not respond to verbal or painful stimuli Psych Psych Narrative: Patient is currently on the ventilator Assessment & Plan Assessment/Plan (1) On mechanically assisted ventilation: (2) Anoxic brain injury: (3) Acute metabolic encephalopathy: (4) Cardiopulmonary arrest with successful resuscitation: (5) Seizure disorder, grand mal: PLAN: Plan 1. Acute cardiopulmonary arrest with successful resuscitation, etiology of cardiopulmonary arrest unknown at this time-patient appears to have suffered anoxic brain injury, an NSE test is pending at this time, family seems to hope the patient will recover from this insult-this examiner is not sure at this time, supportive care will continue to be given to the patient. #2 severe acidosis secondary to cardiopulmonary arrest-this has resolved #3 morbid obesity-complicates care, medical course, recovery, and prognosis #4 acute hypoxic respiratory failure secondary to cardiopulmonary arrest-etiology unclear at this point #5 lactic acidosis-secondary to acute hypoxic respiratory failure #6 hyperglycemia-etiology unclear at this point, labs will be monitored #7 acute shock-cardiogenic versus metabolic or infectious in nature-has resolved at this time the patient is no longer on any pressors #8 [id number] was performed which showed a normal ejection fraction, cardiology is participating in his care #9 seizure disorder-patient currently is on Keppra #10 Anoxic brain injury-complicates care, medical course, recovery, and prognosis #11 hypokalemia-corrected at this time Total clinical time spent by myself addressing patient's medical issues, reviewing all the data, and collaborating with patient's care team: 35 min Charges/Coding Visit Charges Inpatient E&M: 61629 Subs Hosp L2
[2022-10-07] VITALS (32 sets, daily range): BP systolic 103–150; BP diastolic 54–80; PULSE 61–75; RESP 12–38; TEMP 37.5–38.1; O2SAT 94–100
[2022-10-07 03:32] LABS: Anion Gap 4 (5-15); BUN 44 mg/dL (7-18); BUN/Creat Ratio 62.3 RATIO (10-20); Calcium,Total 9.3 mg/dL (8.5-10.1); Chloride 110 mmol/L (98-107); Creatinine, Serum 0.71 mg/dL (0.70-1.30); EST Glomerular Filtration Rate 117 mL/min (>60); Est Glom Filt Rate - Afr Amer 141 mL/min (>60); Glucose 126 mg/dL (74-106); Potassium 3.7 mmol/L (3.5-5.1); Sodium Level 141 mmol/L (136-145)
--- NOTE | 2022-10-07 07:55 | PN.CC_ITS ---
Assessment & Plan Assessment/Plan (1) Cardiopulmonary arrest with successful resuscitation: (2) Acute metabolic encephalopathy: (3) Acute hypoxemic respiratory failure: PLAN: Plan RECOMMENDATIONS: 1. Continue with spontaneous mode of mechanical ventilation throughout the day and assist control overnight. 2. Continue tube feeds as tolerated. 3. Continue appropriate GI prophylaxis. 4. Ongoing goals of care discussion with the patient's family. IMPRESSIONS: 1. Acute metabolic encephalopathy secondary to severe anoxic brain injury The patient presented with PEA cardiac arrest and has developed secondary anoxic brain injury. The patient continues to have cranial nerve reflexes, but MRI is showing herniation. Plan to continue supporting hemodynamics and monitor neuro status. Anticipate no further imaging unless patient has a change in neurologic status. Family is wavering regarding future goals of care. Plan to continue supportive measures and await definitive decisions regarding care management by the patient's family. 2. Cardiopulmonary arrest of unclear etiology The patient presented with PEA arrest with a least 8 minutes down. Echocardiogram shows an EF of 50%. No longer on IV heparin secondary to guaiac positive stools. 3. Morbid obesity/chronic pain syndrome/new onset seizure/CHIVO Complicates care, management, recovery and prognosis. Continue supportive measures as noted above. This note was generated with [employer] dictation software. It may contain incorrect words, spelling, and punctuation that were not noted in checking the note before signing. Subjective Subjective The patient was seen and examined at the bedside this morning. Events from the last 24 hours have been reviewed. The patient is currently afebrile, hemodynamically stable and maintaining appropriate oxygen saturations on assist control mode mechanical ventilation. Today is vent day #10. No overnight issues were identified by the nursing staff. The patient is currently documented to be overall net +5.6 L for the hospitalization. Objective Data Objective Data The patient's most recent lab work, culture data and imaging studies have all been personally reviewed. Vital Signs: Vital Signs Temp Pulse Resp BP Pulse Ox O2 Del Method O2 Flow Rate 100.0 F H 67 20 H 122/63 H 97 Mechanical Ventilator 15 10/07/22 05:00 10/07/22 05:56 10/07/22 05:56 10/07/22 05:56 10/07/22 05:56 10/07/22 05:56 09/28/22 08:56 FiO2 21 10/07/22 05:56 Oxygen Flow Rate (L/min) 15 Oxygen Delivery Method Mechanical Ventilator Weight: 292 lb Body Mass Index (BMI) 43.1 Intake & Output: Intake and Output for Last 24 Hours 10/05/22 10/06/22 10/07/22 23:59 23:59 23:59 Intake Total 2417.17 / 2627.17 2749.67 / 2749.67 150 / 150 Output Total 4430 / 4630 4350 / 4350 Balance - / - -1599.33 / -1599.33 150 / 150 Lab / Micro Data Attestation: I reviewed the patient's lab results. Result Diagrams: 10/05/22 03:00 10/07/22 03:05 Labs: Laboratory Results - last 24 hr 10/07/22 03:05: Sodium 141, Potassium 3.7, Chloride 110 H, Carbon Dioxide 27.0, Anion Gap 4 L, BUN 44 H, Creatinine 0.71, Estim Creat Clear Calc 64.60, Est GFR (MDRD) Af Amer 141, Est GFR (MDRD) Non-Af 117, BUN/Creatinine Ratio 62.3 H, G lucose 126 H, Calcium 9.3 Micro: Microbiology 09/28/22 14:25 Blood Culture (Wb) - Port Blood Culture - Final No growth in 5 days. 09/28/22 15:50 Blood Culture (Wb) - Anticubital Right Blood Culture - Final No growth in 5 days. 09/29/22 15:38 Sputum, Induced/Lukens Gram Stain - Final 09/29/22 15:38 Sputum, Induced/Lukens Respiratory Culture - Final Mixed normal respiratory elyssa. No Streptococcus pneumoniae, beta-hemolytic Streptococcus or Staphylococcus aureus isolated. 09/28/22 14:20 Sputum, Induced/Lukens Gram Stain - Final 09/28/22 14:20 Sputum, Induced/Lukens Respiratory Culture - Final 09/28/22 15:05 Urine Catheter - Catheter Urine Culture - Final Culture exhibits no growth. 10/01/22 08:00 Stool Stool Occult Blood (NIKITA) - Final Occult Blood Positive 09/28/22 15:05 Urine Catheter - Catheter Legionella Antigen - Final 09/28/22 15:05 Urine Catheter - Catheter Streptococcus pneumoniae Antigen (M - Final 09/28/22 14:20 Mucosa - Nose - Final 09/28/22 15:52 Nasal Secretion SARS-CoV-2 Antigen (Rapid) - Final Physical Exam Const Constitutional Narrative: Remains intubated and mechanically ventilated. Tolerating spontaneous mode mechanical ventilation. Remains comatose on the ventilator. HEENT normocephalic and head/scalp atraumatic Mouth: endotracheal tube in place and OG tube in place Eyes PERRL Eyes Narrative: Pinpoint pupils. Neck supple General: trachea midline Chest inspection of chest normal Resp normal respiratory effort Auscultation: Negative for rales, rhonchi or wheezes Cardio regular rate and regular rhythm GI normal to inspection, nondistended, normoactive bowel sounds Extremity Extremity Narrative: Generalized upper and lower extremity edema. Skin no rashes or lesions noted Neuro Neuro Narrative: Comatose on the ventilator. Charges/Coding Visit Charges Inpatient E&M: 40812 [facility] Hosp L3
--- NOTE | 2022-10-07 10:27 | CASEMGMT ---
Social Work Participating in ICU rounds. Patient spouse, present as well as patient daughter, Christina. Dr. Zapata going over current medical status of patient. Dr. Zapata inquired about PEG and TRACH for patient and asking that family make a decision about which way they are leaning. Dr. Zapata requesting the family to discuss if they are considering the PEG or TRECH at all or if they are wanting to wait until Friday to see how patient is doing and then extubate patient to see how he tolerates this. Patient spouse, who is also named Christina states to be unsure. Patient spouse, Christina is the main decision maker as patient does not have a living will or advanced directives per family. Patient daughter, Christina with multiple questions about Medicaid and long-term care options for patient. This social sciences lecturer going over possible options for patientChristina thanked this social sciences lecturer for the information. This social sciences lecturer did offer to bring a medicaid application for patientChristina declining this at this moment and states no, it is fine. Active support and listening provided. Social Work to continue to follow as needed. Yen Ayala MSW, ROSIE
[2022-10-07] MEDS: Famotidine 20 MG Tablet GT ×2 (10:30→20:38)
[2022-10-07] MEDS: CHLORHEXIDINE GLUC 2% CLOTH 1 EACH TOWELETTE TOPICAL (10:31)
[2022-10-07] MEDS: Chlorhexidine 15 ML PO ×2 (10:31→20:36)
[2022-10-07] MEDS: Menthol/Lanolin/Calamine/Znox 113 GM Tube 1 APPLIC TOPICAL ×4 (10:31→20:37)
--- NOTE | 2022-10-07 14:54 | PN.HOSP_ITS ---
Reason for Visit Reason for Visit: Diagnoses Obesity, unspecified (09/28/22) Acidosis, unspecified (09/28/22) Other generalized epilepsy and epileptic syndromes, not intractable, without status epilepticus (09/28/22) Obstructive sleep apnea (adult) (pediatric) (09/28/22) Anoxic brain damage, not elsewhere classified (09/28/22) Metabolic encephalopathy (09/28/22) Cardiac arrest, cause unspecified (09/28/22) Hypotension, unspecified (09/28/22) Acute respiratory failure with hypoxia (09/28/22) Respiratory failure, unspecified, unspecified whether with hypoxia or hypercapnia (09/28/22) Bradycardia, unspecified (09/28/22) Cardiogenic shock (09/28/22) Shock, unspecified (09/28/22) Dependence on respirator [ventilator] status (09/28/22) Subjective Subjective Patient seen and examined. He remains intubated, though he was on spontaneous breathing on the ventilator. His daughter was by his bedside. Unable to do review of systems. He remains lethargic. Daughter said she had noted patient was having brief movements, including brief movements of his fingers and sticking out his tongue. He has otherwise remained hemodynamically stable. Objective Data Objective Data Vital Signs: Vital Signs Temp Pulse Resp BP Pulse Ox O2 Del Method O2 Flow Rate 99.9 F H 64 25 H 111/58 L 98 Mechanical Ventilator 15 10/07/22 12:00 10/07/22 12:00 10/07/22 12:00 10/07/22 12:00 10/07/22 12:00 10/07/22 12:30 09/28/22 08:56 FiO2 21 10/07/22 12:30 Oxygen Flow Rate (L/min) 15 Oxygen Delivery Method Mechanical Ventilator Weight: 292 lb Body Mass Index (BMI) 43.1 Intake & Output: Intake and Output for Last 24 Hours 10/05/22 10/06/22 10/07/22 23:59 23:59 23:59 Intake Total 2417.17 / 2627.17 2749.67 / 2749.67 300 / 300 Output Total 4430 / 4630 4350 / 4350 100 / 100 Balance -2011.83 / -2001.83 -1599.33 / -1599.33 200 / 200 Lab / Micro Data Result Diagrams: 10/05/22 03:00 10/07/22 03:05 Labs: Laboratory Results - last 24 hr 10/07/22 03:05: Sodium 141, Potassium 3.7, Chloride 110 H, Carbon Dioxide 27.0, Anion Gap 4 L, BUN 44 H, Creatinine 0.71, Estim Creat Clear Calc 64.60, Est GFR (MDRD) Af Amer 141, Est GFR (MDRD) Non-Af 117, BUN/Creatinine Ratio 62.3 H, Glucose 126 H, Calcium 9.3 Micro: Microbiology 09/28/22 14:25 Blood Culture (Wb) - Port Blood Culture - Final No growth in 5 days. 09/28/22 15:50 Blood Culture (Wb) - Anticubital Right Blood Culture - Final No growth in 5 days. 09/29/22 15:38 Sputum, Induced/Lukens Gram Stain - Final 09/29/22 15:38 Sputum, Induced/Lukens Respiratory Culture - Final Mixed normal respiratory elyssa. No Streptococcus pneumoniae, beta-hemolytic Streptococcus or Staphylococcus aureus isolated. 09/28/22 14:20 Sputum, Induced/Lukens Gram Stain - Final 09/28/22 14:20 Sputum, Induced/Lukens Respiratory Culture - Final 09/28/22 15:05 Urine Catheter - Catheter Urine Culture - Final Culture exhibits no growth. 10/01/22 08:00 Stool Stool Occult Blood (NIKITA) - Final Occult Blood Positive 09/28/22 15:05 Urine Catheter - Catheter Legionella Antigen - Final 09/28/22 15:05 Urine Catheter - Catheter Streptococcus pneumoniae Antigen (M - Final 09/28/22 14:20 Mucosa - Nose - Final 09/28/22 15:52 Nasal Secretion SARS-CoV-2 Antigen (Rapid) - Final Physical Exam Const Constitutional Narrative: intubated, RASS score is -4 HEENT head/scalp atraumatic and moist oral mucous membranes Head and Scalp: normocephalic Mouth: oral and palatal mucosa normal Eyes PERRL, EOMs intact bilaterally and conjunctivae normal Neck no lymphadenopathy and supple Resp Resp Narrative: intubated, diminished breath sounds bibasally, no wheezes or crackles. Cardio regular rate, regular rhythm, S1 normal heart sound, S2 normal heart sound and no murmurs GI normal to inspection, nondistended, normoactive bowel sounds, soft to palpation and non-tender Extremity normal to inspection and no clubbing, cyanosis or edema Neuro Neuro Narrative: intubated,not sedated. RASS score is -4. Assessment & Plan Assessment/Plan (1) Anoxic brain injury: (2) Seizure disorder, grand mal: (3) Acute metabolic encephalopathy: (4) Cardiopulmonary arrest with successful resuscitation: (5) On mechanically assisted ventilation: PLAN: Plan #Acute cardiopulmonary arrest with resultant anoxic brain injury * patient was admitted with acute cardiopulmonary arrest; he was down for several minutes and was successfully resuscitated * troponins were markedly elevated. * has had resultant anoxic brain injury. * intubated * critical care on board * #Acute hypoxic respiratory failure due to cardiopulmonary arrest * remains intubated. On ventilator; currently on spontaneous mode of mechanical ventilation during the day and assist control at night. * critical care on board * titrate oxygen to maintain sats >90% * breathing treatment with bronchodilators. * family still deciding about Tracheostomy * #Acute metabolic encephalopathy due to severe anoxic brain injury: * As above * MRI of the brain showed herniation though he still has some cranial reflexes. * on keppra. * will monitor neurologic status * #Severe metabolic acidosis: likely due to acute cardiopulmonary arrest. Resovled. #Nonstemi * Troponins were markedly elevated. 2D echo done showed normal EF. Will benefit from cardiac cath once he becomes stable. * #Seizure disorder: On Keppra #Nutrition: on tube feeds. Family still deciding about PEG tube. Currently on tube feeds. #Morbid obesity: complicates acute care, expected recovery and prognosis DVT prophylaxis; lovenox GI prophylaxis; PPI Total time spent on seeing patient, reviewing chart, evaluation and management and documentation: 55 minutes. Charges/Coding Visit Charges Inpatient E&M: 80213 Subs Hosp L3
[2022-10-07] MEDS: Vital High Protein 1,000 ML 70 ML GT (16:23)
[2022-10-08] VITALS (32 sets, daily range): BP systolic 96–144; BP diastolic 51–83; PULSE 57–74; RESP 6–25; TEMP 37.5–37.8; O2SAT 95–100; BMI 43.0
[2022-10-08 05:16] LABS: Absolute Neutrophil Count 9.3 X10^3/uL (2.0-7.7); Basophil# 0.01 X10^3/uL; Basophil% 0.1 % (0-1); Eosinophil# 0.17 X10^3/uL; Eosinophils% 1.5 % (0-5); Hematocrit 30.8 % (40-54); Hemoglobin 9.9 g/dL (13.0-16.5); Lymphocyte % 11.9 % (19-41); Mean Corp Hgb Conc 32.1 g/dL (32-36); Mean Corpuscular Volume 96.6 fL (80-94); Mean Platelet Vol. 10.3 fl (6.2-12.0); Monocyte# 0.75 X10^3/uL; Monocyte% 6.4 % (0-10); NRBC Flagged by Analyzer 0 % (0-5); Neutrophil # 9.33 X10^3/uL (2.7-7.7); Neutrophil % 79.6 % (47-70); Platelet Count 275 K/mm3 (150-450); RBC Distribution Width CV 13.8 % (11.6-14.6); RBC Distribution Width SD 48.9 fl (35.1-43.9); Red Blood Count 3.19 M/mm3 (4.6-6.2); White Blood Count 11.7 K/mm3 (4.4-11.0)
[2022-10-08 05:29] LABS: Anion Gap 3 (5-15); BUN 41 mg/dL (7-18); BUN/Creat Ratio 67.1 RATIO (10-20); Calcium,Total 9.3 mg/dL (8.5-10.1); Chloride 110 mmol/L (98-107); Creatinine, Serum 0.61 mg/dL (0.70-1.30); EST Glomerular Filtration Rate 138 mL/min (>60); Est Glom Filt Rate - Afr Amer 167 mL/min (>60); Glucose 130 mg/dL (74-106); Potassium 3.7 mmol/L (3.5-5.1); Sodium Level 140 mmol/L (136-145)
--- NOTE | 2022-10-08 06:03 | PCM.PN.INT ---
Assessment & Plan Assessment/Plan (1) Cardiopulmonary arrest with successful resuscitation: (2) Acute metabolic encephalopathy: (3) Acute hypoxemic respiratory failure: PLAN: Plan RECOMMENDATIONS: 1. Continue with spontaneous mode of mechanical ventilation throughout the day and assist control overnight. 2. Continue tube feeds as tolerated. 3. Continue appropriate GI prophylaxis. 4. Ongoing goals of care discussion with the patient's family. IMPRESSIONS: 1. Acute metabolic encephalopathy secondary to severe anoxic brain injury The patient presented with PEA cardiac arrest and has developed secondary anoxic brain injury. The patient continues to have cranial nerve reflexes, but MRI is showing herniation. Plan to continue supporting hemodynamics and monitor neuro status. Anticipate no further imaging unless patient has a change in neurologic status. Family is wavering regarding future goals of care. Plan to continue supportive measures and await definitive decisions regarding care management by the patient's family. 2. Cardiopulmonary arrest of unclear etiology The patient presented with PEA arrest with a least 8 minutes down. Echocardiogram shows an EF of 50%. No longer on IV heparin secondary to guaiac positive stools. 3. Morbid obesity/chronic pain syndrome/new onset seizure/CHIVO Complicates care, management, recovery and prognosis. Continue supportive measures as noted above. This note was generated with [employer] dictation software. It may contain incorrect words, spelling, and punctuation that were not noted in checking the note before signing. Subjective Subjective The patient was seen and examined at the bedside this morning. Events from the last 24 hours have been reviewed. The patient has a low-grade fever but remains otherwise hemodynamically stable on assist control mode of mechanical ventilation with an FiO2 requirement of 21%. The patient is documented to be overall net +6.2 L for the hospitalization. Morning labs remain stable. There has been no interval change in the patient's neurologic status. Objective Data Objective Data The patient's most recent lab work, culture data and imaging studies have all been personally reviewed. Vital Signs: Vital Signs Temp Pulse Resp BP Pulse Ox O2 Del Method O2 Flow Rate 99.9 F H 63 25 H 116/51 L 97 Mechanical Ventilator 10/08/22 05:00 10/08/22 05:07 10/08/22 05:07 10/08/22 05:00 10/08/22 05:07 10/08/22 05:00 09/28/22 08:56 FiO2 10/08/22 01:40 Oxygen Flow Rate (L/min) 15 Oxygen Delivery Method Mechanical Ventilator Weight: 290 lb 12.8 oz Body Mass Index (BMI) 43.0 Intake & Output: Intake and Output for Last 24 Hours 10/06/22 10/07/22 10/08/22 23:59 23:59 23:59 Intake Total 2749.67 / 2749.67 1575 / 1715 215 / 215 Output Total 4350 / 4350 1100 / 1100 Balance -1600.33 / -1600.33 475 / 615 215 / 215 Lab / Micro Data Attestation: I reviewed the patient's lab results. Result Diagrams: 10/08/22 05:03 10/08/22 05:03 Labs: Laboratory Results - last 24 hr 10/08/22 05:03: Sodium 140, Potassium 3.7, Chloride 110 H, Carbon Dioxide 27.0, Anion Gap 3 L, BUN 41 H, Creatinine 0.61 L, Estim Creat Clear Calc 64.60, Est GFR (MDRD) Af Amer 167, Est GFR (MDRD) Non-Af 138, BUN/Creatinine Ratio 67.1 H, Glucose 130 H, Calcium 9.3 10/08/22 05:03: WBC 11.7 H, RBC 3.19 L, Hgb 9.9 L, Hct 30.8 L, MCV 96.6 H, MCH 31.0, MCHC 32.1, RDW Std Deviation 48.9 H, RDW Coeff of Kiara 13.8, Plt Count 275, MPV 10.3, Immature Gran % (Auto) 0.500, Neut % (Auto) 79.6 H, Lymph % (Auto) 11.9 L, [place] % (Auto) 6.4, Eos % (Auto) 1.5, Baso % (Auto) 0.1, Absolute Neuts (auto) 9.3 H, Absolute Lymphs (auto) 1.40, Nucleated RBC % 0 Micro: Microbiology 09/28/22 14:25 Blood Culture (Wb) - Port Blood Culture - Final No growth in 5 days. 09/28/22 15:50 Blood Culture (Wb) - Anticubital Right Blood Culture - Final No growth in 5 days. 09/29/22 15:38 Sputum, Induced/Lukens Gram Stain - Final 09/29/22 15:38 Sputum, Induced/Lukens Respiratory Culture - Final Mixed normal respiratory elyssa. No Streptococcus pneumoniae, beta-hemolytic Streptococcus or Staphylococcus aureus isolated. 09/28/22 14:20 Sputum, Induced/Lukens Gram Stain - Final 09/28/22 14:20 Sputum, Induced/Lukens Respiratory Culture - Final 09/28/22 15:05 Urine Catheter - Catheter Urine Culture - Final Culture exhibits no growth. 10/01/22 08:00 Stool Stool Occult Blood (NIKITA) - Final Occult Blood Positive 09/28/22 15:05 Urine Catheter - Catheter Legionella Antigen - Final 09/28/22 15:05 Urine Catheter - Catheter Streptococcus pneumoniae Antigen (M - Final 09/28/22 14:20 Mucosa - Nose - Final 09/28/22 15:52 Nasal Secretion SARS-CoV-2 Antigen (Rapid) - Final Physical Exam Const Constitutional Narrative: Remains intubated and mechanically ventilated. Tolerating spontaneous mode mechanical ventilation. Remains comatose on the ventilator. HEENT normocephalic and head/scalp atraumatic Mouth: endotracheal tube in place and OG tube in place Eyes PERRL Eyes Narrative: Pinpoint pupils. Neck supple General: trachea midline Chest inspection of chest normal Resp normal respiratory effort Auscultation: Negative for rales, rhonchi or wheezes Cardio regular rate and regular rhythm GI normal to inspection, nondistended, normoactive bowel sounds Extremity Extremity Narrative: Generalized upper and lower extremity edema. Skin no rashes or lesions noted Neuro Neuro Narrative: Comatose on the ventilator. Charges/Coding Visit Charges Inpatient E&M: 99008 [facility] Hosp L3
[2022-10-08] MEDS: Vital High Protein 1,000 ML 70 ML GT ×2 (07:54→21:08)
[2022-10-08] MEDS: Menthol/Lanolin/Calamine/Znox 113 GM Tube 1 APPLIC TOPICAL ×4 (07:55→21:07)
[2022-10-08] MEDS: Chlorhexidine 15 ML PO ×2 (07:55→21:05)
[2022-10-08] MEDS: CHLORHEXIDINE GLUC 2% CLOTH 1 EACH TOWELETTE TOPICAL (07:55)
[2022-10-08] MEDS: Famotidine 20 MG Tablet GT ×2 (07:55→21:06)
--- NOTE | 2022-10-08 11:03 | CASEMGMT ---
Social Work Patient daughter, Christina request that this social welfare administrator contact patient son, Dominic ([phone]) to update on Medicaid process. Telephone call to Dominic. Dominic remembering this social welfare administrator from prior interactions. This social welfare administrator broached conversation about Medicaid process per Christina's request. Dominic thanked this social welfare administrator for the information. Dominic then broached conversation about decision making for patient. Dominic states to believe that patient would not want a PEG/Trach or a chcf stay. Dominic states my dad would not want any further treatment. Dominic states to have wanted to give patient until Friday to see how he does but to have not wanted a PEG or Trach or patient. This social welfare administrator voiced understanding. Dominic then request for this social welfare administrator to contact patient other son, Azar ([phone]) to inquire about wishes as I don't want my sister to think I am putting words in his mouth. This social welfare administrator states to be able to contact Azar to touch base as time allows later today. Dominic thanked this social welfare administrator. Dominic states plan to be back in town tomorrow and present at ICU rounds. Dominic states that Azar will also be present as ICU rounds in the morning and back in town. This social welfare administrator updated Dr. Zapata on above information. PLAN: TBD Social Work to continue to follow. Yen GOODWIN, ROSIE
--- NOTE | 2022-10-08 14:19 | PN.HOSP_ITS ---
Reason for Visit Reason for Visit: Diagnoses Obesity, unspecified (09/28/22) Acidosis, unspecified (09/28/22) Other generalized epilepsy and epileptic syndromes, not intractable, without status epilepticus (09/28/22) Obstructive sleep apnea (adult) (pediatric) (09/28/22) Anoxic brain damage, not elsewhere classified (09/28/22) Metabolic encephalopathy (09/28/22) Cardiac arrest, cause unspecified (09/28/22) Hypotension, unspecified (09/28/22) Acute respiratory failure with hypoxia (09/28/22) Respiratory failure, unspecified, unspecified whether with hypoxia or hypercapnia (09/28/22) Bradycardia, unspecified (09/28/22) Cardiogenic shock (09/28/22) Shock, unspecified (09/28/22) Dependence on respirator [ventilator] status (09/28/22) Subjective Subjective Patient seen and examined. He remains intubated. He is off any sedatives but is completely unresponsive. He does have a mild fever of 99.5 Fahrenheit today. Review of systems otherwise negative. Objective Data Objective Data Vital Signs: Vital Signs Temp Pulse Resp BP Pulse Ox O2 Del Method O2 Flow Rate 99.5 F H 67 21 H 121/71 H 99 Mechanical Ventilator 15 10/08/22 14:00 10/08/22 14:00 10/08/22 14:00 10/08/22 14:00 10/08/22 14:00 10/08/22 14:00 09/28/22 08:56 FiO2 21 10/08/22 14:00 Oxygen Flow Rate (L/min) 15 Oxygen Delivery Method Mechanical Ventilator Weight: 290 lb 12.8 oz Body Mass Index (BMI) 43.0 Intake & Output: Intake and Output for Last 24 Hours 10/06/22 10/07/22 10/08/22 23:59 23:59 23:59 Intake Total 2749.67 / 2749.67 1575 / 1715 1365 / 1365 Output Total 4350 / 4350 1100 / 1100 900 / 900 Balance -1600.33 / -1600.33 475 / 615 465 / 465 Lab / Micro Data Result Diagrams: 10/08/22 05:03 10/08/22 05:03 Labs: Laboratory Results - last 24 hr 10/08/22 05:03: Sodium 140, Potassium 3.7, Chloride 110 H, Carbon Dioxide 27.0, Anion Gap 3 L, BUN 41 H, Creatinine 0.61 L, Estim Creat Clear Calc 64.60, Est GFR (MDRD) Af Amer 167, Est GFR (MDRD) Non-Af 138, BUN/Creatinine Ratio 67.1 H, Glucose 130 H, Calcium 9.3 10/08/22 05:03: WBC 11.7 H, RBC 3.19 L, Hgb 9.9 L, Hct 30.8 L, MCV 96.6 H, MCH 31.0, MCHC 32.1, RDW Std Deviation 48.9 H, RDW Coeff of Kiara 13.8, Plt Count 275, MPV 10.3, Immature Gran % (Auto) 0.500, Neut % (Auto) 79.6 H, Lymph % (Auto) 11.9 L, [place] % (Auto) 6.4, Eos % (Auto) 1.5, Baso % (Auto) 0.1, Absolute Neuts (auto) 9.3 H, Absolute Lymphs (auto) 1.40, Nucleated RBC % 0 Micro: Microbiology 09/28/22 14:25 Blood Culture (Wb) - Port Blood Culture - Final No growth in 5 days. 09/28/22 15:50 Blood Culture (Wb) - Anticubital Right Blood Culture - Final No growth in 5 days. 09/29/22 15:38 Sputum, Induced/Lukens Gram Stain - Final 09/29/22 15:38 Sputum, Induced/Lukens Respiratory Culture - Final Mixed normal respiratory elysas. No Streptococcus pneumoniae, beta-hemolytic Streptococcus or Staphylococcus aureus isolated. 09/28/22 14:20 Sputum, Induced/Lukens Gram Stain - Final 09/28/22 14:20 Sputum, Induced/Lukens Respiratory Culture - Final 09/28/22 15:05 Urine Catheter - Catheter Urine Culture - Final Culture exhibits no growth. 10/01/22 08:00 Stool Stool Occult Blood (NIKITA) - Final Occult Blood Positive 09/28/22 15:05 Urine Catheter - Catheter Legionella Antigen - Final 09/28/22 15:05 Urine Catheter - Catheter Streptococcus pneumoniae Antigen (M - Final 09/28/22 14:20 Mucosa - Nose - Final 09/28/22 15:52 Nasal Secretion SARS-CoV-2 Antigen (Rapid) - Final Physical Exam Const Constitutional Narrative: intubated, RASS score is -4 even off sedatives HEENT normocephalic, head/scalp atraumatic and moist oral mucous membranes Head and Scalp: normocephalic Eyes PERRL, EOMs intact bilaterally and conjunctivae normal Neck no lymphadenopathy, supple, no JVD and no carotid bruits Resp Resp Narrative: intubated, diminished breath sounds bibasally, no wheezes or crackles. Cardio regular rate, regular rhythm, S1 normal heart sound, S2 normal heart sound, no murmurs and no gallops GI normal to inspection, nondistended, normoactive bowel sounds, soft to palpation and non-tender GI Narrative: Abdomen is somewhat distended Extremity normal to inspection and no clubbing, cyanosis or edema Neuro Neuro Narrative: intubated,not sedated. RASS score is -4. Psych Psych Narrative: patient unresponsive, on ventilator. Assessment & Plan Assessment/Plan (1) Anoxic brain injury: (2) Seizure disorder, grand mal: (3) Acute metabolic encephalopathy: (4) Cardiopulmonary arrest with successful resuscitation: (5) On mechanically assisted ventilation: PLAN: Plan #Acute cardiopulmonary arrest with resultant anoxic brain injury * patient was admitted with acute cardiopulmonary arrest; he was down for several minutes and was successfully resuscitated * troponins were markedly elevated. * has had resultant anoxic brain injury. * intubated * critical care on board * #Acute hypoxic respiratory failure due to cardiopulmonary arrest * remains intubated. On ventilator; currently on spontaneous mode of mechanical ventilation during the day and assist control at night. * critical care on board * titrate oxygen to maintain sats >90% * breathing treatment with bronchodilators. * family still deciding about Tracheostomy * #Acute metabolic encephalopathy due to severe anoxic brain injury: * As above * MRI of the brain showed herniation though he still has some cranial reflexes. * on keppra. * will monitor neurologic status * #Severe metabolic acidosis: likely due to acute cardiopulmonary arrest. Resovled. #Nonstemi * Troponins were markedly elevated. 2D echo done showed normal EF. Will benefit from cardiac cath once he becomes stable. * #Seizure disorder: On Keppra #Nutrition: on tube feeds. Family still deciding about PEG tube. Currently on tube feeds. #Morbid obesity: complicates acute care, expected recovery and prognosis DVT prophylaxis; lovenox GI prophylaxis; PPI Total time spent on seeing patient, reviewing chart, evaluation and management and documentation: 45 minutes. Charges/Coding Visit Charges Inpatient E&M: 87105 Subs Hosp L3
[2022-10-08] MEDS: NYSTATIN 500,000 UNIT/5 ML UDC 500000 UNIT PO ×2 (16:13→21:08)
--- NOTE | 2022-10-08 16:17 | CASEMGMT ---
Social Work Telephone call to patient son, Azar ([phone]). Azar remembering this social media marketing analyst from prior conversations. This social media marketing analyst updated Azar on CLAUDIA process per pt daughterChristina and Dominic's request, Azar voiced understanding. Azar reports plan to come and see patient today to be able to better inform my decision. Azar reports to be unsure where Azar stands on plan of care for patient. Azar plans to speak with pt spouse and pt sister further and attend ICU rounds tomorrow. This social media marketing analyst then met with patient daughterChristina in room with patient and provided CLAUDIA application and encouraged Christina to complete if decision is for PEG/Trach as possible need for CLAUDIA to cover fpc stay if patient does not meet a skilled needs. Christina thanked this social media marketing analyst. Social Work to continue to follow. Yen GOODWIN, ROSIE
[2022-10-08] MEDS: 0.9% Saline Lock 10 ML Syringe IV (21:08)
[2022-10-09] VITALS (32 sets, daily range): BP systolic 98–141; BP diastolic 53–77; PULSE 60–78; RESP 12–36; TEMP 37.4–43.5; O2SAT 95–100; BMI 43.0
[2022-10-09 04:31] LABS: Absolute Lymphocyte Count 1.82 X10^3/uL (0.83-4.51); Absolute Neutrophil Count 10.1 X10^3/uL (2.0-7.7); Basophil# 0.02 X10^3/uL; Basophil% 0.2 % (0-1); Eosinophil# 0.14 X10^3/uL; Eosinophils% 1.1 % (0-5); Hematocrit 32.7 % (40-54); Hemoglobin 10.3 g/dL (13.0-16.5); Lymphocyte # 1.82 X10^3/ul (0.83-4.51); Lymphocyte % 14.1 % (19-41); Mean Corp Hgb Conc 31.5 g/dL (32-36); Mean Corpuscular Hgb 30.1 pg (27.0-32.0); Mean Corpuscular Volume 95.6 fL (80-94); Mean Platelet Vol. 10.1 fl (6.2-12.0); Monocyte# 0.78 X10^3/uL; NRBC Flagged by Analyzer 0 % (0-5); Neutrophil % 78.3 % (47-70); Platelet Count 320 K/mm3 (150-450); RBC Distribution Width CV 13.8 % (11.6-14.6); RBC Distribution Width SD 48.4 fl (35.1-43.9); Red Blood Count 3.42 M/mm3 (4.6-6.2); White Blood Count 12.9 K/mm3 (4.4-11.0)
[2022-10-09 04:45] LABS: Anion Gap 5 (5-15); BUN 42 mg/dL (7-18); BUN/Creat Ratio 70.4 RATIO (10-20); Calcium,Total 9.5 mg/dL (8.5-10.1); Chloride 110 mmol/L (98-107); EST Glomerular Filtration Rate 142 mL/min (>60); Est Glom Filt Rate - Afr Amer 171 mL/min (>60); Glucose 132 mg/dL (74-106); Potassium 3.8 mmol/L (3.5-5.1); Sodium Level 141 mmol/L (136-145)
--- NOTE | 2022-10-09 07:20 | PN.CC_ITS ---
Assessment & Plan Assessment/Plan (1) Cardiopulmonary arrest with successful resuscitation: (2) Acute metabolic encephalopathy: (3) Acute hypoxemic respiratory failure: PLAN: Plan RECOMMENDATIONS: 1. Continue with spontaneous mode of mechanical ventilation throughout the day and assist control overnight. 2. Continue tube feeds as tolerated. 3. Continue appropriate GI prophylaxis. 4. Ongoing goals of care discussion with the patient's family. IMPRESSIONS: 1. Acute metabolic encephalopathy secondary to severe anoxic brain injury The patient presented with PEA cardiac arrest and has developed secondary anoxic brain injury. The patient continues to have cranial nerve reflexes, but MRI is showing herniation. Plan to continue supporting hemodynamics and monitor neuro status. Anticipate no further imaging unless patient has a change in neurologic status. Family is wavering regarding future goals of care. Plan to continue supportive measures and await definitive decisions regarding care management by the patient's family. 2. Cardiopulmonary arrest of unclear etiology The patient presented with PEA arrest with a least 8 minutes down. Echocardiogram shows an EF of 50%. No longer on IV heparin secondary to guaiac positive stools. 3. Morbid obesity/chronic pain syndrome/new onset seizure/CHIVO Complicates care, management, recovery and prognosis. Continue supportive measures as noted above. This note was generated with [employer] dictation software. It may contain incorrect words, spelling, and punctuation that were not noted in checking the note before signing. Subjective Subjective The patient was seen and examined at the bedside this morning. Events from the last 24 hours have been reviewed. The patient continues to have a low-grade fever, but again remains otherwise hemodynamically stable on spontaneous mode of mechanical ventilation with an FiO2 requirement of 21%. The patient is documented to be overall net +7.5 L for the hospitalization. Morning labs remain stable. There has been no interval change in the patient's neurologic status. I spoke with the patient's sons this morning, who indicated that the family is still contemplating what to do with regard to the patient's future goals of care. Objective Data Objective Data The patient's most recent lab work, culture data and imaging studies have all been personally reviewed. Vital Signs: Vital Signs Temp Pulse Resp BP Pulse Ox O2 Del Method O2 Flow Rate 100.3 F H 69 22 H 124/71 H 99 Mechanical Ventilator 15 10/09/22 04:00 10/09/22 07:00 10/09/22 07:00 10/09/22 07:00 10/09/22 07:00 10/09/22 06:00 09/28/22 08:56 FiO2 21 10/09/22 01:51 Oxygen Flow Rate (L/min) 15 Oxygen Delivery Method Mechanical Ventilator Weight: 290 lb 9.6 oz Body Mass Index (BMI) 43.0 Intake & Output: Intake and Output for Last 24 Hours 10/07/22 10/08/22 10/09/22 23:59 23:59 23:59 Intake Total 1575 / 1715 2426.33 / 2781.33 1075 / 1075 Output Total 1100 / 1100 1300 / 1650 700 / 700 Balance 475 / 615 1126.33 / 1131.33 375 / 375 Lab / Micro Data Attestation: I reviewed the patient's lab results. Result Diagrams: 10/09/22 04:20 10/09/22 04:20 Labs: Laboratory Results - last 24 hr 10/09/22 04:20: Sodium 141, Potassium 3.8, Chloride 110 H, Carbon Dioxide 26.0, Anion Gap 5, BUN 42 H, Creatinine 0.60 L, Estim Creat Clear Calc 64.60, Est GFR (MDRD) Af Amer 171, Est GFR (MDRD) Non-Af 142, BUN/Creatinine Ratio 70.4 H, Glucose 132 H, Calcium 9.5 10/09/22 04:20: WBC 12.9 H, RBC 3.42 L, Hgb 10.3 L, Hct 32.7 L, MCV 95.6 H, MCH 30.1, MCHC 31.5 L, RDW Std Deviation 48.4 H, RDW Coeff of Kiara 13.8, Plt Count 320, MPV 10.1, Immature Gran % (Auto) 0.300, Neut % (Auto) 78.3 H, Lymph % (Auto) 14.1 L, [place] % (Auto) 6.0, Eos % (Auto) 1.1, Baso % (Auto) 0.2, Absolute Neuts (auto) 10.1 H, Absolute Lymphs (auto) 1.82, Nucleated RBC % 0 Micro: Microbiology 09/28/22 14:25 Blood Culture (Wb) - Port Blood Culture - Final No growth in 5 days. 09/28/22 15:50 Blood Culture (Wb) - Anticubital Right Blood Culture - Final No growth in 5 days. 09/29/22 15:38 Sputum, Induced/Lukens Gram Stain - Final 09/29/22 15:38 Sputum, Induced/Lukens Respiratory Culture - Final Mixed normal respiratory elyssa. No Streptococcus pneumoniae, beta-hemolytic Streptococcus or Staphylococcus aureus isolated. 09/28/22 14:20 Sputum, Induced/Lukens Gram Stain - Final 09/28/22 14:20 Sputum, Induced/Lukens Respiratory Culture - Final 09/28/22 15:05 Urine Catheter - Catheter Urine Culture - Final Culture exhibits no growth. 10/01/22 08:00 Stool Stool Occult Blood (NIKITA) - Final Occult Blood Positive 09/28/22 15:05 Urine Catheter - Catheter Legionella Antigen - Final 09/28/22 15:05 Urine Catheter - Catheter Streptococcus pneumoniae Antigen (M - Final 09/28/22 14:20 Mucosa - Nose - Final 09/28/22 15:52 Nasal Secretion SARS-CoV-2 Antigen (Rapid) - Final Physical Exam Const Constitutional Narrative: Remains intubated and mechanically ventilated. Tolerating spontaneous mode mechanical ventilation. Remains comatose on the ventilator. HEENT normocephalic and head/scalp atraumatic Mouth: endotracheal tube in place and OG tube in place Eyes PERRL Eyes Narrative: Eyes are open, but the patient is not currently tracking. Neck supple General: trachea midline Chest inspection of chest normal Resp normal respiratory effort Auscultation: Negative for rales, rhonchi or wheezes Cardio regular rate and regular rhythm GI normal to inspection, nondistended, normoactive bowel sounds Extremity Extremity Narrative: Generalized upper and lower extremity edema. Skin no rashes or lesions noted Neuro Neuro Narrative: Comatose on the ventilator. Charges/Coding Visit Charges Inpatient E&M: 79057 Subs Hosp L2
[2022-10-09] MEDS: CHLORHEXIDINE GLUC 2% CLOTH 1 EACH TOWELETTE TOPICAL (08:01)
[2022-10-09] MEDS: Famotidine 20 MG Tablet GT ×2 (08:02→21:09)
[2022-10-09] MEDS: Menthol/Lanolin/Calamine/Znox 113 GM Tube 1 APPLIC TOPICAL ×4 (08:02→21:08)
[2022-10-09] MEDS: Chlorhexidine 15 ML PO ×2 (08:02→21:08)
[2022-10-09] MEDS: NYSTATIN 500,000 UNIT/5 ML UDC 500000 UNIT PO ×4 (08:02→21:08)
--- NOTE | 2022-10-09 10:01 | CASEMGMT ---
Addendum entered by Shelley Larose 10/09/22 10:10: Social Work SW spoke w/family again outside of the room, they are asking about the patient advocate, they left him a message and haven't heard back. SW explained will check to see if he is here today. SW called warehouse examiner, the patient advocate is here today, she will also check in w/him and let him know family would like to speak w/him. Son asking who is above [facility]--SW explained is not certain, can find out for them. SW inquired the concern. Pt's son states that the hospital doctor is asking every day what they are going to do and they have made it clear that they are not making a decision until Friday. SW explained the pt advocate is definitely the right person for them to speak with in regard to this. Pt's son states if they do not hear back from him in a couple of hours then they will go above his head. SW explained it is anticipated they will hear back from [facility] in a timely manner. SW remains available should family have difficulty getting a hold of the pt advocate, warehouse examiner will also be reaching out to him to follow up w/family. ROSIE Alvarez Original Note: Social Work Physician, bedside RN, SW spoke w/pt's two sons and at the bedside this morning. Physician reviewed what is going on w/pt medically. SW spoke w/family about LTACH and fci options should family decide to have pt get a trach and peg. As per family, they will continue to talk and are still deciding what to do. SW remains available for support and information to family. ROSIE Alvarez LISW-S
[2022-10-09] MEDS: Furosemide 40 MG/4 ML Vial IV (10:35)
[2022-10-09] MEDS: Vital High Protein 1,000 ML 70 ML GT (10:35)
--- NOTE | 2022-10-09 10:41 | PN.HOSP_ITS ---
Reason for Visit Reason for Visit: Diagnoses Obesity, unspecified (09/28/22) Acidosis, unspecified (09/28/22) Other generalized epilepsy and epileptic syndromes, not intractable, without status epilepticus (09/28/22) Obstructive sleep apnea (adult) (pediatric) (09/28/22) Anoxic brain damage, not elsewhere classified (09/28/22) Metabolic encephalopathy (09/28/22) Cardiac arrest, cause unspecified (09/28/22) Hypotension, unspecified (09/28/22) Acute respiratory failure with hypoxia (09/28/22) Respiratory failure, unspecified, unspecified whether with hypoxia or hypercapnia (09/28/22) Bradycardia, unspecified (09/28/22) Cardiogenic shock (09/28/22) Shock, unspecified (09/28/22) Dependence on respirator [ventilator] status (09/28/22) Subjective Subjective Patient seen and examined. and 2 sons were by his bedside. He remains intubated and unresponsive. He did have a mild fever this morning. One of his sons got very antagonistic this morning when this hospitalist sought to inform the family that the patient may not be able to get the trach and PEG on Friday, which is the day they want to make a decision about whether he would have a trach or PEG. Objective Data Objective Data Vital Signs: Vital Signs Temp Pulse Resp BP Pulse Ox O2 Del Method O2 Flow Rate 99.6 F H 69 19 H 107/65 99 Mechanical Ventilator 15 10/09/22 10:00 10/09/22 10:00 10/09/22 10:00 10/09/22 10:00 10/09/22 10:00 10/09/22 10:00 09/28/22 08:56 FiO2 21 10/09/22 10:00 Oxygen Flow Rate (L/min) 15 Oxygen Delivery Method Mechanical Ventilator Weight: 290 lb 9.6 oz Body Mass Index (BMI) 43.0 Intake & Output: Intake and Output for Last 24 Hours 10/07/22 10/08/22 10/09/22 23:59 23:59 23:59 Intake Total 1575 / 1715 2426.33 / 2781.33 2091.5 / 2091.5 Output Total 1100 / 1100 1300 / 1650 700 / 700 Balance 475 / 615 1126.33 / 1131.33 1391.5 / 1391.5 Lab / Micro Data Result Diagrams: 10/09/22 04:20 10/09/22 04:20 Labs: Laboratory Results - last 24 hr 10/09/22 04:20: Sodium 141, Potassium 3.8, Chloride 110 H, Carbon Dioxide 26.0, Anion Gap 5, BUN 42 H, Creatinine 0.60 L, Estim Creat Clear Calc 64.60, Est GFR (MDRD) Af Amer 171, Est GFR (MDRD) Non-Af 142, BUN/Creatinine Ratio 70.4 H, Glucose 132 H, Calcium 9.5 10/09/22 04:20: WBC 12.9 H, RBC 3.42 L, Hgb 10.3 L, Hct 32.7 L, MCV 95.6 H, MCH 30.1, MCHC 31.5 L, RDW Std Deviation 48.4 H, RDW Coeff of Kiara 13.8, Plt Count 320, MPV 10.1, Immature Gran % (Auto) 0.300, Neut % (Auto) 78.3 H, Lymph % (Auto) 14.1 L, [place] % (Auto) 6.0, Eos % (Auto) 1.1, Baso % (Auto) 0.2, Absolute Neuts (auto) 10.1 H, Absolute Lymphs (auto) 1.82, Nucleated RBC % 0 Micro: Microbiology 09/28/22 14:25 Blood Culture (Wb) - Port Blood Culture - Final No growth in 5 days. 09/28/22 15:50 Blood Culture (Wb) - Anticubital Right Blood Culture - Final No growth in 5 days. 09/29/22 15:38 Sputum, Induced/Lukens Gram Stain - Final 09/29/22 15:38 Sputum, Induced/Lukens Respiratory Culture - Final Mixed normal respiratory elyssa. No Streptococcus pneumoniae, beta-hemolytic Streptococcus or Staphylococcus aureus isolated. 09/28/22 14:20 Sputum, Induced/Lukens Gram Stain - Final 09/28/22 14:20 Sputum, Induced/Lukens Respiratory Culture - Final 09/28/22 15:05 Urine Catheter - Catheter Urine Culture - Final Culture exhibits no growth. 10/01/22 08:00 Stool Stool Occult Blood (NIKITA) - Final Occult Blood Positive 09/28/22 15:05 Urine Catheter - Catheter Legionella Antigen - Final 09/28/22 15:05 Urine Catheter - Catheter Streptococcus pneumoniae Antigen (M - Final 09/28/22 14:20 Mucosa - Nose - Final 09/28/22 15:52 Nasal Secretion SARS-CoV-2 Antigen (Rapid) - Final Physical Exam Const Constitutional Narrative: intubated, RASS score remains -4 even off sedatives HEENT normocephalic, head/scalp atraumatic and moist oral mucous membranes Head and Scalp: normocephalic Eyes PERRL, EOMs intact bilaterally and conjunctivae normal Neck no lymphadenopathy, supple, no JVD and no carotid bruits Resp Resp Narrative: intubated, diminished breath sounds bibasally, no wheezes or crackles. Cardio regular rate, regular rhythm, S1 normal heart sound, S2 normal heart sound, no murmurs and no gallops GI normal to inspection, nondistended, normoactive bowel sounds, soft to palpation and non-tender Extremity normal to inspection and no clubbing, cyanosis or edema Neuro Neuro Narrative: intubated,not sedated. RASS score remains -4. Psych Psych Narrative: patient unresponsive, on ventilator. Assessment & Plan Assessment/Plan (1) Anoxic brain injury: (2) Seizure disorder, grand mal: (3) Acute metabolic encephalopathy: (4) Cardiopulmonary arrest with successful resuscitation: (5) On mechanically assisted ventilation: PLAN: Plan #Acute cardiopulmonary arrest with resultant anoxic brain injury * patient was admitted with acute cardiopulmonary arrest; he was down for several minutes and was successfully resuscitated * troponins were markedly elevated. * has had resultant anoxic brain injury. * remains intubated; not on sedatives but is barely responsive. * critical care on board * #Acute hypoxic respiratory failure due to cardiopulmonary arrest * remains intubated. On ventilator; currently on spontaneous mode of mechanical ventilation during the day and assist control at night. * critical care on board * titrate oxygen to maintain sats >90% * breathing treatment with bronchodilators. * family still deciding about Tracheostomy and say they will decide on Friday. * #Acute metabolic encephalopathy due to severe anoxic brain injury: * As above * MRI of the brain showed herniation * on . * will monitor neurologic status. Still remains unresponsive. * #Severe metabolic acidosis: likely due to acute cardiopulmonary arrest. Resovled. #Nonstemi * Troponins were markedly elevated. 2D echo done showed normal EF. Will benefit from cardiac cath once he becomes stable. * #Seizure disorder: On Keppra #Nutrition: on tube feeds. Family still deciding about PEG tube. Currently on tube feeds. Will decide about PEG tube on Friday #Morbid obesity: complicates acute care, expected recovery and prognosis DVT prophylaxis; lovenox GI prophylaxis; PPI Total time spent on seeing patient, reviewing chart, evaluation and management and discussion with patient;s family and nursing staff as well as documentation: 45 minutes. Charges/Coding Visit Charges Inpatient E&M: 36744 [facility] Hosp L3
[2022-10-10] VITALS (34 sets, daily range): BP systolic 93–146; BP diastolic 55–78; PULSE 63–78; RESP 12–37; TEMP 37.4–37.9; O2SAT 91–100; BMI 93.8
[2022-10-10 03:29] LABS: Absolute Lymphocyte Count 2.02 X10^3/uL (0.83-4.51); Absolute Neutrophil Count 10.6 X10^3/uL (2.0-7.7); Basophil# 0.02 X10^3/uL; Basophil% 0.1 % (0-1); Eosinophil# 0.15 X10^3/uL; Eosinophils% 1.1 % (0-5); Hematocrit 33.9 % (40-54); Hemoglobin 10.4 g/dL (13.0-16.5); Lymphocyte # 2.02 X10^3/ul (0.83-4.51); Lymphocyte % 14.7 % (19-41); Mean Corp Hgb Conc 30.7 g/dL (32-36); Mean Corpuscular Hgb 29.3 pg (27.0-32.0); Mean Corpuscular Volume 95.5 fL (80-94); Monocyte# 0.79 X10^3/uL; Monocyte% 5.8 % (0-10); NRBC Flagged by Analyzer 0 % (0-5); Neutrophil # 10.63 X10^3/uL (2.7-7.7); Neutrophil % 77.6 % (47-70); Platelet Count 360 K/mm3 (150-450); RBC Distribution Width CV 13.5 % (11.6-14.6); RBC Distribution Width SD 47.8 fl (35.1-43.9); Red Blood Count 3.55 M/mm3 (4.6-6.2); White Blood Count 13.7 K/mm3 (4.4-11.0)
[2022-10-10 03:56] LABS: Anion Gap 3 (5-15); BUN 43 mg/dL (7-18); BUN/Creat Ratio 73.1 RATIO (10-20); Calcium,Total 9.5 mg/dL (8.5-10.1); Chloride 111 mmol/L (98-107); Creatinine, Serum 0.59 mg/dL (0.70-1.30); EST Glomerular Filtration Rate 144 mL/min (>60); Est Glom Filt Rate - Afr Amer 174 mL/min (>60); Glucose 121 mg/dL (74-106); Potassium 3.7 mmol/L (3.5-5.1); Sodium Level 140 mmol/L (136-145)
[2022-10-10] MEDS: Famotidine 20 MG Tablet GT ×2 (07:55→21:53)
[2022-10-10] MEDS: Chlorhexidine 15 ML PO ×2 (07:55→21:54)
[2022-10-10] MEDS: NYSTATIN 500,000 UNIT/5 ML UDC 500000 UNIT PO ×3 (07:55→16:13)
[2022-10-10] MEDS: Menthol/Lanolin/Calamine/Znox 113 GM Tube 1 APPLIC TOPICAL ×3 (07:57→16:14)
[2022-10-10] MEDS: CHLORHEXIDINE GLUC 2% CLOTH 1 EACH TOWELETTE TOPICAL (07:57)
--- NOTE | 2022-10-10 10:06 | PCM.PN.INT ---
Assessment & Plan Assessment/Plan (1) Cardiopulmonary arrest with successful resuscitation: (2) Acute metabolic encephalopathy: (3) Acute hypoxemic respiratory failure: PLAN: Plan RECOMMENDATIONS: 1. Continue with spontaneous mode of mechanical ventilation throughout the day and assist control overnight. 2. Continue tube feeds as tolerated. 3. Continue appropriate GI prophylaxis. 4. Ongoing goals of care discussion with the patient's family. Definitive decision regarding trach and PEG is supposed to be rendered tomorrow. IMPRESSIONS: 1. Acute metabolic encephalopathy secondary to severe anoxic brain injury The patient presented with PEA cardiac arrest and has developed secondary anoxic brain injury. The patient continues to have cranial nerve reflexes, but MRI is showing herniation. Plan to continue supporting hemodynamics and monitor neuro status. Anticipate no further imaging unless patient has a change in neurologic status. Family is wavering regarding future goals of care. Plan to continue supportive measures and await definitive decisions regarding care management by the patient's family. 2. Cardiopulmonary arrest of unclear etiology The patient presented with PEA arrest with a least 8 minutes down. Echocardiogram shows an EF of 50%. No longer on IV heparin secondary to guaiac positive stools. 3. Morbid obesity/chronic pain syndrome/new onset seizure/CHIVO Complicates care, management, recovery and prognosis. Continue supportive measures as noted above. This note was generated with [employer] dictation software. It may contain incorrect words, spelling, and punctuation that were not noted in checking the note before signing. Subjective Subjective The patient was seen and examined at the bedside this morning. Events from the last 24 hours have been reviewed. The patient is currently afebrile, hemodynamically stable and maintaining appropriate oxygen saturations on assist control mode mechanical ventilation with an FiO2 requirement of 21%. The patient is documented to be overall net +7.2 L for the hospitalization. No interval changes have been noted in the patient's neurologic status. There continues to be internal disagreement within the family about the patient's goals of care. Objective Data Objective Data The patient's most recent lab work, culture data and imaging studies have all been personally reviewed. Vital Signs: Vital Signs Temp Pulse Resp BP Pulse Ox O2 Del Method O2 Flow Rate 99.5 F H 65 24 H 134/56 H 100 Mechanical Ventilator 21 10/10/22 08:00 10/10/22 08:56 10/10/22 08:56 10/10/22 08:00 10/10/22 08:56 10/10/22 08:00 10/10/22 00:00 FiO2 21 10/10/22 08:00 Oxygen Flow Rate (L/min) 21 Oxygen Delivery Method Mechanical Ventilator Weight: 633 lb 6.209 oz Body Mass Index (BMI) 93.8 Intake & Output: Intake and Output for Last 24 Hours 10/08/22 10/09/22 10/10/22 23:59 23:59 23:59 Intake Total 2426.33 / 2781.33 2226.5 / 3315.67 1314.17 / 1314.17 Output Total 1300 / 1650 2600 / 2900 815 / 815 Balance 1126.33 / 1131.33 -373.5 / 415.67 499.17 / 499.17 Lab / Micro Data Attestation: I reviewed the patient's lab results. Result Diagrams: 10/10/22 03:20 10/10/22 03:20 Labs: Laboratory Results - last 24 hr 10/10/22 03:20: WBC 13.7 H, RBC 3.55 L, Hgb 10.4 L, Hct 33.9 L, MCV 95.5 H, MCH 29.3, MCHC 30.7 L, RDW Std Deviation 47.8 H, RDW Coeff of Kiara 13.5, Plt Count 360, MPV 10.0, Immature Gran % (Auto) 0.700, Neut % (Auto) 77.6 H, Lymph % (Auto) 14.7 L, [place] % (Auto) 5.8, Eos % (Auto) 1.1, Baso % (Auto) 0.1, Absolute Neuts (auto) 10.6 H, Absolute Lymphs (auto) 2.02, Nucleated RBC % 0 10/10/22 03:20: Sodium 140, Potassium 3.7, Chloride 111 H, Carbon Dioxide 26.0, Anion Gap 3 L, BUN 43 H, Creatinine 0.59 L, Estim Creat Clear Calc 64.60, Est GFR (MDRD) Af Amer 174, Est GFR (MDRD) Non-Af 144, BUN/Creatinine Ratio 73.1 H, Glucose 121 H, Calcium 9.5 Micro: Microbiology 09/28/22 14:25 Blood Culture (Wb) - Port Blood Culture - Final No growth in 5 days. 09/28/22 15:50 Blood Culture (Wb) - Anticubital Right Blood Culture - Final No growth in 5 days. 09/29/22 15:38 Sputum, Induced/Lukens Gram Stain - Final 09/29/22 15:38 Sputum, Induced/Lukens Respiratory Culture - Final Mixed normal respiratory elyssa. No Streptococcus pneumoniae, beta-hemolytic Streptococcus or Staphylococcus aureus isolated. 09/28/22 14:20 Sputum, Induced/Lukens Gram Stain - Final 09/28/22 14:20 Sputum, Induced/Lukens Respiratory Culture - Final 09/28/22 15:05 Urine Catheter - Catheter Urine Culture - Final Culture exhibits no growth. 10/01/22 08:00 Stool Stool Occult Blood (NIKITA) - Final Occult Blood Positive 09/28/22 15:05 Urine Catheter - Catheter Legionella Antigen - Final 09/28/22 15:05 Urine Catheter - Catheter Streptococcus pneumoniae Antigen (M - Final 09/28/22 14:20 Mucosa - Nose - Final 09/28/22 15:52 Nasal Secretion SARS-CoV-2 Antigen (Rapid) - Final Physical Exam Const Constitutional Narrative: Remains intubated and mechanically ventilated. Tolerating spontaneous mode mechanical ventilation. Remains comatose on the ventilator. HEENT normocephalic and head/scalp atraumatic Mouth: endotracheal tube in place and OG tube in place Eyes PERRL Eyes Narrative: Eyes are open, but the patient is not currently tracking. Neck supple General: trachea midline Chest inspection of chest normal Resp normal respiratory effort Auscultation: Negative for rales, rhonchi or wheezes Cardio regular rate and regular rhythm GI normal to inspection, nondistended, normoactive bowel sounds Extremity Extremity Narrative: Generalized upper and lower extremity edema. Skin no rashes or lesions noted Neuro Neuro Narrative: Comatose on the ventilator. Charges/Coding Visit Charges Inpatient E&M: 77840 Subs Hosp L2
--- NOTE | 2022-10-10 11:05 | PN.HOSP_ITS ---
Reason for Visit Reason for Visit: Diagnoses Obesity, unspecified (09/28/22) Acidosis, unspecified (09/28/22) Other generalized epilepsy and epileptic syndromes, not intractable, without status epilepticus (09/28/22) Obstructive sleep apnea (adult) (pediatric) (09/28/22) Anoxic brain damage, not elsewhere classified (09/28/22) Metabolic encephalopathy (09/28/22) Cardiac arrest, cause unspecified (09/28/22) Hypotension, unspecified (09/28/22) Acute respiratory failure with hypoxia (09/28/22) Respiratory failure, unspecified, unspecified whether with hypoxia or hypercapnia (09/28/22) Bradycardia, unspecified (09/28/22) Cardiogenic shock (09/28/22) Shock, unspecified (09/28/22) Dependence on respirator [ventilator] status (09/28/22) Subjective Subjective Patient seen and examined. His daughter was by his bedside. He remains on the mechanical ventilator, though he is on the spontaneous breathing setting. He is opening his eyes spontaneously today. RASS score is 0. Objective Data Objective Data Vital Signs: Vital Signs Temp Pulse Resp BP Pulse Ox O2 Del Method O2 Flow Rate 99.5 F H 69 24 H 117/78 97 Mechanical Ventilator 21 10/10/22 08:00 10/10/22 10:00 10/10/22 10:00 10/10/22 10:00 10/10/22 10:00 10/10/22 10:00 10/10/22 00:00 FiO2 21 10/10/22 10:00 Oxygen Flow Rate (L/min) 21 Oxygen Delivery Method Mechanical Ventilator Weight: 633 lb 6.209 oz Body Mass Index (BMI) 93.8 Intake & Output: Intake and Output for Last 24 Hours 10/08/22 10/09/22 10/10/22 23:59 23:59 23:59 Intake Total 2426.33 / 2781.33 2226.5 / 3315.67 1314.17 / 1314.17 Output Total 1300 / 1650 2600 / 2900 815 / 815 Balance 1126.33 / 1131.33 -373.5 / 415.67 499.17 / 499.17 Lab / Micro Data Result Diagrams: 10/10/22 03:20 10/10/22 03:20 Labs: Laboratory Results - last 24 hr 10/10/22 03:20: WBC 13.7 H, RBC 3.55 L, Hgb 10.4 L, Hct 33.9 L, MCV 95.5 H, MCH 29.3, MCHC 30.7 L, RDW Std Deviation 47.8 H, RDW Coeff of Kiara 13.5, Plt Count 360, MPV 10.0, Immature Gran % (Auto) 0.700, Neut % (Auto) 77.6 H, Lymph % (Auto) 14.7 L, [place] % (Auto) 5.8, Eos % (Auto) 1.1, Baso % (Auto) 0.1, Absolute Neuts (auto) 10.6 H, Absolute Lymphs (auto) 2.02, Nucleated RBC % 0 10/10/22 03:20: Sodium 140, Potassium 3.7, Chloride 111 H, Carbon Dioxide 26.0, Anion Gap 3 L, BUN 43 H, Creatinine 0.59 L, Estim Creat Clear Calc 64.60, Est GFR (MDRD) Af Amer 174, Est GFR (MDRD) Non-Af 144, BUN/Creatinine Ratio 73.1 H, Glucose 121 H, Calcium 9.5 Micro: Microbiology 09/28/22 14:25 Blood Culture (Wb) - Port Blood Culture - Final No growth in 5 days. 09/28/22 15:50 Blood Culture (Wb) - Anticubital Right Blood Culture - Final No growth in 5 days. 09/29/22 15:38 Sputum, Induced/Lukens Gram Stain - Final 09/29/22 15:38 Sputum, Induced/Lukens Respiratory Culture - Final Mixed normal respiratory elyssa. No Streptococcus pneumoniae, beta-hemolytic Streptococcus or Staphylococcus aureus isolated. 09/28/22 14:20 Sputum, Induced/Lukens Gram Stain - Final 09/28/22 14:20 Sputum, Induced/Lukens Respiratory Culture - Final 09/28/22 15:05 Urine Catheter - Catheter Urine Culture - Final Culture exhibits no growth. 10/01/22 08:00 Stool Stool Occult Blood (NIKITA) - Final Occult Blood Positive 09/28/22 15:05 Urine Catheter - Catheter Legionella Antigen - Final 09/28/22 15:05 Urine Catheter - Catheter Streptococcus pneumoniae Antigen (M - Final 09/28/22 14:20 Mucosa - Nose - Final 09/28/22 15:52 Nasal Secretion SARS-CoV-2 Antigen (Rapid) - Final Physical Exam Const Constitutional Narrative: intubated, RASS score is 0 today; off sedatives HEENT normocephalic, head/scalp atraumatic and moist oral mucous membranes Head and Scalp: normocephalic Mouth: oral and palatal mucosa normal Eyes PERRL, EOMs intact bilaterally and conjunctivae normal Eyes Narrative: Pupils are at 3 mm and minimally reactive to light Neck no lymphadenopathy, supple, no JVD and no carotid bruits Resp Resp Narrative: intubated, diminished breath sounds bibasally, no wheezes or crackles. intubated, on spontaneous breathing mode Cardio regular rate, regular rhythm, S1 normal heart sound, S2 normal heart sound, no murmurs and no gallops GI normal to inspection, nondistended, normoactive bowel sounds, soft to palpation and non-tender Extremity normal to inspection and no clubbing, cyanosis or edema Extremity Narrative: There is some generalized edema of the patient's lower legs bilaterally Neuro Neuro Narrative: intubated,not sedated. RASS score is 0 today. Psych Psych Narrative: patient on the ventilator, RASS score is 0. Assessment & Plan Assessment/Plan (1) Anoxic brain injury: (2) Seizure disorder, grand mal: (3) Acute metabolic encephalopathy: (4) Cardiopulmonary arrest with successful resuscitation: (5) On mechanically assisted ventilation: PLAN: Plan #Acute cardiopulmonary arrest with resultant anoxic brain injury * patient was admitted with acute cardiopulmonary arrest; he was down for several minutes and was successfully resuscitated * troponins were markedly elevated. * has had resultant anoxic brain injury. * remains intubated; not on sedatives. RASS score today is 0. * critical care on board * #Acute hypoxic respiratory failure due to cardiopulmonary arrest * remains intubated. On ventilator; currently on spontaneous mode of mechanical ventilation during the day and assist control at night. * critical care on board * titrate oxygen to maintain sats >90% * breathing treatment with bronchodilators. * family still deciding about Tracheostomy and say they will decide on Friday. * #Acute metabolic encephalopathy due to severe anoxic brain injury: * As above * MRI of the brain showed herniation * on kera. * will monitor neurologic status. opens eyes spontaneously today * #Severe metabolic acidosis: likely due to acute cardiopulmonary arrest. Resolved. #Nonstemi * Troponins were markedly elevated. 2D echo done showed normal EF. Will benefit from cardiac cath once he becomes stable. * #Seizure disorder: On Keppra #Nutrition: on tube feeds. Family still deciding about PEG tube. Currently on tube feeds. Family Will decide about PEG tube on Friday #Morbid obesity: complicates acute care, expected recovery and prognosis DVT prophylaxis; lovenox GI prophylaxis; PPI Total time spent on seeing patient, reviewing chart, evaluation and management and discussion with patient;s family and nursing staff as well as documentation: 42 minutes. Charges/Coding Visit Charges Inpatient E&M: 43919 Subs Hosp L2
[2022-10-10] MEDS: Vital High Protein 1,000 ML 70 ML GT ×2 (16:12)
[2022-10-10] MEDS: 0.9% Saline Lock 10 ML Syringe IV (18:01)
[2022-10-11] VITALS (24 sets, daily range): BP systolic 97–149; BP diastolic 52–74; PULSE 60–79; RESP 12–29; TEMP 37.4–38.4; O2SAT 93–100; BMI 43.0
[2022-10-11] MEDS: NYSTATIN 500,000 UNIT/5 ML UDC 500000 UNIT PO ×2 (01:00→06:23)
[2022-10-11] MEDS: Menthol/Lanolin/Calamine/Znox 113 GM Tube 1 APPLIC TOPICAL ×2 (01:00→06:24)
[2022-10-11] MEDS: Acetaminophen 650 MG/20 ML UDC GT (01:09)
[2022-10-11 04:35] LABS: Absolute Neutrophil Count 12.3 X10^3/uL (2.0-7.7); Basophil# 0.01 X10^3/uL; Basophil% 0.1 % (0-1); Eosinophil# 0.13 X10^3/uL; Eosinophils% 0.9 % (0-5); Hematocrit 33.8 % (40-54); Hemoglobin 10.4 g/dL (13.0-16.5); Lymphocyte % 12.1 % (19-41); Mean Corp Hgb Conc 30.8 g/dL (32-36); Mean Corpuscular Hgb 29.5 pg (27.0-32.0); Mean Platelet Vol. 10.1 fl (6.2-12.0); Monocyte# 0.59 X10^3/uL; NRBC Flagged by Analyzer 0 % (0-5); Neutrophil # 12.25 X10^3/uL (2.7-7.7); Neutrophil % 82.4 % (47-70); Platelet Count 397 K/mm3 (150-450); RBC Distribution Width CV 13.7 % (11.6-14.6); RBC Distribution Width SD 48.5 fl (35.1-43.9); Red Blood Count 3.52 M/mm3 (4.6-6.2); White Blood Count 14.9 K/mm3 (4.4-11.0)
[2022-10-11 05:04] LABS: ALB/GLOB Ratio 0.4 RATIO (0.9-2.4); AST(SGOT) 54 U/L (15-37); Alanine Aminotransfer ALT/SGPT 132 U/L (16-61); Albumin, Serum 1.9 g/dL (3.2-5.0); Alkaline Phosphatase 103 U/L (45-117); Anion Gap 4 (5-15); BUN 43 mg/dL (7-18); BUN/Creat Ratio 67.3 RATIO (10-20); Calcium,Total 9.4 mg/dL (8.5-10.1); Chloride 110 mmol/L (98-107); Creatinine, Serum 0.64 mg/dL (0.70-1.30); EST Glomerular Filtration Rate 131 mL/min (>60); Est Glom Filt Rate - Afr Amer 158 mL/min (>60); Globulin 4.6 g/dL (2.2-4.2); Glucose 136 mg/dL (74-106); Potassium 3.7 mmol/L (3.5-5.1); Protein, Total 6.5 g/dL (6.4-8.2); Sodium Level 141 mmol/L (136-145)
--- NOTE | 2022-10-11 06:05 | PCM.PN.INT ---
Assessment & Plan Assessment/Plan (1) Cardiopulmonary arrest with successful resuscitation: (2) Acute metabolic encephalopathy: (3) Acute hypoxemic respiratory failure: PLAN: Plan RECOMMENDATIONS: 1. Continue with spontaneous mode of mechanical ventilation throughout the day and assist control overnight. 2. Continue tube feeds as tolerated. 3. Continue appropriate GI prophylaxis. 4. Ongoing goals of care discussion with the patient's family. Definitive decision regarding trach and PEG is supposed to be rendered today. IMPRESSIONS: 1. Acute metabolic encephalopathy secondary to severe anoxic brain injury The patient presented with PEA cardiac arrest and has developed secondary anoxic brain injury. The patient continues to have cranial nerve reflexes, but MRI is showing herniation. Plan to continue supporting hemodynamics and monitor neuro status. Anticipate no further imaging unless patient has a change in neurologic status. Family is wavering regarding future goals of care. Plan to continue supportive measures and await definitive decisions regarding care management by the patient's family. 2. Cardiopulmonary arrest of unclear etiology The patient presented with PEA arrest with a least 8 minutes down. Echocardiogram shows an EF of 50%. No longer on IV heparin secondary to guaiac positive stools. 3. Morbid obesity/chronic pain syndrome/new onset seizure/CHIVO Complicates care, management, recovery and prognosis. Continue supportive measures as noted above. CODE status: Discussed CODE status at length including difference between FULL code, DNR-CCA and DNR-CC status. Following discussions about the differences in these status, patient's family requested DNR-CC CODE STATUS. Advanced Care Planning Face to Face Time: 21 minutes. This note was generated with [employer] dictation software. It may contain incorrect words, spelling, and punctuation that were not noted in checking the note before signing. Subjective Subjective The patient was seen and examined at the bedside this morning. Events from the last 24 hours have been reviewed. The patient is currently afebrile, hemodynamically stable and maintaining appropriate oxygen saturations on spontaneous mode mechanical ventilation with an FiO2 requirement of 21% . Neurologically, the patient remains unchanged. He is documented to be overall net +7.4 L for the hospitalization. Objective Data Objective Data The patient's most recent lab work, culture data and imaging studies have all been personally reviewed. Vital Signs: Vital Signs Temp Pulse Resp BP Pulse Ox O2 Del Method O2 Flow Rate 100.5 F H 70 20 H 149/61 H 96 Mechanical Ventilator 10/11/22 04:00 10/11/22 05:15 10/11/22 05:15 10/11/22 05:15 10/11/22 05:15 10/11/22 05:15 10/10/22 12:00 FiO2 21 10/11/22 05:15 Oxygen Flow Rate (L/min) 21 Oxygen Delivery Method Mechanical Ventilator Weight: 290 lb 1.6 oz Body Mass Index (BMI) 43.0 Intake & Output: Intake and Output for Last 24 Hours 10/09/22 10/10/22 10/11/22 23:59 23:59 23:59 Intake Total 2226.5 / 3315.67 2539.17 / 2614.17 150 / 150 Output Total 2600 / 2900 1335 / 1585 250 / 250 Balance -373.5 / 415.67 1204.17 / 1029.17 -100 / -100 Lab / Micro Data Attestation: I reviewed the patient's lab results. Result Diagrams: 10/11/22 04:30 10/11/22 04:30 Labs: Laboratory Results - last 24 hr 10/11/22 04:30: WBC 14.9 H, RBC 3.52 L, Hgb 10.4 L, Hct 33.8 L, MCV 96.0 H, MCH 29.5, MCHC 30.8 L, RDW Std Deviation 48.5 H, RDW Coeff of Kiara 13.7, Plt Count 397, MPV 10.1, Immature Gran % (Auto) 0.500, Neut % (Auto) 82.4 H, Lymph % (Auto) 12.1 L, [place] % (Auto) 4.0, Eos % (Auto) 0.9, Baso % (Auto) 0.1, Absolute Neuts (auto) 12.3 H, Absolute Lymphs (auto) 1.80, Nucleated RBC % 0 10/11/22 04:30: Sodium 141, Potassium 3.7, Chloride 110 H, Carbon Dioxide 27.0, Anion Gap 4 L, BUN 43 H, Creatinine 0.64 L, Estim Creat Clear Calc 64.60, Est GFR (MDRD) Af Amer 158, Est GFR (MDRD) Non-Af 131, BUN/Creatinine Ratio 67.3 H, Glucose 136 H, Calcium 9.4, Total Bilirubin 0.40, AST 54 H, ALT 132 H, Alkaline Phosphatase 103, Total Protein 6.5, Albumin 1.9 L, Globulin 4.6 H, Albumin/Globulin Ratio 0.4 L Micro: Microbiology 09/28/22 14:25 Blood Culture (Wb) - Port Blood Culture - Final No growth in 5 days. 09/28/22 15:50 Blood Culture (Wb) - Anticubital Right Blood Culture - Final No growth in 5 days. 09/29/22 15:38 Sputum, Induced/Lukens Gram Stain - Final 09/29/22 15:38 Sputum, Induced/Lukens Respiratory Culture - Final Mixed normal respiratory elyssa. No Streptococcus pneumoniae, beta-hemolytic Streptococcus or Staphylococcus aureus isolated. 09/28/22 14:20 Sputum, Induced/Lukens Gram Stain - Final 09/28/22 14:20 Sputum, Induced/Lukens Respiratory Culture - Final 09/28/22 15:05 Urine Catheter - Catheter Urine Culture - Final Culture exhibits no growth. 10/01/22 08:00 Stool Stool Occult Blood (NIKITA) - Final Occult Blood Positive 09/28/22 15:05 Urine Catheter - Catheter Legionella Antigen - Final 09/28/22 15:05 Urine Catheter - Catheter Streptococcus pneumoniae Antigen (M - Final 09/28/22 14:20 Mucosa - Nose - Final 09/28/22 15:52 Nasal Secretion SARS-CoV-2 Antigen (Rapid) - Final Physical Exam Const Constitutional Narrative: Remains intubated and mechanically ventilated. Tolerating spontaneous mode mechanical ventilation. Remains comatose on the ventilator. HEENT normocephalic and head/scalp atraumatic Mouth: endotracheal tube in place and OG tube in place Eyes PERRL Eyes Narrative: Eyes are open, but the patient is not currently tracking. Neck supple General: trachea midline Chest inspection of chest normal Resp normal respiratory effort Auscultation: Negative for rales, rhonchi or wheezes Cardio regular rate and regular rhythm GI normal to inspection, nondistended, normoactive bowel sounds Extremity Extremity Narrative: Generalized upper and lower extremity edema. Skin no rashes or lesions noted Neuro Neuro Narrative: Comatose on the ventilator. Charges/Coding Visit Charges Inpatient E&M: 48551 Subs Hosp L2 Procedures Hospitalists Procedures: 61211 Advncd Care Plan 30 Min
[2022-10-11] MEDS: CHLORHEXIDINE GLUC 2% CLOTH 1 EACH TOWELETTE TOPICAL (07:23)
[2022-10-11] MEDS: 0.9% Saline Lock 10 ML Syringe IV ×4 (07:23→21:41)
[2022-10-11] MEDS: Vital High Protein 1,000 ML 70 ML GT (07:25)
[2022-10-11] MEDS: Famotidine 20 MG Tablet GT (07:37)
[2022-10-11] MEDS: Furosemide 40 MG/4 ML Vial IV (07:37)
[2022-10-11] MEDS: Chlorhexidine 15 ML PO (07:41)
--- NOTE | 2022-10-11 12:59 | PN.HOSP_ITS ---
Reason for Visit Reason for Visit: Diagnoses Obesity, unspecified (09/28/22) Acidosis, unspecified (09/28/22) Other generalized epilepsy and epileptic syndromes, not intractable, without status epilepticus (09/28/22) Obstructive sleep apnea (adult) (pediatric) (09/28/22) Anoxic brain damage, not elsewhere classified (09/28/22) Metabolic encephalopathy (09/28/22) Cardiac arrest, cause unspecified (09/28/22) Hypotension, unspecified (09/28/22) Acute respiratory failure with hypoxia (09/28/22) Respiratory failure, unspecified, unspecified whether with hypoxia or hypercapnia (09/28/22) Bradycardia, unspecified (09/28/22) Cardiogenic shock (09/28/22) Shock, unspecified (09/28/22) Dependence on respirator [ventilator] status (09/28/22) Subjective Subjective Patient seen and examined. He continues to be on the ventilator though he has spontaneous opening of eyes now. Unable to do review of systems as patient is intubated. He is on the spontaneous mode of ventilation. Objective Data Objective Data Vital Signs: Vital Signs Temp Pulse Resp BP Pulse Ox O2 Del Method O2 Flow Rate 99.5 F H 69 24 H 131/60 H 96 Mechanical Ventilator 21 10/11/22 12:00 10/11/22 12:00 10/11/22 12:00 10/11/22 12:00 10/11/22 12:00 10/11/22 12:00 10/10/22 12:00 FiO2 21 10/11/22 12:00 Oxygen Flow Rate (L/min) 21 Oxygen Delivery Method Mechanical Ventilator Weight: 290 lb 1.6 oz Body Mass Index (BMI) 43.0 Intake & Output: Intake and Output for Last 24 Hours 10/09/22 10/10/22 10/11/22 23:59 23:59 23:59 Intake Total 2226.5 / 3315.67 2539.17 / 2614.17 1300 / 1300 Output Total 2600 / 2900 1335 / 1585 1950 / 1950 Balance -373.5 / 415.67 1204.17 / 1029.17 -650 / -650 Lab / Micro Data Result Diagrams: 10/11/22 04:30 10/11/22 04:30 Labs: Laboratory Results - last 24 hr 10/11/22 04:30: WBC 14.9 H, RBC 3.52 L, Hgb 10.4 L, Hct 33.8 L, MCV 96.0 H, MCH 29.5, MCHC 30.8 L, RDW Std Deviation 48.5 H, RDW Coeff of Kiara 13.7, Plt Count 397, MPV 10.1, Immature Gran % (Auto) 0.500, Neut % (Auto) 82.4 H, Lymph % (Auto) 12.1 L, Patrick % (Auto) 4.0, Eos % (Auto) 0.9, Baso % (Auto) 0.1, Absolute Neuts (auto) 12.3 H, Absolute Lymphs (auto) 1.80, Nucleated RBC % 0 10/11/22 04:30: Sodium 141, Potassium 3.7, Chloride 110 H, Carbon Dioxide 27.0, Anion Gap 4 L, BUN 43 H, Creatinine 0.64 L, Estim Creat Clear Calc 64.60, Est GFR (MDRD) Af Amer 158, Est GFR (MDRD) Non-Af 131, BUN/Creatinine Ratio 67.3 H, Glucose 136 H, Calcium 9.4, Total Bilirubin 0.40, AST 54 H, ALT 132 H, Alkaline Phosphatase 103, Total Protein 6.5, Albumin 1.9 L, Globulin 4.6 H, Albumin/Globulin Ratio 0.4 L Micro: Microbiology 09/28/22 14:25 Blood Culture (Wb) - Port Blood Culture - Final No growth in 5 days. 09/28/22 15:50 Blood Culture (Wb) - Anticubital Right Blood Culture - Final No growth in 5 days. 09/29/22 15:38 Sputum, Induced/Lukens Gram Stain - Final 09/29/22 15:38 Sputum, Induced/Lukens Respiratory Culture - Final Mixed normal respiratory elyssa. No Streptococcus pneumoniae, beta-hemolytic Streptococcus or Staphylococcus aureus isolated. 09/28/22 14:20 Sputum, Induced/Lukens Gram Stain - Final 09/28/22 14:20 Sputum, Induced/Lukens Respiratory Culture - Final 09/28/22 15:05 Urine Catheter - Catheter Urine Culture - Final Culture exhibits no growth. 10/01/22 08:00 Stool Stool Occult Blood (NIKITA) - Final Occult Blood Positive 09/28/22 15:05 Urine Catheter - Catheter Legionella Antigen - Final 09/28/22 15:05 Urine Catheter - Catheter Streptococcus pneumoniae Antigen (M - Final 09/28/22 14:20 Mucosa - Nose - Final 09/28/22 15:52 Nasal Secretion SARS-CoV-2 Antigen (Rapid) - Final Physical Exam Const Constitutional Narrative: intubated, RASS score is 0 today; off sedatives Orientation / Consciousness: lethargic HEENT normocephalic, head/scalp atraumatic and moist oral mucous membranes Head and Scalp: normocephalic Mouth: oral and palatal mucosa normal Eyes PERRL, EOMs intact bilaterally and conjunctivae normal Eyes Narrative: Pupils are at 3 mm and minimally reactive to light Neck no lymphadenopathy, supple, no JVD and no carotid bruits Resp Resp Narrative: intubated, diminished breath sounds bibasally, no wheezes or crackles. intubated, remains on spontaneous breathing mode Cardio regular rate, regular rhythm, S1 normal heart sound, S2 normal heart sound and no murmurs GI normal to inspection, nondistended, normoactive bowel sounds, soft to palpation and non-tender Auscultation: hypoactive bowel sounds Extremity normal to inspection and no clubbing, cyanosis or edema Neuro Neuro Narrative: intubated,not sedated. RASS score is 0 today. Psych Psych Narrative: patient on the ventilator, RASS score is 0. Assessment & Plan Assessment/Plan (1) Anoxic brain injury: (2) Seizure disorder, grand mal: (3) Acute metabolic encephalopathy: (4) Cardiopulmonary arrest with successful resuscitation: (5) On mechanically assisted ventilation: PLAN: Plan #Acute cardiopulmonary arrest with resultant anoxic brain injury * patient was admitted with acute cardiopulmonary arrest; he was down for several minutes and was successfully resuscitated * troponins were markedly elevated. * has had resultant anoxic brain injury. * remains intubated; not on sedatives. RASS score today is 0. Remains on sp ontaneous mode of ventilation * critical care on board * #Acute hypoxic respiratory failure due to cardiopulmonary arrest * remains intubated. On ventilator; currently on spontaneous mode of mechanical ventilation during the day and assist control at night. * critical care on board * titrate oxygen to maintain sats >90% * breathing treatment with bronchodilators. * family still deciding about Tracheostomy and say they will inform medical team about their decision today. * #Acute metabolic encephalopathy due to severe anoxic brain injury: * As above * MRI of the brain showed herniation * on keppra. * will monitor neurologic status. opens eyes spontaneously today * #Severe metabolic acidosis: likely due to acute cardiopulmonary arrest. Resolved. #Nonstemi * Troponins were markedly elevated. 2D echo done showed normal EF. Will benefit from cardiac cath once he becomes stable. * #Seizure disorder: On Keppra #Nutrition: on tube feeds. Family still deciding about PEG tube. Currently on tube feeds. Family Will decide about PEG tube on Friday #Morbid obesity: complicates acute care, expected recovery and prognosis DVT prophylaxis; lovenox GI prophylaxis; PPI Total time spent on seeing patient, reviewing chart, evaluation and management and discussion with patient;s family and nursing staff as well as documentation: 38 minutes. Charges/Coding Visit Charges Inpatient E&M: 58063 Subs Hosp L2
[2022-10-11] MEDS: Morphine 2 MG/ML Syringe IV ×3 (15:56→21:40)
--- NOTE | 2022-10-11 15:57 | CHAPLAIN ---
Type of Pastoral Visit ___ Initial Visit _x__ Follow-up Visit ___ On-call Visit ___ General Patient Visit ___ Spiritual Assessment ___ Family Conference ___ Bereavement ___ Rapid Response ___ Code Blue ___ Other (describe below) Pastoral Care Referral From ___ Patient ___ Family ___ Nurse ___ Physician ___ Biometrics Head ___ Engineering Operator _x__ Other (describe below) Sacrament/Intervention _x__ Active listening ___ Anointing ___ Spiritism ___ Bereavement ___ Communion ___ Martha exploration ___ ___ Life review _x__ Prayer ___ Reconciliation ___ Sacrament of Sick _x__ Supportive presence ___ Wedding ___ Other (describe below) Pastoral Comments many family members including grandchildren have gathered today as a plan to extubate the patient will occur today or tomorrow; offer of support to family members in the patient's room and in the waiting area; prayer given at bedside; family expresses thanks for support; no other needs identified at this time;
--- NOTE | 2022-10-11 21:00 | NURSING ---
Pt assessed, work of breathing is labored w/accessory muscle use and tachypnea. Explained to pt's dtr at bedside the purpose of morphine and comfort medications...and that we are not here to euthanize him. Educated dtr about easing respiratory effort for comfort. Christina disagrees w/this nurse's assessment and refuses to allow the medication to be given, stating I have the choice to allow you to medicate, or not. And I'm not allowing you.
--- NOTE | 2022-10-11 21:09 | NURSING ---
Unit mgr, Maegan Snow, notified of interaction w/pt's dtr. House nrsg sprvsr notified as well. Hospitalist director of education and training, Dr.Autumn Jackson, notified and advises calling pt's and primary decision maker of the dtr's choosing to not allow staff to medicate for comfort. Call made to Christina Smith at the home number listed in medical chart and simple msg left for her to call the ICU.
--- NOTE | 2022-10-11 22:20 | NURSING ---
Pt's dtr Christina called this RN into room to apologize for not understanding what you were trying to tell me. Christina acknowledged that she's having difficulty accepting the new careplan and then stated, it's probably not a good idea for me to stay. I'm going to go home and get some rest. Emotional support given.
[2022-10-12] MEDS: Menthol/Lanolin/Calamine/Znox 113 GM Tube 1 APPLIC TOPICAL (05:17)
[2022-10-12] MEDS: 0.9% Saline Lock 10 ML Syringe IV ×3 (05:23→18:51)
[2022-10-12] MEDS: LORazepam 2 MG/ML Syringe IV (05:23)
[2022-10-12] MEDS: Morphine 2 MG/ML Syringe IV ×3 (05:24→18:50)
--- NOTE | 2022-10-12 05:31 | NURSING ---
Pt repositioned and prn seb applied, mouthcare provided; RR increased sharply to 35 w/worsening work of breathing. Noted continuous horizontal nystagmus of jacqui eyes, rt eye worse than left. PRN morphine 4mg and Ativan 2mg given IV as per orders.
--- NOTE | 2022-10-12 05:43 | PCM.PN.INT ---
Assessment & Plan Assessment/Plan (1) Cardiopulmonary arrest with successful resuscitation: (2) Acute metabolic encephalopathy: (3) Acute hypoxemic respiratory failure: PLAN: Plan RECOMMENDATIONS: 1. Continue with comfort care measures to address residual symptoms. Continue as needed morphine and Ativan. 2. Disposition planning per case management. 3. Will sign off from a pulmonary/critical care perspective. Please call with any additional questions. IMPRESSIONS: 1. Acute metabolic encephalopathy secondary to severe anoxic brain injury The patient presented with PEA cardiac arrest and has developed secondary anoxic brain injury. The patient continues to have cranial nerve reflexes, but MRI is showing herniation. Given the lack of neurologic recovery, the decision was made by the patient's family to proceed with terminal extubation on October 11 and initiation of comfort care measures. 2. Cardiopulmonary arrest of unclear etiology The patient presented with PEA arrest with a least 8 minutes down. Echocardiogram shows an EF of 50%. No longer on IV heparin secondary to guaiac positive stools. 3. Morbid obesity/chronic pain syndrome/new onset seizure/CHIVO Complicates care, management, recovery and prognosis. Continue supportive measures as noted above. CODE STATUS: DNR comfort care This note was generated with [employer] dictation software. It may contain incorrect words, spelling, and punctuation that were not noted in checking the note before signing. Subjective Subjective The patient was seen and examined at the bedside this morning. Events from the last 24 hours have been reviewed. Following an extensive family discussion yesterday regarding goals of care, a consensus was eventually reached to proceed with terminal extubation and initiation of comfort care measures. The patient has remained hemodynamically stable on room air. Objective Data Objective Data The patient's most recent lab work, culture data and imaging studies have all been personally reviewed. Vital Signs: Vital Signs Temp Pulse Resp BP Pulse Ox O2 Del Method O2 Flow Rate 99.3 F H 76 24 H 119/69 96 Room Air 10/11/22 20:00 10/11/22 20:00 10/11/22 20:10/11/22 20:10/11/22 20:10/11/22 21:00 10/10/22 12:00 FiO2 10/11/22 15:00 Oxygen Flow Rate (L/min) 21 Oxygen Delivery Method Room Air Weight: 290 lb 1.6 oz Body Mass Index (BMI) 43.0 Intake & Output: Intake and Output for Last 24 Hours 10/10/22 10/11/22 10/12/22 23:59 23:59 23:59 Intake Total 2539.17 / 2614.17 1889.17 / 1889.17 Output Total 1335 / 1585 1950 / 1950 Balance 1204.17 / 1029.17 -60.83 / -60.83 Lab / Micro Data Attestation: I reviewed the patient's lab results. Result Diagrams: 10/11/22 04:30 10/11/22 04:30 Labs: Laboratory Results - last 24 hr 10/11/22 04:30: WBC 14.9 H, RBC 3.52 L, Hgb 10.4 L, Hct 33.8 L, MCV 96.0 H, MCH 29.5, MCHC 30.8 L, RDW Std Deviation 48.5 H, RDW Coeff of Kiara 13.7, Plt Count 397, MPV 10.1, Immature Gran % (Auto) 0.500, Neut % (Auto) 82.4 H, Lymph % (Auto) 12.1 L, [place] % (Auto) 4.0, Eos % (Auto) 0.9, Baso % (Auto) 0.1, Absolute Neuts (auto) 12.3 H, Absolute Lymphs (auto) 1.80, Nucleated RBC % 0 10/11/22 04:30: Sodium 141, Potassium 3.7, Chloride 110 H, Carbon Dioxide 27.0, Anion Gap 4 L, BUN 43 H, Creatinine 0.64 L, Estim Creat Clear Calc 64.60, Est GFR (MDRD) Af Amer 158, Est GFR (MDRD) Non-Af 131, BUN/Creatinine Ratio 67.3 H, Glucose 136 H, Calcium 9.4, Total Bilirubin 0.40, AST 54 H, ALT 132 H, Alkaline Phosphatase 103, Total Protein 6.5, Albumin 1.9 L, Globulin 4.6 H, Albumin/Globulin Ratio 0.4 L Micro: Microbiology 09/28/22 14:25 Blood Culture (Wb) - Port Blood Culture - Final No growth in 5 days. 09/28/22 15:50 Blood Culture (Wb) - Anticubital Right Blood Culture - Final No growth in 5 days. 09/29/22 15:38 Sputum, Induced/Lukens Gram Stain - Final 09/29/22 15:38 Sputum, Induced/Lukens Respiratory Culture - Final Mixed normal respiratory elyssa. No Streptococcus pneumoniae, beta-hemolytic Streptococcus or Staphylococcus aureus isolated. 09/28/22 14:20 Sputum, Induced/Lukens Gram Stain - Final 09/28/22 14:20 Sputum, Induced/Lukens Respiratory Culture - Final 09/28/22 15:05 Urine Catheter - Catheter Urine Culture - Final Culture exhibits no growth. 10/01/22 08:00 Stool Stool Occult Blood (NIKITA) - Final Occult Blood Positive 09/28/22 15:05 Urine Catheter - Catheter Legionella Antigen - Final 09/28/22 15:05 Urine Catheter - Catheter Streptococcus pneumoniae Antigen (M - Final 09/28/22 14:20 Mucosa - Nose - Final 09/28/22 15:52 Nasal Secretion SARS-CoV-2 Antigen (Rapid) - Final Physical Exam Const Constitutional Narrative: The patient is resting comfortably, supine in bed. No interval neurologic changes. HEENT normocephalic and head/scalp atraumatic Eyes PERRL Neck supple General: trachea midline Chest inspection of chest normal Resp Effort and Inspection: tachypneic Auscultation: Negative for rales, rhonchi or wheezes Cardio regular rate and regular rhythm GI normal to inspection, nondistended, normoactive bowel sounds Extremity Extremity Narrative: Generalized upper and lower extremity edema. Skin no rashes or lesions noted Neuro Neuro Narrative: The patient remains comatose. Charges/Coding Visit Charges Inpatient E&M: 84408 Subs Hosp L2
[2022-10-12 06:57] VITALS: O2SAT 93
[2022-10-12 08:00] VITALS: BP 110/69; PULSE 88; RESP 27; TEMP 37.4; O2SAT 97
[2022-10-12 09:20] VITALS: RESP 32
--- NOTE | 2022-10-12 12:55 | PN.HOSP_ITS ---
Reason for Visit Reason for Visit: Diagnoses Obesity, unspecified (09/28/22) Acidosis, unspecified (09/28/22) Other generalized epilepsy and epileptic syndromes, not intractable, without status epilepticus (09/28/22) Obstructive sleep apnea (adult) (pediatric) (09/28/22) Anoxic brain damage, not elsewhere classified (09/28/22) Metabolic encephalopathy (09/28/22) Cardiac arrest, cause unspecified (09/28/22) Hypotension, unspecified (09/28/22) Acute respiratory failure with hypoxia (09/28/22) Respiratory failure, unspecified, unspecified whether with hypoxia or hypercapnia (09/28/22) Bradycardia, unspecified (09/28/22) Cardiogenic shock (09/28/22) Shock, unspecified (09/28/22) Dependence on respirator [ventilator] status (09/28/22) Subjective Subjective Patient seen and examined. He was terminally extubated with yesterday. Quite comfortable and unlikely to be in pain. Unable to do review of systems as patient is not responsive. Objective Data Objective Data Vital Signs: Vital Signs Temp Pulse Resp BP Pulse Ox O2 Del Method O2 Flow Rate 99.3 F H 88 32 H 110/69 97 Room Air 21 10/12/22 08:00 10/12/22 08:00 10/12/22 09:20 10/12/22 08:00 10/12/22 08:00 10/12/22 09:20 10/10/22 12:00 FiO2 21 10/11/22 15:00 Oxygen Flow Rate (L/min) 21 Oxygen Delivery Method Room Air Weight: 290 lb 1.6 oz Body Mass Index (BMI) 43.0 Intake & Output: Intake and Output for Last 24 Hours 10/10/22 10/11/22 10/12/22 23:59 23:59 23:59 Intake Total 2539.17 / 2614.17 1889.17 / 1889.17 Output Total 1335 / 1585 1950 / 1950 850 / 850 Balance 1204.17 / 1029.17 -60.83 / -60.83 -850 / -850 Lab / Micro Data Result Diagrams: 10/11/22 04:30 10/11/22 04:30 Micro: Microbiology 09/28/22 14:25 Blood Culture (Wb) - Port Blood Culture - Final No growth in 5 days. 09/28/22 15:50 Blood Culture (Wb) - Anticubital Right Blood Culture - Final No growth in 5 days. 09/29/22 15:38 Sputum, Induced/Lukens Gram Stain - Final 09/29/22 15:38 Sputum, Induced/Lukens Respiratory Culture - Final Mixed normal respiratory elyssa. No Streptococcus pneumoniae, beta-hemolytic Streptococcus or Staphylococcus aureus isolated. 09/28/22 14:20 Sputum, Induced/Lukens Gram Stain - Final 09/28/22 14:20 Sputum, Induced/Lukens Respiratory Culture - Final 09/28/22 15:05 Urine Catheter - Catheter Urine Culture - Final Culture exhibits no growth. 10/01/22 08:00 Stool Stool Occult Blood (NIKITA) - Final Occult Blood Positive 09/28/22 15:05 Urine Catheter - Catheter Legionella Antigen - Final 09/28/22 15:05 Urine Catheter - Catheter Streptococcus pneumoniae Antigen (M - Final 09/28/22 14:20 Mucosa - Nose - Final 09/28/22 15:52 Nasal Secretion SARS-CoV-2 Antigen (Rapid) - Final Physical Exam Const Constitutional Narrative: terminally extubated. on room air. Orientation / Consciousness: lethargic HEENT normocephalic, head/scalp atraumatic and moist oral mucous membranes Eyes PERRL, EOMs intact bilaterally and conjunctivae normal Neck no lymphadenopathy, supple, no JVD and no carotid bruits Resp Resp Narrative: diminished breath sounds bibasally, no wheezes or crackles. on room air. Cardio regular rate, regular rhythm, S1 normal heart sound, S2 normal heart sound, no murmurs and no gallops GI normal to inspection, nondistended, normoactive bowel sounds, soft to palpation and non-tender GI Narrative: Abdomen is somewhat distended Extremity normal to inspection and no clubbing, cyanosis or edema Extremity Narrative: There is some generalized edema of the patient's lower legs bilaterally Neuro Neuro Narrative: terminally extubated. On room air. lethargic Psych Psych Narrative: terminally extubated, lethargic Assessment & Plan Assessment/Plan (1) Anoxic brain injury: (2) Seizure disorder, grand mal: (3) Acute metabolic encephalopathy: (4) Cardiopulmonary arrest with successful resuscitation: (5) On mechanically assisted ventilation: PLAN: Plan #Acute cardiopulmonary arrest with resultant anoxic brain injury * patient was admitted with acute cardiopulmonary arrest; he was down for several minutes and was successfully resuscitated * troponins were markedly elevated. * has had resultant anoxic brain injury. * patient was terminally extubated yesterday. Now on room air. Family meeting with hospice today * #Acute hypoxic respiratory failure due to cardiopulmonary arrest * terminally extubated yesterday and now on room air. * #Acute metabolic encephalopathy due to severe anoxic brain injury: * As above * MRI of the brain showed herniation * on keppra. * terminally extubated yesterday * #Severe metabolic acidosis: likely due to acute cardiopulmonary arrest. Resolved. #Nonstemi * Troponins were markedly elevated. 2D echo done showed normal EF. * terminally extubated today * #Seizure disorder: On Keppra #Nutrition: terminally extubated. Family meeting with hospice later today #Morbid obesity: complicates acute care, expected recovery and prognosis DVT prophylaxis; lovenox GI prophylaxis; PPI Disposition: Family meeting with hospice today and will let us know if you have plans after the meeting. Total time spent on seeing patient, reviewing chart, evaluation and management and discussion with patient;s family and nursing staff as well as documentation: 40 minutes. Charges/Coding Visit Charges Inpatient E&M: 35646 Subs Hosp L2
--- NOTE | 2022-10-12 14:29 | CASEMGMT ---
SW Note SW received voice mail message from [facility]ar Smith saying that they had toured the facility at [facility] today and wanted the patient to go to [facility] but NOT to [place]. SW called Azar back to follow up and stated that this underwriter mortgage loan understood that patient wanted [facility] in [place] but the referrals are sent to [place]. Emotional support provided. Huber called ICU and spoke to staff. ICU staff said [facility] only requested and SSN for patient. No other information was requested. HUBER called [facility] and requested to see if they needed additional paperwork. Shaylee from [facility] called back and spoke to Manju in [place] office and that they have all the needed information and have no need for additional information. Liasion is meeting with family at 4pm today. Margoth MACKEY
--- NOTE | 2022-10-12 17:16 | CASEMGMT ---
Addendum entered by Margoth Hicks 10/12/22 17:34: [facility] Liasion is Liliam. SW received call from Liliam at [facility]osp[facility]. She requested SSN and Medicare number. It was provided to her. Margoth MACKEY Addendum entered by Margoth Hicks 10/12/22 17:27: HUBER called ICU and spoke to staff. Transportation has been set for patient. Margoth MACKEY Original Note: HUBER met with liasion, Selene, from [facility]. She reports she met with family and is typing up her assessment. There is one bed at [facility]. Selene requested hospital set up transport. HUBER met with patient's daughter briefly and provided emotional support. Plan: [facility] Margoth MACKEY
--- NOTE | 2022-10-12 17:43 | DS.PCM_ITS ---
Providers Date of Admission: 09/28/22 Date of Discharge: 10/12/22 Primary Care Physician: Dr. Angelia Nielsen MD Consultations 09/28/22 12:27 Consult: Director [facility] / Pulmonary Medicine Routine Consulting Provider: Pulmonary Medicine jacoby Bass Reason for Consult: shock EMERGENT Consult: Yes MD Notified: Yes Date Notified: 09/28/22 Time Notified: 12:28 Method of Notification: Verbal 09/28/22 12:35 Consult: Cardiology Stat Consulting Provider: Zbigniew Johnson Reason for Consult: shock of undetermined etiology EMERGENT Consult: Yes MD Notified: Yes Date Notified: 09/28/22 Time Notified: 12:36 Method of Notification: Verbal 09/28/22 12:46 Consult: Director [facility] / Pulmonary Medicine Routine Consulting Provider: Pulmonary Medicine jacoby Bass Reason for Consult: respiratory failure EMERGENT Consult: No Notified: Yes Date Notified: 09/28/22 Time Notified: 11:05 Method of Notification: Verbal 09/29/22 11:02 Consult: Infectious Disease Routine Consulting Provider: Otf Abrams Reason for Consult: possible L4-L5 chronic infection EMERGENT Consult: No Notified: Yes Date Notified: 09/29/22 Time Notified: 11:02 Method of Notification: Text bsckline Reason For Visit: CARDIAC ARREST, RESPIRATORY FAILURE,UNRESPONSIVE Diagnosis Discharge Diagnosis (1) Anoxic brain injury: Status: Acute Code(s): G93.1 - Anoxic brain damage, not elsewhere classified (2) Seizure disorder, grand mal: Status: Acute Code(s): G40.409 - Other generalized epilepsy and epileptic syndromes, not intractable, without status epilepticus (3) Acute metabolic encephalopathy: Status: Acute Code(s): G93.41 - Metabolic encephalopathy (4) Cardiopulmonary arrest with successful resuscitation: Status: Acute Code(s): I46.9 - Cardiac arrest, cause unspecified (5) On mechanically assisted ventilation: Status: Acute Code(s): Z99.11 - Dependence on respirator [ventilator] status Plan #Acute cardiopulmonary arrest with resultant anoxic brain injury * patient was admitted with acute cardiopulmonary arrest; he was down for several minutes and was successfully resuscitated * troponins were markedly elevated. * has had resultant anoxic brain injury. * patient was terminally extubated yesterday. Now on room air. Family meeting with hospice today * #Acute hypoxic respiratory failure due to cardiopulmonary arrest * terminally extubated yesterday and now on room air. * #Acute metabolic encephalopathy due to severe anoxic brain injury: * As above * MRI of the brain showed herniation * on keppra. * terminally extubated yesterday * #Severe metabolic acidosis: likely due to acute cardiopulmonary arrest. Resolved. #Nonstemi * Troponins were markedly elevated. 2D echo done showed normal EF. * terminally extubated today * #Seizure disorder: On Keppra #Nutrition: terminally extubated. Family meeting with hospice later today #Morbid obesity: complicates acute care, expected recovery and prognosis DVT prophylaxis; lovenox GI prophylaxis; PPI Disposition: Family meeting with hospice today and will let us know if you have plans after the meeting. Total time spent on seeing patient, reviewing chart, evaluation and management and discussion with patient;s family and nursing staff as well as documentation: 40 minutes. Medications at Discharge Home Medications tamsulosin 0.4 mg capsule 0.4 mg PO BID prostate 08/27/15 acetaminophen 300 mg-codeine 30 mg tablet 1 tab PO DAILY PRN Pain 07/05/18 baclofen 10 mg tablet 20 mg PO TID PRN Spasms 07/05/18 ciprofloxacin 0.3 %-dexamethasone 0.1 % ear drops,suspension 4 drp RIGHT EAR BID ear infection 03/25/19 fluticasone propionate 50 mcg/actuation nasal spray,suspension 2 spray NASAL QHS sinus 03/25/19 doxycycline monohydrate 100 mg capsule 100 mg PO BID #20 caps 03/21/22 cephalexin 500 mg capsule 500 mg PO TID #15 caps 06/27/22 Hospital Course Operations None Procedures None Summary of Care Provided Minutes Spent on Discharge: 50 Hospital Course: Patient is a 72-year-old male with a past medical history as outlined who was admitted through the ED on 09/28/2022 after he was found on his couch unresponsive. He had apparently been seen well in the morning at home. When EMS arrived he was hypotensive and unresponsive. His pupils were pinpoint. 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 Blood gases done showed that he was acidotic and he was started on bicarb drip. He was admitted emergently to the ICU and managed for acute cardiopulmonary arres. He subsequently developed anoxic brain injury. MRI of the brain done showed herniation. 2D echo done showed EF of 50%. He was initially started on heparin drip on account of non-STEMI. However this was continued on account of guaiac positive stools. Patient also developed new onset seizures. Hospital course was prolonged and complicated. He was intubated throughout his admission. Family wanted to wait for 2 weeks before they will decide about tracheostomy and PEG tube. He was placed on tube feeds. Family subsequently decided to terminally extubate patient. This was done on 10/11/2022. Hospice met with family and patient was discharged to inpatient hospice on 10/12/2022. Patient was seen and examined prior to discharge. He was on room air. Unable to do review of systems as patient was minimally responsive. Physical Exam Const Constitutional Narrative: terminally extubated. on room air. Orientation / Consciousness: lethargic HEENT normocephalic, head/scalp atraumatic and moist oral mucous membranes Eyes Eyes Narrative: Pupils are at 3 mm and minimally reactive to light Neck no lymphadenopathy, supple, no JVD and no carotid bruits Resp Resp Narrative: diminished breath sounds bibasally, no wheezes or crackles. on room air. Cardio regular rate, regular rhythm, S1 normal heart sound, S2 normal heart sound, no murmurs and no gallops Cardio Narrative: Heart rate and rhythm is tachycardic GI normal to inspection, nondistended, normoactive bowel sounds, soft to palpation and non-tender Auscultation: hypoactive bowel sounds Extremity normal to inspection and no clubbing, cyanosis or edema Neuro Neuro Narrative: terminally extubated. On room air. lethargic Psych Psych Narrative: terminally extubated, lethargic Weight / BMI Weight Weight: 290 lb 1.6 oz Body Mass Index (BMI) 43.0 ABG / Lab / Microbiology Data Result Diagrams: 10/11/22 04:30 10/11/22 04:30 Microbiology: Microbiology 09/28/22 14:25 Blood Culture (Wb) - Port Blood Culture - Final No growth in 5 days. 09/28/22 15:50 Blood Culture (Wb) - Anticubital Right Blood Culture - Final No growth in 5 days. 09/29/22 15:38 Sputum, Induced/Lukens Gram Stain - Final 09/29/22 15:38 Sputum, Induced/Lukens Respiratory Culture - Final Mixed normal respiratory elyssa. No Streptococcus pneumoniae, beta-hemolytic Streptococcus or Staphylococcus aureus isolated. 09/28/22 14:20 Sputum, Induced/Lukens Gram Stain - Final 09/28/22 14:20 Sputum, Induced/Lukens Respiratory Culture - Final 09/28/22 15:05 Urine Catheter - Catheter Urine Culture - Final Culture exhibits no growth. 10/01/22 08:00 Stool Stool Occult Blood (NIKITA) - Final Occult Blood Positive 09/28/22 15:05 Urine Catheter - Catheter Legionella Antigen - Final 09/28/22 15:05 Urine Catheter - Catheter Streptococcus pneumoniae Antigen (M - Final 09/28/22 14:20 Mucosa - Nose - Final 09/28/22 15:52 Nasal Secretion SARS-CoV-2 Antigen (Rapid) - Final Meaningful Use Info Meaningful Use Diagnoses (Choose all that apply): None applicable AMI/Post PCI/Angioplasty Aspirin given w/in 24hrs of arrival?: Yes Discharge Plan Admission Admit Date/Time: 09/28/22 11:03 Attending Provider: Alisia Ge Primary Care Provider: Angelia Nielsen Consulting Providers: Jim Sanchez ; Amari Zapata ; Sajan Martinez ; Raz Weber ; Amanda Roger NP ; Zbigniew Johnson ; Otf Abrams ; Lacho Riley Instructions Forms: Work / School Excuse Discharge Orders/Prescriptions Prescriptions: No Action doxycycline monohydrate 100 mg capsule 100 mg PO BID Qty: 20 0RF cephalexin 500 mg capsule 500 mg PO TID Qty: 15 0RF tamsulosin 0.4 MG capsule 0.4 mg PO BID Label Comments: prostate acetaminophen-codeine 300MG-3 tablet 1 tab PO DAILY PRN (Reason: Pain) baclofen 10 MG tablet 20 mg PO TID PRN (Reason: Spasms) fluticasone propionate 50 MCG spray,suspension 2 spray NASAL QHS ciprofloxacin-dexamethasone 1 DROP bottle 4 drp RIGHT EAR BID Label Comments: INSTILL 4 DROPS INTO RIGHT EAR TWICE DAILY FOR 7 DAYS Referrals / Follow Up: Angelia Nielsen MD [Primary Care Provider] - Disposition Disposition (needs filled in before D/C Order can be placed): Hospice in Medical Facility Charges/Coding Visit Charges Inpatient E&M: 43415 Disch Hosp >30min
--- NOTE | 2022-10-12 18:32 | NURSING ---
Report called to RN at [facility] inpatient unit.
== END 2022-10-12 18:55 | disposition hospice, inpatient (51) | DRG 280 ==
LOC: ED 11:05 → ICU 11:53
PROVIDERS: Family Medicine; Internal Medicine; Internal Medicine Critical Care Medicine; Admitting Provider Internal Medicine; Emergency Provider Emergency Medicine; PCP Family Medicine; Visit Provider Student in an Organized Health Care Education/Training Program
DX: I46.9 Cardiac arrest, cause unspecified (principal); I21.4 Non-ST elevation (NSTEMI) myocardial infarction; J96.01 Acute respiratory failure with hypoxia; G93.6 Cerebral edema; R57.0 Cardiogenic shock; G93.41 Metabolic encephalopathy; G93.5 Compression of brain; G91.1 Obstructive hydrocephalus; Z68.41 Body mass index [BMI] 40.0-44.9, adult; G93.1 Anoxic brain damage, not elsewhere classified; E87.20 Acidosis, unspecified; I95.9 Hypotension, unspecified; E66.01 Morbid (severe) obesity due to excess calories; G40.409 Other generalized epilepsy and epileptic syndromes, not intractable, without status epilepticus; I47.1 Supraventricular tachycardia; E87.6 Hypokalemia; G47.33 Obstructive sleep apnea (adult) (pediatric); E83.39 Other disorders of phosphorus metabolism; G89.4 Chronic pain syndrome; R73.9 Hyperglycemia, unspecified; Z66 Do not resuscitate; Z79.01 Long term (current) use of anticoagulants; Z79.899 Other long term (current) drug therapy; Z87.891 Personal history of nicotine dependence
CPT/HCPCS: 31500; 31720; 36415; 36600; 51702; 70450; 70496; 70498; 70551; 71045; 71250; 74176; 80048; 80053; 80202; 80307; 80329; 81001; 82274; 82550; 82803; 82962; 83605; 83735; 84100; 84145; 84478; 84484; 85025; 85610; 85730; 87040; 87070; 87086; 87205; 87426; 87449; 87632; 87641; 92950; 93005; 93306; 94002; 94003; 94660; 95819; 97802; 97803; 99252; 99285; J7030; J7040; J7050; Q9957; Q9967; A4216; C8929; G0463; G0480; J1940; J3490